=== PATIENT | male | born 1940 | race Caucasian/White ===

== ENCOUNTER → 2017-07-31 11:05 | Outpatient (CLI) | payer MEDICARE, SELFPAY ==
[2017-07-31 14:22] LABS: Hematocrit 43.7 % (40-54); Hemoglobin 14.5 g/dl (13.0-16.5); Mean Corp Hgb Conc 33.2 g/gl (32-36); Mean Corpuscular Hgb 31.4 pg (27.0-32.0); Mean Corpuscular Volume 94.6 fL (80-94); Mean Platelet Vol. 11.2 fl (6.2-12.0); Platelet Count 214 K/mm3 (150-450); RBC Distribution Width CV 12.5 % (11.6-14.6); RBC Distribution Width SD 42.7 fl (35.1-43.9); Red Blood Count 4.62 M/mm3 (4.6-6.2); White Blood Count 9.5 K/mm3 (4.4-11.0)
[2017-07-31 14:36] LABS: Scan Indicated on CBC? Y/N NO
[2017-07-31 14:49] LABS: ALB/GLOB Ratio 1.1 RATIO (0.9-2.4); AST(SGOT) 27 U/L (15-37); Alanine Aminotransfer ALT/SGPT 33 U/L (16-61); Albumin, Serum 3.9 g/dL (3.2-5.0); Alkaline Phosphatase 99 U/L (45-117); Anion Gap 5 (5-15); BUN 20 mg/dL (7-18); BUN/Creat Ratio 22.8 RATIO (10-20); Chloride 107 mmol/L (98-107); Creatinine, Serum 0.88 mg/dL (0.70-1.30); EST Glomerular Filtration Rate 90 mL/min (>60); Est Glom Filt Rate - Afr Amer 108 mL/min (>60); Globulin 3.4 g/dL (2.2-4.2); Glucose 110 mg/dL (74-106); Potassium 4.5 mmol/L (3.5-5.1); Protein, Total 7.3 g/dL (6.4-8.2); Sodium Level 141 mmol/L (136-145); Thyroid Stim Hormone (TSH) 2.58 uIU/mL (0.358-3.74)
== END ==
PROVIDERS: Family Provider Family Medicine; PCP Family Medicine; Visit Provider Family Medicine
DX: I25.10 Atherosclerotic heart disease of native coronary artery without angina pectoris (principal)
CPT/HCPCS: 36415; 80053; 84443; 85027

== ENCOUNTER → 2017-08-01 16:07 | Outpatient (CLI) | payer BC, SELFPAY ==
--- NOTE | 2017-08-01 | LES_PTH ---
PATIENT: BINH WRIGHT LOC: [facility] U#:[id number] AGE/SX: 85/M ROOM: RE08/01/[address]: Dr. Callum Hill MD : 1940 BED: DIS: SPEC #: [id number] RECD: 08/01/17 17:34 STATUS: PEG CARLYN #: [id number] JIM: 08/01/17 00:[address]: Callum Hill DEPT: SURGICAL PATHOLOGY RECD BY: Sánchez Meadows Tissues: Skin of back, NOS Procedures: Surgery Specimen Level IV HEADER OPERATION: Shave lesion PRE-OP DIAGNOSIS: Rule out melanoma TISSUE SUBMITTED: Left upper back MICROSCOPIC DIAGNOSIS Left upper back lesion, shave biopsy: Actinic keratosis with moderate atypia, hypertrophic type with verrucous features. Negative for malignancy or melanoma in the submitted specimen. SJ:magda 08/05/17 COMMENT Case has been reviewed in consultation with Dr. Thayer who concurs with the above diagnosis. IDC:AM MICROSCOPIC DESCRIPTION Slides are reviewed. GROSS DESCRIPTION Received in fixative is one container labeled with the patient's name and designated left back. The specimen consists of an irregular piece of marques-white skin, shave biopsy, measuring 1 x 0.6 x 0.2 cm. The specimen is inked and submitted entirely in one cassette. It will be serially sectioned at the time of embedding. / SJ:rg 08/04/17 TC:5 CPT: 87320
== END ==
PROVIDERS: Family Provider Family Medicine; PCP Family Medicine; Visit Provider Family Medicine
DX: L98.8 Other specified disorders of the skin and subcutaneous tissue (principal)
CPT/HCPCS: 88305

== ENCOUNTER → 2018-02-02 13:38 | Outpatient (CLI) | payer MEDICARE, SELFPAY ==
[2018-02-02 15:54] LABS: Anion Gap 7 (5-15); BUN 24 mg/dL (7-18); BUN/Creat Ratio 28.7 RATIO (10-20); Calcium,Total 8.9 mg/dL (8.5-10.1); Chloride 109 mmol/L (98-107); Cholesterol 131 mg/dL (200); Creatinine, Serum 0.84 mg/dL (0.70-1.30); EST Glomerular Filtration Rate 95 mL/min (>60); Est Glom Filt Rate - Afr Amer 114 mL/min (>60); Glucose 116 mg/dL (74-106); High Density Lipoprotein 42 mg/dL; Potassium 4.5 mmol/L (3.5-5.1); Sodium Level 142 mmol/L (136-145); Thyroid Stim Hormone (TSH) 2.96 uIU/mL (0.358-3.74); Triglycerides 149 mg/dL; Very Low Density Lipoprotein 30 mg/dL (5-40)
== END ==
PROVIDERS: Family Provider Family Medicine; PCP Family Medicine; Visit Provider Family Medicine
DX: E03.9 Hypothyroidism, unspecified (principal); I25.10 Atherosclerotic heart disease of native coronary artery without angina pectoris
CPT/HCPCS: 36415; 80048; 80061; 84443

== ENCOUNTER → 2018-03-24 08:16 | Outpatient (CLI) | payer MEDICARE, SELFPAY ==
[2018-03-24 10:42] LABS: AST(SGOT) 22 U/L (15-37); Alanine Aminotransfer ALT/SGPT 34 U/L (16-61); Albumin, Serum 3.5 g/dL (3.2-5.0); Alkaline Phosphatase 93 U/L (45-117); Bilirubin, Direct 0.16 mg/dL (0.00-0.30); Cholesterol 123 mg/dL (200); Globulin 3.3 g/dL (2.2-4.2); High Density Lipoprotein 46 mg/dL; Protein, Total 6.8 g/dL (6.4-8.2); Triglycerides 83 mg/dL; Very Low Density Lipoprotein 17 mg/dL (5-40)
== END ==
PROVIDERS: Family Provider Family Medicine; PCP Family Medicine; Referring Provider Physician Assistant Medical; Visit Provider Physician Assistant Medical
DX: E78.5 Hyperlipidemia, unspecified (principal); I25.10 Atherosclerotic heart disease of native coronary artery without angina pectoris
CPT/HCPCS: 36415; 80061; 80076

== ENCOUNTER → 2018-08-07 14:45 | Outpatient (CLI) | payer MEDICARE, SELFPAY ==
--- NOTE | 2018-08-07 14:49 | CT_ITS ---
STUDY: CT BRAIN WITHOUT CONTRAST REASON FOR EXAM: Male, 78 years old. Memory loss RADIATION DOSAGE (If Supplied By Facility): CTDIvol = ( 60.81 ) mGy, DLP = ( 1044.28 ) mGycm TECHNIQUE: Transaxial CT imaging of the brain was performed without administration of intravenous contrast material. Individualized dose optimization techniques were used for this CT. COMPARISON: Prior study CT head dated November 29, 2011, was not provided for comparison. FINDINGS: Normal soft tissue structures. Normal calvarium. There is mild cerebral atrophy with widening of the extra-axial spaces and ventricular dilatation. There are areas of decreased attenuation within the white matter tracts of the supratentorial brain, consistent with microvascular disease changes. Normal basal ganglia and thalami. Normal brainstem. Normal cerebellum. There is no intracranial hemorrhage. There are no findings of an acute ischemic infarction. Normal visualized paranasal sinuses. CT/Brain/Head without Contrast IMPRESSION: Mild atrophy no evidence of acute hemorrhage infarct or edema. At the time of this study is a comparison dated November 29, 2011 was not provided for comparison. Electronically Signed: Kacey Overton MD at 11:00 EDT Tel , Service support ,
== END ==
PROVIDERS: Family Provider Family Medicine; PCP Family Medicine; Referring Provider Family Medicine; Visit Provider Family Medicine
DX: R41.3 Other amnesia (principal)
CPT/HCPCS: 70450

== ENCOUNTER → 2018-09-16 15:06 | Outpatient (CLI) | payer MEDICARE, SELFPAY ==
[2018-09-16 17:35] LABS: Absolute Lymphocyte Count 1.72 X10^3/ul (0.83-4.51); Absolute Neutrophil Count 4.7 X10^3/uL (2.0-7.7); Basophil# 0.02 X10^3/uL; Basophil% 0.3 % (0-1); Eosinophil# 0.22 X10^3/uL; Eosinophils% 2.9 % (0-5); Hematocrit 41.1 % (40-54); Hemoglobin 13.5 g/dl (13.0-16.5); Lymphocyte # 1.72 X10^3/ul (4.0); Lymphocyte % 22.9 % (19-41); Mean Corp Hgb Conc 32.8 g/gl (32-36); Mean Corpuscular Hgb 30.8 pg (27.0-32.0); Mean Corpuscular Volume 93.6 fL (80-94); Mean Platelet Vol. 11.6 fl (6.2-12.0); Monocyte# 0.87 X10^3/uL; Monocyte% 11.6 % (0-10); Neutrophil # 4.67 X10^3/uL (2.7-7.7); Platelet Count 187 K/mm3 (150-450); RBC Distribution Width CV 12.8 % (11.6-14.6); RBC Distribution Width SD 42.7 fl (35.1-43.9); Red Blood Count 4.39 M/mm3 (4.6-6.2); White Blood Count 7.5 K/mm3 (4.4-11.0)
[2018-09-16 17:42] LABS: POSITIVE COUNT NO; POSITIVE DIFFERENTIAL NO; POSITIVE MORPHOLOGY NO
[2018-09-16 17:50] LABS: ALB/GLOB Ratio 1.2 RATIO (0.9-2.4); AST(SGOT) 24 U/L (15-37); Alanine Aminotransfer ALT/SGPT 28 U/L (16-61); Albumin, Serum 3.8 g/dL (3.2-5.0); Alkaline Phosphatase 90 U/L (45-117); Anion Gap 6 (5-15); BUN 16 mg/dL (7-18); BUN/Creat Ratio 17.1 RATIO (10-20); Calcium,Total 8.8 mg/dL (8.5-10.1); Chloride 106 mmol/L (98-107); Creatinine, Serum 0.94 mg/dL (0.70-1.30); EST Glomerular Filtration Rate 83 mL/min (>60); Est Glom Filt Rate - Afr Amer 100 mL/min (>60); Globulin 3.1 g/dL (2.2-4.2); Glucose 105 mg/dL (74-106); Protein, Total 6.9 g/dL (6.4-8.2); Sodium Level 141 mmol/L (136-145); Thyroid Stim Hormone (TSH) 1.83 uIU/mL (0.358-3.74)
[2018-09-16 17:51] LABS: Vitamin B12 1741 pg/mL (211-911)
[2018-09-16 17:54] LABS: Erythrocyte Sedimentation Rate 1 mm/hr (0-20)
== END ==
PROVIDERS: Family Provider Family Medicine; PCP Family Medicine; Referring Provider Family Medicine; Visit Provider Family Medicine
DX: R41.3 Other amnesia (principal)
CPT/HCPCS: 36415; 80053; 82306; 82607; 84443; 85025; 85652

== ENCOUNTER → 2018-10-08 07:50 | Outpatient (CLI) | payer MEDICARE, SELFPAY ==
[2018-03-26 11:02] VITALS: BMI 29.9
[2018-10-08 10:13] LABS: AST(SGOT) 21 U/L (15-37); Alanine Aminotransfer ALT/SGPT 28 U/L (16-61); Albumin, Serum 3.5 g/dL (3.2-5.0); Alkaline Phosphatase 82 U/L (45-117); Bilirubin, Direct 0.13 mg/dL (0.00-0.30); Cholesterol 117 mg/dL (200); Globulin 3.1 g/dL (2.2-4.2); High Density Lipoprotein 45 mg/dL; Protein, Total 6.6 g/dL (6.4-8.2); Triglycerides 63 mg/dL; Very Low Density Lipoprotein 13 mg/dL (5-40)
[2018-10-08 10:20] LABS: Vitamin D,25 Hydroxy 45.4 ng/mL (29.95-100.01)
== END ==
PROVIDERS: Family Provider Family Medicine; PCP Family Medicine; Referring Provider Physician Assistant Medical; Visit Provider Physician Assistant Medical
DX: E55.9 Vitamin D deficiency, unspecified (principal); E78.5 Hyperlipidemia, unspecified
CPT/HCPCS: 36415; 80061; 80076; 82306

== ENCOUNTER 2018-11-19 13:25 | Emergency (ER) | payer MEDICARE, SELFPAY ==
[2018-10-08 09:53] VITALS: BMI 29.1
[2018-11-19 13:26] VITALS: BP 98/50; PULSE 42; RESP 22; TEMP 36.3; O2SAT 95; BMI 27.3
--- NOTE | 2018-11-19 13:36 | EKG12_ITS ---
Test Reason : SOB Blood Pressure : / mmHG Vent. Rate : 074 BPM Atrial Rate : 063 BPM P-R Int : 000 ms QRS Dur : 172 ms QT Int : 476 ms P-R-T Axes : 000 106 267 degrees QTc Int : 528 ms Normal Sinus Rhythm with frequent AV dual-paced complexes and Fusion complexes Non-specific intra-ventricular conduction block Possible Right ventricular hypertrophy Marked T wave abnormality, consider inferior ischemia Marked T wave abnormality, consider anterolateral ischemia Abnormal ECG Confirmed by ANTONIO ROBERTS, JUDITH ([id number]), offline editor LEEANNE DOWNS ([id number]) on 11/24/2018 1:51:41 PM Referred By: RADHA Confirmed By:JUDITH ALVAREZ MD
--- NOTE | 2018-11-19 13:38 | ED.DCSUM_ITS ---
History of Present Illness Chief Complaint: Dizziness Detail of Chief Complaint: Dizziness is defined as lightheadedness Informant: Patient, Significant Other Limited by: Dementia Onset: Today Context: Sudden Onset Timing: Continuous Quality: Tunnel vision with lightheadedness Location: The fair Current Severity: Mild Maximum Severity: Moderate Worsened by: Standing Relieved by: Nothing Associated Symptoms: Dyspnea with exertion Narrative: Patient is an elderly male with history of dementia and biventricular dilated cardiomyopathy, atherosclerotic heart disease, hypertension who was brought to the emergency department because of tunnel vision when he becomes lightheaded. His lightheadedness is worse when he is sitting or standing. He reported improvement when he was supine on the examination cot. He presently denies headache. He presently denies chest pain. He presently denies shortness of breath. He does recall shortness of breath with walking. states that he had to walk a significant distance. He did not voice complaints of chest pain. He denies black or maroon stool. 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 Status: Chronic Comment: Dual chamber ICD placement 12/04/11 (3) Dilated cardiomyopathy Status: Chronic (4) GERD (gastroesophageal reflux disease) Status: Chronic (5) HLD (hyperlipidemia) Status: Chronic (6) Left bundle branch block Status: Chronic (7) Non-ST elevation (NSTEMI) myocardial infarction Status: Chronic (8) Ventricular tachycardia Status: Chronic Past Medical History - Allergies and Home Meds Allergies/Adverse Reactions: Allergies No Known Allergies Allergy (Verified 11/19/18 13:30) Primary Care Physician: Dilshad Hill MD [Primary Care Provider] - Prior records reviewed: Yes Surgical History: no surgical history, pacemaker implantation - 4 years previous. Lives: Spouse/ Significant Other Smoking Status: Former smoker Alcohol: None Review of Systems General: Denies: Chills, Fever, Malaise, Sweats Eyes: Reports: Visual changes - bilaterally. Denies: Blurred Vision - bilateral ly, Diplopia ENT: Denies: Bilateral ear pain, Rhinorrhea, Sore throat Cardiovascular: Denies: Chest pain, Palpitations, Heart racing Respiratory: Reports: Dyspnea on exertion. Denies: Dyspnea, Cough, Sputum, Orthopnea, Paroxysmal nocturnal dyspnea Gastrointestinal: Denies: Abdominal pain, Nausea, Vomiting, Diarrhea Genitourinary: Denies: Dysuria, Hematuria, Frequency Musculoskeletal: Denies: Myalgias, Arthralgias, Neck pain, Back pain Neurological: Reports: Weakness. Denies: Headache, Parasthesia, Numbness Hematologic: Reports: Easy bruising, Easy bleeding Allergy: Reports: Uticaria. Denies: Swelling of the mouth Physical Exam Vital Signs/Narrative: Vital Signs Temp Pulse Resp BP Pulse Ox 11/19/18 13:26 97.3 F L 42 L 22 H 98/50 L 95 Inital Vital Signs reviewed: Yes General: Well nourished, Well developed, No Acute Distress Head: Normocephalic, Atraumatic Eyes: Perrl, EOMI. Negative for: Pale conjunctiva, Scleral icterus, - ENT: No rhinorrhea, Dry mucous membranes Neck: Supple, Nontender, No lymphadenopathy, No JVD, - Cardiovascular: Regular rate, Normal S1, Normal S2, Irregular Respiratory: No distress, CTA bilaterally, Chest nontender Abdomen: Soft, Nontender, Nondistended, Normal bowel sounds Rectal: Deferred Back: Nontender, Normal Inspection Extremities: Nontender, No edema Skin: Normal color, No rash. Negative for: Cyanosis, Diaphoresis, Jaundice Neurological: Alert, Cranial nerves II-XII grossly intact, Normal Strength, Normal Sensation. Negative for: Oriented x3 Psychological: Normal affect, Normal Mood Diagnostic/Tx/Re-eval Laboratory Results 11/19/18 11/19/18 13:35 13:35 WBC 9.8 RBC 4.22 L Hgb 13.2 Hct 38.5 L MCV 91.2 MCH 31.3 MCHC 34.3 RDW 12.8 RDW Differential 42.4 Plt Count 194 MPV 10.2 Immature Gran % (Auto) 0.100 Neut % (Auto) 64.0 Lymph % (Auto) 22.7 [place] % (Auto) 9.8 Eos % (Auto) 3.1 Baso % (Auto) 0.3 Absolute Neuts (auto) 6.3 Absolute Lymphs (auto) 2.22 Total Counted Not Reportable Sodium 137 Potassium 4.1 Chloride 107 Carbon Dioxide 25.0 Anion Gap 5 BUN 31 H Creatinine 1.31 H Estim Creat Clear Calc 42.61 Est GFR (MDRD) Af Amer 68 Est GFR (MDRD) Non-Af 56 L BUN/Creatinine Ratio 23.7 H Glucose 109 H Calcium 10.1 2 months ago BUN and creatinine were 16 and 0.94. This would indicate acute renal insufficiency secondary to dehydration. - Medical Decision Making Patient's history is consistent with orthostatic hypotension. Clinically he is dehydrated. IV was established he received 250 cc of normal saline. Will obtain baseline blood work to assess for electrolyte normality, elevated BUN/creatinine ratio and anemia. Patient was reassessed at 1445. He states he feels much better. He was instructed to stay out of the hot sun and warm weather today and drink more fluids. He was instructed to follow-up with his doctor, Dr. Callum Hill for repeat blood work. ED Disposition - Plan for ED Patient: Disposition: Home or Assisted Living Diagnosis: Heat exhaustion due to water depletion, Acute renal insufficiency Instructions: Heat Exhaustion, Dehydration Referrals: Dilshad Hill MD [Primary Care Provider] - 5-7 Days Additional Instructions: Call Dr. Hendrickson's office tomorrow for blood work in the next 5 days to assess your kidney function.
[2018-11-19 13:39] VITALS: BP 138/80; PULSE 67; RESP 14; O2SAT 98
[2018-11-19 13:51] LABS: Absolute Lymphocyte Count 2.22 X10^3/ul (0.83-4.51); Absolute Neutrophil Count 6.3 X10^3/uL (2.0-7.7); Basophil# 0.03 X10^3/uL; Basophil% 0.3 % (0-1); Eosinophils% 3.1 % (0-5); Hematocrit 38.5 % (40-54); Hemoglobin 13.2 g/dl (13.0-16.5); Lymphocyte # 2.22 X10^3/ul (4.0); Lymphocyte % 22.7 % (19-41); Mean Corp Hgb Conc 34.3 g/gl (32-36); Mean Corpuscular Hgb 31.3 pg (27.0-32.0); Mean Corpuscular Volume 91.2 fL (80-94); Mean Platelet Vol. 10.2 fl (6.2-12.0); Monocyte# 0.96 X10^3/uL; Monocyte% 9.8 % (0-10); Neutrophil # 6.25 X10^3/uL (2.7-7.7); Platelet Count 194 K/mm3 (150-450); RBC Distribution Width CV 12.8 % (11.6-14.6); RBC Distribution Width SD 42.4 fl (35.1-43.9); Red Blood Count 4.22 M/mm3 (4.6-6.2); White Blood Count 9.8 K/mm3 (4.4-11.0)
[2018-11-19 13:53] LABS: POSITIVE COUNT NO; POSITIVE DIFFERENTIAL NO; POSITIVE MORPHOLOGY NO
[2018-11-19 14:04] LABS: Anion Gap 5 (5-15); BUN 31 mg/dL (7-18); BUN/Creat Ratio 23.7 RATIO (10-20); Calcium,Total 10.1 mg/dL (8.5-10.1); Chloride 107 mmol/L (98-107); Creatinine, Serum 1.31 mg/dL (0.70-1.30); EST Glomerular Filtration Rate 56 mL/min (>60); Est Glom Filt Rate - Afr Amer 68 mL/min (>60); Estimated Creatinine Clearance 42.61 ml/min; Glucose 109 mg/dL (74-106); Potassium 4.1 mmol/L (3.5-5.1); Sodium Level 137 mmol/L (136-145)
[2018-11-19 14:11] VITALS: BP 127/77; PULSE 60; RESP 17; O2SAT 97
[2018-11-19 15:03] VITALS: BP 125/76; PULSE 60; RESP 15; O2SAT 96
== END 2018-11-19 15:04 | disposition home or self-care (01) ==
PROVIDERS: Emergency Provider Emergency Medicine; Family Provider Family Medicine; PCP Family Medicine
DX: T67.3XXA Heat exhaustion, anhydrotic, initial encounter (principal); N28.9 Disorder of kidney and ureter, unspecified; F03.90 Unspecified dementia, unspecified severity, without behavioral disturbance, psychotic disturbance, mood disturbance, and anxiety; I10 Essential (primary) hypertension; E78.5 Hyperlipidemia, unspecified; I25.10 Atherosclerotic heart disease of native coronary artery without angina pectoris; I42.0 Dilated cardiomyopathy; K21.9 Gastro-esophageal reflux disease without esophagitis; I44.7 Left bundle-branch block, unspecified; I25.2 Old myocardial infarction; Z87.891 Personal history of nicotine dependence; Z95.810 Presence of automatic (implantable) cardiac defibrillator
CPT/HCPCS: 80048; 85025; 93005; 99284; J7030; A4216

== ENCOUNTER → 2018-11-20 13:04 | Outpatient (CLI) | payer MEDICARE, SELFPAY ==
[2018-11-19 13:26] VITALS: BMI 27.3
[2018-11-20 14:19] LABS: Anion Gap 8 (5-15); BUN 29 mg/dL (7-18); BUN/Creat Ratio 26.4 RATIO (10-20); Calcium,Total 9.1 mg/dL (8.5-10.1); Chloride 107 mmol/L (98-107); EST Glomerular Filtration Rate 69 mL/min (>60); Est Glom Filt Rate - Afr Amer 83 mL/min (>60); Glucose 140 mg/dL (74-106); Potassium 4.6 mmol/L (3.5-5.1); Sodium Level 139 mmol/L (136-145)
== END ==
PROVIDERS: Family Provider Family Medicine; PCP Family Medicine; Referring Provider Family Medicine; Visit Provider Family Medicine
DX: I25.10 Atherosclerotic heart disease of native coronary artery without angina pectoris (principal)
CPT/HCPCS: 36415; 80048

== ENCOUNTER → 2019-06-10 07:43 | Outpatient (CLI) | payer MEDICARE, SELFPAY ==
[2019-06-09 12:39] VITALS: BMI 28.8
[2019-06-10 08:27] LABS: Absolute Lymphocyte Count 1.87 X10^3/uL (0.83-4.51); Absolute Neutrophil Count 3.8 X10^3/uL (2.0-7.7); Basophil# 0.03 X10^3/uL; Basophil% 0.4 % (0-1); Eosinophil# 0.25 X10^3/uL; Eosinophils% 3.7 % (0-5); Hematocrit 40.3 % (40-54); Lymphocyte # 1.87 X10^3/ul (4.0); Lymphocyte % 27.5 % (19-41); Mean Corp Hgb Conc 32.3 g/dL (32-36); Mean Corpuscular Hgb 30.4 pg (27.0-32.0); Mean Corpuscular Volume 94.2 fL (80-94); Mean Platelet Vol. 10.3 fl (6.2-12.0); Monocyte% 11.8 % (0-10); NRBC Flagged by Analyzer 0 % (0-5); Neutrophil # 3.82 X10^3/uL (2.7-7.7); Neutrophil % 56.2 % (47-70); Platelet Count 215 K/mm3 (150-450); RBC Distribution Width CV 12.7 % (11.6-14.6); RBC Distribution Width SD 43.7 fl (35.1-43.9); Red Blood Count 4.28 M/mm3 (4.6-6.2); White Blood Count 6.8 K/mm3 (4.4-11.0)
[2019-06-10 09:08] LABS: AST(SGOT) 26 U/L (15-37); Alanine Aminotransfer ALT/SGPT 35 U/L (16-61); Albumin, Serum 3.5 g/dL (3.2-5.0); Alkaline Phosphatase 96 U/L (45-117); Anion Gap 3 (5-15); BUN 21 mg/dL (7-18); Bilirubin, Direct 0.21 mg/dL (0.00-0.30); Calcium,Total 8.8 mg/dL (8.5-10.1); Chloride 105 mmol/L (98-107); Cholesterol 143 mg/dL (200); Creatinine, Serum 0.91 mg/dL (0.70-1.30); EST Glomerular Filtration Rate 85 mL/min (>60); Est Glom Filt Rate - Afr Amer 103 mL/min (>60); Globulin 3.4 g/dL (2.2-4.2); Glucose 113 mg/dL (74-106); High Density Lipoprotein 53 mg/dL; Potassium 4.4 mmol/L (3.5-5.1); Protein, Total 6.9 g/dL (6.4-8.2); Sodium Level 139 mmol/L (136-145); Triglycerides 89 mg/dL; Very Low Density Lipoprotein 18 mg/dL (5-40)
== END ==
PROVIDERS: PCP Family Medicine; Referring Provider Internal Medicine Cardiovascular Disease; Visit Provider Internal Medicine Cardiovascular Disease
DX: E78.00 Pure hypercholesterolemia, unspecified (principal)
CPT/HCPCS: 36415; 80048; 80061; 80076; 85025

== ENCOUNTER → 2019-08-18 10:25 | Outpatient (CLI) | payer MEDICARE, SELFPAY ==
[2019-06-09 12:39] VITALS: BMI 28.8
--- NOTE | 2019-08-18 | LES_PTH ---
PATIENT: BINH WRIGHT LOC: [facility] U#:[id number] AGE/SX: 85/M ROOM: RE08/18/[address]: Dr. Callum Hill MD : 1940 BED: DIS: SPEC #: [id number] RECD: 08/18/19 12:11 STATUS: PEG CARLYN #: [id number] JIM: 08/18/19 00:[address]: Callum Hill DEPT: SURGICAL PATHOLOGY RECD BY: Ariel Carlisle ENTERED: 08/19/19 11:27 SP TYPE: Lesion OTHR DR: Callum Hill MD Tissues: Skin of face, NOS Procedures: Special Stain Group I Surgery Specimen Level IV GMS Stain (control) HEADER OPERATION: Excision face (cheek) PRE-OP DIAGNOSIS: Right cheek, ? BCC TISSUE SUBMITTED: Right cheek excision MICROSCOPIC DIAGNOSIS Right cheek lesion, biopsy: Ulceration with associated acute and chronic inflammation and fibrinopurulent material. Favor reactive epithelial atypia. Negative for fungal organisms. See comment. AM:magda 08/20/19 COMMENT GMS stain with matched control was used in the evaluation of this case. The biopsy is superficial with detached fragments of squamous epithelium. Complete excision is recommended for definitive classification Case has been reviewed in consultation with Dr. Pal who concurs with the above diagnosis. IDC:SJ MICROSCOPIC DESCRIPTION Slides are reviewed. GROSS DESCRIPTION Received in fixative is one container labeled with the patient's name and designated right cheek. The specimen consists of two irregular fragments of light marques shaved skin that in aggregate measure 0.6 x 0.5 x <0.1 cm. The specimen is totally submitted in one cassette. / AM:magda 08/19/19 TC:2 CPT: 77912, 77553
[2019-08-18 10:57] LABS: Absolute Neutrophil Count 4.8 X10^3/uL (2.0-7.7); Basophil# 0.05 X10^3/uL; Basophil% 0.6 % (0-1); Eosinophil# 0.48 X10^3/uL; Hematocrit 38.4 % (40-54); Hemoglobin 12.7 g/dL (13.0-16.5); Lymphocyte % 24.8 % (19-41); Mean Corp Hgb Conc 33.1 g/dL (32-36); Mean Corpuscular Hgb 30.7 pg (27.0-32.0); Mean Corpuscular Volume 92.8 fL (80-94); Monocyte# 0.73 X10^3/uL; Monocyte% 9.1 % (0-10); NRBC Flagged by Analyzer 0 % (0-5); Neutrophil # 4.76 X10^3/uL (2.7-7.7); Platelet Count 201 K/mm3 (150-450); RBC Distribution Width CV 12.6 % (11.6-14.6); RBC Distribution Width SD 42.9 fl (35.1-43.9); Red Blood Count 4.14 M/mm3 (4.6-6.2); White Blood Count 8.1 K/mm3 (4.4-11.0)
[2019-08-18 11:32] LABS: ALB/GLOB Ratio 1.1 RATIO (0.9-2.4); AST(SGOT) 30 U/L (15-37); Alanine Aminotransfer ALT/SGPT 25 U/L (16-61); Albumin, Serum 3.5 g/dL (3.2-5.0); Alkaline Phosphatase 87 U/L (45-117); Anion Gap 5 (5-15); BUN 25 mg/dL (7-18); BUN/Creat Ratio 27.2 RATIO (10-20); Chloride 105 mmol/L (98-107); Creatinine, Serum 0.92 mg/dL (0.70-1.30); EST Glomerular Filtration Rate 85 mL/min (>60); Est Glom Filt Rate - Afr Amer 102 mL/min (>60); Globulin 3.3 g/dL (2.2-4.2); Glucose 120 mg/dL (74-106); Potassium 4.5 mmol/L (3.5-5.1); Protein, Total 6.8 g/dL (6.4-8.2); Sodium Level 137 mmol/L (136-145); Thyroid Stim Hormone (TSH) 1.35 uIU/mL (0.358-3.74)
== END ==
PROVIDERS: PCP Family Medicine; Referring Provider Family Medicine; Visit Provider Family Medicine
DX: I25.10 Atherosclerotic heart disease of native coronary artery without angina pectoris (principal); E03.9 Hypothyroidism, unspecified
CPT/HCPCS: 36415; 80053; 84443; 85025; 88305; 88312

== ENCOUNTER 2019-09-20 08:20 | Day surgery (SDC) | payer MEDICARE, SELFPAY ==
[2019-09-13 10:12] VITALS: BMI 28.8
[2019-09-20] VITALS (7 sets, daily range): BP systolic 115–128; BP diastolic 67–77; PULSE 59–62; RESP 15–18; TEMP 36.3–36.6; O2SAT 93–98; BMI 29.5
--- NOTE | 2019-09-20 | LES_PTH ---
PATIENT: BINH WRIGHT LOC: [facility] U#:[id number] AGE/SX: 79/M ROOM: RE09/20/[address]: Dr. Livan Peters MD : 1940 BED: DIS: 09/20/2019 SPEC #: [id number] RECD: 09/20/19 10:16 STATUS: PEG CARLYN #: [id number] JIM: 09/20/19 00:[address]: Livan Peters DEPT: SURGICAL PATHOLOGY RECD BY: Roz Tipton ENTERED: 09/20/19 10:52 SP TYPE: Lesion OTHR DR: Dr. Callum Hill MD Tissues: A - Skin of eyelid, NOS B - Skin of eyelid, NOS Procedures: Frozen Section (charge) Surgery Specimen Level IV HEADER OPERATION: Excision squamous atypia lateral lower eyelid, frozen section PRE-OP DIAGNOSIS: 0.8 cm ulcerated squamous lesion with atypia right lateral lower eyelid; history of skin cancer TISSUE SUBMITTED: A - 0.8 cm ulcerated squamous lesion with atypia right lateral lower eyelid, frozen section, B - Carcinoma in situ, right lower lateral eyelid, permanent, suture at 12 o'clock FROZEN SECTION DIAGNOSIS A. 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 SJ:magda 09/20/19 Case has been reviewed in consultation with Dr. Thayer who concurs with the above diagnosis. IDC:AM MICROSCOPIC DIAGNOSIS A. Skin lesion right lateral lower eyelid, biopsy: Squamous cell carcinoma in situ, completely excised. Chronic inflammation and solar elastosis. B. Skin lesion right lateral lower eyelid, excision: Ulceration consistent with recent biopsy: Solar elastosis. No evidence of malignancy. AM:magda 09/22/19 COMMENT Case has been reviewed in consultation with Dr. Pal who concurs with the above diagnosis. IDC:SJ MICROSCOPIC DESCRIPTION Slides are reviewed. GROSS DESCRIPTION A - Received fresh for frozen section consultation/diagnosis labeled with the patient's name is a specimen designated right lateral lower eyelid. The specimen consists of a shave biopsy of marques-white skin measuring 1 x 1 x 0.1 cm. The specimen is oriented by a suture at 12 o'clock. The specimen is inked as follows: 12 to 3 o'clock - black, 3 to 6 o'clock - blue, 6 to 9 o'clock - green and 9 to 12 o'clock - yellow. A central area of ulceration is noted measuring 0.5 x 0.5 cm. The specimen is serially sectioned and submitted entirely for frozen section diagnosis in one cassette. / :magda 09/20/19 B - Received in fixative is one container labeled with the patient's name and designated carcinoma in situ, right lower lateral eyelid, suture at 12 o'clock. The specimen consists of a round piece of marques-white skin measuring 1.4 x 1.5 cm and 0.1 cm in thickness. The specimen shows a central area of ulceration measuring 1 x 1 cm. The specimen is oriented by a suture at 12 o'clock. The specimen is inked as follows: 12 to 3 o'clock - black, 3 to 6 o'clock - blue, 6 to 9 o'clock - green and 9 to 12 o'clock - yellow. The specimen is serially sectioned and submitted entirely in one cassette. / SJ:magda 09/21/19 TC:0 CPT: 58573 x2, 06913
--- NOTE | 2019-09-20 08:25 | PCM.HP.BLA ---
History and Physical Date of Admission: 09/20/19 HISTORY OF PRESENT ILLNESS 79 year old man presents for evaluation for TBSE. He has concerns about an ulcerated lesion on his right lateral lower eyelid near cheek crease that had increased in size over the last several months. He denies trauma. He denies fever. He denies drainage. He denies recent infection. He denies visual problems. The lesion was shave biopsied on 08/18/19 and it showed squamous atypia and could not rule out invasion because of the superficial nature of the shave. He presents at this time for further evaluation and treatment. Patient has had skin cancers removed in the past. 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 (Chronic 10/25/15) Non-ischemic cardiomyopathy (Chronic 07/22/15) Left bundle branch block (Chronic) Monomorphic ventricular tachycardia (Chronic) Atherosclerotic heart disease of [place] coronary artery without angina pectoris (Chronic) Non-ST elevation (NSTEMI) myocardial infarction (Resolved 07/22/15) Essential (primary) hypertension (Chronic) HLD (hyperlipidemia) (Chronic) Frequent headaches (Acute) Hearing problem (Acute) Skin cancer (Acute) GERD (gastroesophageal reflux disease) (Chronic) Obesity (Chronic) Breakdown (mechanical) of cardiac electrode, initial encounter (Inactive) PAST SURGICAL HISTORY coronary artery stent placement left heart catheterization ALLERGIES No Known Allergies MEDICATIONS Folic Acid 1 mg PO DAILY 07/21/15 [History Confirmed 09/13/19] Levothyroxine [Synthroid] 75 mcg PO DAILY 07/21/15 [History Confirmed 09/13/19] Aspirin [Adult Low Dose Aspirin EC] 81 mg PO DAILY 09/11/15 [History Confirmed 09/13/19] Nitroglycerin (INPATIENT USE) [Nitrostat] 0.4 mg SUBLINGUAL Q5M PRN 09/11/15 [History Confirmed 09/13/19] lisinopril 5 mg tablet 5 mg PO BID #180 tab 09/02/18 [Rx Confirmed 09/13/19] cholecalciferol (vitamin D3) 1,250 mcg (50,000 unit) capsule 50,000 unit PO FR 84 Days #12 cap 10/08/18 [History Confirmed 09/13/19] coenzyme Q10 100 mg capsule 100 mg PO DAILY 10/08/18 [History Confirmed 09/13/19] escitalopram oxalate 5 mg tablet 5 mg PO DAILY 30 Days #30 tab 10/08/18 [History Confirmed 09/13/19] carvedilol 25 mg tablet 25 mg PO BID #180 tab 04/03/19 [Rx Confirmed 09/13/19] donepezil 10 mg tablet 10 mg PO DAILY tab 06/09/19 [History Confirmed 09/13/19] memantine 5 mg tablet mg PO 06/09/19 [History Confirmed 09/13/19] FAMILY HISTORY Mother - Hypertension, Arthritis SOCIAL HISTORY Smoking Status: Never smoker how long ago did patient quit smokin alcohol intake: never substance use type: does not use REVIEW OF SYSTEMS General - Denies fever, fatigue, and weight loss. Eyes - Denies cataracts and glaucoma. ENT - Denies nasal congestion and sore throat. Has chronic sinus problems. Endocrine - Has excessive thirst and urination. Skin - Has suspicious ulcerated lesion right lateral lower eyelid that was shave biopsied on 08/18/19 which showed squamous atypia. He has a personal history of skin cancer. Musculoskeletal - Denies joint pain, joint stiffness, weakness of muscles and joints, back pain, and arthritis. Neuro - Denies headaches. Cardiovascular - Denies chest pain, fatigue, and shortness of breath with exertion. He has pacemaker defibrillator. Psych - Denies anxiety and depression. Respiratory - Denies chronic cough and shortness of breath. Gastrointestinal - Denies nausea, vomiting, diarrhea, and constipation. Hematologic - Denies abnormal bruising and bleeding. Genitourinary - Denies hematuria. Has urinary frequency. PHYSICAL EXAMINATION General - Alert and Oriented HEENT - PERRL. EOMI. Throat is clear. On the right lateral lower eyelid near the cheek crease is an ulcerated lesion that measures 0.8 cm. Has irregular borders. Lesion is nontender. Recent shave biopsy from 08/18/19 showed squamous atypia, can't rule out invasion. Neck - Supple and nontender. No cervical adenopathy. No suspicious lesions noted. Lungs - Clear to auscultation. Heart - Regular rate and rhythm. Abdomen - Soft and nondistended. Extremities - FROM. No axillary adenopathy. Radial pulses are palpable. No suspicious lesions noted. Neuro - CN II-XII grossly intact. Psych - Normal mood and affect. ASSESSMENT 1. 0.8 cm ulcerated squamous lesion with atypia right lateral lower eyelid, can't rule out invasion. 2. Personal history of skin cancer. PLAN Pathology report reviewed. The shave biopsy showed squamous lesion with atypia, can't rule out invasion. Recommend full thickness excision of this ulcerated squamous lesion with atypia with a 5-6 mm margin in all directions. Will send the lesion to Pathology for analysis to rule out carcinoma. I anticipate there will be invasion with the full thickness excision, so I want to proceed with the proper margin as though there is invasion. That way, I won't have to return the patient to the OR for additional margin excision. Reconstruction will be with skin grafting of the portion of the defect on the lower eyelid and for the portion of the defect on the upper cheek, I would proceed with a cheek advancement flap. The donor site for the skin graft may be the upper eyelid skin. Other areas include preauricular or postauricular areas. Patient was informed of the risks and complications of the procedure including alternatives to surgery. These were discussed with the patient personally. Patient voices understanding and wishes to proceed. Some of the risks and complications were included in a form from the [place] [employer]. Surgery will be done under general anesthesia on an outpatient basis.
[2019-09-20] MEDS: Lactated Ringers 1,000 ML 100 ML IV (08:55)
[2019-09-20] MEDS: Mupirocin Ointment 22gm Tube 1 APPLIC (11:33)
--- NOTE | 2019-09-20 11:45 | OP.PCM_ITS ---
Report of Operation Date of Procedure: 09/20/19 Pre-Operative Diagnosis: 1. 0.8 cm ulcerated squamous lesion with atypia right lateral lower eyelid, can't rule out invasion. 2. Personal history of skin cancer. Post-Operative Diagnosis: 1. 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 2. Personal history of skin cancer. 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 Description of Surgical Findings:: 79 year old man presents for evaluation for TBSE. He has concerns about an ulcerated lesion on his right lateral lower eyelid near cheek crease that had increased in size over the last several months. He denies trauma. He denies fever. He denies drainage. He denies recent infection. He denies visual problems. The lesion was shave biopsied on 08/18/19 and it showed squamous atypia and could not rule out invasion because of the superficial nature of the shave. He presents at this time for further evaluation and treatment. Patient has had skin cancers removed in the past. Patient was informed of the risks and complications of the procedure including alternatives to surgery. These were discussed with the patient personally. Patient voices understanding and wishes to proceed. Some of the risks and complications were included in a form from the [employer]. Due to the Coronavirus pandemic, other risks and complications include but are not inclusive of levy the Coronavirus despite taking all standard necessary precautions. He voices understanding and wishes to proceed. Frozen section right lateral lower eyelid near cheek crease - squamous cell carcinoma in situ. Size of skin graft right lateral lower eyelid near cheek crease - 1.8 x 1.8 cm. advertising account manager: Alexis Maddox. Type of Anesthesia:: Local MAC - xylocaine with epinephrine and IV sedation. Specimen's removed: 1. Ulcerated squamous lesion with atypia right lateral lower eyelid near cheek crease to Pathology as a frozen section. 2. Ulcerated squamous cell carcinoma in situ right lateral lower eyelid near cheek crease to Pathology. Drains: None. Estimated Blood Loss (mL): 10 ml. Description of Procedure: Patient was taken to OR in supine position and was given IV sedation. The face and neck areas were prepped and draped in the usual fashion. SCD's were placed for DVT prophylaxis. Perioperative antibiotics were given intravenously. The ulcerated lesion right lateral lower eyelid near cheek crease was infiltrated with xylocaine and epinephrine. After waiting 5 minutes for the anesthetic to take effect, a full thickness excision was done in a circular fashion with a couple of mm margin in all directions. A suture was marked at 12 oclock positio n for pathology orientation. The lesion was sent to Pathology as a frozen section. Frozen section showed a squamous cell carcinoma in situ. Therefore additional margin excision will be done, 5 mm in all directions. Additional margin was excised in a circular fashion into the subcutaneous tissue. A suture was marked at 12 oclock position for pathology orientation. The lesion was sent to Pathology for analysis to rule out carcinoma at the margins. Hemostasis was obtained with electrocautery. The size of the defect to be skin grafted was 1.8 x 1.8 cm or 3.24 cm2. Since the defect was on the lower eyelid without traversing the cheek eyelid crease onto the thicker cheek skin, we can proceed with skin grafting the defect using the upper eyelids as the donor area for the skin graft. I marked out blepharoplasty type markings on the lateral aspect of both upper eyelids. They were located 1 cm from the eyelid margin. I pinched the skin in between the markings and no tension was seen on the eyelid margin. The markings were infiltrated with xylocaine with epinephrine. Incisions were made down into the subcutaneous tissue down to the level of the muscle. The skin was from the subcutaneous tissue thus fashioning full thickness skin grafts. The skin grafts were placed on the defect right lateral lower eyelid and secured to the skin edges with 5-0 Chromic simple interrupted sutures. 5-0 Chromic sutures were also used for central quilting stabilization. I tried a compression dressing with antibiotic ointment and Xeroform gauze and cotton ball soaked in saline with a 4-0 Nylon tie over stent suture dressing. It put too much tension on the lower eyelid leading to some scleral show. I was concerned about the possibility of it worsening over the next few days leading to an ectropion. So I removed the skin graft dressing and just applied antibiotic ointment to it followed by a 2x2 gauze. The lower eyelid rested along the lower limbus with no more evidence of scleral show. For the donor areas on the upper eyelids, hemostasis was obtained with electrocautery. The donor wounds were closed in a layered fashion with 5-0 Monocryl interrupted sutures for the dermis. The skin was approximated with 5-0 fast absorbing simple running suture. Antibiotic ointment was applied to the suture lines. Patient tolerated the procedure well and was sent to PACU in satisfactory condition. Patient will be sent home on antibiotics and pain medication. He will keep his head elevated during the initial postoperative period. He will be on a lifting restriction as well. Patient will followup later this week on Friday for a wound check and for discussion of the pathology report. Grafts/Implants Used: None. - Complications None. - Admit VTE Documentation VTE Present on Admission: No VTE Mechan Device Prophylaxis: SCD's VTE Pharm Prophylaxis ordered?: No Surgery Charges CPT - 47256 ICD-10 - D04.112, D48.5, Z85.828 22426 D04.112, D48.5, Z85.828
--- NOTE | 2019-09-20 11:58 | DCINST_ITS ---
You will use the following diet at home:: No restrictions Discharge Activity: May not drive while taking narcotic pain medications., May Shower - in two days., - - keep head elevated. no heavy lifting. May shower in (days): 2 May resume sexual activity in: 10-14 days Ice area for (Minutes): 5 - as needed for facial swelling. Weight Bearing Status: Weight bearing as tolerated Lifting Restrictions: 10 lbs. Keep extremity elevated above heart level: - - elevate head. Call your doctor if your incision/area has: Continuous Slow Oozing, Sudden Increased Bleeding, Increased Pain/ Swelling, Increased Redness, Foul Smelling Discharge, Swelling at the incision site Call your doctor if you observe: Fever of 101 or Higher, Coldness, Increased Pain, Shortness of breath, Chest pain, Calf discomfort, Uncontrolled pain Suture Line Care: - - apply antibiotic ointment to suture lines and skin graft daily. Change Dressing in (Days):: 2 Cleanse incision/area with: - - may get incisions wet in the shower in two days. Additional Dressing/Incision Instructions:: patient may apply artificial tears as needed. Allergies/Adverse Reactions: Allergies No Known Allergies Allergy (Verified 09/20/19 08:29) Medications to take at Discharge Folic Acid 1 mg PO DAILY 07/21/15 Levothyroxine [Synthroid] 75 mcg PO DAILY 07/21/15 Nitroglycerin (INPATIENT USE) [Nitrostat] 0.4 mg SUBLINGUAL Q5M PRN 09/11/15 lisinopril 5 mg tablet 5 mg PO BID #180 tab 09/02/18 coenzyme Q10 100 mg capsule 100 mg PO DAILY 10/08/18 escitalopram oxalate 5 mg tablet 5 mg PO DAILY 30 Days #30 tab 10/08/18 carvedilol 25 mg tablet 25 mg PO BID #180 tab 04/03/19 donepezil 10 mg tablet 10 mg PO DAILY tab 06/09/19 memantine 5 mg tablet 5 mg PO QHS 06/09/19 Cognforce 1 cap PO DAILY 09/16/19 Clindamycin HCl [Cleocin] 300 mg PO TID #15 cap 09/20/19 Lactobacillus Acidophilus/Fos [Acidophilus Probiotic Tablet] 1 ea PO BID #10 tab 09/20/19 Oxycodone HCl/Acetaminophen [Percocet 5/325] 1 tablet PO Q6H PRN PRN 5 Days #20 tablet 09/20/19 The following prescriptions were given: Lactobacillus Acidophilus/Fos [Acidophilus Probiotic Tablet] 1 ea PO BID #10 tab Transmission Status: Pending to [id number] Clindamycin HCl [Cleocin] 300 mg PO TID #15 cap Transmission Status: Pending to [id number] Oxycodone HCl/Acetaminophen [Percocet 5/325] 1 tablet PO Q6H PRN PRN 5 Days #20 tablet PRN Reason: Pain Score 4-5/10 Transmission Status: Received by [id number] Primary Care Physician: Dilshad Hill MD [Primary Care Provider] - Test Results: Test results from this visit will be discussed in further detail at your follow- up appointment, if applicable. Please Follow Up With: Livan Peters MD When: friday09/24/19. call [phone] for appt. Proposed Discharge Date: 09/20/19
--- NOTE | 2019-09-20 12:34 | CHAPLAIN ---
Type of Pastoral Visit ___ Initial Visit ___ Follow-up Visit ___ On-call Visit ___ General Patient Visit ___ Spiritual Assessment ___ Family Conference ___ Bereavement ___ Rapid Response ___ Code Blue _x__ Other (describe below) Pastoral Care Referral From ___ Patient _x__ Family ___ Nurse ___ Physician ___ Dielectric Machine Operator ___ Teacher Of The Hearing Impaired ___ Other (describe below) Sacrament/Intervention _x__ Active listening ___ Anointing ___ Christian ___ Bereavement ___ Communion ___ Fara exploration ___ ___ Life review _x__ Prayer ___ Reconciliation ___ Sacrament of Sick _x_ Supportive presence ___ Wedding ___ Other (describe below) Pastoral Comments prayer for surgery; 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
== END 2019-09-20 12:52 | disposition home or self-care (01) ==
LOC: SDC 08:22 → AC 08:23
PROVIDERS: PCP Family Medicine; Referring Provider Surgery; Visit Provider Surgery
PROC: (CPT 11642; principal; 2019-09-20 09:30)
DX: D04.112 Carcinoma in situ of skin of right lower eyelid, including canthus (principal); L57.8 Other skin changes due to chronic exposure to nonionizing radiation; Z85.828 Personal history of other malignant neoplasm of skin; E78.5 Hyperlipidemia, unspecified; I10 Essential (primary) hypertension; I25.10 Atherosclerotic heart disease of native coronary artery without angina pectoris; I25.2 Old myocardial infarction; K21.9 Gastro-esophageal reflux disease without esophagitis; E66.9 Obesity, unspecified; Z79.82 Long term (current) use of aspirin; Z79.899 Other long term (current) drug therapy; Z82.49 Family history of ischemic heart disease and other diseases of the circulatory system; Z87.891 Personal history of nicotine dependence; Z95.810 Presence of automatic (implantable) cardiac defibrillator; Z95.5 Presence of coronary angioplasty implant and graft; Z68.29 Body mass index [BMI] 29.0-29.9, adult
CPT/HCPCS: 11642; 15260; 88305; 88331; J7120; J2405

== ENCOUNTER → 2019-12-15 08:59 | Outpatient (CLI) | payer MEDICARE, SELFPAY ==
[2019-12-15 08:32] VITALS: BMI 28.8
[2019-12-15 10:39] LABS: AST(SGOT) 21 U/L (15-37); Alanine Aminotransfer ALT/SGPT 21 U/L (16-61); Albumin, Serum 3.6 g/dL (3.2-5.0); Alkaline Phosphatase 81 U/L (45-117); Bilirubin, Direct 0.11 mg/dL (0.00-0.30); Cholesterol 240 mg/dL (200); Globulin 3.2 g/dL (2.2-4.2); High Density Lipoprotein 47 mg/dL; Protein, Total 6.8 g/dL (6.4-8.2); Triglycerides 128 mg/dL; Very Low Density Lipoprotein 26 mg/dL (5-40)
== END ==
PROVIDERS: Internal Medicine Cardiovascular Disease; PCP Family Medicine; Referring Provider Physician Assistant Medical; Visit Provider Physician Assistant Medical
DX: I25.10 Atherosclerotic heart disease of native coronary artery without angina pectoris (principal); I10 Essential (primary) hypertension; I42.8 Other cardiomyopathies; E78.00 Pure hypercholesterolemia, unspecified; Z95.810 Presence of automatic (implantable) cardiac defibrillator
CPT/HCPCS: 36415; 80061; 80076

== ENCOUNTER → 2020-02-22 10:18 | Outpatient (CLI) | payer MEDICARE, SELFPAY ==
[2020-01-19 09:06] VITALS: BMI 28.8
[2020-02-22 12:19] LABS: Hematocrit 43.4 % (40-54); Hemoglobin 13.9 g/dL (13.0-16.5); Mean Corpuscular Hgb 30.3 pg (27.0-32.0); Mean Corpuscular Volume 94.8 fL (80-94); Platelet Count 198 K/mm3 (150-450); RBC Distribution Width CV 12.2 % (11.6-14.6); RBC Distribution Width SD 43.4 fl (35.1-43.9); Red Blood Count 4.58 M/mm3 (4.6-6.2); White Blood Count 7.6 K/mm3 (4.4-11.0)
[2020-02-22 13:19] LABS: ALB/GLOB Ratio 1.1 RATIO (0.9-2.4); AST(SGOT) 27 U/L (15-37); Alanine Aminotransfer ALT/SGPT 30 U/L (16-61); Albumin, Serum 3.7 g/dL (3.2-5.0); Alkaline Phosphatase 87 U/L (45-117); Anion Gap 3 (5-15); BUN 20 mg/dL (7-18); BUN/Creat Ratio 20.7 RATIO (10-20); Calcium,Total 8.9 mg/dL (8.5-10.1); Chloride 106 mmol/L (98-107); Cholesterol 171 mg/dL (200); Creatinine, Serum 0.97 mg/dL (0.70-1.30); EST Glomerular Filtration Rate 80 mL/min (>60); Est Glom Filt Rate - Afr Amer 96 mL/min (>60); Globulin 3.4 g/dL (2.2-4.2); Glucose 120 mg/dL (74-106); High Density Lipoprotein 58 mg/dL; Potassium 4.4 mmol/L (3.5-5.1); Protein, Total 7.1 g/dL (6.4-8.2); Sodium Level 138 mmol/L (136-145); Thyroid Stim Hormone (TSH) 1.58 uIU/mL (0.358-3.74); Triglycerides 76 mg/dL; Very Low Density Lipoprotein 15 mg/dL (5-40)
== END ==
PROVIDERS: PCP Family Medicine; Referring Provider Family Medicine; Visit Provider Family Medicine
DX: E03.9 Hypothyroidism, unspecified (principal); I42.8 Other cardiomyopathies
CPT/HCPCS: 36415; 80053; 80061; 84443; 85027

== ENCOUNTER → 2020-08-31 09:45 | Outpatient (CLI) | payer MEDICARE, SELFPAY ==
[2020-08-31 08:59] VITALS: BMI 29.2
[2020-08-31 12:09] LABS: AST(SGOT) 23 U/L (15-37); Alanine Aminotransfer ALT/SGPT 29 U/L (16-61); Albumin, Serum 3.6 g/dL (3.2-5.0); Alkaline Phosphatase 104 U/L (45-117); Bilirubin, Direct 0.16 mg/dL (0.00-0.30); Cholesterol 152 mg/dL (200); Globulin 3.4 g/dL (2.2-4.2); High Density Lipoprotein 53 mg/dL; Triglycerides 80 mg/dL; Very Low Density Lipoprotein 16 mg/dL (5-40)
== END ==
PROVIDERS: PCP Family Medicine; Referring Provider Internal Medicine Cardiovascular Disease; Visit Provider Internal Medicine Cardiovascular Disease
DX: E78.00 Pure hypercholesterolemia, unspecified (principal); E78.5 Hyperlipidemia, unspecified
CPT/HCPCS: 36415; 80061; 80076

== ENCOUNTER → 2020-09-13 09:36 | Outpatient (CLI) | payer MEDICARE, SELFPAY ==
[2020-08-31 08:59] VITALS: BMI 29.2
[2020-09-13 12:24] LABS: Vitamin D,25 Hydroxy 63.9 ng/mL
[2020-09-13 12:34] LABS: AST(SGOT) 23 U/L (15-37); Alanine Aminotransfer ALT/SGPT 26 U/L (16-61); Albumin, Serum 3.3 g/dL (3.2-5.0); Alkaline Phosphatase 109 U/L (45-117); Anion Gap 4 (5-15); BUN 16 mg/dL (7-18); BUN/Creat Ratio 19.3 RATIO (10-20); Calcium,Total 8.8 mg/dL (8.5-10.1); Chloride 108 mmol/L (98-107); Cholesterol 148 mg/dL (200); Creatinine, Serum 0.83 mg/dL (0.70-1.30); EST Glomerular Filtration Rate 95 mL/min (>60); Est Glom Filt Rate - Afr Amer 115 mL/min (>60); Globulin 3.4 g/dL (2.2-4.2); Glucose 119 mg/dL (74-106); High Density Lipoprotein 52 mg/dL; Potassium 4.1 mmol/L (3.5-5.1); Protein, Total 6.7 g/dL (6.4-8.2); Sodium Level 140 mmol/L (136-145); Thyroid Stim Hormone (TSH) 1.63 uIU/mL (0.358-3.74); Triglycerides 61 mg/dL; Very Low Density Lipoprotein 12 mg/dL (5-40)
== END ==
PROVIDERS: PCP Family Medicine; Referring Provider Family Medicine; Visit Provider Family Medicine
DX: Z00.00 Encounter for general adult medical examination without abnormal findings (principal); E03.9 Hypothyroidism, unspecified; E55.9 Vitamin D deficiency, unspecified; I25.10 Atherosclerotic heart disease of native coronary artery without angina pectoris
CPT/HCPCS: 36415; 80053; 80061; 82306; 84443

== ENCOUNTER → 2020-09-18 13:58 | Outpatient (CLI) | payer MEDICARE, SELFPAY ==
[2020-08-31 08:59] VITALS: BMI 29.2
--- NOTE | 2020-09-18 14:02 | ECHOCS_ITS ---
Reason For Study: CAD/ASHD Procedure This was a 2D Doppler, Color Flow transthoracic echocardiogram. Contrast injection was performed. Exam performed in department. Left Ventricle Normal LV size. Moderate concentric left ventricular hypertrophy. Left ventricular systolic function is normal. The estimated ejection fraction is 55 %. Stage 1 diastolic dysfunction. No regional wall motion abnormalities noted. Right Ventricle Normal RV size. ICD or pacer leads identified within the right ventricle. Normal systolic function. Atria Normal left atrium. Normal right atrium. Mitral Valve Normal mitral valve. Tricuspid Valve Normal tricuspid valve. Mild tricuspid valve insufficiency. Pulmonary artery systolic pressure is 24 mmHg. Aortic Valve Trisinus/trileaflet aortic valve. Mild focal aortic valve calcification. Pulmonic Valve Normal pulmonic valve. Great Vessels Calcified aortic root. The pulmonary artery is normal size. Normal inferior vena cava. Pericardium/Pleural No pericardial effusion. Medication Diluted definity 2ml given slow IV push to enhance endocardial definition. MMode/2D Measurements & Calculations LVIDd: 4.9 cm IVSd: 1.5 cm Ao root diam: 3.4 cm LVIDs: 2.9 cm LVPWd: 1.6 cm RVDd: 3.1 cm FS: 40.9 % LAV(MOD-bp): 55.4 ml LVAd ap4: 31.6 cm2 SV(MOD-sp4): 50.7 ml LAV(MOD-bp) Indexed: 27.2 ml/m2 LVLd ap4: 7.6 cm LAV(MOD-sp2): 52.3 ml EDV(MOD-sp4): 108.2 ml LAV(MOD-sp4): 52.2 ml EDV(sp4-el): 112.4 ml LVAs ap4: 22.8 cm2 LVLs ap4: 7.5 cm ESV(MOD-sp4): 57.5 ml ESV(sp4-el): 58.3 ml EF(MOD-sp4): 46.8 % EF(sp4-el): 48.2 % SV(sp4-el): 54.2 ml LA A4 area: 20.1 cm2 LA dimension(2D): 3.6 cm RA A4 area: 15.2 cm2 Doppler Measurements & Calculations MV E max elmer: 59.1 cm/sec Lat Peak E' Elmer: 4.4 cm/sec Med Peak E' Elmer: 3.7 cm/sec MV A max elmer: 98.4 cm/sec E/E' lat: 13.5 E/E' med: 16.1 MV E/A: 0.60 Ao V2 max: 181.8 cm/sec LV V1 max: 98.4 cm/sec PA V2 max: 95.3 cm/sec Ao max P.2 mmHg LV V1 max P.9 mmHg Ao V2 mean: 113.5 cm/sec Ao mean P.0 mmHg Ao V2 VTI: 34.7 cm PI end-d elmer: 80.9 cm/sec TR max elmer: 224.7 cm/sec TR max P.2 mmHg ECHO/Echo Complete W/ Contrast Interpretation Summary Normal LV size. Moderate concentric left ventricular hypertrophy. Left ventricular systolic function is normal. The estimated ejection fraction is 55 %. Stage 1 diastolic dysfunction. Contrast injection was performed. Ordering Physician: Matt Loza Referring Physician: Callum Hill Performed By: Michelle Tracey, GAETANO, RVT
== END ==
PROVIDERS: PCP Family Medicine; Referring Provider Internal Medicine Cardiovascular Disease; Visit Provider Internal Medicine Cardiovascular Disease
DX: I42.8 Other cardiomyopathies (principal)
CPT/HCPCS: 93306; Q9957; A4216; C8929

== ENCOUNTER → 2021-02-09 07:42 | Outpatient (CLI) | payer MEDICARE, SELFPAY ==
[2021-02-09 08:45] LABS: AST(SGOT) 18 U/L (15-37); Alanine Aminotransfer ALT/SGPT 22 U/L (16-61); Albumin, Serum 3.4 g/dL (3.2-5.0); Alkaline Phosphatase 103 U/L (45-117); Bilirubin, Direct 0.18 mg/dL (0.00-0.30); Cholesterol 145 mg/dL (200); Globulin 3.5 g/dL (2.2-4.2); High Density Lipoprotein 47 mg/dL; Protein, Total 6.9 g/dL (6.4-8.2); Triglycerides 88 mg/dL; Very Low Density Lipoprotein 18 mg/dL (5-40)
== END ==
PROVIDERS: PCP Family Medicine; Referring Provider Internal Medicine Cardiovascular Disease; Visit Provider Internal Medicine Cardiovascular Disease
DX: E78.00 Pure hypercholesterolemia, unspecified (principal); E78.5 Hyperlipidemia, unspecified
CPT/HCPCS: 36415; 80061; 80076

== ENCOUNTER → 2021-04-23 16:56 | Outpatient (CLI) | payer MEDICARE, SELFPAY | PROVIDERS: PCP Family Medicine; Referring Provider Family Medicine; Visit Provider Family Medicine | DX: U07.1 COVID-19 (principal) | CPT/HCPCS: 87635; U0005; U0003 ==

== ENCOUNTER 2021-04-25 17:23 | Outpatient (CLI) | payer MEDICARE, SELFPAY ==
[2021-04-25 18:04] VITALS: BP 121/79; PULSE 67; RESP 16; TEMP 36.7; O2SAT 97; BMI 30.7
[2021-04-25] MEDS: 0.9% Saline Lock 10 ML Syringe IV (18:12)
[2021-04-25 19:03] VITALS: BP 123/72; PULSE 61; RESP 16; TEMP 36.8; O2SAT 95
[2021-04-25 19:53] VITALS: BP 137/97; PULSE 60; RESP 16; TEMP 37.1; O2SAT 96
== END 2021-04-25 20:05 | disposition home or self-care (01) ==
LOC: MS3OUT 17:23 → MS3 17:23
PROVIDERS: PCP Family Medicine; Referring Provider Nurse Practitioner Adult Health; Visit Provider Nurse Practitioner Adult Health
DX: Z23 Encounter for immunization (principal); U07.1 COVID-19
CPT/HCPCS: J7050; M0245; Q0245; A4216

== ENCOUNTER 2021-08-30 12:15 | Outpatient (CLI) | payer MEDICARE, SELFPAY ==
[2021-08-30 15:26] LABS: Anion Gap 3 (5-15); BUN 26 mg/dL (7-18); BUN/Creat Ratio 26.6 RATIO (10-20); Calcium,Total 9.3 mg/dL (8.5-10.1); Chloride 108 mmol/L (98-107); Creatinine, Serum 0.98 mg/dL (0.70-1.30); EST Glomerular Filtration Rate 78 mL/min (>60); Est Glom Filt Rate - Afr Amer 95 mL/min (>60); Glucose 107 mg/dL (74-106); Potassium 4.9 mmol/L (3.5-5.1); Sodium Level 139 mmol/L (136-145)
== END 2021-08-30 23:59 | disposition home or self-care (01) ==
LOC: MFPLAB 12:17
PROVIDERS: PCP Family Medicine; Referring Provider Family Medicine; Visit Provider Family Medicine
DX: I10 Essential (primary) hypertension (principal); E03.9 Hypothyroidism, unspecified
CPT/HCPCS: 36415; 80048; 84443

== ENCOUNTER → 2021-09-20 | Outpatient (CLI) | payer MEDICARE, SELFPAY ==
[2021-09-20 10:36] LABS: AST(SGOT) 24 U/L (15-37); Alanine Aminotransfer ALT/SGPT 31 U/L (16-61); Albumin, Serum 3.7 g/dL (3.2-5.0); Alkaline Phosphatase 107 U/L (45-117); Bilirubin, Direct 0.15 mg/dL (0.00-0.30); Cholesterol 149 mg/dL (200); Globulin 3.3 g/dL (2.2-4.2); High Density Lipoprotein 47 mg/dL; Triglycerides 87 mg/dL; Very Low Density Lipoprotein 17 mg/dL (5-40)
== END | disposition home or self-care (01) ==
LOC: LAB 09:03
PROVIDERS: PCP Family Medicine; Visit Provider Internal Medicine Cardiovascular Disease
DX: E78.00 Pure hypercholesterolemia, unspecified (principal); E78.5 Hyperlipidemia, unspecified
CPT/HCPCS: 36415; 80061; 80076

== ENCOUNTER → 2022-06-04 | Outpatient (CLI) | payer MEDICARE, SELFPAY ==
[2022-06-04 11:44] LABS: Hematocrit 41.5 % (40-54); Hemoglobin 13.6 g/dL (13.0-16.5); Mean Corp Hgb Conc 32.8 g/dL (32-36); Mean Corpuscular Hgb 31.6 pg (27.0-32.0); Mean Corpuscular Volume 96.3 fL (80-94); Mean Platelet Vol. 10.8 fl (6.2-12.0); Platelet Count 197 K/mm3 (150-450); RBC Distribution Width CV 12.1 % (11.6-14.6); RBC Distribution Width SD 43.3 fl (35.1-43.9); Red Blood Count 4.31 M/mm3 (4.6-6.2); White Blood Count 7.6 K/mm3 (4.4-11.0)
[2022-06-04 12:49] LABS: Anion Gap 7 (5-15); BUN 19 mg/dL (7-18); BUN/Creat Ratio 19.4 RATIO (10-20); Chloride 107 mmol/L (98-107); Creatinine, Serum 0.98 mg/dL (0.70-1.30); EST Glomerular Filtration Rate 78 mL/min (>60); Est Glom Filt Rate - Afr Amer 95 mL/min (>60); Glucose 121 mg/dL (74-106); Potassium 4.1 mmol/L (3.5-5.1); Sodium Level 143 mmol/L (136-145); Thyroid Stim Hormone (TSH) 1.07 uIU/mL (0.358-3.74)
== END | disposition home or self-care (01) ==
LOC: MFPLAB 11:00
PROVIDERS: PCP Family Medicine; Visit Provider Family Medicine
DX: R55 Syncope and collapse (principal)
CPT/HCPCS: 36415; 80048; 84443; 85027

== ENCOUNTER → 2022-09-25 | Outpatient (CLI) | payer MEDICARE, SELFPAY ==
[2022-09-25 10:48] LABS: Vitamin D,25 Hydroxy 77.7 ng/mL
[2022-09-25 10:54] LABS: AST(SGOT) 31 U/L (15-37); Alanine Aminotransfer ALT/SGPT 38 U/L (16-61); Albumin, Serum 3.7 g/dL (3.2-5.0); Alkaline Phosphatase 113 U/L (45-117); Bilirubin, Direct 0.17 mg/dL (0.00-0.30); Cholesterol 150 mg/dL (200); Globulin 3.3 g/dL (2.2-4.2); High Density Lipoprotein 49 mg/dL; Triglycerides 97 mg/dL; Very Low Density Lipoprotein 19 mg/dL (5-40)
[2022-09-25 11:03] LABS: ALB/GLOB Ratio 1.1 RATIO (0.9-2.4); AST(SGOT) 30 U/L (15-37); Alanine Aminotransfer ALT/SGPT 37 U/L (16-61); Albumin, Serum 3.6 g/dL (3.2-5.0); Alkaline Phosphatase 112 U/L (45-117); Anion Gap 7 (5-15); BUN 23 mg/dL (7-18); BUN/Creat Ratio 23.4 RATIO (10-20); Calcium,Total 9.2 mg/dL (8.5-10.1); Chloride 107 mmol/L (98-107); Creatinine, Serum 0.98 mg/dL (0.70-1.30); EST Glomerular Filtration Rate 78 mL/min (>60); Est Glom Filt Rate - Afr Amer 94 mL/min (>60); Globulin 3.4 g/dL (2.2-4.2); Glucose 128 mg/dL (74-106); Potassium 4.3 mmol/L (3.5-5.1); Sodium Level 140 mmol/L (136-145); Thyroid Stim Hormone (TSH) 2.74 uIU/mL (0.358-3.74)
== END | disposition home or self-care (01) ==
LOC: LAB 08:56
PROVIDERS: Internal Medicine Cardiovascular Disease; PCP Family Medicine; Referring Provider Family Medicine; Visit Provider Family Medicine
DX: E55.9 Vitamin D deficiency, unspecified (principal); E03.9 Hypothyroidism, unspecified; E78.00 Pure hypercholesterolemia, unspecified; R73.01 Impaired fasting glucose
CPT/HCPCS: 36415; 80053; 80061; 80076; 82306; 84443

== ENCOUNTER → 2022-10-07 | Outpatient (CLI) | payer MEDICARE, SELFPAY ==
--- NOTE | 2022-10-07 17:38 | STRESSREP ---
Stress Test Report Pharmacologic myocardial perfusion stress test. 82-year-old man with a history of chest pain Resting EKG demonstrates sinus rhythm with a rate of 63 bpm and ventricular pacing. Resting blood pressure is 164/90 mmHg. 0.4 mg of regadenoson was infused per usual protocol followed by rapid intravenous saline flush injection. Continuous EKG monitoring was performed. The maximum heart rate was 112 bpm which was 80% of max impacted heart rate the maximum workload was 1 metabolic equivalent. At rest there were no ST or T wave changes noted to suggest ischemia and at peak infusion nonspecific ST changes were noted which did not meet the criteria for ischemia. No clinical angina is noted. The final blood pressure was 150/82 mmHg. Myocardial perfusion protocol. 11.5 mCi of technetium 99m sestamibi was injected at rest. 0.4 mg of regadenoson was infused per usual protocol. At peak infusion 33.3 mCi of technetium 99m sestamibi was injected stress images were obtained stress and rest images were reconstructed and compared in the short axis vertical long and horizontal long axis. Perfusion SPECT analysis: Review of the stress images demonstrate normal uptake of tracer noted in all areas of the myocardium. The resting images similar demonstrated normal uptake of tracer noted in all areas of the myocardium. No areas of reversibility are noted to suggest ischemia and no previous infarct is noted. Conclusion: Normal pharmacologic myocardial perfusion stress test.
== END | disposition home or self-care (01) ==
LOC: CVS 06:50
PROVIDERS: PCP Family Medicine; Referring Provider Internal Medicine Cardiovascular Disease; Visit Provider Internal Medicine Cardiovascular Disease
DX: I25.10 Atherosclerotic heart disease of native coronary artery without angina pectoris (principal); Z95.5 Presence of coronary angioplasty implant and graft
CPT/HCPCS: 78452; 93017; A9500; A4216; J2785

== ENCOUNTER → 2023-02-11 | Outpatient (CLI) | payer MEDICARE, SELFPAY ==
--- NOTE | 2023-02-11 12:55 | ECHOD_ITS ---
Reason For Study: CARDIOMYOPATHY Procedure This was a 2D Doppler, Color Flow transthoracic echocardiogram. Exam performed in department. Left Ventricle Normal LV size. Mild concentric left ventricular hypertrophy. The left ventricular ejection fraction is 40 %. Stage 1 diastolic dysfunction. There is mild global hypokinesis of the left ventricle. Right Ventricle Normal RV size. ICD or pacer leads identified within the right ventricle. Normal systolic function. Atria Normal left atrium. Normal right atrium. Mitral Valve Normal mitral valve. Tricuspid Valve Normal tricuspid valve. Mild (1+) tricuspid valve insufficiency. Pulmonary artery systolic pressure is 26 mmHg. Aortic Valve Trisinus/trileaflet aortic valve. Mild focal aortic valve calcification. Pulmonic Valve Normal pulmonic valve. Mild (1+) pulmonic valve insufficiency. Great Vessels Normal aortic root. The pulmonary artery is normal size. Normal inferior vena cava. Pericardium/Pleural No pericardial effusion. MMode/2D Measurements & Calculations LVIDd: 4.7 cm IVSd: 1.3 cm Ao root diam: 3.3 cm LVIDs: 3.5 cm LVPWd: 1.2 cm RVDd: 3.4 cm FS: 26.8 % LAV(MOD-bp): 35.7 ml LVAd ap4: 37.4 cm2 SV(MOD-sp4): 56.0 ml LAV(MOD-bp) Indexed: 18.7 ml/m2 LVLd ap4: 8.0 cm LAV(MOD-sp2): 32.2 ml EDV(MOD-sp4): 143.1 ml LAV(MOD-sp4): 38.1 ml EDV(sp4-el): 147.7 ml LVAs ap4: 27.7 cm2 LVLs ap4: 7.5 cm ESV(MOD-sp4): 87.1 ml ESV(sp4-el): 86.7 ml EF(MOD-sp4): 39.1 % EF(sp4-el): 41.3 % SV(sp4-el): 61.0 ml LA A4 area: 15.8 cm2 LA dimension(2D): 3.6 cm RA A4 area: 15.3 cm2 Time Measurements MV dec time: 0.26 sec Doppler Measurements & Calculations MV E max elmer: 52.6 cm/sec Lat Peak E' Elmer: 4.0 cm/sec Med Peak E' Elmer: 3.9 cm/sec MV A max elmer: 98.2 cm/sec E/E' lat: 13.1 E/E' med: 13.7 MV E/A: 0.54 Ao V2 max: 151.8 cm/sec LV V1 max: 81.5 cm/sec PA V2 max: 93.1 cm/sec Ao max P.2 mmHg LV V1 max P.7 mmHg TR max elmer: 234.3 cm/sec TR max P.0 mmHg ECHO/Echo Complete Interpretation Summary Normal LV size. Mild concentric left ventricular hypertrophy. The left ventricular ejection fraction is 40 %. Stage 1 diastolic dysfunction. Pulmonary artery systolic pressure is 26 mmHg. Compared to previous study, the left ventricular systolic function has worsened .. Ordering Physician: Mercy Navarro/Matt Loza Referring Physician: ALEX REZA Performed By: Jud Stinson RDCS
[2023-02-11 13:52] LABS: Bacteria 0 SEEN /hpf (None Seen); Mucous, Urine 0 SEEN /hpf (<or=2+); Squamous Epithelial Cells - UA 0 SEEN /hpf (0-5)
[2023-02-11 14:09] LABS: Hematocrit 41.1 % (40-54); Hemoglobin 13.2 g/dL (13.0-16.5); Mean Corp Hgb Conc 32.1 g/dL (32-36); Mean Corpuscular Hgb 31.3 pg (27.0-32.0); Mean Corpuscular Volume 97.4 fL (80-94); Mean Platelet Vol. 10.3 fl (6.2-12.0); Platelet Count 184 K/mm3 (150-450); RBC Distribution Width CV 12.5 % (11.6-14.6); RBC Distribution Width SD 44.4 fl (35.1-43.9); Red Blood Count 4.22 M/mm3 (4.6-6.2); White Blood Count 8.1 K/mm3 (4.4-11.0)
[2023-02-11 14:37] LABS: Prothrombin Time (Protime)PT. 13.6 SECONDS (11.7-14.9)
[2023-02-11 14:55] LABS: Anion Gap 4 (5-15); BUN 20 mg/dL (7-18); BUN/Creat Ratio 21.2 RATIO (10-20); Chloride 111 mmol/L (98-107); Creatinine, Serum 0.94 mg/dL (0.70-1.30); EST Glomerular Filtration Rate 81 mL/min (>60); Est Glom Filt Rate - Afr Amer 98 mL/min (>60); Glucose 101 mg/dL (74-106); Potassium 4.5 mmol/L (3.5-5.1); Sodium Level 143 mmol/L (136-145)
[2023-02-11 16:48] LABS: Color, Urine Yellow (Yellow); Glucose, Dipstick Normal (Normal); Ketone-Dipstick Negative (Negative); Leukocyte Esterase-Dipstick Negative /ul (Negative); Nitrite-Dipstick Negative (Negative); Occult Blood-Urine 25 /ul (Negative); Protein-Dipstick Negative (Negative); Specific Gravity, Urine 1.025 (1.002-1.030); Urine Bilirubin Dipstick Negative (Negative); Urine Clarity Clear (Clear); Urine Urobilinogen 1 mg/dl (Normal)
[2023-02-11 17:39] LABS: White Blood Cells 0-5 SEEN /hpf (0-5)
[2023-02-11 17:40] LABS: Red Blood Cells-Urine 0-5 SEEN /hpf (0-5)
== END | disposition home or self-care (01) ==
LOC: CVS 12:47
PROVIDERS: Nurse Practitioner Family; PCP Family Medicine; Referring Provider Physician Assistant Medical; Visit Provider Physician Assistant Medical
DX: I42.8 Other cardiomyopathies (principal); I10 Essential (primary) hypertension
CPT/HCPCS: 36415; 80048; 81001; 85027; 85610; 93306

== ENCOUNTER → 2023-04-02 | Outpatient (CLI) | payer MEDICARE, SELFPAY ==
--- NOTE | 2023-04-02 11:45 | LES_PTH ---
PATIENT: BINH WRIGHT LOC: [facility] U#:[id number] AGE/SX: 83/M ROOM: RE04/02/[address]: Dr. Callum Hill MD : 1940 BED: DIS: 04/02/2023 SPEC #: [id number] RECD: 04/03/23 07:40 STATUS: PEG CARLYN #: [id number] JIM: 04/02/23 11:[address]: Callum Hill DEPT: SURGICAL PATHOLOGY RECD BY: Little Dominguez Tissues: Skin of back, NOS Procedures: Surgery Specimen Level IV HEADER OPERATION: Shave lesion upper back PRE-OP DIAGNOSIS: ? SCC TISSUE SUBMITTED: Upper back lesion MICROSCOPIC DIAGNOSIS Skin lesion of upper back, shave biopsy: Basal cell carcinoma with focal ulceration. Solar elastosis. Note: The lesion is incompletely excised. AM:magda 04/04/2023 MICROSCOPIC DESCRIPTION Slides are reviewed. GROSS DESCRIPTION Received in fixative is one container labeled with the patient's name and designated upper back. The specimen consists of a shave biopsy of light marques skin measuring 1.5 x 1.0 x <0.1 cm. The specimen is sectioned and totally submitted in one cassette. / AM:magda 04/03/2023 TC:0 [facility]: [id number]
== END | disposition home or self-care (01) ==
LOC: LABSPEC 15:32
PROVIDERS: PCP Family Medicine; Visit Provider Family Medicine
DX: L98.9 Disorder of the skin and subcutaneous tissue, unspecified (principal)
CPT/HCPCS: 88305

== ENCOUNTER 2023-04-07 10:06 | Day surgery (SDC) | payer MEDICARE, SELFPAY ==
[2023-03-19 15:21] LABS: Bacteria 0 SEEN /hpf (None Seen); Mucous, Urine 0 SEEN /hpf (<or=2+); Squamous Epithelial Cells - UA 0 SEEN /hpf (0-5); White Blood Cells 0 SEEN /hpf (0-5)
[2023-03-19 16:14] LABS: Hematocrit 40.6 % (40-54); Hemoglobin 13.3 g/dL (13.0-16.5); Mean Corp Hgb Conc 32.8 g/dL (32-36); Mean Corpuscular Hgb 31.2 pg (27.0-32.0); Mean Corpuscular Volume 95.3 fL (80-94); Mean Platelet Vol. 10.5 fl (6.2-12.0); Platelet Count 184 K/mm3 (150-450); RBC Distribution Width CV 12.3 % (11.6-14.6); RBC Distribution Width SD 43.4 fl (35.1-43.9); Red Blood Count 4.26 M/mm3 (4.6-6.2); White Blood Count 7.6 K/mm3 (4.4-11.0)
[2023-03-19 16:15] LABS: Color, Urine Yellow (Yellow); Glucose, Dipstick Normal (Normal); Ketone-Dipstick Negative (Negative); Leukocyte Esterase-Dipstick Negative /ul (Negative); Nitrite-Dipstick Negative (Negative); Occult Blood-Urine 50 /ul (Negative); Protein-Dipstick Negative (Negative); Urine Bilirubin Dipstick Negative (Negative); Urine Clarity Clear (Clear); Urine Urobilinogen Normal (Normal)
[2023-03-19 16:24] LABS: Prothrombin Time (Protime)PT. 13.4 SECONDS (11.7-14.9)
[2023-03-19 16:33] LABS: Red Blood Cells-Urine 0-5 SEEN /hpf (0-5)
[2023-03-19 17:16] LABS: Anion Gap 6 (5-15); BUN 19 mg/dL (7-18); BUN/Creat Ratio 21.6 RATIO (10-20); Calcium,Total 8.6 mg/dL (8.5-10.1); Chloride 107 mmol/L (98-107); Creatinine, Serum 0.88 mg/dL (0.70-1.30); EST Glomerular Filtration Rate 88 mL/min (>60); Est Glom Filt Rate - Afr Amer 107 mL/min (>60); Glucose 149 mg/dL (74-106); Sodium Level 139 mmol/L (136-145)
[2023-03-19 17:21] LABS: AST(SGOT) 24 U/L (15-37); Alanine Aminotransfer ALT/SGPT 36 U/L (16-61); Albumin, Serum 3.4 g/dL (3.2-5.0); Alkaline Phosphatase 100 U/L (45-117); Cholesterol 146 mg/dL (200); Globulin 3.3 g/dL (2.2-4.2); High Density Lipoprotein 47 mg/dL; Protein, Total 6.7 g/dL (6.4-8.2); Triglycerides 133 mg/dL; Very Low Density Lipoprotein 27 mg/dL (5-40)
[2023-04-04 08:59] VITALS: BMI 29.0
--- NOTE | 2023-04-09 14:55 | CL.IE_ITS ---
Patient: BINH WRIGHT Study Date: 04/07/2023 Performing: Matt Loza MD : 1940 Age: 83 Gender: male PROCEDURES PERFORMED [id number]-([id number])BATTERY REMOVAL+REPLACEMENT ICD-MULTI LEADS (BI-V) INDICATIONS End-of-life replacement indicator PROCEDURE DETAILS The patient was brought to the Catheterization Lab in the postabsorptive nonsedated state. Informed consent was obtained prior to the procedure. Local anesthetic was given subcutaneously to the left subclavian region with Lidocaine 2%. Incision was made to the left subclavicular area. ICD generator was removed. ICD generator was then interrogated by report programmer. ICD LT ventricular lead (existing) was checked and tested. ICD RT ventricular lead (existing) was checked and tested. ICD ATRIAL lead (existing) was checked and tested. Device pocket was irrigated with antibiotic. ICD generator was attached to the lead(s) and inserted into pocket. Subcutaneous closure was completed with 3-0 Vicryl. Skin closure was completed with 4-0 Vicryl. Steri-strips applied to left subclavicular incision. Pressure dressing applied to left chest. Local anesthetic was given subcutaneously to the left subclavian region with Lidocaine 2%. ICD generator was removed. ICD generator was attached to the lead(s) IN ORDER OF LA LEAD, LV LEAD, RV LEAD. Device pocket was irrigated with antibiotic. ICD generator was then interrogated by report programmer. Subcutaneous closure was completed with 3-0 Vicryl. Skin closure was completed with 4-0 Vicryl. Steri-strips applied to left subclavicular incision. Pressure dressing applied to left chest. The patient tolerated the procedure well. Estimated Blood Loss: 10 ml's IMPLANTED / EX-PLANTED DEVICES IMPLANTED DEVICE(S): ICD Generator - Emergency Response Coordinator: [employer], Model # [id number] , Serial # [id number] DEVICE PARAMETERS DEVICE PARAMETERS: VT detect rate- 320MS VF detect rate- 400MS tom rate- 32 CONCLUSIONS / RECOMMENDATIONS Device Conclusions: Successful implantation of a BI-V ICD battery change and replacement Device Recommendations: Follow up with Primary Care Physician PROCEDURE MEDICATIONS Fentanyl 50 mcg IV Versed 1 mg IV Versed 1 mg IV Versed 1 mg IV Versed 1 mg IV Oxygen: 2 L/min via nasal cannula Oxygen: 4 L/min via nasal cannula Ancef 2 Gm IV @ 04/07/2023 12:08:37 Signed By Matt Loza MD On 04/09/2023 14:54:48 Matt Loza MD
== END 2023-04-07 16:37 | disposition home or self-care (01) ==
LOC: CLSP 10:08
PROVIDERS: Nurse Practitioner Family; Nurse Practitioner Gerontology; PCP Family Medicine; Referring Provider Internal Medicine Cardiovascular Disease; Visit Provider Internal Medicine Cardiovascular Disease
DX: Z45.02 Encounter for adjustment and management of automatic implantable cardiac defibrillator (principal); I42.8 Other cardiomyopathies; Z95.810 Presence of automatic (implantable) cardiac defibrillator; Z95.5 Presence of coronary angioplasty implant and graft; I10 Essential (primary) hypertension; E78.00 Pure hypercholesterolemia, unspecified; I25.10 Atherosclerotic heart disease of native coronary artery without angina pectoris; Z79.899 Other long term (current) drug therapy
CPT/HCPCS: 33264; 36415; 80048; 80061; 80076; 81001; 85027; 85610; 93641; 99152; 99153; J7040; J7050

== ENCOUNTER → 2023-05-14 | Outpatient (CLI) | payer MEDICARE, SELFPAY ==
--- NOTE | 2023-05-14 13:01 | ECHOL_ITS ---
Reason For Study: CARDIOMYOPATHY Procedure This was a limited 2D transthoracic echocardiogram. Myocardial strain analysis was performed in this exam to aid in the assessment of cardiac function. Exam performed in department. Left Ventricle Normal LV size. Left ventricular systolic function is lower limits of normal. The estimated ejection fraction is 50 %. Stage 1 diastolic dysfunction. No regional wall motion abnormalities noted. Right Ventricle Normal RV size. ICD or pacer leads identified within the right ventricle. Normal systolic function. Atria Normal left atrium. Normal right atrium. Mitral Valve Normal mitral valve. Tricuspid Valve Normal tricuspid valve. Aortic Valve Trisinus/trileaflet aortic valve. Mild focal aortic valve calcification. Pulmonic Valve Normal pulmonic valve. Great Vessels Normal aortic root. The pulmonary artery is normal size. Normal inferior vena cava. Pericardium/Pleural No pericardial effusion. MMode/2D Measurements & Calculations LVIDd: 5.2 cm IVSd: 1.1 cm LVOT diam: 2.1 cm LVIDs: 3.1 cm LVPWd: 0.89 cm LVOT area: 3.6 cm2 RVDd: 3.0 cm FS: 41.8 % Ao root diam: 3.5 cm LAV(MOD-bp): 65.6 ml LVAd ap4: 28.9 cm2 LAV(MOD-bp) Indexed: 34.3 ml/m2 LVLd ap4: 7.6 cm LAV(MOD-sp2): 59.7 ml EDV(MOD-sp4): 91.0 ml LAV(MOD-sp4): 58.4 ml EDV(sp4-el): 93.8 ml LVAs ap4: 19.3 cm2 LVLs ap4: 6.9 cm ESV(MOD-sp4): 45.1 ml ESV(sp4-el): 45.8 ml EF(MOD-sp4): 50.5 % EF(sp4-el): 51.2 % LVAd ap2: 29.9 cm2 SV(MOD-sp4): 45.9 ml SV(MOD-sp2): 53.5 ml LVLd ap2: 7.6 cm EDV(MOD-sp2): 100.7 ml EDV(sp2-el): 99.3 ml LVAs ap2: 19.7 cm2 LVLs ap2: 7.1 cm ESV(MOD-sp2): 47.2 ml ESV(sp2-el): 46.4 ml EF(MOD-sp2): 53.1 % SV(sp4-el): 48.0 ml LA dimension(2D): 3.3 cm LA A4 area: 20.3 cm2 RA A4 area: 15.8 cm2 TAPSE: 2.1 cm Time Measurements MV dec time: 0.24 sec Doppler Measurements & Calculations MV E max elmer: 54.5 cm/sec Lat Peak E' Elmer: 7.1 cm/sec Med Peak E' Elmer: 4.7 cm/sec MV A max elmer: 85.5 cm/sec E/E' lat: 7.7 E/E' med: 11.6 MV E/A: 0.64 Ao V2 max: 212.3 cm/sec LV V1 max: 122.2 cm/sec MV dec slope: 231.0 cm/sec2 Ao max P.0 mmHg LV V1 max P.0 mmHg Ao V2 mean: 143.2 cm/sec LV V1 mean P.0 mmHg Ao mean P.5 mmHg LV V1 mean: 80.6 cm/sec Ao V2 VTI: 46.2 cm LV V1 VTI: 24.8 cm AV (velocity ratio): 0.54 HAN(I,D): 1.9 cm2 HAN(V,D): 2.1 cm2 SV(LVOT): 89.2 ml ECHO/Echo, Limited Study Interpretation Summary Normal LV size. Left ventricular systolic function is lower limits of normal. The estimated ejection fraction is 50 %. Stage 1 diastolic dysfunction. The global longitudinal strain is moderately abnormal. Compared to previous diego dy, the left ventricular systolic function has improved.. Ordering Physician: Roshni Vasques Referring Physician: Callum Hill MD Performed By: Fiona Salazar RDCS
== END | disposition home or self-care (01) ==
PROVIDERS: PCP Family Medicine; Referring Provider Nurse Practitioner Gerontology; Visit Provider Nurse Practitioner Gerontology
DX: I42.8 Other cardiomyopathies (principal)
CPT/HCPCS: 93308

== ENCOUNTER → 2023-07-30 | Outpatient (CLI) | payer MEDICARE, SELFPAY ==
--- NOTE | 2023-07-30 12:57 | RAD_ITS ---
STUDY: X-RAY - LUMBOSACRAL SPINE REASON FOR EXAM: Male, 83 years old. Pain. TECHNIQUE: 6 view(s) of the lumbosacral spine, including lateral flexion and extension views, were obtained on 7 images. COMPARISON: None FINDINGS: Osteopenia. Normal lumbar lordosis. Minimal dextroscoliosis. 4 mm of anterolisthesis of L3 on L4. 19 mm of anterolisthesis of L5 on S1. Probable bilateral spondylolysis at L5-S1. Diffuse lower thoracic and lumbosacral facet sclerosis. Intervertebral disc space narrowing with osteophytes most marked from L2-3 to L5-S1. Limited flexion and extension with no abnormal motion. Vascular calcification. 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 Electronically Signed: Roman Mcmahon MD at 15:44 EDT ,
== END | disposition home or self-care (01) ==
PROVIDERS: PCP Family Medicine; Referring Provider Family Medicine; Visit Provider Family Medicine
DX: M54.9 Dorsalgia, unspecified (principal)
CPT/HCPCS: 72114

== ENCOUNTER 2023-09-04 14:41 | Emergency (ER) | payer MEDICARE, SELFPAY ==
[2023-09-04 14:46] VITALS: BP 134/79; PULSE 61; RESP 14; TEMP 36.8; O2SAT 97; BMI 29.7
--- NOTE | 2023-09-04 15:10 | EX.ED.DYSGE1 ---
HPI History of Present Illness Chief Complaint: Dizziness Detail of Chief Complaint: Syncopal episode at the dentist office Informant: patient, spouse/S.O. and EMS Onset/Context/Timing Onset: Yesterday and Hours Context: Sudden Onset Timing: Intermittent Quality: Patient states he blacked out Location: Dentist office Current Severity: Gone Maximum Severity: Severe Worsened by: Dental injection with Artane Relieved by: Not applicable Associated Symptoms Associated Symptoms: Patient remembers feeling nauseous and vision went dark and he blacked out. Narrative Narrative: History is limited because his was not in the room. Patient has dementia. And paramedics were not available when I saw the patient. Reviewed notes that were available by paramedics. is uncertain whether he became pale. With that he was sweaty. There was no incontinence of urine or stool. There is no documentation of postictal state. states she did not have a seizure. 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 (10/25/15) Breakdown (mechanical) of cardiac electrode, initial encounter COVID-19 Essential (primary) hypertension Frequent headaches GERD (gastroesophageal reflux disease) HLD (hyperlipidemia) Left bundle branch block Monomorphic ventricular tachycardia Neoplasm of uncertain behavior of skin Non-ischemic cardiomyopathy Non-ST elevation (NSTEMI) myocardial infarction (07/22/15) Obesity Personal history of skin cancer 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 Home Medications folic acid 1 mg tablet 1 mg PO DAILY 07/21/15 [History Last Taken Unknown] levothyroxine 75 mcg tablet 75 mcg PO DAILY 07/21/15 [History Last Taken 04/07/23] donepezil 10 mg tablet 10 mg PO DAILY 06/09/19 [History Last Taken Unknown] aspirin 81 mg tablet,delayed release (Adult Low Dose Aspirin) 81 mg PO DAILY 12/15/19 [History Last Taken Unknown] atorvastatin 40 mg tablet 40 mg PO DAILY 08/31/20 [History Last Taken Unknown] cholecalciferol (vitamin D3) 125 mcg (5,000 unit) capsule 125 mcg PO DAILY 08/31/20 [History Last Taken Unknown] escitalopram oxalate 10 mg tablet 10 mg PO DAILY 08/31/20 [History Last Taken Unknown] zinc acetate 50 mg (zinc) capsule (Galzin) 50 mg PO DAILY 08/31/20 [History Last Taken Unknown] nitroglycerin 0.4 mg sublingual tablet 0.4 mg sublingual Q5M PRN Chest Pain #25 tabs 03/22/21 [Rx Last Taken Unknown] memantine 10 mg tablet 10 mg PO QAM 03/28/22 [History Last Taken Unknown] carvedilol 25 mg tablet 25 mg PO BID #180 tabs 09/06/22 [Rx Last Taken 04/07/23] lisinopril 5 mg tablet 5 mg PO BID #180 tabs 04/21/23 [Rx Last Taken Unknown] Allergy/AdvReac Type Severity Reaction Status Date / Time No Known Allergies Allergy Verified 09/04/23 14:46 Family History Mother Hypertension Arthritis Surgical History H/O squamous cell carcinoma excision History of coronary artery stent placement (07/22/15) History of left heart catheterization Social History Smoking Status: Never smoker how long ago did patient quit smokin alcohol intake: never substance use type: does not use caffeine: No what type of physical activity do you participate in: other details: tredmill, nustep frequency: 1-2 times per week duration: 45-60 minutes/day seatbelt use: always do you feel safe at home: Yes additional social history: DOES TAKE ASPIRIN ROS ROS ED Review of Systems ROS Unobtainable: due to mental status Constitutional Constitutional ED: Denies chills or fever(s) Eyes Eyes: Reports other Details: Vision went black ; Denies blurry vision or change in vision ENT ENT ED: Denies sore throat Cardiovascular Cardiovascular: Denies chest pain or palpitations Respiratory/Chest Respiratory/Chest: Denies dyspnea or dyspnea on exertion Gastrointestinal Gastrointestinal: Denies diarrhea or vomiting Musculoskeletal Musculoskeletal: Denies arthralgias, myalgias or neck pain Neurologic Neurologic: Denies headache(s) Psychiatric Psychiatric: Denies anxiety Hematologic/Lymphatic Hematologic/Lymphatic: Reports systems reviewed and no addt'l complaints, except as documented Allergic/Immunologic Allergic/Immunologic ED: Denies mouth swelling, tongue swelling or urticaria EXAM Physical Exam Const Vital Signs: 09/04/23 14:46 09/04/23 14:51 Temperature 98.2 F Temperature Source Oral Pulse Rate 61 Respiratory Rate 14 Respiratory Effort Normal Non-Labored Respiratory Pattern Normal Blood Pressure 134/79 H Blood Pressure Mean 97 Pulse Ox 97 Oxygen Delivery Method Room Air Positive well nourished and well developed General Appearance ED: well developed and NAD; Negative for pallor HEENT Reports moist mucous membranes HEENT Narrative: Head is atraumatic and normocephalic. Ears normal. Nares patent. Posterior pharynx is normal. Eyes PERRL and EOMs intact bilaterally General Eye ED: Negative for pale conjunctiva or scleral icterus Neck no lymphadenopathy, supple and no JVD Resp normal respiratory effort and clear to auscultation bilaterally Cardio regular rate, regular rhythm, S1 normal heart sound, S2 normal heart sound and no murmurs GI normal to inspection, nondistended, normoactive bowel sounds, non-tender and non-distended; Negative for hepatosplenomegaly or no masses GI Narrative: No palpable pulsatile mass. Extremity normal to inspection Neuro oriented x3 and CN's II-XII intact bilaterally Sensorium / Orientation: alert Motor Exam: strength 5/5 throughout Psych mental status grossly normal Skin no rashes or lesions noted, no wounds and skin turgor normal General Skin Exam: Negative for jaundice or pallor MDM MDM MDM Narrative Medical decision making narrative: History of physical is suggestive of vasovagal episode. Patient has a pacemaker/AICD manufactured by [employer] will have the pacemaker interrogated. Will determine if patient had dysrhythmia that caused this versus a vasovagal episode. Patient's monitor reveals a paced rhythm with a rate of 60. Twelve-lead EKG performed by EMS prior to arrival is a paced rhythm with a rate of approximately 60. This is a ventricular paced rhythm. No further interpretation or evaluation was undertaken. History & Record Review Additional record(s) reviewed:: Prior outpatient record, Prior ED visit and Prior labs Treatment and Re-Evaluation :: Received a call from the [employer] outside sales representative. I was informed that 99.6% of the beats were paced. There was no evidence of dysrhythmia. Therefore patient will be discharged to home. Based on the history and physical findings patient had a vasovagal episode. 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 Instructions: ED Fainting, Vagal Reaction Prescriptions: No Action donepezil 10 mg tablet 10 mg PO DAILY aspirin [Adult Low Dose Aspirin] 81 mg tablet,delayed release (DR/EC) 81 mg PO DAILY atorvastatin 40 mg tablet 40 mg PO DAILY escitalopram oxalate 10 mg tablet 10 mg PO DAILY Patient Comments: TAKE 1 TABLET BY MOUTH EVERY DAY cholecalciferol (vitamin D3) 125 mcg (5,000 unit) capsule 125 mcg PO DAILY zinc acetate 50 mg (zinc) capsule 50 mg (zinc) capsule 50 mg PO DAILY nitroglycerin 0.4 mg tablet, sublingual 0.4 mg SUBLINGUAL Q5M PRN (Reason: Chest Pain) Qty: 25 3RF memantine 10 mg tablet 10 mg PO QAM levothyroxine 75 MCG tablet 75 mcg PO DAILY folic acid 1 MG tablet 1 mg PO DAILY Patient Comments: carvedilol 25 mg tablet 25 mg PO BID Qty: 180 4RF Rx Instructions: give with food (meal/snack) lisinopril 5 mg tablet 5 mg PO BID Qty: 180 3RF Primary Care Provider: Callum Hill Referrals: Callum Hill MD [Primary Care Provider] - As Needed Disposition Disposition: Home, Self Care
--- NOTE | 2023-09-04 16:13 | CHAPLAIN ---
Type of Pastoral Visit _x__ Initial Visit ___ Follow-up Visit ___ On-call Visit ___ General Patient Visit ___ Spiritual Assessment ___ Family Conference ___ Bereavement ___ Rapid Response ___ Code Blue ___ Other (describe below) Pastoral Care Referral From _x__ Patient _x__ Family ___ Nurse ___ Physician ___ [employer] Lay Out Worker ___ Mail Order Clerk ___ Other (describe below) Sacrament/Intervention _x__ Active listening ___ Anointing ___ Mosque ___ Bereavement ___ Communion ___ Fara exploration ___ ___ Life review _x__ Prayer ___ Reconciliation ___ Sacrament of Sick _x__ Supportive presence ___ Wedding ___ Other (describe below) Pastoral Comments this border patrol agent was notified by family that this patient was in the ED and this check on him was made for that reason; pt is alert, is at bedside, possible reasons for his 'blackout' was given by family; offer of support and prayer given and received; assurance of care and support for the future as needed
[2023-09-04 16:28] VITALS: BP 130/78; PULSE 62; RESP 18; TEMP 36.4; O2SAT 96
== END 2023-09-04 16:28 | disposition home or self-care (01) ==
PROVIDERS: Emergency Provider Emergency Medicine; PCP Family Medicine; Visit Provider Emergency Medicine
DX: R55 Syncope and collapse (principal); F03.90 Unspecified dementia, unspecified severity, without behavioral disturbance, psychotic disturbance, mood disturbance, and anxiety; I42.8 Other cardiomyopathies; I25.10 Atherosclerotic heart disease of native coronary artery without angina pectoris; E78.5 Hyperlipidemia, unspecified; I10 Essential (primary) hypertension; Z95.810 Presence of automatic (implantable) cardiac defibrillator; I25.2 Old myocardial infarction; Z79.82 Long term (current) use of aspirin; Z79.899 Other long term (current) drug therapy; Z85.828 Personal history of other malignant neoplasm of skin; Z95.5 Presence of coronary angioplasty implant and graft; Z87.891 Personal history of nicotine dependence
CPT/HCPCS: 93288; 93289; 99284

== ENCOUNTER 2023-09-16 13:30 | Outpatient (RCR) | payer MEDICARE, SELFPAY ==
--- NOTE | 2023-08-20 13:28 | HP.PTEVAL ---
Patient's Visit Information Visit Information Visit Information: BINH WRIGHT is a 83 year old M referred to Physical Therapy by Dr. Dilshad Hill MD with a diagnosis of Low back pain and DDD. Date of Evaluation: 08/19/23 Physical Therapist: Oniel Sutton DPT Visit Plan Frequency: 1x/Week Duration: 6 Weeks Plan: -hip/LE strengthening -neutral core strengthening -static and dynamic balance -stretching to low back and LEs as needed (could add thoracic ext mobility) Pt not limited by pain, just work on stretching and strengthening functionally, pt has some hx of falls so can include balance (HEP: LTR, standing hip ABD, glute bridge, standing marching, PPT, STS) Subjective Subjective: Pt presents to PT with chronic low back pain. is present to help provide hx. Pt reports pain is worse with leaning over to make the bed, vacuuming, no issues with sleeping or sitting. Pt denies any N/T in his LEs. Pt is able to stand for about 30 minutes before needing to sit down. Pt had two falls in the past year, mostly d/t tripping, denies any dizziness. Doctor would like him to work on strengthening and improve his posture. GOALS: decrease pain, be able to move more Pain Back: Pain Intensity (Out of 10): 0 Pain Intensity Range: 0 and 7 Objective Objective: ROM: jan hip WNL, lumbar - flex 100% felt good, ext 75% felt good, R LSB 75%, L LSB 75%, R rotation 60%, L rotation 75% MMT: L - knee ext 4/5, knee flex 4-/5, hip flex 4-/5, hip ABD 3+/5, glute bridge 3/5 R - knee ext 4-/5, knee flex 3+/5, hip flex 3+/5, hip ABD 3/5 GAIT: slight L sided Trendelenburg, decreased R foot clearance OBSERVATION: SKTC felt good PALPATION: some tightness in R sided paraspinals, no central tenderness STS: slow and cautious when standing, no use of UE 5xSTS:23.14 Balance/Special Test Scores Oswestry Low Back Score: 13 Goals Goal 1:: Pt will demonstrate 4/5 hip strength jan Goal Time Frame: 4-6 Weeks Goal 2:: Pt will demonstrate normalized gait with improved R sided foot clearance Goal Time Frame: 4-6 Weeks Goal 3:: Pt will complete HEP and gym program at least 3 days per week with 0/10 pain Goal Time Frame: 4-6 Weeks Goal 4:: Pt will be able to stand for 1 hour with <2/10 pain Goal Time Frame: 4-6 Weeks Rehabilitation Potential Physical Therapy Diagnosis: Pt presents with low back pain, hypomobility, decreased tissue extensibility, and hip/core weakness. Pt would benefit from skilled PT services to address muscular endurance, pain, body mechanics, and promote more active lifestyle. Rehabilitation Potential: Good Anticipated Interventions Patient/Client Instruction: Educate patient on: Condition, Plan of Care and Benefits of Fitness Program For the Purpose of:: To decrease pain, To increase ROM, To improve muscle performance and motor function, To improve ability to perform ADL's, To increase tolerance to activity/condition/position, To improve performance and independence with ADL's, To improve ability of physical actions for home/community/work/leisure, To improve gait and locomotor functions, To increase flexibility/ROM, To improve balance, To improve safety with gait, To assume or resume ADL's, To reduce risk of recurrence, To improve safety, To improve self management, To improve ability to perform tasks related to life management and To improve tolerance to ADL's Therapeutic Exercise to Include: Strength training, Balance training, Body mechanics, Postural training, Flexibilty training, Gait and locomotor training, Passive ROM, Active ROM, Dynamic Lumbar Stabilization and [place] Exercises For the Purpose of:: To decrease pain, To decrease swelling/inflammation, To increase ROM, To improve muscle performance and motor function, To increase tolerance to activity/condition/position, To improve performance and independence with ADL's, To improve gait and locomotor functions, To improve health of tissue, To decrease soft tissue restriction, To assume or resume ADL's, To improve health and function, To improve self management, To improve ability to perform tasks related to life management and To improve tolerance to ADL's Manual Therapy Techniques to Include: Mobilization and Soft tissue mobilization For the Purpose of:: To decrease pain, To increase ROM, To improve health of tissue, To decrease soft tissue restriction and To increase flexibility/ROM TENS: Yes Cryotherapy (ice pack, ice massage): Yes Thermo therapy (hot pack): Yes For the Purpose of:: To decrease pain, To decrease swelling/inflammation, To increase ROM, To decrease soft tissue restriction and To increase flexibility/ROM Text: Thank you for the opportunity to evaluate your patient. For Medicare and Medicare HMO plans, please review the plan of care and approve it. It will need to be FAXED BACK to us at [phone] for Medicare purposes. For Medicare only, by signing this I certify the plan of care. Please let me know if there are questions or concerns regarding this plan of care. Physician Signature: Date:
== END 2023-09-16 19:00 | disposition home or self-care (01) ==
LOC: PT 13:30
PROVIDERS: PCP Family Medicine; Referring Provider Family Medicine; Visit Provider Family Medicine
DX: M51.36 Other intervertebral disc degeneration, lumbar region (principal)
CPT/HCPCS: 97110; 97161

== ENCOUNTER → 2023-09-16 | Outpatient (CLI) | payer MEDICARE, SELFPAY ==
[2023-09-16 18:34] LABS: AST(SGOT) 26 U/L (15-37); Alanine Aminotransfer ALT/SGPT 39 U/L (16-61); Albumin, Serum 3.5 g/dL (3.2-5.0); Alkaline Phosphatase 91 U/L (45-117); Bilirubin, Direct 0.18 mg/dL (0.00-0.30); Cholesterol 125 mg/dL (200); Globulin 3.3 g/dL (2.2-4.2); High Density Lipoprotein 43 mg/dL; Protein, Total 6.8 g/dL (6.4-8.2); Triglycerides 166 mg/dL; Very Low Density Lipoprotein 33 mg/dL (5-40)
== END | disposition home or self-care (01) ==
LOC: MTLAB 14:19
PROVIDERS: PCP Family Medicine; Referring Provider Nurse Practitioner Gerontology; Visit Provider Nurse Practitioner Gerontology
DX: E78.00 Pure hypercholesterolemia, unspecified (principal)
CPT/HCPCS: 36415; 80061; 80076

== ENCOUNTER → 2023-09-25 | Outpatient (CLI) | payer MEDICARE, SELFPAY ==
[2023-09-25 10:22] LABS: Absolute Neutrophil Count 4.9 X10^3/uL (2.0-7.7); Basophil# 0.06 X10^3/uL; Basophil% 0.8 % (0-1); Eosinophil# 0.18 X10^3/uL; Eosinophils% 2.3 % (0-5); Hematocrit 41.6 % (40-54); Hemoglobin 13.6 g/dL (13.0-16.5); Lymphocyte % 20.9 % (19-41); Mean Corp Hgb Conc 32.7 g/dL (32-36); Mean Corpuscular Hgb 31.3 pg (27.0-32.0); Mean Corpuscular Volume 95.6 fL (80-94); Monocyte# 0.81 X10^3/uL; Monocyte% 10.6 % (0-10); NRBC Flagged by Analyzer 0 % (0-5); Neutrophil # 4.88 X10^3/uL (2.7-7.7); Neutrophil % 63.7 % (47-70); Platelet Count 178 K/mm3 (150-450); RBC Distribution Width CV 12.2 % (11.6-14.6); RBC Distribution Width SD 43.2 fl (35.1-43.9); Red Blood Count 4.35 M/mm3 (4.6-6.2); White Blood Count 7.7 K/mm3 (4.4-11.0)
[2023-09-25 10:53] LABS: Anion Gap 2 (5-15); BUN 18 mg/dL (7-18); BUN/Creat Ratio 17.6 RATIO (10-20); Calcium,Total 9.6 mg/dL (8.5-10.1); Chloride 107 mmol/L (98-107); Creatinine, Serum 1.02 mg/dL (0.70-1.30); EST Glomerular Filtration Rate 74 mL/min (>60); Est Glom Filt Rate - Afr Amer 90 mL/min (>60); Glucose 140 mg/dL (74-106); Potassium 4.2 mmol/L (3.5-5.1); Sodium Level 138 mmol/L (136-145); Thyroid Stim Hormone (TSH) 3.32 uIU/mL (0.358-3.74)
== END | disposition home or self-care (01) ==
LOC: LAB 09:20
PROVIDERS: PCP Family Medicine; Referring Provider Nurse Practitioner Gerontology; Visit Provider Nurse Practitioner Gerontology
DX: R53.83 Other fatigue (principal)
CPT/HCPCS: 36415; 80048; 84443; 85025

== ENCOUNTER → 2024-04-05 | Outpatient (CLI) | payer MEDICARE, SELFPAY ==
[2024-04-05 12:55] LABS: Hematocrit 42.2 % (40-54); Hemoglobin 14.3 g/dL (13.0-16.5); Mean Corp Hgb Conc 33.9 g/dL (32-36); Mean Corpuscular Hgb 32.1 pg (27.0-32.0); Mean Corpuscular Volume 94.6 fL (80-94); Mean Platelet Vol. 10.9 fl (6.2-12.0); Platelet Count 186 K/mm3 (150-450); RBC Distribution Width CV 12.8 % (11.6-14.6); RBC Distribution Width SD 44.5 fl (35.1-43.9); Red Blood Count 4.46 M/mm3 (4.6-6.2); White Blood Count 8.3 K/mm3 (4.4-11.0)
[2024-04-05 13:14] LABS: AST(SGOT) 24 U/L (15-37); Alanine Aminotransfer ALT/SGPT 29 U/L (16-61); Albumin, Serum 3.7 g/dL (3.2-5.0); Alkaline Phosphatase 100 U/L (45-117); Bilirubin, Direct 0.27 mg/dL (0.00-0.30); Cholesterol 145 mg/dL (200); Globulin 3.2 g/dL (2.2-4.2); High Density Lipoprotein 51 mg/dL; Protein, Total 6.9 g/dL (6.4-8.2); Triglycerides 129 mg/dL; Very Low Density Lipoprotein 26 mg/dL (5-40)
[2024-04-05 13:19] LABS: ALB/GLOB Ratio 1.2 RATIO (0.9-2.4); AST(SGOT) 27 U/L (15-37); Alanine Aminotransfer ALT/SGPT 28 U/L (16-61); Albumin, Serum 3.7 g/dL (3.2-5.0); Alkaline Phosphatase 98 U/L (45-117); Anion Gap 6 (5-15); BUN 17 mg/dL (7-18); BUN/Creat Ratio 18.8 RATIO (10-20); Calcium,Total 9.2 mg/dL (8.5-10.1); Chloride 105 mmol/L (98-107); EST Glomerular Filtration Rate 85 mL/min (>60); Est Glom Filt Rate - Afr Amer 103 mL/min (>60); Globulin 3.1 g/dL (2.2-4.2); Glucose 134 mg/dL (74-106); Potassium 4.5 mmol/L (3.5-5.1); Protein, Total 6.8 g/dL (6.4-8.2); Sodium Level 139 mmol/L (136-145)
== END | disposition home or self-care (01) ==
LOC: LAB 12:21
PROVIDERS: PCP Family Medicine; Referring Provider Nurse Practitioner Gerontology; Visit Provider Nurse Practitioner Gerontology
DX: E03.9 Hypothyroidism, unspecified (principal); E78.00 Pure hypercholesterolemia, unspecified; I25.10 Atherosclerotic heart disease of native coronary artery without angina pectoris
CPT/HCPCS: 36415; 80053; 80061; 80076; 84443; 85027

== ENCOUNTER 2024-08-28 09:44 | Inpatient (IN) | payer MEDICARE, SELFPAY ==
[2024-08-28] VITALS (11 sets, daily range): BP systolic 110–160; BP diastolic 60–86; PULSE 60–79; RESP 15–23; TEMP 36.6–37.1; O2SAT 90–96; BMI 29.7; BMI 29.3
--- NOTE | 2024-08-28 10:03 | EKG12_ITS ---
Test Reason : NEURO S/SX Blood Pressure : */* mmHG Vent. Rate : 63 BPM Atrial Rate : 63 BPM P-R Int : 158 ms QRS Dur : 168 ms QT Int : 456 ms P-R-T Axes : -9 169 29 degrees QTcB Int : 466 ms A-V paced with PVC's Biventricular pacemaker detected Abnormal ECG Confirmed by Asher Inman ([id number]), assignment editor FAUSTINO CHRIS ([id number]) on 09/01/2024 10:09:17 AM Referred By: Confirmed By: sAher Inman
--- NOTE | 2024-08-28 10:11 | EX.ED.DYSGE1 ---
HPI History of Present Illness Chief Complaint: Neuro S/Sx Detail of Chief Complaint: Altered level of consciousness. Informant: spouse/S.O. Onset/Context/Timing Onset: Days Context: Gradual Onset Timing: Continuous Current Severity: Moderate Maximum Severity: Moderate Narrative Narrative: 84-year-old male history of dementia, prior ID, cardiac stent, defibrillator. On aspirin only no other blood thinners. states he had a drastic change of his mental status since evening. Now 2 days ago. He has had a new cough. No fever. No vomiting or diarrhea. No complaint of dysuria. He fell a month or 2 ago but not recently. She states normally evenings are tougher for him when he ' but she said this is different than his baseline. 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 (10/25/15) Atherosclerotic heart disease of [place] coronary artery without angina pectoris Non-ST elevation (NSTEMI) myocardial infarction (07/22/15) Obesity HLD (hyperlipidemia) GERD (gastroesophageal reflux disease) Home Medications ?Medication ?Instructions ?Recorded ?Last Taken ?Type folic acid 1 mg tablet 1 mg PO DAILY 07/21/15 08/27/24 History levothyroxine 75 mcg tablet 75 mcg PO DAILY 07/21/15 08/27/24 History donepezil 10 mg tablet 10 mg PO DAILY 06/09/19 08/27/24 History aspirin 81 mg tablet,delayed 81 mg PO QHS 12/15/19 Unknown History release (Adult Low Dose Aspirin) atorvastatin 40 mg tablet 40 mg PO QHS 08/31/20 Unknown History escitalopram oxalate 10 mg tablet 10 mg PO DAILY 08/31/20 Unknown History nitroglycerin 0.4 mg sublingual 0.4 mg sublingual Q5M PRN Chest 03/22/21 Unknown Rx tablet Pain #25 tabs memantine 10 mg tablet 10 mg PO BID 03/28/22 08/27/24 History carvedilol 25 mg tablet 25 mg PO BID #180 tabs 09/09/23 08/27/24 Rx lisinopril 5 mg tablet 5 mg PO BID #180 tabs 10/04/23 08/27/24 Rx cholecalciferol (vitamin D3) 50 50 mcg PO DAILY VITAMIN 08/28/24 08/27/24 History mcg (2,000 unit) tablet (D3 DOTS) vitamin E 268 mg (400 unit) capsule 268 mg PO DAILY 08/28/24 08/27/24 History Allergy/AdvReac Type Severity Reaction Status Date / Time No Known Allergies Allergy Verified 05/11/24 11:23 Family History Mother Hypertension Arthritis Surgical History H/O squamous cell carcinoma excision History of left heart catheterization History of coronary artery stent placement (07/22/15) Social History Smoking Status: Former smoker how long ago did patient quit smokin alcohol intake: never substance use type: does not use caffeine: No what type of physical activity do you participate in: other details: [place] frequency: 1-2 times per week duration: 45-60 minutes/day seatbelt use: always do you feel safe at home: Yes additional social history: DOES TAKE ASPIRIN ROS ROS ED Constitutional Constitutional ED: Denies chills or fever(s) Eyes Eyes: Denies blurry vision ENT ENT ED: Denies ear pain Cardiovascular Cardiovascular: Denies chest pain Respiratory/Chest Respiratory/Chest: Reports cough; Denies dyspnea Gastrointestinal Gastrointestinal: Denies abdominal pain Genitourinary Genitourinary ED: Denies dysuria or hematuria Musculoskeletal Musculoskeletal: Reports back pain; Denies arthralgias Integumentary Denies abscess Neurologic Neurologic: Denies headache(s) Psychiatric Psychiatric: Denies anxiety or depression Hematologic/Lymphatic Hematologic/Lymphatic: Reports none Allergic/Immunologic Allergic/Immunologic ED: Denies mouth swelling, tongue swelling or urticaria EXAM Physical Exam Narrative Exam Narrative: 84-year-old male sitting upright in bed. at bedside. Vital signs are stable and afebrile. Pulse ox 96% on room air no hypoxia. H EENT exam eyes are closed we will open. Pupils round reactive light. Extra motions are intact. Moist mucous membranes. There is no trauma to his face or head. Neck nontender no lymphadenopathy. Back nontender but he does have a lidocaine patch on his right lower back. Lungs clear to auscultation. Heart paced regular rhythm. Chest wall ribs nontender. Abdomen soft nontender. Moving all 4 extremities. 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 Dorsi plantarflexion intact. Neurologically he is awake his eyes are closed he will open them. He is really not speaking much. He follows limited commands like gripping your hand. He really is not answering any questions. Const Vital Signs: 08/28/24 09:46 08/28/24 10:03 08/28/24 10:46 Temperature 98.7 F Temperature Source Oral Pulse Rate 68 67 Respiratory Rate 18 18 Blood Pressure 138/66 H 148/80 H Blood Pressure Mean 90 102 Pulse Ox 96 90 92 Oxygen Delivery Method Room Air Nasal Cannula Nasal Cannula Oxygen Flow Rate (L/min) 2 2 08/28/24 11:28 08/28/24 12:02 Temperature Temperature Source Pulse Rate 60 60 Respiratory Rate 21 H 23 H Blood Pressure 160/71 H 146/86 H Blood Pressure Mean 100 106 Pulse Ox 95 92 Oxygen Delivery Method Room Air Nasal Cannula Oxygen Flow Rate (L/min) 2 Positive well nourished and well developed; Negative for cachectic, contractures or unkempt General Appearance ED: well developed, NAD and pallor; Negative for unkempt, cachectic, contractures, cyanotic or diaphoretic Nutritional Appearance: Negative for cachectic HEENT Reports moist mucous membranes Negative for trauma or tenderness Eyes PERRL and EOMs intact bilaterally General Eye ED: Negative for pale conjunctiva or scleral icterus Neck no lymphadenopathy, supple and no JVD General: Negative for tenderness Lymph Lymphatic: Negative for other Chest Wall inspection of chest normal and palpation of chest normal Resp normal respiratory effort and clear to auscultation bilaterally Effort and Inspection: Negative for retractions Auscultation: Negative for rales, rhonchi, wheezes or diminished lung sounds Cardio regular rate, regular rhythm, S1 normal heart sound, S2 normal heart sound and no murmurs GI normal to inspection, nondistended, normoactive bowel sounds, non-tender, non-distended and no masses Auscultation: normoactive bowel sounds Palpation: soft; Negative for tender, guarding or rebound tenderness present Back/Spine no CVA tenderness Extremity normal to inspection General Extremety ED: Negative for edema or tenderness General Extremity: Negative for edema Neuro No oriented x3 and CN's II-XII intact bilaterally Neuro Narrative: Lethargic but arousable. Will open eyes. Sensorium / Orientation: lethargic Motor Exam: general weakness Psych mental status grossly normal Appearance: Negative for unkempt Mood & Affect: Negative for depressed or anxious Skin no rashes or lesions noted, no wounds and skin turgor normal General Skin Exam: jaundice and pallor Lesions: No lesion noted Rashes: No rashes noted Trauma: Negative for abrasion Wounds: Negative for wounds noted MDM MDM MDM Narrative Medical decision making narrative: Elderly male mental status change since . Could be a stroke or intracranial bleed more likely may have underlying infection such as URI or UTI. Stroke workup will be done with CTA head and neck. Also UA and labs COVID and flu. Chest x-ray to rule out pneumonia. Repeat exam patient is doing better at 12:50 PM. A long discussion with his and son. She is more comfortable To take him home. She is not pushing for admission. I did offer admission. She said she is comfortable taking care of him. We went over all of his test result results including a CT, x-ray and labs. Patient is awake and alert. He is answering questions now. He is also comfortable being discharged home. understands that if she gets him home and he is doing worse or she is unable to care for him she is welcome to come back to get him admitted. When the patient was going to be discharged he stood up out of bed without significant difficulty ambulating. He will be admitted. History & Record Review Discussion w/independent historian: Patient Additional record(s) reviewed:: Prior inpatient record, Prior outpatient record, Prior ED visit and Prior labs Lab Data Attestation: I reviewed the patient's lab results. Lab results narrative: CBC shows white count 12.3. H&H 13.9 and 41. Platelets 157. PT/INR 13 and 1. PTT 27. Chemistries show a gap of 12. BUN of 19 creatinine of 1. Glucose 166. Initial troponin 23. Second troponin 21. COVID and flu negative. UA normal. No infection. Chest x-ray chronic changes. Labs: Laboratory Results - last 24 hr 08/28/24 08/28/24 08/28/24 10:02 10:50 11:55 WBC 12.3 H RBC 4.44 L Hgb 13.9 Hct 41.2 MCV 92.8 MCH 31.3 MCHC 33.7 RDW Std Deviation 43.5 RDW Coeff of Maryana 12.7 Plt Count 157 MPV 10.8 Immature Gran % (Auto) 0.400 Neut % (Auto) 73.7 H Lymph % (Auto) 11.0 L Cole % (Auto) 13.5 H Eos % (Auto) 1.1 Baso % (Auto) 0.3 Absolute Neuts (auto) 9.1 H Absolute Lymphs (auto) 1.36 Nucleated RBC % 0 Differential Comment SCANNED PT 13.5 INR 1.0 APTT 27.5 Sodium 136 Potassium 4.4 Chloride 99 Carbon Dioxide 24.9 Anion Gap 12 BUN 19 Creatinine 1.02 Estim Creat Clear Calc 55.63 Est GFR (MDRD) Non-Af 73 BUN/Creatinine Ratio 18.1 Glucose 166 H Calcium 9.4 Troponin T High Sens 23 H Troponin T Hi Sens 2 Hr 21 Urine Color Yellow Urine Clarity Clear Urine pH 6.5 Ur Specific Makinen 1.015 Urine Protein 15 H Urine Glucose (UA) Normal Urine Ketones Negative Urine Occult Blood 25 H Urine Nitrite Negative Urine Bilirubin Negative Urine Urobilinogen Normal Ur Leukocyte Esterase Negative Urine RBC 0-5 SEEN Urine WBC 0 SEEN Ur Squamous Epith Cells 0-5 SEEN Urine Bacteria 0 SEEN Urine Mucus 0 SEEN Radiography Chest X-Ray - ED: 1 View, Read by ED Physician, Normal, Heart, Lungs, Mediastinum, Bony Structures, No Acute Disease and Chronic Changes Diagnostic Testing: Clinical Impression(s) from Imaging Studies Chest X-Ray 08/28/24 11:05 IMPRESSION: Mild cardiomegaly with pulmonary vascular congestion. Reading Location: [facility] Brain CT 08/28/24 11:10 IMPRESSION: 1. No acute intracranial finding. 2. Findings of chronic microvascular ischemic changes and age-related changes. Reading Location: [facility] Head/Neck CTA 08/28/24 11:10 IMPRESSION: 1. No large vessel occlusion, AVM or aneurysm. 2. Mild narrowing of the bilateral vertebral arteries and carotid siphons. 3. No significant stenosis of the cervical carotid arteries by NASCET criteria. Reading Location: [facility] Chest x-ray, portable, single view interpreted by myself shows normal cardiac silhouette. Left-sided pacemaker defibrillator. Normal lung celeste. Chronic changes. No acute process. No pneumonia. No significant effusions. Rhythm Strip Rhythm Strip: Paced Rate: 63 Ectopy: PVC(s) EKG Initial EKG: Attestation: I personally reviewed and interpreted this EKG as follows: Interpretation: Paced Discharge Plan Triage Chief Complaint: Neuro S/Sx ED Provider: Brendan Hernandez Dx/Rx/DC Orders Clinical Impression: Viral URI, Altered level of consciousness, History of dementia, Difficulty in walking Instructions: ED URI, Viral, No Abx (Adult) Prescriptions: No Action donepezil 10 mg tablet 10 mg PO DAILY aspirin [Adult Low Dose Aspirin] 81 mg tablet,delayed release (DR/EC) 81 mg PO QHS atorvastatin 40 mg tablet 40 mg PO QHS escitalopram oxalate 10 mg tablet 10 mg PO DAILY nitroglycerin 0.4 mg tablet, sublingual 0.4 mg SUBLINGUAL Q5M PRN (Reason: Chest Pain) Qty: 25 3RF memantine 10 mg tablet 10 mg PO BID lisinopril 5 mg tablet 5 mg PO BID Qty: 180 3RF levothyroxine 75 MCG tablet 75 mcg PO DAILY folic acid 1 MG tablet 1 mg PO DAILY Patient Comments: cholecalciferol (vitamin D3) [D3 DOTS] 50 mcg (2,000 unit) tablet 50 mcg PO DAILY vitamin E 268 mg (400 unit) capsule 268 mg PO DAILY carvedilol 25 mg tablet 25 mg PO BID Qty: 180 4RF Rx Instructions: give with food (meal/snack) Primary Care Provider: Callum Hill Referrals: Callum Hill MD [Primary Care Provider] - 3-5 Days Activity Restrictions/Additional Instructions: Call and follow-up with your primary care physician. Plenty of fluids and rest. Return if you are unable to care for him or is doing worse. His labs, x-ray and CAT scans today look good. Print Language: Cameroonian Disposition Disposition: Acute Care Hospital [facility]
[2024-08-28 10:15] LABS: Absolute Lymphocyte Count 1.36 X10^3/uL (0.83-4.51); Absolute Neutrophil Count 9.1 X10^3/uL (2.0-7.7); Basophil# 0.04 X10^3/uL; Basophil% 0.3 % (0-1); Eosinophil# 0.14 X10^3/uL; Eosinophils% 1.1 % (0-5); Hematocrit 41.2 % (40-54); Hemoglobin 13.9 g/dL (13.0-16.5); Lymphocyte # 1.36 X10^3/ul (0.83-4.51); Mean Corp Hgb Conc 33.7 g/dL (32-36); Mean Corpuscular Hgb 31.3 pg (27.0-32.0); Mean Corpuscular Volume 92.8 fL (80-94); Mean Platelet Vol. 10.8 fl (6.2-12.0); Monocyte# 1.66 X10^3/uL; Monocyte% 13.5 % (0-10); NRBC Flagged by Analyzer 0 % (0-5); Neutrophil # 9.09 X10^3/uL (2.7-7.7); Neutrophil % 73.7 % (47-70); POSITIVE DIFFERENTIAL YES; Platelet Count 157 K/mm3 (150-450); RBC Distribution Width CV 12.7 % (11.6-14.6); RBC Distribution Width SD 43.5 fl (35.1-43.9); Red Blood Count 4.44 M/mm3 (4.6-6.2); White Blood Count 12.3 K/mm3 (4.4-11.0)
[2024-08-28 10:17] LABS: Differential Indicated SCAN CRITERIA MET
[2024-08-28 10:23] LABS: Partial Thromboplast Time 27.5 Seconds (24.1-36.2); Prothrombin Time (Protime)PT. 13.5 SECONDS (11.7-14.9)
[2024-08-28 10:32] LABS: Anion Gap 12 (5-15); BUN 19 mg/dL (4-19); BUN/Creat Ratio 18.1 RATIO (10-20); Calcium,Total 9.4 mg/dL (7.6-11.0); Carbon Dioxide 24.9 mmol/L (21.0-32.0); Chloride 99 mmol/L (98-108); Creatinine, Serum 1.02 mg/dL (0.70-1.20); EST Glomerular Filtration Rate 73 (>60); Estimated Creatinine Clearance 55.63 ml/min (50-250); Glucose 166 mg/dL (70-99); Potassium 4.4 mmol/L (3.3-5.1); Sodium Level 136 mmol/L (133-145); Troponin T High Sensitivity 23 ng/L (<=22)
[2024-08-28 10:34] LABS: Differential Comment SCANNED
[2024-08-28 10:54] LABS: Bacteria 0 SEEN /hpf (None Seen); Mucous, Urine 0 SEEN /hpf (<or=2+); White Blood Cells 0 SEEN /hpf (0-5)
[2024-08-28 10:55] LABS: Color, Urine Yellow (Yellow); Glucose, Dipstick Normal (Normal); Ketone-Dipstick Negative (Negative); Leukocyte Esterase-Dipstick Negative /ul (Negative); Nitrite-Dipstick Negative (Negative); Occult Blood-Urine 25 /ul (Negative); Protein-Dipstick 15 mg/dl (Negative); Specific Gravity, Urine 1.015 (1.002-1.030); Urine Bilirubin Dipstick Negative (Negative); Urine Clarity Clear (Clear); Urine Urobilinogen Normal (Normal); Urine pH 6.5 (5.0 - 8.0)
[2024-08-28 11:01] LABS: Red Blood Cells-Urine 0-5 SEEN /hpf (0-5); Squamous Epithelial Cells - UA 0-5 SEEN /hpf (0-5)
--- NOTE | 2024-08-28 11:05 | RAD_ITS ---
PROCEDURE: CHEST 1 VIEW (PORTABLE) 08/28/2024 REASON FOR EXAM: COUGH TECHNIQUE: Frontal view of the chest. COMPARISON: None. FINDINGS: Hardware: Left chest wall ICD pacemaker. Heart: Heart size is mildly enlarged with mild pulmonary vascular congestion. Calcification of the thoracic aorta. Lungs: No focal consolidation, pleural effusion or pneumothorax. Bones: Degenerative changes are identified within the thoracic spine. RAD/Chest 1 View (Portable) IMPRESSION: Mild cardiomegaly with pulmonary vascular congestion. Reading Location: [id number]
--- NOTE | 2024-08-28 11:10 | CT_ITS ---
EXAM: STROKE BRAIN/HEAD WITHOUT CONT CLINICAL HISTORY: 84 y/o M with NEURO DEFICIT, ACUTE, STROKE SUSPECTED. COMPARISON: None. TECHNIQUE: Routine CT imaging of the head without IV contrast. Additional multiplanar reformats were obtained. Dose reduction techniques were used including intermediate exposure control (AEC),iterative reconstruction technique, and/or mA and/or KV dose adjustments based on patient's size. FINDINGS: Mild generalized cerebral volume loss with concordant prominence of the ventricles and subarachnoid spaces. Moderate patchy supratentorial white matter hypodensities. The javier-white matter interfaces are otherwise maintained. No acute intracranial hemorrhage or herniation. Prior ocular lens replacements. Mild mucosal thickening of the left maxillary and sphenoid sinuses. Scattered opacified bilateral ethmoid air cells. No acute calvarial fracture or scalp hematoma. CT/STROKE Brain/Head without Cont IMPRESSION: 1. No acute intracranial finding. 2. Findings of chronic microvascular ischemic changes and age-related changes. Reading Location: [id number]
--- NOTE | 2024-08-28 11:10 | CT_ITS ---
PROCEDURE: STROKE CTA HEAD AND NECK W/CON 08/28/2024 REASON FOR EXAM: NEURO DEFICIT, ACUTE, STROKE SUSPECTED. Right-sided weakness and difficulty talking, starting . History of Alzheimer's. TECHNIQUE: CTA imaging of the head and neck from the aortic arch to the skull vertex with out constrast and with intravenous contrast. Coronal and Sagittal reconstruction series were provided. 3D post processing with reformations, Maximum intensity projection (MIPs) Volume rendering and Shaded surface rendering was provided. CONTRAST: Isovue 370 VOLUME: 100 mL One or more dose reduction techniques were used (e.g., Automated exposure control, adjustment of the mA and/or kV according to patient size, use of iterative reconstruction technique). RADIATION DOSE SUMMARY: CTDlvol: 20 mGy DLP: 800 mGycm COMPARISON: Same-day CT head FINDINGS: See same day noncontrast CT head for discussion of nonvascular findings. Three-vessel aortic arch with mild scattered calcifications. No focal stenosis. Calcific plaque of the bilateral vertebral artery origins resulting in mild narrowing. Mild calcific plaque of the right V1 segment of the vertebral artery without narrowing. Calcific plaque of the bilateral cervical carotid arteries without stenosis by NASCET criteria. Calcific plaque of the bilateral carotid siphons resulting in mild multifocal narrowing. The bilateral anterior, middle and posterior cerebral arteries are widely patent. No aneurysm or arteriovenous malformation. Major venous structures: Unremarkable. Other findings: Left chest wall pacemaker. Cervical and thoracic spondylosis. CT/STROKE CTA Head AND Neck W/Con IMPRESSION: 1. No large vessel occlusion, AVM or aneurysm. 2. Mild narrowing of the bilateral vertebral arteries and carotid siphons. 3. No significant stenosis of the cervical carotid arteries by NASCET criteria. Reading Location: [facility]
[2024-08-28 12:18] LABS: Troponin T High Sens 2 HR 21 ng/L (<=22)
--- NOTE | 2024-08-28 14:08 | PCM.HP.STD ---
HPI - General General Date of Admission: 08/28/24 Date of Service: 08/28/24 Chief Complaint: Altered LOC HPI Narrative BINH WRIGHT, is a 84 M with a history of pacemaker/defibrillator, dementia, hypertension, hypothyroidism, coronary artery disease who presented [facility] ED 08/28/2024 with altered level of consciousness. Family reports since he started not acting quite right and his just progressively worsened, the only additional change during that time is patient has been having some cough. Given the mental status change he had CTA of the head and neck and CT which were negative the patient with no focal complaints and nonfocal exam to suggest CVA as a primary culprit. Given patient's failure to thrive and mental status changes with inability for family to take care of patient at home hospitalist contacted for admission. Patient evaluated with family at bedside, reports that he was not acting like himself and is progressively worsened and is now not close to baseline though does note he has chronic dementia. Reports he has a cough and that for a while he has had some shortness of breath on exertion, only other thing she notes is that he has some right leg pain which is not new, denies that he has had any changes in bowel or bladder. Denies any new medication changes. 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 Personal history of skin cancer Neoplasm of uncertain behavior of skin Frequent headaches Essential (primary) hypertension Monomorphic ventricular tachycardia Non-ischemic cardiomyopathy Left bundle branch block 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 (10/25/15) Atherosclerotic heart disease of [place] coronary artery without angina pectoris Non-ST elevation (NSTEMI) myocardial infarction (07/22/15) Obesity HLD (hyperlipidemia) GERD (gastroesophageal reflux disease) Home Medications ?Medication ?Instructions ?Recorded ?Last Taken ?Type folic acid 1 mg tablet 1 mg PO DAILY 07/21/15 08/27/24 History levothyroxine 75 mcg tablet 75 mcg PO DAILY 07/21/15 08/27/24 History donepezil 10 mg tablet 10 mg PO DAILY 06/09/19 08/27/24 History aspirin 81 mg tablet,delayed 81 mg PO QHS 12/15/19 Unknown History release (Adult Low Dose Aspirin) atorvastatin 40 mg tablet 40 mg PO QHS 08/31/20 Unknown History escitalopram oxalate 10 mg tablet 10 mg PO DAILY 08/31/20 Unknown History nitroglycerin 0.4 mg sublingual 0.4 mg sublingual Q5M PRN Chest 03/22/21 Unknown Rx tablet Pain #25 tabs memantine 10 mg tablet 10 mg PO BID 03/28/22 08/27/24 History carvedilol 25 mg tablet 25 mg PO BID #180 tabs 09/09/23 08/27/24 Rx lisinopril 5 mg tablet 5 mg PO BID #180 tabs 10/04/23 08/27/24 Rx cholecalciferol (vitamin D3) 50 50 mcg PO DAILY VITAMIN 08/28/24 08/27/24 History mcg (2,000 unit) tablet (D3 DOTS) vitamin E 268 mg (400 unit) capsule 268 mg PO DAILY 08/28/24 08/27/24 History Allergy/AdvReac Type Severity Reaction Status Date / Time No Known Allergies Allergy Verified 05/11/24 11:23 Family History Mother Hypertension Arthritis Surgical History H/O squamous cell carcinoma excision History of left heart catheterization History of coronary artery stent placement (07/22/15) Social History Smoking Status: Former smoker how long ago did patient quit smokin alcohol intake: never substance use type: does not use caffeine: No what type of physical activity do you participate in: other details: tredmill nustep frequency: 1-2 times per week duration: 45-60 minutes/day seatbelt use: always do you feel safe at home: Yes additional social history: DOES TAKE ASPIRIN ROS ROS Narrative Patient unable to answer ROS secondary to mental status, will sometimes attempt answer questions but mostly smiles and is pleasantly confused Vital Signs Vital Signs Vital Signs: 08/28/24 09:46 08/28/24 10:03 08/28/24 10:46 Temperature 98.7 F Temperature Source Oral Pulse Rate 68 67 Respiratory Rate 18 18 Blood Pressure 138/66 H 148/80 H Blood Pressure Mean 90 102 Pulse Ox 96 90 92 Oxygen Delivery Method Room Air Nasal Cannula Nasal Cannula Oxygen Flow Rate (L/min) 2 2 08/28/24 11:28 08/28/24 12:02 08/28/24 13:00 Temperature Temperature Source Pulse Rate 60 60 61 Respiratory Rate 21 H 23 H 23 H Blood Pressure 160/71 H 146/86 H 124/75 H Blood Pressure Mean 100 106 91 Pulse Ox 95 92 92 Oxygen Delivery Method Room Air Nasal Cannula Nasal Cannula Oxygen Flow Rate (L/min) 2 2 08/28/24 13:16 08/28/24 14:00 Temperature 98.7 F Temperature Source Pulse Rate 60 69 Respiratory Rate 23 H 15 Blood Pressure 124/75 H 147/79 H Blood Pressure Mean 91 101 Pulse Ox 92 92 Oxygen Delivery Method Room Air Oxygen Flow Rate (L/min) Weight Weight: 83.5 kg Body Mass Index (BMI) 29.7 Physical Exam Narrative General: Patient appears little bit tired but is awake, at times will try to answer questions but is mostly just pleasantly confused HEENT: Atraumatic Eyes: Extraocular movements grossly intact Neck: Supple Respiratory: Normal respiratory effort, patient would not take deep breaths on command for better assessment at bases Cardiovascular: Regular rate and rhythm GI: Soft, nontender, nondistended Extremities: No edema Musculoskeletal: Moving all extremities in bed Neuro: No overt focal neurological deficits but patient unable to cooperate with neuroexam given his general decreased level of consciousness difficulty following commands, does seem to have some jerking movements Skin: No rashes appreciated Psych: Attempts to be cooperative, pleasantly confused Results Lab / Micro Data 08/28/24 10:02 08/28/24 10:02 Labs: Laboratory Results - last 24 hr 08/28/24 10:02: WBC 12.3 H, RBC 4.44 L, Hgb 13.9, Hct 41.2, MCV 92.8, MCH 31.3, MCHC 33.7, RDW Std Deviation 43.5, RDW Coeff of [place] 12.7, Plt Count 157, MPV 10.8, Immature Gran % (Auto) 0.400, Neut % (Auto) 73.7 H, Lymph % (Auto) 11.0 L, [place] % (Auto) 13.5 H, Eos % (Auto) 1.1, Baso % (Auto) 0.3, Absolute Neuts (auto) 9.1 H, Absolute Lymphs (auto) 1.36, Nucleated RBC % 0, Differential Comment SCANNED, PT 13.5, INR 1.0, APTT 27.5, Sodium 136, Potassium 4.4, Chloride 99, Carbon Dioxide 24.9, Anion Gap 12, BUN 19, Creatinine 1.02, Estim Creat Clear Calc 55.63, Est GFR (MDRD) Non-Af 73, BUN/Creatinine Ratio 18.1, Glucose 166 H, Calcium 9.4, Troponin T High Sens 23 H 08/28/24 10:50: Urine Color Yellow, Urine Clarity Clear, Urine pH 6.5, Ur Specific [place] 1.015, Urine Protein 15 H, Urine Glucose (UA) Normal, Urine Ketones Negative, Urine Occult Blood 25 H, Urine Nitrite Negative, Urine Bilirubin Negative, Urine Urobilinogen Normal, Ur Leukocyte Esterase Negative, Urine RBC 0-5 SEEN, Urine WBC 0 SEEN, Ur Squamous Epith Cells 0-5 SEEN, Urine Bacteria 0 SEEN, Urine Mucus 0 SEEN 08/28/24 11:55: Troponin T Hi Sens 2 Hr 21 Micro: Microbiology 08/28/24 10:50 Mucosa - Nose SARS-CoV-2, Influenza & RSV (PCR) - Final Rhythm Strip Rhythm Strip: Paced Rate: 63 Ectopy: PVC(s) Imaging Radiology Impression Chest X-Ray 08/28/24 11:05 IMPRESSION: Mild cardiomegaly with pulmonary vascular congestion. Reading Location: [facility] Brain CT 08/28/24 11:10 IMPRESSION: 1. No acute intracranial finding. 2. Findings of chronic microvascular ischemic changes and age-related changes. Reading Location: [facility] Head/Neck CTA 08/28/24 11:10 IMPRESSION: 1. No large vessel occlusion, AVM or aneurysm. 2. Mild narrowing of the bilateral vertebral arteries and carotid siphons. 3. No significant stenosis of the cervical carotid arteries by NASCET criteria. Reading Location: [facility] Assessment & Plan Assessment/Plan (1) Altered level of consciousness: PLAN: Plan #Altered LOC/concern for acute metabolic encephalopathy - Patient had symptoms that have progressively worsened since with no focal deficits, CTA head and neck with no acute process, given nonfocal exam with generalized complaints this seems almost more consistent with a toxic and metabolic encephalopathy on top of his chronic dementia - Will check ammonia, liver panel - Check TSH - Will check B12 - Will check pro BNP given chest x-ray queried some pulmonary congestion - Will check respiratory panel given the only specific new complaint since is a cough - Will check blood gas some of the jerking movements and decreased level of consciousness - If workup continues to be unrevealing can consider MRI, strongly do not think that history and exam are consistent with acute CVA so do not think patient needs stroke admit/protocol at this time # Dementia - Patient on memantine as an episode at home - Feel it is reasonable to continue these at this time #Hx CAD w/ stenting/history of pacemaker/AICD -Continue asa, statin, BB -Heart healthy diet #Hypothyroidism -Continue Synthroid #Hypertension - Continue current medications #DVT ppx: Lovenox subcu Kenya Otoole MD Time spent in the patient's overall evaluation, decision-making process, review of diagnostic data, adjustment of management, discussion with other providers, nursing and ancillary staff involved in patient's care documentation, 58 Minutes Charges/Coding Visit Charges Inpatient E&M: 36968 Init Hosp L2
[2024-08-28 15:09] LABS: Base Excess 4 mmol/L (-2 to +2); Bicarbonate 27.9 mmol/L (22-26); Blood Gas Specimen Type ART; Mode Not entered; O2 Delivery Device Room Air; PO2 65 mmHG (75-100); SITE R Brach; SO2 94 % (95-99); Total Carbon Dioxide 29 mmol/L; pH 7.46 (7.35-7.45)
[2024-08-28 16:55] LABS: AST(SGOT) 25 U/L (<=37); Alanine Aminotransfer ALT/SGPT 20 U/L (<=46); Albumin, Serum 3.8 g/dL (3.4-4.8); Alkaline Phosphatase 102 U/L (40-129); Bilirubin, Direct 0.43 mg/dL (0.00-0.30); Free T3 2.4 pg/mL (2.18-3.98); Globulin 2.6 g/dL (2.2-4.2); Pro- Brain NATRIURETIC PEPTIDE 128 pg/mL (<=1800); Protein, Total 6.4 g/dL (5.9-8.4); Vitamin B12 357 pg/mL (180-914)
[2024-08-28 21:32] LABS: Amphetamine Urine NEGATIVE (<1000 ng/mL); Barbiturate Urine NEGATIVE (< 200 ng/mL); Benzodiazepine Urine NEGATIVE (< 200 ng/mL); Buprenorphine Urine NEGATIVE (< 200 ng/mL); Cocaine Urine NEGATIVE (< 300 ng/mL); Fentanyl, Urine NEGATIVE; Methadone Urine NEGATIVE (< 300 ng/mL); Opiates Urine NEGATIVE (< 300 ng/mL); Oxycodone, Urine NEGATIVE (< 100 ng/mL); PCP Urine NEGATIVE (< 25 ng/mL); THC Urine NEGATIVE (< 50 ng/mL)
[2024-08-28] MEDS: Carvedilol 25 MG Tablet PO (21:41)
[2024-08-28] MEDS: MELATONIN 10 MG TABLET PO (21:41)
[2024-08-28] MEDS: Atorvastatin Calcium 40 MG Tablet PO (21:41)
[2024-08-28] MEDS: Aspirin 81 MG TAB.CHEW PO (21:42)
[2024-08-28] MEDS: Memantine Hydrochloride 10 MG Tablet PO (21:42)
[2024-08-28] MEDS: Lisinopril 5 MG Tablet PO (21:42)
[2024-08-29] VITALS (10 sets, daily range): BP systolic 85–123; BP diastolic 53–64; PULSE 60–68; RESP 16–20; TEMP 36.2–37.2; O2SAT 90–98; BMI 29.3
[2024-08-29] MEDS: Levothyroxine 75 MCG Tablet PO (03:44)
[2024-08-29] MEDS: Albuterol 2.5 MG/3 ML VIAL.NEB. INHALATION ×3 (04:15→21:02)
[2024-08-29 06:09] LABS: Absolute Lymphocyte Count 1.57 X10^3/uL (0.83-4.51); Absolute Neutrophil Count 8.5 X10^3/uL (2.0-7.7); Basophil# 0.05 X10^3/uL; Basophil% 0.4 % (0-1); Eosinophil# 0.06 X10^3/uL; Eosinophils% 0.5 % (0-5); Hematocrit 37.7 % (40-54); Hemoglobin 12.5 g/dL (13.0-16.5); Lymphocyte # 1.57 X10^3/ul (0.83-4.51); Lymphocyte % 13.3 % (19-41); Mean Corp Hgb Conc 33.2 g/dL (32-36); Mean Corpuscular Hgb 31.3 pg (27.0-32.0); Mean Corpuscular Volume 94.5 fL (80-94); Mean Platelet Vol. 11.4 fl (6.2-12.0); Monocyte# 1.52 X10^3/uL; Monocyte% 12.9 % (0-10); NRBC Flagged by Analyzer 0 % (0-5); Neutrophil # 8.52 X10^3/uL (2.7-7.7); Neutrophil % 72.3 % (47-70); POSITIVE DIFFERENTIAL YES; Platelet Count 155 K/mm3 (150-450); RBC Distribution Width SD 45.6 fl (35.1-43.9); Red Blood Count 3.99 M/mm3 (4.6-6.2); White Blood Count 11.8 K/mm3 (4.4-11.0)
[2024-08-29 06:14] LABS: Differential Indicated SCAN CRITERIA MET
[2024-08-29 06:58] LABS: Differential Comment SCANNED; Pathologist Review May foll
[2024-08-29 07:16] LABS: Anion Gap 12 (5-15); BUN 27 mg/dL (4-19); Chloride 99 mmol/L (98-108); Creatinine, Serum 1.56 mg/dL (0.70-1.20); EST Glomerular Filtration Rate 44 (>60); Estimated Creatinine Clearance 36.15 ml/min (50-250); Glucose 146 mg/dL (70-99); Potassium 4.4 mmol/L (3.3-5.1); Sodium Level 135 mmol/L (133-145)
[2024-08-29] MEDS: Carvedilol 25 MG Tablet PO (08:16)
[2024-08-29] MEDS: Folic Acid 1 MG Tablet PO (08:16)
--- NOTE | 2024-08-29 08:34 | PN.HOSP_ITS ---
Reason for Visit Reason for Visit: Diagnoses Transient alteration of awareness (08/28/24) Subjective Subjective Patient sitting up in chair, does not know any specific complaints, family feels he is similar to yesterday with no overt specific changes Objective Data Objective Data Vital Signs: Vital Signs Temp Pulse Resp BP Pulse Ox O2 Del Method O2 Flow Rate 97.8 F 60 16 100/57 L 94 Nasal Cannula 2 08/29/24 08:06 08/29/24 08:06 08/29/24 08:06 08/29/24 08:06 08/29/24 08:06 08/29/24 08:06 08/29/24 08:06 Oxygen Flow Rate (L/min) 2 Oxygen Delivery Method Nasal Cannula Weight: 82.4 kg Body Mass Index (BMI) 29.3 Intake & Output: Intake and Output for Last 24 Hours 08/27/24 08/28/24 08/29/24 23:59 23:59 23:59 Intake Total 150 / 150 Output Total 400 / 400 Balance -250 / -250 Lab / Micro Data 08/29/24 12:34 08/29/24 12:34 Labs: Laboratory Results - last 24 hr 08/28/24 10:02: WBC 12.3 H, RBC 4.44 L, Hgb 13.9, Hct 41.2, MCV 92.8, MCH 31.3, MCHC 33.7, RDW Std Deviation 43.5, RDW Coeff of Maryana 12.7, Plt Count 157, MPV 10.8, Immature Gran % (Auto) 0.400, Neut % (Auto) 73.7 H, Lymph % (Auto) 11.0 L, [place] % (Auto) 13.5 H, Eos % (Auto) 1.1, Baso % (Auto) 0.3, Absolute Neuts (auto) 9.1 H, Absolute Lymphs (auto) 1.36, Nucleated RBC % 0, Differential Comment SCANNED, PT 13.5, INR 1.0, APTT 27.5, Sodium 136, Potassium 4.4, Chloride 99, Carbon Dioxide 24.9, Anion Gap 12, BUN 19, Creatinine 1.02, Estim Creat Clear Calc 55.63, Est GFR (MDRD) Non-Af 73, BUN/Creatinine Ratio 18.1, Glucose 166 H, Calcium 9.4, Troponin T High Sens 23 H 08/28/24 10:50: Urine Color Yellow, Urine Clarity Clear, Urine pH 6.5, Ur Specific [place] 1.015, Urine Protein 15 H, Urine Glucose (UA) Normal, Urine Ketones Negative, Urine Occult Blood 25 H, Urine Nitrite Negative, Urine Bilirubin Negative, Urine Urobilinogen Normal, Ur Leukocyte Esterase Negative, Urine RBC 0-5 SEEN, Urine WBC 0 SEEN, Ur Squamous Epith Cells 0-5 SEEN, Urine Bacteria 0 SEEN, Urine Mucus 0 SEEN, Urine Opiates Screen NEGATIVE, U Buprenorphine Qual NEGATIVE, Ur Oxycodone Screen NEGATIVE, Urine Methadone Screen NEGATIVE, Urine Fentanyl Screen NEGATIVE, Ur Barbiturates Screen NEGATIVE, Ur Phencyclidine Scrn NEGATIVE, Ur Amphetamines Screen NEGATIVE, U Benzodiazepines Scrn NEGATIVE, Urine Cocaine Screen NEGATIVE, U Cannabinoids Screen NEGATIVE 08/28/24 11:55: Total Bilirubin 0.90, Direct Bilirubin 0.43 H, AST 25, ALT 20, Alkaline Phosphatase 102, Troponin T Hi Sens 2 Hr 21, NT pro BNP II 128, Total Protein 6.4, Albumin 3.8, Globulin 2.6, Vitamin B12 357, TSH 3.310, Free T4 1.10, Free T3 pg/dL 2.4 08/28/24 16:42: Ammonia 27.0 08/29/24 05:04: WBC 11.8 H, RBC 3.99 L, Hgb 12.5 L, Hct 37.7 L, MCV 94.5 H, MCH 31.3, MCHC 33.2, RDW Std Deviation 45.6 H, RDW Coeff of Maryana 13.0, Plt Count 155, MPV 11.4, Immature Gran % (Auto) 0.600, Neut % (Auto) 72.3 H, Lymph % (Auto) 13.3 L, [place] % (Auto) 12.9 H, Eos % (Auto) 0.5, Baso % (Auto) 0.4, Absolute Neuts (auto) 8.5 H, Absolute Lymphs (auto) 1.57, Nucleated RBC % 0, Differential Comment SCANNED, Diff Path Review September, Sodium 135, Potassium 4.4, Chloride 99, Carbon Dioxide 23.0, Anion Gap 12, BUN 27 H, Creatinine 1.56 H, Estim Creat Clear Calc 36.15 L, Est GFR (MDRD) Non-Af 44 L, BUN/Creatinine Ratio 17.0, G lucose 146 H, Calcium 9.0 Micro: Microbiology 08/28/24 16:55 Mucosa - Nasopharyngeal Respiratory Panel (PCR) - Final 08/28/24 10:50 Mucosa - Nose SARS-CoV-2, Influenza & RSV (PCR) - Final ABG Data ABG results: ABG 08/28/24 15:04 Specimen Type ART Sample Site R Brach pH 7.46 H Bicarbonate Actual 27.9 H Total CO2 29 Base Excess 4 H O2 Saturation 94 L ABG pCO2 39.0 ABG pO2 65 L O2 Delivery Device Room Air Vent Mode Not entered Radiography Diagnostic Testing: Radiology Impression Chest X-Ray 08/28/24 11:05 IMPRESSION: Mild cardiomegaly with pulmonary vascular congestion. Reading Location: [facility] Brain CT 08/28/24 11:10 IMPRESSION: 1. No acute intracranial finding. 2. Findings of chronic microvascular ischemic changes and age-related changes. Reading Location: [facility] Head/Neck CTA 08/28/24 11:10 IMPRESSION: 1. No large vessel occlusion, AVM or aneurysm. 2. Mild narrowing of the bilateral vertebral arteries and carotid siphons. 3. No significant stenosis of the cervical carotid arteries by NASCET criteria. Reading Location: [facility] Rhythm Strip Rhythm Strip: Paced Rate: 63 Ectopy: PVC(s) Physical Exam Narrative General: Awake and pleasantly confused HEENT: Atraumatic Eyes: Extraocular movements grossly intact Neck: Supple Respiratory: Normal respiratory effort, did sound to have some crackles at the left posterior base Cardiovascular: Regular rate and rhythm GI: Soft, nontender, nondistended Extremities: No edema Musculoskeletal: Moving all extremities in bed Neuro: No overt focal neurological deficits Skin: No rashes appreciated Psych: Attempts to be cooperative, pleasantly confused Assessment & Plan Assessment/Plan (1) Altered level of consciousness: PLAN: Plan #Altered LOC/concern for acute metabolic encephalopathy - Patient had symptoms that have progressively worsened since with no focal deficits, CTA head and neck with no acute process, given nonfocal exam with generalized complaints this seems almost more consistent with a toxic and metabolic encephalopathy on top of his chronic dementia - Will check ammonia, liver panel - Check TSH - Will check B12 - Will check pro BNP given chest x-ray queried some pulmonary congestion - Will check respiratory panel given the only specific new complaint since is a cough - Will check blood gas some of the jerking movements and decreased level of consciousness - If workup continues to be unrevealing can consider MRI, strongly do not think that history and exam are consistent with acute CVA so do not think patient needs stroke admit/protocol at this time -08/29: Workup has been unrevealing thus far, PT/OT, case management and social work # ALEJANDRA -08/29: Creatinine 1.56 this a.m. with a BUN of 27, up from 1.02 yesterday, stop patient's lisinopril, will give gentle IV fluids, unclear reason for this jump, will check bladder and kidney ultrasound, will repeat labs this afternoon to verify stability Chronic medical problems and/or problems not being actively addressed during today's encounter: # Dementia - Patient on memantine as an episode at home - Feel it is reasonable to continue these at this time #Hx CAD w/ stenting/history of pacemaker/AICD -Continue asa, statin, BB -Heart healthy diet #Hypothyroidism -Continue Synthroid #Hypertension - Continue current medications #DVT ppx: Lovenox subcu Kenya Otoole MD Time spent in the patient's overall evaluation, decision-making process, review of diagnostic data, adjustment of management, discussion with other providers, nursing and ancillary staff involved in patient's care documentation, 38 Minutes Charges/Coding Visit Charges Inpatient E&M: 87264 Subs Hosp L2
[2024-08-29] MEDS: Enoxaparin 40 MG/0.4 ML Syringe SC (10:36)
[2024-08-29] MEDS: Escitalopram Oxalate 10 MG Tablet PO (10:37)
[2024-08-29] MEDS: Donepezil HCl 10 MG Tablet PO (10:37)
[2024-08-29] MEDS: Cholecalciferol (VIT D3) 25 MCG TABLET (1,000 UNITS) 50 MCG PO (10:37)
[2024-08-29] MEDS: Memantine Hydrochloride 10 MG Tablet PO ×2 (10:37→20:39)
[2024-08-29] MEDS: Vitamin E 400 UNITS Capsule PO (10:37)
[2024-08-29] MEDS: 0.9% Normal Saline (1000mL) 1,000 ML 75 ML IV (10:51)
[2024-08-29 12:53] LABS: Mean Corp Hgb Conc 33.3 g/dL (32-36); Mean Corpuscular Hgb 31.4 pg (27.0-32.0); Mean Corpuscular Volume 94.2 fL (80-94); Mean Platelet Vol. 11.2 fl (6.2-12.0); Platelet Count 165 K/mm3 (150-450); RBC Distribution Width CV 13.2 % (11.6-14.6); RBC Distribution Width SD 46.1 fl (35.1-43.9); Red Blood Count 4.14 M/mm3 (4.6-6.2); White Blood Count 11.8 K/mm3 (4.4-11.0)
[2024-08-29 13:15] LABS: Anion Gap 13 (5-15); BUN 34 mg/dL (4-19); BUN/Creat Ratio 15.2 RATIO (10-20); Calcium,Total 9.2 mg/dL (7.6-11.0); Carbon Dioxide 22.3 mmol/L (21.0-32.0); Chloride 99 mmol/L (98-108); Creatinine, Serum 2.25 mg/dL (0.70-1.20); EST Glomerular Filtration Rate 28 (>60); Estimated Creatinine Clearance 25.07 ml/min (50-250); Glucose 135 mg/dL (70-99); Potassium 4.5 mmol/L (3.3-5.1); Sodium Level 134 mmol/L (133-145)
--- NOTE | 2024-08-29 14:51 | PN.HOSP_ITS ---
Hospitalist Note Patient did have further increase in his creatinine of unclear etiology, will check CT of the abdomen pelvis, given worsening creatinine we will avoid IV contrast at this time, given some of the possible crackles at left lower lung base we will also scan chest, looking at x-ray again it was read as no acute process but does appear to have heart border somewhat obscured at left lower base and on exam was coarse in left lower side and did seem to have some cough, will cover empirically for CAP at this time pending further imaging, given worse rahel kidney function we will also recheck UA and urine culture. Further management pending results. Monitor intake and output
--- NOTE | 2024-08-29 16:10 | CT_ITS ---
PROCEDURE: CT CHEST, ABD, PELVIS WO CONT 08/29/2024 REASON FOR EXAM: SUDDEN RENAL FAILURE, ALSO PRODUCTIVE COUGH TECHNIQUE: Chest, abdomen and pelvis CT without intravenous contrast. Coronal and Sagittal reconstruction series were provided. One or more dose reduction techniques were used (e.g., Automated exposure control, adjustment of the mA and/or kV according to patient size, use of iterative reconstruction technique. COMPARISON: None FINDINGS: CT CHEST: Hardware: Left chest wall ICD. Lymph nodes: No lymphadenopathy. Heart and Vasculature: Mild cardiomegaly. Severe coronary artery calcifications. Trace pericardial effusion. Atherosclerotic calcifications of the thoracic aorta. Thoracic aorta and pulmonary arteries have normal contours; noncontrast technique limits evaluation. Coronary Artery Calcifications: Present Lungs and Airways: Central airways are patent without endobronchial lesions. Mild bibasilar atelectasis. No focal consolidation. No pneumothorax. No pleural effusion. Bones: Degenerative changes of the thoracic spine. Sclerotic lesion T6 vertebral body, likely bone island. CT ABDOMEN / PELVIS: Noncontrast technique limits evaluation of the abdominal and pelvic viscera. Liver: Homogeneous attenuation. Left hepatic lobe subcentimeter low-attenuation lesion, too small to characterize, but likely benign. Gallbladder: No ductal dilation. Gallbladder is unremarkable. Spleen: No splenomegaly. Pancreas: Normal size without evidence of mass surrounding inflammation or ductal dilation. Adrenals: Unremarkable Kidneys: Left renal cysts. No calculi or hydronephrosis. Contrast within the collecting system. Bladder: Contrast filled urinary bladder with with multiple small diverticula and wall trabeculations. Reproductive Organs: Moderate prostatomegaly. Bowel: Small hiatal hernia. Fluid-filled stomach. No bowel dilation or wall thickening. Colonic diverticulosis without diverticulitis. Appendix: The appendix is not identified. There is no inflammatory process identified in the right lower quadrant to suggest appendicitis. Lymph nodes: Unremarkable. Vasculature: Severe diffuse atherosclerotic calcifications are noted. Peritoneum / Retroperitoneum: No ascites. No pneumoperitoneum. Bones: Mild levoscoliosis. Moderate multilevel degenerative changes of the lumbar spine. No acute findings. Grade 1 anterolisthesis of L5 on S1 with bilateral pars defects. Soft tissue: No focal soft tissue abnormality. CT/CT Chest, Abd, Pelvis WO Cont IMPRESSION: No acute findings in the chest, abdomen and pelvis. Other chronic findings as detailed above. Reading Location: [id number]
[2024-08-29] MEDS: Ampicillin/Sulbactam 3 GM in 0.9% Normal Saline (100mL MB+) 100 ML IV ×2 (16:48→22:13)
[2024-08-29] MEDS: Ondansetron 4 MG/2 ML Vial IV (17:55)
[2024-08-29 18:04] LABS: Color, Urine Yellow (Yellow); Glucose, Dipstick Normal (Normal); Ketone-Dipstick Negative (Negative); Leukocyte Esterase-Dipstick Negative /ul (Negative); Nitrite-Dipstick Negative (Negative); Occult Blood-Urine 150 /ul (Negative); Protein-Dipstick 30 mg/dl (Negative); Urine Clarity Sl. Cloudy (Clear); Urine Urobilinogen Normal (Normal)
[2024-08-29] MEDS: 0.9% Saline Lock 10 ML Syringe IV ×2 (18:06→20:39)
[2024-08-29 18:07] LABS: Urine Bilirubin Dipstick 1 mg/dL (Negative)
[2024-08-29] MEDS: Doxycycline 100 MG in 0.9% Normal Saline (250mL Bag) 250 ML 250 MG IV (18:07)
[2024-08-29 18:30] LABS: Red Blood Cells-Urine 10-25 SEEN /hpf (0-5); White Blood Cells 0-5 SEEN /hpf (0-5)
[2024-08-29 18:31] LABS: Bacteria 1+ /hpf (None Seen); Fine Granular Cast- Urine 0-5 SEEN /lpf (0-5); Hyaline Cast 0-5 SEEN /lpf (0-5); Mucous, Urine 1+ /hpf (<or=2+); Squamous Epithelial Cells - UA 0-5 SEEN /hpf (0-5)
[2024-08-29 19:10] LABS: Urea Nitrogen, Urine 595 mg/dL (NO RANGE EST.); Urine Chloride 28 mmol/L (Not Establ.); Urine Potassium 49.8 mmol/L (Not Establ.); Urine Sodium 51 mmol/L (Not Establ.)
[2024-08-29 20:39] LABS: Osmolality, Urine 545 mOsm/KG
[2024-08-29] MEDS: Aspirin 81 MG TAB.CHEW PO (20:39)
[2024-08-29] MEDS: Tamsulosin HCl 0.4 MG Capsule PO (20:39)
[2024-08-29] MEDS: MELATONIN 10 MG TABLET PO (20:39)
[2024-08-29] MEDS: Atorvastatin Calcium 40 MG Tablet PO (20:39)
[2024-08-30] VITALS (8 sets, daily range): BP systolic 102–150; BP diastolic 47–98; PULSE 59–65; RESP 16–20; TEMP 36.3–36.9; O2SAT 93–97; BMI 29.1
[2024-08-30] MEDS: Acetaminophen 325 MG Tablet 650 MG PO ×2 (00:42→10:51)
[2024-08-30] MEDS: Albuterol 2.5 MG/3 ML VIAL.NEB. INHALATION ×3 (00:53→11:53)
[2024-08-30] MEDS: hydrOXYzine 50 MG/ML Vial 100 MG IM (01:44)
[2024-08-30 04:38] LABS: Absolute Lymphocyte Count 1.64 X10^3/uL (0.83-4.51); Absolute Neutrophil Count 8.1 X10^3/uL (2.0-7.7); Basophil# 0.05 X10^3/uL; Basophil% 0.4 % (0-1); Eosinophil# 0.12 X10^3/uL; Hemoglobin 12.1 g/dL (13.0-16.5); Lymphocyte # 1.64 X10^3/ul (0.83-4.51); Lymphocyte % 14.1 % (19-41); Mean Corp Hgb Conc 33.6 g/dL (32-36); Mean Corpuscular Hgb 31.4 pg (27.0-32.0); Mean Corpuscular Volume 93.5 fL (80-94); Mean Platelet Vol. 11.2 fl (6.2-12.0); Monocyte# 1.63 X10^3/uL; NRBC Flagged by Analyzer 0 % (0-5); Neutrophil # 8.12 X10^3/uL (2.7-7.7); Neutrophil % 69.9 % (47-70); POSITIVE DIFFERENTIAL YES; Platelet Count 153 K/mm3 (150-450); RBC Distribution Width CV 12.7 % (11.6-14.6); RBC Distribution Width SD 43.8 fl (35.1-43.9); Red Blood Count 3.85 M/mm3 (4.6-6.2); White Blood Count 11.6 K/mm3 (4.4-11.0)
[2024-08-30 04:42] LABS: Differential Indicated SCAN CRITERIA MET
[2024-08-30 05:00] LABS: Anion Gap 9 (5-15); BUN 29 mg/dL (4-19); BUN/Creat Ratio 23.8 RATIO (10-20); Calcium,Total 8.8 mg/dL (7.6-11.0); Carbon Dioxide 23.7 mmol/L (21.0-32.0); Chloride 103 mmol/L (98-108); EST Glomerular Filtration Rate 60 (>60); Glucose 150 mg/dL (70-99); Potassium 3.9 mmol/L (3.3-5.1); Sodium Level 136 mmol/L (133-145)
[2024-08-30 06:06] LABS: Platelet Estimate ADEQUATE (ADEQ); Reactive Lymphocyte 1+; Red Cell Morphology NORM C+C NORMAL (NORM C&C)
--- NOTE | 2024-08-30 08:36 | US_ITS ---
PROCEDURE: KIDNEY AND BLADDER 08/30/2024 REASON FOR EXAM: ALEJANDRA, AMS TECHNIQUE: Bilateral renal and bladder ultrasound. COMPARISON: CT abdomen and pelvis 08/29/2024 FINDINGS: The right kidney measures 10.1 x 4.7 x 5.2 cm with a cortical thickness of 1.1 cm. The right kidney appears within limits for echogenicity without hydronephrosis, renal stone or perinephric edema identified. The left kidney measures 11.3 x 5.8 x 6.7 cm with a cortical thickness of 1.3 cm. Left upper pole 2.9 x 3.2 x 2.9 cm and lower pole 2.5 x 2.1 x 2.2 cm simple appearing renal cysts. It is noted on the preceding CT abdomen and pelvis at there are small parapelvic left renal cysts which is likely accounting for the current appearance of possible mild left hydronephrosis by ultrasound. Left kidney appears within limits for echogenicity without renal stone or perinephric edema seen. Young catheter is present within a collapsed bladder. No free fluid seen. US/Kidney and Bladder IMPRESSION: Study appears within limits as above. Reading Location: [id number]
--- NOTE | 2024-08-30 09:39 | PN.HOSP_ITS ---
Subjective Subjective Renal function resolved with placement of Young, it seems it was all due to retention continue with Flomax. No issues overnight Objective Data Objective Data Vital Signs: Vital Signs Temp Pulse Resp BP Pulse Ox O2 Del Method O2 Flow Rate 98.4 F 59 L 16 102/47 L 94 Nasal Cannula 2 08/30/24 08:52 08/30/24 08:52 08/30/24 08:52 08/30/24 08:52 08/30/24 08:52 08/30/24 08:52 08/30/24 08:52 Oxygen Flow Rate (L/min) 2 Oxygen Delivery Method Nasal Cannula Weight: 180 lb 6.4 oz Body Mass Index (BMI) 29.1 Intake & Output: Intake and Output for Last 24 Hours 08/29/24 08/30/24 08/31/24 03:59 03:59 03:59 Intake Total 2209.5 / 2209.5 Output Total 1600 / 1600 Balance 609.5 / 609.5 Lab / Micro Data 08/30/24 03:51 08/30/24 03:51 Labs: Laboratory Results - last 24 hr 08/29/24 12:34: WBC 11.8 H, RBC 4.14 L, Hgb 13.0, Hct 39.0 L, MCV 94.2 H, MCH 31.4, MCHC 33.3, RDW Std Deviation 46.1 H, RDW Coeff of Maryana 13.2, Plt Count 165, MPV 11.2, Sodium 134, Potassium 4.5, Chloride 99, Carbon Dioxide 22.3, Anion Gap 13, BUN 34 H, Creatinine 2.25 H, Estim Creat Clear Calc 25.07 L, Est GFR (MDRD) Non-Af 28 L, BUN/Creatinine Ratio 15.2, Glucose 135 H, Calcium 9.2 08/29/24 15:17: Procalcitonin 0.20 H 08/29/24 17:30: Urine Osmolality 545, Ur Random Sodium 51, Urine Creatinine 228.00, Urine Potassium 49.8, Urine Chloride 28, Urine Urea Nitrogen 595 08/29/24 17:40: Urine Color Yellow, Urine Clarity Sl. Cloudy, Urine pH 5.0, Ur Specific Elon 1.020, Urine Protein 30 H, Urine Glucose (UA) Normal, Urine Ketones Negative, Urine Occult Blood 150 H, Urine Nitrite Negative, Urine Bilirubin 1 H, Urine Urobilinogen Normal, Ur Leukocyte Esterase Negative, Urine RBC 10-25 SEEN, Urine WBC 0-5 SEEN, Ur Squamous Epith Cells 0-5 SEEN, Urine Bacteria 1+, Hyaline Casts 0-5 SEEN, Fine Granular Casts 0-5 SEEN, Urine Mucus 1+ 08/30/24 03:51: WBC 11.6 H, RBC 3.85 L, Hgb 12.1 L, Hct 36.0 L, MCV 93.5, MCH 31.4, MCHC 33.6, RDW Std Deviation 43.8, RDW Coeff of Maryana 12.7, Plt Count 153, MPV 11.2, Immature Gran % (Auto) 0.600, Neut % (Auto) 69.9, Lymph % (Auto) 14.1 L, [place] % (Auto) 14.0 H, Eos % (Auto) 1.0, Baso % (Auto) 0.4, Absolute Neuts (auto) 8.1 H, Absolute Lymphs (auto) 1.64, Nucleated RBC % 0, Diff Path Review May foll, Reactive Lymphocytes 1+, Platelet Estimate ADEQUATE, RBC Morphology NORM C+C, Sodium 136, Potassium 3.9, Chloride 103, Carbon Dioxide 23.7, Anion Gap 9, BUN 29 H, Creatinine 1.20, Estim Creat Clear Calc 47.00 L, Est GFR (MDRD) Non-Af 60, BUN/Creatinine Ratio 23.8 H, Glucose 150 H, Calcium 8.8 Micro: Microbiology 08/29/24 17:40 Urine Catheter - Young Legionella Antigen - Final 08/29/24 17:40 Urine Catheter - Young Streptococcus pneumoniae Antigen (M - Final 08/28/24 16:55 Mucosa - Nasopharyngeal Respiratory Panel (PCR) - Final 08/28/24 10:50 Mucosa - Nose SARS-CoV-2, Influenza & RSV (PCR) - Final Radiography Diagnostic Testing: Radiology Impression Chest/Abdomen/Pelvis CT 08/29/24 16:10 IMPRESSION: No acute findings in the chest, abdomen and pelvis. Other chronic findings as detailed above. Reading Location: [facility] Rhythm Strip Rhythm Strip: Paced Rate: 63 Ectopy: PVC(s) Physical Exam Narrative General: Alert, Oriented x1, Cooperative, No apparent distress HEENT: Atraumatic, PERRLA, EOMI, Normocephalic Oral: Moist Mucosa Neck: Supple, No JVD Lungs: Diminished, Normal air movement, No rhonchi, No wheeze, No rales Cardiovascular: Regular rate, Regular Rhythm, Normal S1, Normal S2, No murmurs Abdomen: Soft, Non Tender, Non-Distended, No Hepato-splenomegaly Extremities: No edema, Capillary Refill Less than 3 Seconds Skin: No rashes, No breakdown Musculoskeletal: No Tenderness to Palpation of Joints or Extremities Neurological: No focal neurological deficits, Motor Exam 5/5 strength throughout, Sensory exam intact to light touch and pain Psych/Mental Status: Normal Affect, Appropriate Assessment & Plan Assessment/Plan (1) Altered level of consciousness: PLAN: Plan 1. Acute metabolic encephalopathy secondary to urinary retention leading to ALEJANDRA in the setting of dementia ? Vitamin B12 level is normal as his TSH ? proBNP was also normal ? Ammonia level was normal ? Renal function resolved with the placement of a Young yesterday evening ? ABG had demonstrated a slight alkalosis, appears to have been metabolic ? Continue with Unasyn pending cultures 2. CAD status post stent/pacemaker placement/essential HTN/HLD ? Blood pressures are stable ? Can continue with his home blood pressure medications 3. Hypothyroidism ? Stable ? Continue with Synthroid DVT: Lovenox Charges/Coding Visit Charges Inpatient E&M: 38788 Subs Hosp L2
--- NOTE | 2024-08-30 10:20 | CASEMGMT ---
"MELVIN ARGUELLES Face to Face with patient for initial transition planning/care coordination assessment. MELVIN ARGUELLES introduced self and role at [facility]. Patient lying in bed, confused, and son at bedside. willing to participate in assessment and is able to answer all questions appropriately. Care providers, pharmacy, and demographics verified. Strata: 2 PCP: Liz Specialists: Denia, extruder operator multiple Preferred Pharmacy: [facility] Insurance: [id number] | [employer] Prescription Benefit: yes Living Will/HPOA: yes, Meggan Parks LNOK: , son Living Arrangements: Patient lives with in a single story home with 2 steps to enter the home. Patient was independent at home. Transportation: DME/HHC: Patient has shower chair, BSC, cane, and grab bars at home. No previous HHC or SNF. and son voiced interest in TCU or SNF at discharge. MELVIN ARGUELLES explained SNF discharge process and not sure if TCU is in-network [facility] patient's insurance, SNF list to be provided. voices understanding and states she has no further needs or concerns at this time. MELVIN ARGUELLES updated DC furniture removalist's assistant to provide SNF list to family. RN CM updated regaring request for TCU. CM to follow for discharge planning needs that may arise. Disposition Plan: SNF pending acceptance and precert. Hillary ELLISON, RN, CM"
[2024-08-30] MEDS: Ampicillin/Sulbactam 3 GM in 0.9% Normal Saline (100mL MB+) 100 ML IV ×2 (10:37→18:27)
[2024-08-30] MEDS: Tamsulosin HCl 0.4 MG Capsule PO (10:41)
[2024-08-30] MEDS: Doxycycline 100 MG in 0.9% Normal Saline (250mL Bag) 250 ML 250 MG IV ×2 (10:41→21:36)
[2024-08-30] MEDS: Memantine Hydrochloride 10 MG Tablet PO ×2 (10:41→21:35)
[2024-08-30] MEDS: Heparin Injection (Vial) 5,000 UNIT/ML VIAL 5000 UNIT SC ×2 (10:41→21:35)
--- NOTE | 2024-08-30 10:41 | CASEMGMT ---
Discharge Planning A list of?SNF providers including quality and resource use data and consistent with the patient's preferred geographic region, medical needs, and insurance network was created in [employer] Guide.? This list was provided to the pt. Mai Werner, Discharge Planning Asst.
--- NOTE | 2024-08-30 10:51 | CASEMGMT ---
RN CM notified SW that patient and family would like [facility]. SW made a referral to TCU and they are unable to take patient. Michelle PETTY
[2024-08-30] MEDS: 0.9% Normal Saline (100mL Bag) 100 ML 15 ML IV (10:52)
--- NOTE | 2024-08-30 13:53 | CASEMGMT ---
SW spoke with patient's son Tu in patient's room. SW let Tu know that [facility] TCU cannot take patient. Tu said patient's did pick her preferences. The list was on the window ledge so SW wrote down their choices. [place], [facility], [facility], and [facility]. CODY asked Mai to send a referral to [place]. Michelle Nunn PHOTOGRAPHY COLORISTEllen PETTY
--- NOTE | 2024-08-30 14:03 | CASEMGMT ---
Discharge Planning Referral sent to [facility]. Mai Werner DC Planning Asst.
--- NOTE | 2024-08-30 15:00 | CHAPLAIN ---
Type of Pastoral Visit _x__ Initial Visit ___ Follow-up Visit ___ On-call Visit ___ General Patient Visit ___ Spiritual Assessment ___ Family Conference ___ Bereavement ___ Rapid Response ___ Code Blue ___ Other (describe below) Pastoral Care Referral From ___ Patient _x__ Family ___ Nurse ___ Physician ___ Insurance Policy Clerk ___ Hand Scraper ___ Other (describe below) Sacrament/Intervention _x__ Active listening ___ Anointing ___ Druze ___ Bereavement ___ Communion ___ Fara exploration ___ ___ Life review _x__ Prayer ___ Reconciliation ___ Sacrament of Sick _x__ Supportive presence ___ Wedding ___ Other (describe below) Pastoral Comments patient is known to this area intelligence technician; and son are in the room; pt is awake and able to answer questions with some clarity but also in respect to his dementia and now altered mental status; gives information on care and plan of action; concern is for the patient after discharge as to what he needs and where he goes for rehab and follow up; pt and family are strong in the fara of the Lord and welcome spiritual care and prayer support
--- NOTE | 2024-08-30 15:38 | CASEMGMT ---
[facility] has accepted. Precert not started. Mai Werner DC Planning Asst.
[2024-08-30] MEDS: Aspirin 81 MG TAB.CHEW PO (21:35)
[2024-08-30] MEDS: MELATONIN 10 MG TABLET PO (21:35)
[2024-08-30] MEDS: Atorvastatin Calcium 40 MG Tablet PO (21:35)
[2024-08-31] VITALS (10 sets, daily range): BP systolic 121–160; BP diastolic 58–99; PULSE 22–74; RESP 18–60; TEMP 35.8–37.1; O2SAT 90–98; BMI 29.3
[2024-08-31] MEDS: Ampicillin/Sulbactam 3 GM in 0.9% Normal Saline (100mL MB+) 100 ML IV ×5 (00:31→23:58)
[2024-08-31] MEDS: Albuterol 2.5 MG/3 ML VIAL.NEB. INHALATION ×2 (00:48→23:52)
[2024-08-31] MEDS: Levothyroxine 75 MCG Tablet PO (05:41)
[2024-08-31 07:39] LABS: Absolute Lymphocyte Count 1.57 X10^3/uL (0.83-4.51); Absolute Neutrophil Count 4.9 X10^3/uL (2.0-7.7); Basophil# 0.07 X10^3/uL; Basophil% 0.9 % (0-1); Eosinophil# 0.15 X10^3/uL; Eosinophils% 1.9 % (0-5); Hematocrit 36.1 % (40-54); Hemoglobin 11.7 g/dL (13.0-16.5); Lymphocyte # 1.57 X10^3/ul (0.83-4.51); Lymphocyte % 20.3 % (19-41); Mean Corp Hgb Conc 32.4 g/dL (32-36); Mean Corpuscular Hgb 31.8 pg (27.0-32.0); Mean Corpuscular Volume 98.1 fL (80-94); Mean Platelet Vol. 11.1 fl (6.2-12.0); Monocyte# 1.04 X10^3/uL; Monocyte% 13.4 % (0-10); NRBC Flagged by Analyzer 0 % (0-5); Neutrophil # 4.86 X10^3/uL (2.7-7.7); Neutrophil % 62.7 % (47-70); Platelet Count 136 K/mm3 (150-450); RBC Distribution Width CV 12.6 % (11.6-14.6); RBC Distribution Width SD 45.3 fl (35.1-43.9); Red Blood Count 3.68 M/mm3 (4.6-6.2); White Blood Count 7.8 K/mm3 (4.4-11.0)
[2024-08-31 08:41] LABS: Anion Gap 10 (5-15); BUN 14 mg/dL (4-19); BUN/Creat Ratio 18.5 RATIO (10-20); Calcium,Total 8.5 mg/dL (7.6-11.0); Carbon Dioxide 21.5 mmol/L (21.0-32.0); Chloride 105 mmol/L (98-108); Creatinine, Serum 0.78 mg/dL (0.70-1.20); EST Glomerular Filtration Rate 89 (>60); Estimated Creatinine Clearance 70.54 ml/min (50-250); Glucose 117 mg/dL (70-99); Potassium 4.1 mmol/L (3.3-5.1); Sodium Level 137 mmol/L (133-145)
--- NOTE | 2024-08-31 09:17 | SP.MBSS_ITS ---
Modified Barium Swallow Patient Information Study Date: 08/31/24 Study Time: 09:00 Direct Billable Minutes: 60 Total Minutes procedure & reportin Diagnosis: G30.9 - Alzheimer's disease Referring Physician: Antoine Finch Medical History: An 84-year-old male presented to [facility] Emergency Department on 08/28/2024 with decreased consciousness. Per family, the patient had been exhibiting behavioral changes since the prior , with progressive worsening that prompted ED evaluation. CTA of the head and neck showed no acute findings. Given the non-focal neurological exam and generalized symptoms, the clinical picture is more consistent with a toxic or metabolic encephalopathy, superimposed on his baseline chronic dementia. The patient was referred to speech therapy to evaluate swallowing function due to occasional coughing noted with medication intake. He participated in a clinical bedside swallow evaluation (CBSE), which revealed signs and symptoms of aspiration with PO intake, prompting a recommendation for MBSS. 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 Current Diet Ordered: Regular Textures / Thin Liquids Mental Status: Impaired (Alzheimer's disease) Respiratory Status: Oxygenating on 2L/M nasal cannula Penetration-Aspiration Scale Penetration-Aspiration Scale: OBJECTIVE ASSESSMENT OF SWALLOW FUNCTION (QUANTITATIVE ? PER TRIAL): PENETRATION / ASPIRATION SCALE (MARTINEZ): 1 = does not enter airway 2 = enters airway/above vocal folds/ejected 3 = enters airway/above vocal folds/not ejected 4 = enters airway/contacts vocal folds/ejected 5 = enters airway/contacts vocal folds/not ejected 6 = enters airway/below vocal folds/ejected 7 = enters airway/below vocal folds/not ejected despite effort 8 = enters airway/below vocal folds/no effort VIDEOFLOROSCOPIC SCALE SCORE (MARTINEZ): Grade I = aspiration of material that has penetrated into the laryngeal vestibule, intact cough reflex Grade II = aspiration < 10 % of the bolus, intact cough reflex Grade III = aspiration of < 10 % of the bolus, reduced cough reflex or aspiration of > 10 % of the bolus, intact cough reflex Grade IV = aspiration of > 10 % of the bolus, reduced cough reflex Penetration-Aspiration Scale Score Thin Liquid via teaspoon: Result: 1= does not enter airway Thin Liquid via teaspoon Trial 2: Result: 1= does not enter airway Thin Liquid via small single sip: cup: Result: 1= does not enter airway Thin Liquid via small single sip: cup Trial 2: Result: 1= does not enter airway Thin Liquid via small single sip: cup Trial 3: Result: 1= does not enter airway Cookie: Result: 1= does not enter airway Pudding: Result: 1= does not enter airway Thin Liquid via sequential sips:straw: Result: 1= does not enter airway Thin Liquid via single sip: straw: Result: 1= does not enter airway Barium Tablet: Result: 1= does not enter airway Oral Phase Labial Seal: No Labial Escape Tongue Control During Bolus Hold: Escape to lateral buccal cavity/floor of mouth Bolus Preparation/Mastication: Disorganized chewing/mashing with solid pieces of bolus unchewed Bolus Transport/Lingual Motion: Brisk tongue motion Oral Residue: Trace residue lining oral structures Pharyngeal Phase Initiation of Pharyngeal Swallow: Bolus head at posterior angle of ramus at first hyoid excursion Soft Palate Elevation: No bolus between soft palate and pharyngeal wall Laryngeal Elevation: Comp. Superior move thyroid cart w/comp. apprx arytenoid cart-epig pet Anterior Hyoid Excursion: Complete anterior movement Epiglottic Movement: Complete inversion Laryngeal Vestibule Closure at Height of Swallow: Incomplete; narrow column of air/contrast in laryngeal vestibule Pharyngeal Stripping Wave: Present - diminished Pharyngoesophageal Segment Opening: Complete distension and complete duration; no obstruction of flow Tongue Base Retraction: No contrast between tongue base and posterior pharyngeal wall Pharyngeal Residue: Complete pharyngeal clearance Esophageal Phase Esophageal Clearance: Complete clearance Diagnosis/Impression Diagnosis: Swallow function WNL Impression: The patient demonstrated adequate swallow function during the MBSS. He was alert and cooperative with the STRETCHER LEVELER OPERATOR HELPER, though notable confusion was observed, consistent with his Alzheimer's disease. The patient required total assistance from the STRETCHER LEVELER OPERATOR HELPER coal wheeler and was fully assisted with PO trials. No signs of aspiration or penetration were observed with thin liquids administered via teaspoon, cup, or straw. The airway remained clear throughout the study. It is important to note that the patient exhibited a cough both prior to oral intake and during the study, though it was not related to aspiration. The oral phase was adequate, with good bolus control and timely anterior- posterior transit. One small un-chewed piece of cookie was noted in the vallecula during mastication but was cleared independently with a subsequent swallow. No pharyngeal residue was observed. Given the patient?s cognitive impairments, he was noted to chew a whole barium tablet; he was able to tolerate it with a liquid chaser and verbal prompting. As a result, it is recommended that medications be administered whole or crushed in a puree consistency to ensure safe intake. Overall, swallow safety and aspiration risk appear closely tied to the patient's level of alertness and cognitive status. Recommendations Diet: Regular Textures and Thin Liquids Compensatory Strategies: Feed only when alert, Sitting upright and Remain sitting upright for 30 minutes after PO intake Supervision: Total Feed Recommend Repeat Modified Barium Swallow: No Need for Skilled Speech Therapy Services: No Education Completed: 1. Described result of evaluation., 2. Pt understands evaluation & agrees with goals and treatment plan. and 4. Family/caregivers understand evaluation & agree w/ goals & tx plan. Status Active ST Patient: Active Contact Information [facility] Speech Therapy:: Barbara Nick M.A. CCC-STRETCHER LEVELER OPERATOR HELPER Speech-Language Pathologist [facility] [address] [place] [address] [phone]
[2024-08-31] MEDS: Doxycycline 100 MG in 0.9% Normal Saline (250mL Bag) 250 ML 250 MG IV (10:00)
[2024-08-31] MEDS: 0.9% Saline Lock 10 ML Syringe IV ×3 (10:01→23:58)
[2024-08-31] MEDS: Vitamin E 400 UNITS Capsule PO (10:02)
[2024-08-31] MEDS: Cholecalciferol (VIT D3) 25 MCG TABLET (1,000 UNITS) 50 MCG PO (10:02)
[2024-08-31] MEDS: Folic Acid 1 MG Tablet PO (10:02)
[2024-08-31] MEDS: Tamsulosin HCl 0.4 MG Capsule PO (10:02)
[2024-08-31] MEDS: Heparin Injection (Vial) 5,000 UNIT/ML VIAL 5000 UNIT SC ×2 (10:02→21:43)
[2024-08-31] MEDS: Memantine Hydrochloride 10 MG Tablet PO ×2 (10:02→21:43)
--- NOTE | 2024-08-31 10:48 | CASEMGMT ---
Updates sent to [facility] with request to submit for precert. Mai Werner DC Planning Asst.
--- NOTE | 2024-08-31 11:17 | CASEMGMT ---
SW spoke with patient's per her request. SW answered her questions. Michelle PETTY
--- NOTE | 2024-08-31 12:10 | CHAPLAIN ---
Type of Pastoral Visit ___ Initial Visit _x__ Follow-up Visit ___ On-call Visit ___ General Patient Visit ___ Spiritual Assessment ___ Family Conference ___ Bereavement ___ Rapid Response ___ Code Blue ___ Other (describe below) Pastoral Care Referral From ___ Patient _x__ Family ___ Nurse ___ Physician ___ Kaiako Kura [place] ___ Public Health Dietitian ___ Other (describe below) Sacrament/Intervention _x__ Active listening ___ Anointing ___ Jain ___ Bereavement ___ Communion ___ Fara exploration ___ ___ Life review _x__ Prayer ___ Reconciliation ___ Sacrament of Sick _x__ Supportive presence ___ Wedding ___ Other (describe below) Pastoral Comments some family members are in the room; follow up to show support and ongoing concern; pt is hopefully to be moved to SNF tomorrow; family goal is for that decision to be a positive experience and for some improved health; presence and prayer welcomed
--- NOTE | 2024-08-31 13:30 | PN.HOSP_ITS ---
Subjective Subjective No changes, no issues overnight. Renal function continues to improve. Objective Data Objective Data Vital Signs: Vital Signs Temp Pulse Resp BP Pulse Ox O2 Del Method O2 Flow Rate 98.7 F 22 L 22 H 160/70 H 98 Nasal Cannula 2 08/31/24 08:30 08/31/24 08:30 08/31/24 08:40 08/31/24 08:30 08/31/24 08:40 08/31/24 08:40 08/31/24 12:15 Oxygen Flow Rate (L/min) 2 Oxygen Delivery Method Nasal Cannula Weight: 181 lb 14.102 oz Body Mass Index (BMI) 29.3 Intake & Output: Intake and Output for Last 24 Hours 08/30/24 08/31/24 09/01/24 03:59 03:59 03:59 Intake Total 2209.5 / 2209.5 1496 / 1496 572 / 572 Output Total 1600 / 1600 1600 / 1600 1000 / 1000 Balance 609.5 / 609.5 -104 / -104 -428 / -428 Lab / Micro Data 08/31/24 06:37 08/31/24 06:37 Labs: Laboratory Results - last 24 hr 08/30/24 03:51: Diff Path Review N/A 08/31/24 06:37: WBC 7.8, RBC 3.68 L, Hgb 11.7 L, Hct 36.1 L, MCV 98.1 H, MCH 31.8, MCHC 32.4, RDW Std Deviation 45.3 H, RDW Coeff of Maryana 12.6, Plt Count 136 L, MPV 11.1, Immature Gran % (Auto) 0.800, Neut % (Auto) 62.7, Lymph % (Auto) 20.3, [place] % (Auto) 13.4 H, Eos % (Auto) 1.9, Baso % (Auto) 0.9, Absolute Neuts (auto) 4.9, Absolute Lymphs (auto) 1.57, Nucleated RBC % 0, Sodium 137, Potassium 4.1, Chloride 105, Carbon Dioxide 21.5, Anion Gap 10, BUN 14, Creatinine 0.78, Estim Creat Clear Calc 70.54, Est GFR (MDRD) Non-Af 89, BUN/Creatinine Ratio 18.5, Glucose 117 H, Calcium 8.5 Micro: Microbiology 08/29/24 17:40 Urine Catheter - Young Urine Culture - Preliminary Culture exhibits no growth. 08/29/24 17:40 Urine Catheter - Young Legionella Antigen - Final 08/29/24 17:40 Urine Catheter - Young Streptococcus pneumoniae Antigen (M - Final 08/28/24 16:55 Mucosa - Nasopharyngeal Respiratory Panel (PCR) - Final 08/28/24 10:50 Mucosa - Nose SARS-CoV-2, Influenza & RSV (PCR) - Final Radiography Diagnostic Testing: Radiology Impression Renal Ultrasound 08/30/24 08:36 IMPRESSION: Study appears within limits as above. Reading Location: [facility] Rhythm Strip Rhythm Strip: Paced Rate: 63 Ectopy: PVC(s) Physical Exam Narrative General: Alert but drowsy, Oriented x1, Cooperative, No apparent distress HEENT: Atraumatic, PERRLA, EOMI, Normocephalic Oral: Moist Mucosa Neck: Supple, No JVD Lungs: Diminished, Normal air movement, No rhonchi, No wheeze, No rales Cardiovascular: Regular rate, Regular Rhythm, Normal S1, Normal S2, No murmurs Abdomen: Soft, Non Tender, Non-Distended, No Hepato-splenomegaly Extremities: No edema, Capillary Refill Less than 3 Seconds Skin: No rashes, No breakdown Musculoskeletal: No Tenderness to Palpation of Joints or Extremities Neurological: No focal neurological deficits, Motor Exam 5/5 strength throughout, Sensory exam intact to light touch and pain Psych/Mental Status: Normal Affect, Appropriate Assessment & Plan Assessment/Plan (1) Altered level of consciousness: PLAN: Plan 1. Acute metabolic encephalopathy secondary to urinary retention leading to ALEJANDRA in the setting of dementia ? Vitamin B12 level is normal as his TSH ? proBNP was also normal ? Ammonia level was normal ? Renal function resolved with the placement of a Young yesterday evening ? ABG had demonstrated a slight alkalosis, appears to have been metabolic ? Continue with Unasyn pending cultures ? PT/OT, speech therapy is planning for a modified barium swallow today ? Case management working on possible placement options for dispo 2. CAD status post stent/pacemaker placement/essential HTN/HLD ? Blood pressures are stable ? Can continue with his home blood pressure medications 3. Hypothyroidism ? Stable ? Continue with Synthroid DVT: Lovenox Charges/Coding Visit Charges Inpatient E&M: 32003 Subs Hosp L2
[2024-08-31] MEDS: Aspirin 81 MG TAB.CHEW PO (21:43)
[2024-08-31] MEDS: MELATONIN 10 MG TABLET PO (21:44)
[2024-08-31] MEDS: Atorvastatin Calcium 40 MG Tablet PO (21:44)
--- NOTE | 2024-08-31 23:53 | CPS ---
patient wheezy, RN requested Breathing TX
[2024-09-01 03:17] VITALS: BP 159/84; PULSE 64; RESP 18; TEMP 36.2; O2SAT 91
[2024-09-01 04:36] VITALS: BMI 29.3
[2024-09-01] MEDS: Ampicillin/Sulbactam 3 GM in 0.9% Normal Saline (100mL MB+) 100 ML IV ×2 (05:09→12:48)
[2024-09-01] MEDS: Levothyroxine 75 MCG Tablet PO (05:48)
[2024-09-01 07:29] VITALS: O2SAT 92
--- NOTE | 2024-09-01 10:03 | CASEMGMT ---
Patient was approved for [facility]. CODY notified physician and he will send patient today. CODY met with patient's Meggan and let her know this information as well. CODY told Meggan that once we have d/c instructions and a time we will update her. CODY completed a 7000 in [place] system. Plan: d/c to [facility] under skilled level of care on a convalescent stay. Physicians will transport patient via wheelchair. Michelle PETTY
[2024-09-01 10:10] VITALS: BP 126/71; PULSE 73; RESP 18; TEMP 36.5; O2SAT 93
[2024-09-01] MEDS: Tamsulosin HCl 0.4 MG Capsule PO (10:13)
[2024-09-01] MEDS: Cholecalciferol (VIT D3) 25 MCG TABLET (1,000 UNITS) 50 MCG PO (10:13)
[2024-09-01] MEDS: Vitamin E 400 UNITS Capsule PO (10:13)
[2024-09-01] MEDS: Heparin Injection (Vial) 5,000 UNIT/ML VIAL 5000 UNIT SC (10:13)
[2024-09-01] MEDS: Memantine Hydrochloride 10 MG Tablet PO (10:13)
[2024-09-01] MEDS: Folic Acid 1 MG Tablet PO (10:13)
--- NOTE | 2024-09-01 12:21 | CHAPLAIN ---
Type of Pastoral Visit ___ Initial Visit ___ Follow-up Visit ___ On-call Visit ___ General Patient Visit ___ Spiritual Assessment ___ Family Conference ___ Bereavement ___ Rapid Response ___ Code Blue ___ Other (describe below) Pastoral Care Referral From ___ Patient ___ Family ___ Nurse ___ Physician ___ Miller Head Assistant Wet Process ___ Elementary School Art Teacher ___ Other (describe below) Sacrament/Intervention ___ Active listening ___ Anointing ___ Uatsdin ___ Bereavement ___ Communion ___ Fara exploration ___ ___ Life review ___ Prayer ___ Reconciliation ___ Sacrament of Sick ___ Supportive presence ___ Wedding ___ Other (describe below) Pastoral Comments patient is to be transferred to [facility] today; spouse is emotional about this event due to 'wondering if this is temporary or permanent' and 'this change came so suddenly it seems'; pt and spouse are strong in fara and welcome compassion and prayers; pt has difficulty answering questions and finds it hard to focus during the visit; pt is known to this dry house operator and his behavior is different than normal
--- NOTE | 2024-09-01 12:41 | PCM.TXEXTCAR ---
Diet Diet Order/Speech Therapy: 08/28/24 15:34 Diet: Cardiac - Heart Healthy Food consistency:: Regular Liquid Consistency:: Regular/Thin Routine Orders/Code Status Routine Lab Work: CBC and BMP Code Status: DNRCC-A DC O2, CPAP, BIPAP needs Home O2 Discharge instructions: No Therapies Physical Therapy: Eval and Treat Occupational Therapy: Eval and Treat Problem/Diagnosis (1) Altered level of consciousness: Status: Acute Code(s): R40.4 - Transient alteration of awareness Plan 1. Acute metabolic encephalopathy secondary to urinary retention leading to ALEJANDRA in the setting of dementia ? Vitamin B12 level is normal as his TSH ? proBNP was also normal ? Ammonia level was normal ? Renal function resolved with the placement of a Young yesterday evening ? ABG had demonstrated a slight alkalosis, appears to have been metabolic ? Continue with Unasyn pending cultures ? PT/OT, speech therapy is planning for a modified barium swallow today ? Case management working on possible placement options for dispo 2. CAD status post stent/pacemaker placement/essential HTN/HLD ? Blood pressures are stable ? Can continue with his home blood pressure medications 3. Hypothyroidism ? Stable ? Continue with Synthroid DVT: Lovenox Allergies/Procedures Done in Hospital Allergies No Known Allergies Allergy (Verified 05/11/24 11:23) Procedures: None Type of Care/Length of Stay Estimated LOS: Convalescent Care Less Than 30 days Type of Care Needed: Skilled Rehab Potential: Good Prognosis: Good Additional Orders/Day of Discharge Day of Discharge: 09/01/24 Discharge Plan Admission Admit Date/Time: 08/29/24 13:32 Attending Provider: Antoine Finch Primary Care Provider: Callum Hill Consulting Providers: Kenya Otoole Instructions Patient Instructions: ED URI, Viral, No Abx (Adult) Additional Instructions / Restrictions: Continues to have urinary retention, will leave Young in place recommend outpatient urology evaluation and bladder training at the shelter. This is likely the cause of his significant encephalopathy given the rapid improvement in his renal function once the Young was placed Discharge Orders/Prescriptions Prescriptions: New tamsulosin 0.4 mg Capsule 0.4 mg PO DAILY Qty: 0 0RF Continued donepezil 10 mg tablet 10 mg PO DAILY aspirin [Adult Low Dose Aspirin] 81 mg tablet,delayed release (DR/EC) 81 mg PO QHS atorvastatin 40 mg tablet 40 mg PO QHS escitalopram oxalate 10 mg tablet 10 mg PO DAILY nitroglycerin 0.4 mg tablet, sublingual 0.4 mg SUBLINGUAL Q5M PRN (Reason: Chest Pain) Qty: 25 3RF memantine 10 mg tablet 10 mg PO BID lisinopril 5 mg tablet 5 mg PO BID Qty: 180 3RF levothyroxine 75 MCG tablet 75 mcg PO DAILY folic acid 1 MG tablet 1 mg PO DAILY Patient Comments: cholecalciferol (vitamin D3) [D3 DOTS] 50 mcg (2,000 unit) tablet 50 mcg PO DAILY vitamin E 268 mg (400 unit) capsule 268 mg PO DAILY carvedilol 25 mg tablet 25 mg PO BID Qty: 180 4RF Rx Instructions: give with food (meal/snack) Referrals / Follow Up: Callum Hill MD [Primary Care Provider] - 3-5 Days Disposition Disposition (needs filled in before D/C Order can be placed): Assisted Facility
[2024-09-01] MEDS: 0.9% Saline Lock 10 ML Syringe IV (12:49)
--- NOTE | 2024-09-01 13:20 | PHA.DC.MR.R ---
Pharmacy [place] Med Reconciliation Pharmacy Service has performed discharge medication reconciliation for this patient. The patient's discharge medication list was reviewed for discrepancies and discrepancies were resolved. Medications at Discharge Home Medications folic acid 1 mg tablet 1 mg PO DAILY 07/21/15 levothyroxine 75 mcg tablet 75 mcg PO DAILY 07/21/15 donepezil 10 mg tablet 10 mg PO DAILY 06/09/19 aspirin 81 mg tablet,delayed release (Adult Low Dose Aspirin) 81 mg PO QHS 12/15/19 atorvastatin 40 mg tablet 40 mg PO QHS 08/31/20 escitalopram oxalate 10 mg tablet 10 mg PO DAILY 08/31/20 nitroglycerin 0.4 mg sublingual tablet 0.4 mg sublingual Q5M PRN Chest Pain #25 tabs 03/22/21 memantine 10 mg tablet 10 mg PO BID 03/28/22 carvedilol 25 mg tablet 25 mg PO BID #180 tabs 09/09/23 lisinopril 5 mg tablet 5 mg PO BID #180 tabs 10/04/23 cholecalciferol (vitamin D3) 50 mcg (2,000 unit) tablet (D3 DOTS) 50 mcg PO DAILY VITAMIN 08/28/24 vitamin E 268 mg (400 unit) capsule 268 mg PO DAILY 08/28/24 tamsulosin 0.4 mg capsule 0.4 mg PO DAILY #0 caps 09/01/24
--- NOTE | 2024-09-01 14:27 | CASEMGMT ---
Discharge Planning Discharge orders, signed med list, and transport time sent to [facility]. Physicians will transport pt by wheelchair at 4:30p. Nursing, SW, pt, and his updated. Mai Werner DC Planning Asst.
--- NOTE | 2024-09-01 15:38 | NURSING ---
Report called to AURORA Sung at [facility]. Physicians to case picker and transport at 1630.
[2024-09-01 15:50] VITALS: BP 111/71; PULSE 69; RESP 18; TEMP 37.4; O2SAT 95
--- NOTE | 2024-09-01 16:28 | PCM.DC.SUM ---
Providers Date of Admission: 08/29/24 Primary Care Physician: Dr. Callum Hill MD Reason For Visit: ALTERED LOC Diagnosis Discharge Diagnosis (1) Altered level of consciousness: Status: Acute Code(s): R40.4 - Transient alteration of awareness Medications at Discharge Home Medications folic acid 1 mg tablet 1 mg PO DAILY 07/21/15 levothyroxine 75 mcg tablet 75 mcg PO DAILY 07/21/15 donepezil 10 mg tablet 10 mg PO DAILY 06/09/19 aspirin 81 mg tablet,delayed release (Adult Low Dose Aspirin) 81 mg PO QHS 12/15/19 atorvastatin 40 mg tablet 40 mg PO QHS 08/31/20 escitalopram oxalate 10 mg tablet 10 mg PO DAILY 08/31/20 nitroglycerin 0.4 mg sublingual tablet 0.4 mg sublingual Q5M PRN Chest Pain #25 tabs 03/22/21 memantine 10 mg tablet 10 mg PO BID 03/28/22 carvedilol 25 mg tablet 25 mg PO BID #180 tabs 09/09/23 lisinopril 5 mg tablet 5 mg PO BID #180 tabs 10/04/23 cholecalciferol (vitamin D3) 50 mcg (2,000 unit) tablet (D3 DOTS) 50 mcg PO DAILY VITAMIN 08/28/24 vitamin E 268 mg (400 unit) capsule 268 mg PO DAILY 08/28/24 tamsulosin 0.4 mg capsule 0.4 mg PO DAILY #0 caps 09/01/24 Hospital Course Operations None Procedures None Summary of Care Provided Minutes Spent on Discharge: 33 Hospital Course: Per HPI: BINH WRIGHT, is a 84 M with a history of pacemaker/defibrillator, dementia, hypertension, hypothyroidism, coronary artery disease who presented [facility] ED 08/28/2024 with altered level of consciousness. Family reports since he started not acting quite right and his just progressively worsened, the only additional change during that time is patient has been having some cough. Given the mental status change he had CTA of the head and neck and CT which were negative the patient with no focal complaints and nonfocal exam to suggest CVA as a primary culprit. Given patient's failure to thrive and mental status changes with inability for family to take care of patient at home hospitalist contacted for admission. Patient evaluated with family at bedside, reports that he was not acting like himself and is progressively worsened and is now not close to baseline though does note he has chronic dementia. Reports he has a cough and that for a while he has had some shortness of breath on exertion, only other thing she notes is that he has some right leg pain which is not new, denies that he has had any changes in bowel or bladder. Denies any new medication changes. Hospital Course: 1. Acute metabolic encephalopathy secondary to urinary retention leading to ALEJANDRA in the setting of dementia?84-year-old male presented to the hospital with confusion. Initially workup was unremarkable and was not leading to many answers. He did have a slight white count so was started on antibiotics. Cultures were ultimately negative and procalcitonin was only 0.2. Ammonia level was normal as well as vitamin B12 and his TSH. ABG was also unremarkable with maybe a slight alkalosis. He was found to have urinary retention and his renal function resolved overnight after the placement of a Young. Will continue with Flomax and Young on discharge. Based on PT and OT evaluations he does need SNF placement for rehab. He also had modified barium swallow yesterday which demonstrated the need for regular textures and thin liquids recommending small bites and small sips and for him to remain upright for 30 minutes after p.o. intake. Will plan to discharge to SNF today with Young in place and to continue Flomax. They can attempt to remove the Young in a few days at the longterm and do voiding trials, if he does need to have placement of a Young at that time then would recommend outpatient follow-up with urology as well. 2. Coronary artery disease status post stent, pacemaker placement, essential hypertension, hyperlipidemia, hypothyroidism are all chronic medical conditions which complicate his care. His home medications were continued for appropriate Physical Exam Narrative General: Alert, Oriented x1, Cooperative, No apparent distress HEENT: Atraumatic, PERRLA, EOMI, Normocephalic Oral: Moist Mucosa Neck: Supple, No JVD Lungs: Diminished, Normal air movement, No rhonchi, No wheeze, No rales Cardiovascular: Regular rate, Regular Rhythm, Normal S1, Normal S2, No murmurs Abdomen: Soft, Non Tender, Non-Distended, No Hepato-splenomegaly Extremities: No edema, Capillary Refill Less than 3 Seconds Skin: No rashes, No breakdown Musculoskeletal: No Tenderness to Palpation of Joints or Extremities Neurological: No focal neurological deficits, moves all extremities Psych/Mental Status: Normal Affect, Appropriate Weight / BMI Weight Weight: 181 lb 10.574 oz Body Mass Index (BMI) 29.3 ABG / Lab / Microbiology Data 08/31/24 06:37 08/31/24 06:37 Microbiology: Microbiology 08/29/24 17:40 Urine Catheter - Young Urine Culture - Final Culture exhibits no growth. 08/29/24 15:25 Blood Culture (Wb) - Right Hand Blood Culture - Preliminary No growth in 48 hours. 08/29/24 15:17 Blood Culture (Wb) - Left Hand Blood Culture - Preliminary No growth in 48 hours. 08/29/24 17:40 Urine Catheter - Young Legionella Antigen - Final 08/29/24 17:40 Urine Catheter - Young Streptococcus pneumoniae Antigen (M - Final 08/28/24 16:55 Mucosa - Nasopharyngeal Respiratory Panel (PCR) - Final 08/28/24 10:50 Mucosa - Nose SARS-CoV-2, Influenza & RSV (PCR) - Final D/C Instructions DC O2, CPAP, BIPAP Needs Home O2 Discharge instructions: No Meaningful Use Info Meaningful Use Meaningful Use Diagnoses (Choose all that apply): None applicable Ischemic Stroke Statin Dosing Therapy Reference: STATIN DOSE THERAPY REFERENCE: * Patients > 75 years receive moderate or high dose statin therapy. * Patients 75 years or YOUNGER should receive HIGH intensity statin dose unless contraindicated. You will be required to document reason for non-treatment if statin daily dose does not meet guidelines. HIGH DOSE STATIN THERAPY DAILY Atorvastatin > than or = to 40 mg Rosuvastatin > than or = to 20 mg Amlodipine + Atorvastatin > than or = to 2.5/40 mg Ezetimibe + Simvastatin 10/80 mg Simvastatin 80mg Discharge Plan Admission Admit Date/Time: 08/29/24 13:32 Attending Provider: Antoine Finch Primary Care Provider: Callum Hill Consulting Providers: Kenya Otoole Instructions Patient Instructions: ED URI, Viral, No Abx (Adult) Additional Instructions / Restrictions: Continues to have urinary retention, will leave Young in place recommend outpatient urology evaluation and bladder training at the longterm. This is likely the cause of his significant encephalopathy given the rapid improvement in his renal function once the Young was placed Discharge Orders/Prescriptions Prescriptions: New tamsulosin 0.4 mg Capsule 0.4 mg PO DAILY Qty: 0 0RF Continued donepezil 10 mg tablet 10 mg PO DAILY aspirin [Adult Low Dose Aspirin] 81 mg tablet,delayed release (DR/EC) 81 mg PO QHS atorvastatin 40 mg tablet 40 mg PO QHS escitalopram oxalate 10 mg tablet 10 mg PO DAILY nitroglycerin 0.4 mg tablet, sublingual 0.4 mg SUBLINGUAL Q5M PRN (Reason: Chest Pain) Qty: 25 3RF memantine 10 mg tablet 10 mg PO BID lisinopril 5 mg tablet 5 mg PO BID Qty: 180 3RF levothyroxine 75 MCG tablet 75 mcg PO DAILY folic acid 1 MG tablet 1 mg PO DAILY Patient Comments: cholecalciferol (vitamin D3) [D3 DOTS] 50 mcg (2,000 unit) tablet 50 mcg PO DAILY vitamin E 268 mg (400 unit) capsule 268 mg PO DAILY carvedilol 25 mg tablet 25 mg PO BID Qty: 180 4RF Rx Instructions: give with food (meal/snack) Referrals / Follow Up: Callum Hill MD [Primary Care Provider] - 3-5 Days Disposition Disposition (needs filled in before D/C Order can be placed): Long-Term Facility Charges/Coding Visit Charges Inpatient E&M: 18593 Disch Hosp >30min
== END 2024-09-01 16:35 | disposition skilled nursing facility (03) | DRG 682 ==
LOC: ED 13:51 → PCU 14:11
PROVIDERS: Admitting Provider Internal Medicine; Emergency Provider Emergency Medicine; PCP Family Medicine; Visit Provider Family Medicine
DX: N17.9 Acute kidney failure, unspecified (principal); G93.41 Metabolic encephalopathy; I42.8 Other cardiomyopathies; E87.3 Alkalosis; F03.90 Unspecified dementia, unspecified severity, without behavioral disturbance, psychotic disturbance, mood disturbance, and anxiety; E03.9 Hypothyroidism, unspecified; I10 Essential (primary) hypertension; E78.5 Hyperlipidemia, unspecified; I25.10 Atherosclerotic heart disease of native coronary artery without angina pectoris; I44.7 Left bundle-branch block, unspecified; I25.2 Old myocardial infarction; Z86.16 Personal history of COVID-19; Z79.890 Hormone replacement therapy; Z95.5 Presence of coronary angioplasty implant and graft; Z79.82 Long term (current) use of aspirin; Z87.891 Personal history of nicotine dependence; Z95.810 Presence of automatic (implantable) cardiac defibrillator; Z79.899 Other long term (current) drug therapy; Z79.02 Long term (current) use of antithrombotics/antiplatelets
CPT/HCPCS: 36415; 36600; 70450; 70496; 70498; 71045; 71250; 74176; 74230; 76770; 80048; 81001; 82436; 82570; 83935; 84133; 84145; 84300; 84540; 85025; 85027; 87040; 87086; 87449; 92526; 92610; 92611; 93005; 94640; 97162; 97165; 97530; 97535; 99285; P9612; Q9967; A4216; J0295; J2405

== ENCOUNTER 2024-10-24 15:57 | Emergency (ER) | payer OTHER, SELFPAY ==
[2024-10-24 15:57] VITALS: BP 139/72; PULSE 70; RESP 17; TEMP 36.7; O2SAT 97; BMI 28.7
--- OUTSIDE RECORDS SUMMARY | 2024-10-24 16:37 | XMS RPT_ITS | CCD ---
Author Organization [facility] Care Team Providers Care School Janitor Name Role Phone DeFinis, Harumi Y Unavailable Unavailable MD Denia, Matt Harry Unavailable MELVIN Sandoval, Triny Segura Unavailable Unavailable MELVIN Sandoval, Triny Segura Unavailable Unavailable Gudelia CHARLES, Mercy Lomeli Unavailable [phone] DeFinis, Harumi Y Unavailable Unavailable DeFinis, Harumi Y Unavailable Unavailable DeFinis, Harumi Y Unavailable Unavailable MELVIN Sandoval, Triny M Unavailable Unavailable MELVIN Sandoval, Triny M Unavailable Unavailable MELVIN Sandoval, Triny M Unavailable Unavailable MELVIN Sandoval, Triny M Unavailable Unavailable MELVIN Sandoval, Triny M Unavailable Unavailable Dr. Dilshad Hill Primary Care Provider Dr. Dilshad Hill Referring Provider Nancy Sandoval Attending Provider Unavailable Layo DISTRICT MANAGER MAJOR [employer]OUNT[employer] SALES, ZAIN-Tess Barakat Attending Provider Dr. Dilshad Hill Primary Care Provider [phone] Dr. Dilshad Hill Referring Provider Dr. Matt Loza Attending Provider [phone] Matt Loza Referring Provider [phone] Dilshad Hill Primary Care Provider Dr. Matt Loza Attending Provider [phone] Matt Loza Referring Provider [phone] Dilshad Hill Referring Provider Layo PITTMAN, MOEC Roshni Attending Provider Dr. Matt Loza Other Provider Nancy Sandoval Attending Provider Unavailable Dr. Dilshad Hill Primary Care Provider Denia, Dr. Gutierrez Attending Provider Dr. Dilshad Hill Primary Care Provider Denia, Dr. Gutierrez Attending Provider Denia, Dr. Gutierrez Referring Provider Nancy Sandoval Attending Provider Unavailable Liz, Dr. Yung Referring Provider Layo DISTRICT MANAGER MAJOR [employer]OUNT[employer] SALES, DISTRICT MANAGER MAJOR ACCOUNTS SALES-C Roshni Attending Provider Dr. Dilshad Hill Primary Care Provider Denia, Dr. Gutierrez Attending Provider Denia, Dr. Gutierrez Referring Provider Layo DISTRICT MANAGER MAJ[employer] SALES, DISTRICT MANAGER MAJOR ACCOUNTS SALES-C Roshni Attending Provider Dr. Callum Hill Primary Care Provider [phone] Ednia, Dr. Gutierrez Attending Provider Denia, Dr. Gutierrez Referring Provider Dr. Callum Hill Primary Care Provider [phone] Denia, Dr. Gutierrez Attending Provider Denia, Dr. Gutierrez Referring Provider Liz ROBERTS, Dr. Nolen Primary Care Provider Dr. Callum Hill MD Referring Provider Mercy Mead Attending Provider [phone] Denia ROBERTS, Dr. Gutierrez Attending Provider [phone] Denia ROBERTS, Dr. Gutierrez Referring Provider [phone] David ROBERTS, Dr. Cardona Emergency Provider Xiang ROBERTS, Dr. Zambrano Admit Provider Xiang ROBERTS, Dr. Zambrano Attending Provider Xiang ROBERTS, Dr. Zambrano Other Provider Josette ROBERTS, Dr. Antoine Gavin Attending Provider Josette ROBERTS, Dr. Antoine Gavin Other Provider [facility] Unavailable Oleghe OLS, Efewongbe Referring Unavailabl e Oleghe OLS Efewongbe Attending UnavailAntoine Baltazar Attending Unavailable Otoole, Kenya Consulting Unavailable Otoole, Kenya Admitting Unavailable [facility] Primary Care Unavailable [facility] Care Unavailable Osito DISTRICT MANAGER MAJOR [employer] SALES, Lu Attending Unavailable [facility] Care Unavailable Denia, Matt Attending Unavailable Denia, [place] Referring Unavailable [facility] Care Unavailable Fina Andrewsewongbe Attending Unavailable [facility] Care Unavailable Osito DISTRICT MANAGER MAJOR ACCOUNTS SALESLu Attending Unavailable [facility] Care Unavailable Ramon SPEARS, Mercy Segura Attending Unavail able [facility] Referring Unavailable [facility] Care Unavailable Denia, Matt Attending Unavailable Denia, [place] Referring Unavailable Otoole, Kenya Consulting Unavailable Antoine Finch Attending Unavailable [facility] Primary Care Unavailable Otoole, Kenya Admitting Unavailable Antoine Finch Consulting Unavailable Otoole, Kenya Attending Unavailable Otoole, Kenya Consulting Unavailable [facility] Primary Care Unavailable Otoole, Kenya Admitting Unavailable Otoole Kenya Attending Unavailable Denia, [place] Referring Unavailable Denia, Matt Attending Unavailable [facility] Care Unavailable [facility] Primary Care Unavailable Oleghe ERROL Efewongbe Attending Unavailabl mariella [facility] Primary Care Unavailable Layo DISTRICT MANAGER MAJ[employer], Roshni Referring Unavailable Layo DISTRICT MANAGER MAJOR [employer] SAL[employer], Roshni Attending Unavailable [facility] Unavailable Oleghe OLS, Efewongbe Referring Unavailabl e Oleghe OLS, Efewongbe Attending Unavailabl [facility] Care Unavailable Medications Current Medications Medication Drug Class(es) Dates Sig (Normalized) Sig (Original) aspirin 81 mg delayed release oral tablet (20 sources) Nonsteroidal Anti-inflammatory Drug Start: 12-15-2019 Aspirin (Adult Low Dose Aspirin) 81 mg tablet,delayed release (DR/EC) Active 81 mg PO AT BEDTIME December 15, 2019 12:00am Start: 12-10-2011 End: 09-20-2019 take 1 tablet by mouth once daily Aspirin 81 MG tablet,delayed release (DR/EC) Discontinued 81 mg PO DAILY September 11, 2015 12:00am September 20, 2019 11:55am Start: 12-10-2011 take 1 tablet by geovany th once daily ASPIRIN 81 MG TABS One tablet by mouth daily ASPIRIN [id number] Triny Sandoval RN Start: 12-10-2011 take 1 tablet by geovany th once daily ASPIRIN 81 MG TABS One tablet by mouth daily ASPIRIN [id number] Triny Sandoval RN atorvastatin 40 mg oral tablet (20 sources) HMG-CoA Reductase Inhibitor Start: 08-31-2020 take 1 tablet by mouth at bedtime Atorvastatin 40 mg tablet Active 40 mg PO AT BEDTIME August 31, 2020 12:00am Start: 12-16-2019 End: 08-31-2020 take 1 tablet by mouth once daily Atorvastatin 10 mg tablet Discontinued 10 mg PO DAILY December 16, 2019 12:00am August 31, 2020 9:16am Start: 12-15-2019 End: 12-15-2019 take 1 tablet by mouth once daily Atorvastatin 80 mg tablet Discontinued 80 mg PO DAILY December 15, 2019 12:00am December 15, 2019 8:48am Start: 10-08-2018 End: 08-12-2019 take 1 tablet by mouth at bedtime Atorvastatin 40 mg tablet Discontinued 40 mg PO AT BEDTIME October 08, 2018 10:10am August 12, 2019 11:50am Start: 05-22-2012 End: 10-08-2018 take 1 tablet by mouth at bedtime Atorvastatin 80 MG tablet Discontinued 80 mg PO AT BEDTIME September 11, 2015 12:00am October 08, 2018 10:12am Start: 05-22-2012 End: 08-12-2017 take 1 tablet by mouth at bedtime Atorvastatin 40 MG tablet Discontinued 40 mg PO AT BEDTIME July 21, 2015 1:00am August 12, 2017 10:41am cholecalciferol 0.05 mg oral tablet (15 sources) Vitamin D Start: 08-28-2024 Cholecalcifero l (Vitamin D3) (D3 Dots) 50 mcg (2,000 unit) tablet Active 50 ug PO DAILY August 28, 2024 12:00am Start: 08-31-2020 End: 08-28-2024 take 1 capsule by mouth once daily Cholecalciferol (Vitamin D3) 125 mcg (5,000 unit) capsule Discontinued 125 ug PO DAILY August 31, 2020 12:00am August 28, 2024 11:20am donepezil hydrochloride 10 mg oral tablet (20 sources) Start: 06-09-2019 take 1 tablet by mouth once daily Donepezil 10 mg tablet Active 10 mg PO DAILY June 09, 2019 1:00am Start: 11-19-2018 End: 06-09-2019 take 1 tablet by mouth once daily Donepezil 5 MG tablet Discontinued 5 mg PO DAILY November 19, 2018 12:00am June 09, 2019 4:28pm escitalopram 10 mg oral tablet (20 sources) Serotonin Reuptake Inhibitor Start: 08-31-2020 take 1 tablet by mouth once daily Escitalopram Oxalate 10 mg tablet Active 10 mg PO DAILY August 31, 2020 12:00am Start: 10-08-2018 End: 08-31-2020 take 1 tablet by mouth once daily Escitalopram Oxalate 5 mg tablet Discontinued 5 mg PO DAILY October 08, 2018 12:00am August 31, 2020 9:16am folic acid 1 mg oral tablet (20 sources) Start: 02-24-2012 take 1 tablet by mouth once daily Folic Acid 1 MG tablet Active 1 mg PO DAILY July 21, 2015 1:00am lisinopril 5 mg oral tablet (20 sources) Angiotensin Converting Enzyme Inhibitor Start: 04-21-2023 End: 10-04-2023 take 1 tablet by mouth twice daily Lisinopril 5 mg tablet Active 5 mg PO TWICE A DAY 180 October 04, 2023 10:31am Start: 03-29-2022 End: 02-12-2023 take 1 tablet by mouth once daily Lisinopril 5 mg tablet Discontinued 5 mg PO DAILY 180 March 29, 2022 10:47am February 12, 2023 5:14pm Start: 01-14-2012 End: 03-29-2022 take 1 tablet by mouth twice daily Lisinopril 5 mg tablet Discontinued 5 mg PO TWICE A DAY 180 February 22, 2022 8:24am March 29, 2022 10:48am Start: 12-10-2011 End: 02-24-2012 take 1 tablet by mouth once daily LISINOPRIL 5 MG TABS One tablet by mouth daily LISINOPRIL [id number] Triny Sandoval, RN memantine hydrochloride 10 mg oral tablet (20 sources) Q-tbswdz-E-aspartate Receptor Antagonist Start: 03-28-2022 take 1 tablet by mouth twice daily Memantine 10 mg tablet Active 10 mg PO TWICE A DAY March 28, 2022 1:00am Start: 03-28-2022 take 10 mg by mouth once daily in the morning Memantine Active 10 MG PO EVERY MORNING March 28, 2022 1:00am Start: 09-24-2021 End: 03-28-2022 take 2 tablets by mouth twice daily Memantine 5 mg tablet Discontinued 10 mg PO TWICE A DAY September 24, 2021 9:11am March 28, 2022 11:39am Start: 09-24-2021 End: 03-28-2022 take 10 mg by mouth twice daily Memantine Discontinued 10 MG PO TWICE A DAY September 24, 2021 9:11am March 28, 2022 11:39am Start: 08-31-2020 End: 09-24-2021 Memantine 5 mg tablet Discon tinued 5 mg PO .COMPLEX March 22, 2021 8:42am September 24, 2021 9:12am 5 mg PO 5 mg in am and 10 mg in pm per Dr. Hill; Start: 06-09-2019 End: 12-15-2019 take 1 tablet by mouth at bedtime Memantine 5 mg tablet Discontinued 5 mg PO AT BEDTIME June 09, 2019 1:00am December 15, 2019 8:36am nitroglycerin 0.4 mg sublingual tablet (20 sources) Nitrate Vasodilator Start: 09-11-2015 End: 03-22-2021 Nitroglycerin 0.4 mg tablet, sublingual Active 0.4 mg SL Q5M as needed for Chest Pain March 22, 2021 8:43am Start: 09-11-2015 End: 03-22-2021 Nitroglycerin Active 0.4 MG SL Q5M March 22, 2021 8:43am Start: 12-10-2011 NITROSTAT 0.4 MG SUBL 1 tablet under tongue every 5 min up to 3 X NITROGLYCERIN [id number] Mai Cardenas RN Start: 12-10-2011 NITROGLYCERIN 0.4 MG/HR PT24 1 tablet under tongue every 5 min up to 3 X NITROGLYCERIN [id number] Triny Sandoval, MELVIN tamsulosin hydrochloride 0.4 mg oral capsule (1 source) alpha-Adrenergic Greta Start: 09-01-2024 take 1 capsule by mouth once daily Tamsulosin 0.4 mg Capsule Active 0.4 mg PO DAILY 0 September 01, 2024 12:00am levothyroxine sodium 0.075 mg oral tablet (20 sources) l-Thyroxine Start: 02-24-2012 take 1 tablet by mouth once daily LEVOTHROID 50 MCG TABS One tablet by mouth daily LEVOTHYROXINE SODIUM [id number] Bubba Contreras MD Start: 02-24-2012 take 1 tablet by geovany th once daily Levothyroxine 75 MCG tablet Active 75 ug PO DAILY July 21, 2015 1:00am Start: 02-24-2012 take 1 tablet by geovany th once daily LEVOTHROID 50 MCG TABS One tablet by mouth daily LEVOTHYROXINE SODIUM [id number] Bubba Contreras MD vitamin e 180 mg oral capsule (2 sources) Start: 08-28-2024 take 1 capsule by mouth once daily Vitamin E 268 mg (400 unit) capsule Active 268 mg PO DAILY August 28, 2024 12:00am Completed/Discontinued Medications Medication Drug Class(es) Dates Sig (Normalized) Sig (Original) acetaminophen 325 mg / oxyCODONE hydrochloride 5 mg oral tablet (13 sources) Opioid Agonist Start: 09-20-2019 End: 09-25-2019 Oxycodone-Acetamino phen 1 TABLET tablet Discontinued 1 {tbl} PO EVERY 6 HOURS NEEDED as needed for Pain Score 4-5/10 05 10September 20, 2019 September 24, 2019 12:00am September 25, 2019 12:02am 20 tabs (twenty) Start: 09-20-2019 End: 09-25-2019 take 1 tablet by mouth every six hours as needed Oxycodone-Acetaminophen Discontinued 1 TABLET PO EVERY 6 HOURS NEEDED 05 10September 20, 2019 September 25, 2019 12:02am 20 tabs (twenty) carvedilol 25 mg oral tablet (20 sources) alpha-Adrenergic Greta, beta-Adrenergic Greta Start: 03-26-2018 End: 09-09-2023 take 1 tablet by mouth twice daily at mealtime Carvedilol 25 mg tablet Discontinued 25 mg PO TWICE A DAY 180 September 06, 2022 4:05pm September 09, 2023 7:59am give with food (meal/snack) Start: 02-24-2012 End: 03-26-2018 take 1 tablet by mouth twice daily Carvedilol 12.5 MG tablet Discontinued 12.5 mg PO TWICE A DAY 180 July 16, 2017 12:05pm March 26, 2018 12:20pm Start: 01-14-2012 take 1 tablet by geovany th twice daily COREG 6.25 MG TABS one tablet by mouth twice a day CARVEDILOL [id number] Bubba Contreras MD Start: 12-10-2011 take 1 tablet by geovany th twice daily CARVEDILOL 3.125 MG TABS One tablet by mouth twice daily CARVEDILOL [id number] Triny Sandoval RN clindamycin 300 mg oral capsule (13 sources) Lincosamide Antibacterial Start: 09-20-2019 End: 09-30-2019 take 1 capsule by mouth three times daily Clindamycin Hcl 300 MG capsule Discontinued 300 mg PO THREE TIMES A DAY September 20, 2019 12:00am September 30, 2019 8:28am ubidecarenone 100 mg oral capsule (20 sources) Start: 10-08-2018 End: 03-22-2021 Coenzyme Q10 (Co Q-10) 100 mg capsule Discontinued 100 mg PO DAILY October 08, 2018 12:00am March 22, 2021 8:41am Start: 10-04-2014 End: 08-11-2015 take 1 tablet by mouth once daily CO Q-10 200 MG CAPS One tablet by mouth daily COENZYME Q10 [id number] Luanne Duncan RN Cognforce (13 sources) Start: 09-16-2019 End: 03-22-2021 take 1 capsule by mouth once daily Cognforce Discontinued 1 CAP PO DAILY September 16, 2019 11:18am March 22, 2021 8:42am Start: 09-16-2019 End: 03-22-2021 Cognforce Discontinued 1 NMA PO DAILY September 16, 2019 12:00am March 22, 2021 8:42am Start: 09-16-2019 End: 03-22-2021 take 1 capsule by mouth once daily Cognforce Discontinued 1 CAP PO DAILY September 16, 2019 12:00am March 22, 2021 8:42am Start: 09-16-2019 End: 03-22-2021 take 1 capsule by mouth once daily Cognforce Discontinued 1 CAP PO DAILY September 15, 2019 11:00pm March 22, 2021 7:42am digoxin 0.125 mg oral tablet (20 sources) Cardiac Glycoside Start: 01-14-2012 End: 03-02-2013 take 1 tablet by mouth once daily DIGOXIN 125 MCG TABS One tablet by mouth daily DIGOXIN [id number] Matt Loza MD furosemide 40 mg oral tablet (20 sources) Loop Diuretic Start: 10-04-2014 End: 08-11-2015 LASIX 40 MG TABS One tablet by mouth as needed FUROSEMIDE [id number] Luanne Duncan RN Lactobac Acidoph-Fructoolig os (11 sources) Start: 09-20-2019 End: 12-15-2019 Lactobac Acidoph-Fructooligo s Discontinued 1 EACH PO TWICE A DAY September 20, 2019 11:55am December 15, 2019 8:36am Start: 09-20-2019 End: 12-15-2019 Lactobac Acidoph-Fructooligo s Discontinued 1 EACH PO TWICE A DAY September 20, 2019 12:00am December 15, 2019 8:36am Start: 09-20-2019 End: 12-15-2019 Lactobac Acidoph-Fructooligo s Discontinued 1 EACH PO TWICE A DAY September 19, 2019 11:00pm December 15, 2019 7:36am Lactobac Acidoph-Fructooligos 1 EACH tablet (2 sources) Start: 09-20-2019 End: 12-15-2019 Lactobac Acidoph-Fructooligos 1 EACH tablet Discontinued 1 NMA PO TWICE A DAY September 20, 2019 12:00am December 15, 2019 8:36am MULTIPLE VITAMIN (13 sources) Start: 03-02-2013 take 1 tablet by mouth once daily MULTIVITAMINS TABS One tablet by mouth daily MULTIPLE VITAMIN [place] Kamryn Loza MD Start: 03-02-2013 take 1 tablet by geovany th once daily MULTIVITAMINS TABS One tablet by mouth daily MULTIPLE VITAMIN Mattjaswant Loza MD omeprazole 20 mg delayed release oral capsule (20 sources) Proton Pump Inhibitor Start: 01-09-2012 End: 03-02-2013 take 1 tablet by mouth once daily OMEPRAZOLE 20 MG CPDR One tablet by mouth daily OMEPRAZOLE [id number] Triny Sandoval RN Start: 12-10-2011 take 1 tablet by geovany th once daily OMEPRAZOLE 40 MG CPDR One tablet by mouth daily OMEPRAZOLE [id number] Triny Sandoval RN predniSONE 10 mg oral tablet (2 sources) Start: 10-04-2023 End: 05-11-2024 Prednisone 10 mg tablet Discontinued 10 mg PO .COMPLEX October 04, 2023 12:00am May 11, 2024 12:25pm Take 4 pills for 3 days, 3 pills for 3 days, 2 pills for 3 days, take 1 pill for 3 days sacubitril 24 mg / valsartan 26 mg oral tablet (9 sources) Angiotensin 2 Receptor Greta Start: 02-12-2023 End: 04-21-2023 Sacubitril-Valsart an (Entresto) 24-26 mg tablet Discontinued 1 {tbl} PO TWICE A DAY 60 February 12, 2023 12:00am April 21, 2023 2:59pm simvastatin 40 mg oral tablet (20 sources) HMG-CoA Reductase Inhibitor Start: 02-03-2012 End: 05-22-2012 take 1 tablet by mouth at bedtime SIMVASTATIN 40 MG TABS One tablet by mouth at bedtime. SIMVASTATIN [id number] Bubba Contreras MD Start: 12-10-2011 take 1 tablet by geovany th once daily SIMVASTATIN 20 MG TABS One tablet by mouth daily SIMVASTATIN [id number] Triny Sandoval RN tadalafil 5 mg oral tablet (20 sources) Phosphodiesterase 5 Inhibitor Start: 07-21-2015 End: 06-09-2019 Tadalafil 5 MG tablet Discontinued 5 mg PO NEEDED as needed for ED July 21, 2015 1:00am June 09, 2019 4:27pm Start: 01-09-2012 End: 01-14-2012 take 1 tablet by mouth once daily as needed CIALIS 5 MG TABS One tablet by mouth daily as needed do not take within 6 hours of nitroglycerin TADALAFIL [id number] Mai Cardenas RN ticagrelor 90 mg oral tablet (20 sources) Start: 08-09-2015 End: 08-12-2017 take 1 tablet by mouth twice daily Ticagrelor 90 MG tablet Discontinued 90 mg PO TWICE A DAY September 11, 2015 12:00am August 12, 2017 10:43am zinc acetate 50 mg oral capsule (13 sources) Start: 08-31-2020 End: 08-28-2024 take 1 capsule by mouth once daily Zinc Acetate (Galzin) 50 mg (zinc) capsule Discontinued 50 mg PO DAILY August 31, 2020 12:00am August 28, 2024 11:19am Problems Active Problems Problem Classification Problem Date Documented Date Episodic/Chronic Acute and unspecified renal failure (1 source) Acute kidney failure, unspecified; Translations: [Acute kidney failure, unspecified] Onset: 09-07-2024 Episodic Acute myocardial infarction (20 sources) Myocardial infarction; Translations: [Non-ST elevation (NSTEMI) myocardial infarction] Onset: 07-22-2015 08-09-2015 Chronic Allergic reactions (2 sources) Contact dermatitis due to poison gurmeet; Translations: [Allergic contact dermatitis due to plants, except food] 10-04-2023 Episodic Cardiac dysrhythmias (20 sources) Ventricular tachycardia; Translations: [Ventricular tachycardia, monomorphic] Onset: 01-09-2012 Resolved: 01-09-2012 01-09-2012 Chronic Comment on above: EPS w/ inducible MVT 11/2011 Complication of device; implant or graft (20 sources) Breakdown (mechanical) of cardiac electrode, initial encounter; Translations: [Skin graft failure] Onset: 09-26-2015 09-26-2015 Episodic Conduction disorders (20 sources) Left bundle branch block; Translations: [Presence of automatic (implantable) cardiac defibrillator] Onset: 01-09-2012 01-09-2012 Chronic Comment on above: Dual Chamber ICD 11/16 06/30 Upgrade to BI-V ICD 10/25/2015 Coronary atherosclerosis and other heart disease (20 sources) Coronary atherosclerosis; Translations: [Atherosclerotic heart disease of [place] coronary artery without angina pectoris] Onset: 08-09-2015 08-09-2015 Chronic Delirium, dementia, and amnestic and other cognitive disorders (2 sources) Alzheimer's disease; Translations: [Alzheimer's disease, unspecified] 08-24-2024 Chronic Disorders of lipid metabolism (20 sources) Hyperlipidemia; Translations: [Hyperlipidemia, unspecified] Onset: 01-09-2012 01-09-2012 Chronic Esophageal disorders (13 sources) Gastroesophageal reflux disease; Translations: [Gastro-esophageal reflux disease without esophagitis] Onset: 01-09-2012 01-09-2012 Chronic Essential hypertension (20 sources) Essential hypertension; Translations: [Essential (primary) hypertension] Chronic Malaise and fatigue (2 sources) Fatigue; Translations: [Other fatigue] 09-25-2023 Episodic Other circulatory disease (5 sources) Presence of other vascular implants and grafts; Translations: [Presence of other vascular implants and grafts] Onset: 08-09-2015 08-09-2015 Chronic Other diseases of kidney and ureters (13 sources) Acute renal insufficiency; Translations: [Disorder of kidney and ureter, unspecified] 11-20-2018 Episodic Other hereditary and degenerative nervous system conditions (20 sources) Other idiopathic peripheral autonomic neuropathy; Translations: [Other idiopathic peripheral autonomic neuropathy] Onset: 01-09-2012 Resolved: 01-09-2012 01-09-2012 Chronic Other injuries and conditions due to external causes (13 sources) Heat exhaustion co-occurrent and due to anhidrosis; Translations: [Heat exhaustion, anhydrotic, initial encounter] 11-20-2018 Episodic Other nervous system disorders (4 sources) Difficulty walking; Translations: [Difficulty in walking, not elsewhere classified] 08-28-2024 Chronic Other nutritional; endocrine; and metabolic disorders (20 sources) Body mass index (BMI) 30.0-30.9, adult; Translations: [Obesity] Onset: 01-09-2012 09-07-2013 Chronic Other nutritional; endocrine; and metabolic disorders (6 sources) Obesity; Translations: [Obesity, unspecified] Onset: 01-09-2012 01-09-2012 Chronic Other upper respiratory infections (2 sources) Viral upper respiratory tract infection; Translations: [Acute upper respiratory infection, unspecified] 08-28-2024 Episodic [place]-; endo-; and myocarditis; cardiomyopathy (20 sources) Dilated cardiomyopathy; Translations: [Cardiomyopathy] Onset: 02-24-2012 02-24-2012 Chronic Residual codes; unclassified (4 sources) Disturbance of consciousness; Translations: [Transient alteration of awareness] 08-28-2024 Episodic Residual codes; unclassified (1 source) Transient alteration of awareness; Translations: [Transient alteration of awareness] Onset: 09-01-2024 Episodic Screening and history of mental health and substance abuse codes (2 sources) H/O: dementia; Translations: [Personal history of other mental and behavioral disorders] 08-28-2024 Episodic Syncope (20 sources) Syncope and collapse; Translations: [Near syncope] Onset: 01-09-2012 Resolved: 08-09-2015 01-09-2012 Episodic Thyroid disorders (1 source) Hypothyroidism, unspecified; Translations: [Hypothyroidism, unspecified] Onset: 05-03-2024 Chronic Unclassified (20 sources) Long-term drug therapy; Translations: [Other intermission coordinator (current) drug therapy] Onset: 01-31-2012 Resolved: 04-10-2015 04-10-2015 Unclassified (8 sources) Placement of stent in circumflex branch of left coronary artery; Translations: [Presence of other vascular implants and grafts] Onset: 08-09-2015 08-09-2015 Unclassified (2 sources) Age more than 65 years; Translations: [Over 65 years old] Viral infection (13 sources) Disease caused by 2019-nCoV; Translations: [COVID-19] 03-28-2022 Episodic Past or Other Problems Problem Classification Problem Date Documented Da te Episodic/Chronic Coronary atherosclerosis and other heart disease (6 sources) Presence of coronary angioplasty implant and graft; Translations: [Percutaneous transluminal coronary angioplasty status] Onset: 07-22-2015 Episodic Other aftercare (15 sources) Long-term (current) use of other medications; Translations: [Other intermission coordinator (current) drug therapy] Onset: 01-31-2012 Resolved: 04-10-2015 01-31-2012 Episodic Other lower respiratory disease (20 sources) Dyspnea on exertion; Translations: [Dyspnea] Onset: 10-04-2014 Resolved: 08-09-2015 11-03-2015 Episodic Other lower respiratory disease (12 sources) Dyspnea; Translations: [Shortness of breath] Onset: 10-04-2014 Resolved: 08-09-2015 10-04-2014 Episodic Other nutritional; endocrine; and metabolic disorders (20 sources) Body mass index (BMI) 29.0-29.9, adult; Translations: [Body mass index (BMI) 29.0-29.9, adult] Onset: 03-02-2013 03-02-2013 Episodic Unclassified (13 sources) FH: Hypertension; Translations: [Family history of ischemic heart disease and other diseases of the circulatory system] 03-22-2014 Episodic Results Test Name Value Interpretation Reference Range Facility CBC W/Diff, Automatedon 05-0 PATH REV Reviewed Normal [facility] Comment on above: Result Comment: SEE REPORT IN PATIENT'S EMR AMENDED REPORT 09/16/24 1120 PATH REV previously reported as: September Performed By: #### L 100.0100, L500.2500 #### [facility] Laboratory [address] [place], [address] Culture, Blood (WB)on 2024 CUB blood cultures x2, from 2 different sites No growth in 5 days. Normal [facility] Comment on above: Performed By: #### L 100.0100, L500.2500 #### [facility] [address] [facility] [place], [address] Electrocardiogram reportOrde red By: Asher Inman on 09-01-2024 EKG study [facility] Cardiovascular Services [address] [place] [id number] 12 Lead EKG 08/28/24 1017 MR#: [id number] Acct: [id number] Name: BINH PARKS Rep #:[id number] : 1940 84 From: Asher mcdonald MD Attending Dr: Dr. Antoine Finch MD Status: ADM IN Ordering Dr: Brendan Hernandez MD Date: 05/12 Location: [facility] Sex: M C Admitted: 08/29/24 Test Reason : NEURO S/SX Blood Pressure : */* mmHG Vent. Rate : 63 BPM Atrial Rate : 63 BPM P-R Int : 158 ms QRS Dur : 168 ms QT Int : 456 ms P-R-T Axes : -9 169 29 degrees QTcB Int : 466 ms A-V paced with PVC's Biventricular pacemaker detected Abnormal ECG Confirmed by Asher Inman ([id number]), development editor FAUSTINO CHRIS ([id number]) on 0:09:17 AM Referred By: Confirmed By: Asher Inman 09/01/24 1009 Date _ Asher Inman MD CC: Dr. Callum Hill MD; Dr. Brendan Hernandez MD; Dr. Antoine Finch MD ~ Signed [facility] Other Phone: Absolute neutrophil countOrd ered By: Antoine Finch on 08-31-2024 Neutrophils (Bld) [#/Vol] 4.9 10*3/uL 2.0-7.7 [facility] Anion gap in Serum or Plasma Ordered By: Antoine Finch on 08-31-2024 Anion gap [Moles/Vol] 10 mmol/L 09-30 [facility] BUN/creatinine ratioOrdered By: Antoine Finch on 08-31-2024 Urea nitrogen/Creatinine [Mass ratio] 18.5 mg/mg 03-07 [facility] Basic Metabolic Profile (BMP )on 08-31-2024 BUN/CRE 18.5 RATIO Normal 03-07 [facility] Comment on above: Performed By: #### L 100.0100, L500.2500 #### [facility] Laboratory [address] [place], [address] Calcium [Mass/Vol] 8.5 mg/dL Normal 7.6-11.0 [facility] Comment on above: Performed By: #### L 100.0100, L500.2500 #### [facility] [address] [place], [address] Chloride [Moles/Vol] 105 mmol/L Normal 98-108 [facility] Comment on above: Performed By: #### L 100.0100, L500.2500 #### [facility] Laboratory [address] [place], [address] CO2 [Moles/Vol] 21.5 mmol/L Normal 21.0-32.0 [facility] Comment on above: Performed By: #### L 100.0100, L500.2500 #### [facility] Laboratory [address] [place], [address] Creatinine [Mass/Vol] 0.78 mg/dL Normal 0.70-1.20 [facility] Comment on above: Performed By: #### L 100.0100, L500.2500 #### [facility] [address] [place], [address] ECRCL 70.54 ml/min Normal 50-250 [facility] Comment on above: Performed By: #### L 100.0100, L500.2500 #### [facility] [address] [place], [address] GAP 10 Normal 5-15 [facility] Comment on above: Performed By: #### L 100.0100, L500.2500 #### [facility] Laboratory [address] [place], [address] GFR/1.73 sq M.predicted among non-blacks MDRD (S/P/Bld) [Vol rate/Area] 89 mL/min/{1.73_m2} Normal >60 [facility] Comment on above: Result Comment: mL/m in/1.73m2 CKD-EPI Creatinine Equation (2020) Performed By: #### L 100.0100, L500.2500 #### [facility] [address] [place], [address] Glucose [Mass/Vol] 117 mg/dL High 70-99 [facility] Comment on above: Performed By: #### L 100.0100, L500.2500 #### [facility] [address] [place], [address] Potassium [Moles/Vol] 4.1 mmol/L Normal 3.3-5.1 [facility] Comment on above: Performed By: #### L 100.0100, L500.2500 #### [facility] [address] [place], [address] Sodium [Moles/Vol] 137 mmol/L Normal 133-145 [facility] Comment on above: Performed By: #### L 100.0100, L500.2500 #### [facility] [address] [place], [address] Urea nitrogen [Mass/Vol] 14 mg/dL Normal 4-19 [facility] Comment on above: Performed By: #### L 100.0100, L500.2500 #### [facility] [address] [place], [address] Basophil percentageOrdered B y: Antoine Finch on 08-31-2024 Basophils/100 WBC (Bld) 0.9 % 0-1 [facility] CBC W/Diff, Automatedon 08-17 Absolute Lymph 1.57 X10 3/uL Normal 0.83-4.51 [facility] Comment on above: Performed By: #### L 100.0100, L500.2500 #### [facility] Laboratory [address] [place], [address] Absolute Neut 4.9 X10 3/uL Normal 2.0-7.7 [facility] Comment on above: Performed By: #### L 100.0100, L500.2500 #### [facility] [address] [place], [address] Basophils/100 WBC (Bld) 0.9 % Normal 0-1 [facility] Comment on above: Performed By: #### L 100.0100, L500.2500 #### [facility] [address] [place], [address] Eosinophils/100 WBC (Bld) 1.9 % Normal 0-5 [facility] Comment on above: Performed By: #### L 100.0100, L500.2500 #### [facility] [address] [place], [address] Erythrocyte distribution width (RBC) [Ratio] 12.6 % Normal 11.6-14.6 [facility] Comment on above: Performed By: #### L 100.0100, L500.2500 #### [facility] [address] [place], [address] Hematocrit (Bld) [Volume fraction] 36.1 % Low 40-54 [facility] Comment on above: Performed By: #### L 100.0100, L500.2500 #### [facility] [address] [place], [address] Hemoglobin (Bld) [Mass/Vol] 11.7 g/dL Low 13.0-16.5 [facility] Comment on above: Performed By: #### L 100.0100, L500.2500 #### [facility] [address] [place], [address] IG% 0.800 Normal 0.0-0.9 [facility] Comment on above: Result Comment: IG% - Immature Granulocytes (promyelocytes, myelocytes and metamyelocytes) > 1% indicates that a LEFT SHIFT is Present. Performed By: #### L 100.0100, L500.2500 #### [facility] [address] [place], [address] Lymphocytes/100 WBC (Bld) 20.3 % Normal 19-41 [facility] Comment on above: Performed By: #### L 100.0100, L500.2500 #### [facility] [address] [place], [address] MCH (RBC) [Entitic mass] 31.8 pg Normal 27.0-32.0 [facility] Comment on above: Performed By: #### L 100.0100, L500.2500 #### [facility] [address] [place], [address] MCHC (RBC) [Mass/Vol] 32.4 g/dL Normal 32-36 [facility] Comment on above: Performed By: #### L 100.0100, L500.2500 #### [facility] [address] [place], [address] MCV (RBC) [Entitic vol] 98.1 fL High 80-94 [facility] Comment on above: Performed By: #### L 100.0100, L500.2500 #### [facility] [address] [place], [address] Monocytes/100 WBC (Bld) 13.4 % High 0-10 [facility] Comment on above: Performed By: #### L 100.0100, L500.2500 #### [facility] [address] [place], [address] Neutrophils/100 WBC (Bld) 62.7 % Normal 47-70 [facility] Comment on above: Performed By: #### L 100.0100, L500.2500 #### [facility] [address] [place], [address] Nucleated RBC (Bld) [#/Vol] 0 10*3/uL Normal 0-5 [facility] Comment on above: Performed By: #### L 100.0100, L500.2500 #### [facility] [address] [place], [address] Platelet mean volume (Bld) [Entitic vol] 11.1 fL Normal 6.2-12.0 [facility] Comment on above: Performed By: #### L 100.0100, L500.2500 #### [facility] [address] [place], [address] Platelets (Bld) [#/Vol] 136 10*3/uL Low 150-450 [facility] Comment on above: Performed By: #### L 100.0100, L500.2500 #### [facility] [address] [place], [address] RBC (Bld) [#/Vol] 3.68 10*6/uL Low 4.6-6.2 [facility] Comment on above: Performed By: #### L 100.0100, L500.2500 #### [facility] [address] [place], [address] RDW SD 45.3 fl High 35.1-43.9 [facility] Comment on above: Performed By: #### L 100.0100, L500.2500 #### [facility] [address] [place], [address] WBC (Bld) [#/Vol] 7.8 10*3/uL Normal 4.4-11.0 [facility] Comment on above: Performed By: #### L 100.0100, L500.2500 #### [facility] [address] [place], [address] Carbon dioxide, total [Moles /volume] in Central venous bloodOrdered By: Antoine Finch on 08-31-2024 CO2 [Moles/Vol] 21.5 mmol/L 21.0-32.0 [facility] Chloride assayOrdered By: Manasa Finch on 08-31-2024 Chloride [Moles/Vol] 105 mmol/L 98-108 [facility] Eosinophil percentageOrdered By: Antoine Finch on 08-31-2024 Eosinophils/100 WBC (Bld) 1.9 % 0-5 [facility] Erythrocyte distribution wid th (RBC) [Ratio]Ordered By: Antoine Finch on 08-31-2024 Erythrocyte distribution width (RBC) [Entitic vol] 45.3 fL High 35.1-43.9 [facility] Erythrocyte distribution wid th ratioOrdered By: Antoine Finch on 08-31-2024 Erythrocyte distribution width (RBC) [Ratio] 12.6 % 11.6-14.6 [facility] Estimation of creatinine amara aranceOrdered By: Antoine Finch on 08-31-2024 Estimated Creatinine Clearance Calc 70.54 ml/min 50-250 [facility] GFR/1.73 sq M.predicted samir g non-blacks MDRD (S/P/Bld) [Vol rate/Area]Ordered By: Antoine Finch on 08-31-2024 Estimated GFR (MDRD) Non-Af Amer 89 >60 [facility] Comment on above: mL/min/1.73m2 CKD-EP I Creatinine Equation (2020) Hematocrit Auto (Bld) [Volum e fraction]Ordered By: Antoine Finch on 08-31-2024 Hematocrit (Bld) [Volume fraction] 36.1 % Low 40-54 [facility] Hemoglobin measurementOrdere d By: Antoine Finch on 08-31-2024 Hemoglobin (Bld) [Mass/Vol] 11.7 g/dL Low 13.0-16.5 [facility] Immature granulocytes/100 WB C Auto (Bld)Ordered By: Antoine Finch on 08-31-2024 Immature granulocytes/100 WBC (Bld) 0.800 % 0.0-0.9 [facility] Comment on above: IG% - Immature Granu locytes (promyelocytes, myelocytes and metamyelocytes) > 1% indicates that a LEFT SHIFT is Present. Lymphocytes Auto (Unsp spec) [#/Vol]Ordered By: Antoine Finch on 08-31-2024 Lymphocytes (Bld) [#/Vol] 1.57 10*3/uL 0.83-4.51 [facility] Lymphocytes/100 WBC Auto (Un sp spec)Ordered By: Antoine Finch on 08-31-2024 Lymphocytes/100 WBC (Bld) 20.3 % 19-41 [facility] MCV (mean corpuscular volume ) determinationOrdered By: Antoine Finch on 08-31-2024 MCV (RBC) [Entitic vol] 98.1 fL High 80-94 [facility] Mean corpuscular hemoglobin (MCH) determinationOrdered By: Antoine Finch on 08-31-2024 MCH (RBC) [Entitic mass] 31.8 pg 27.0-32.0 [facility] Mean corpuscular hemoglobin concentration (MCHC) determinationOrdered By: Antoine Finch on 08-31-2024 MCHC (RBC) [Mass/Vol] 32.4 g/dL 32-36 [facility] Mean platelet volume determi nationOrdered By: Antoine Finch on 08-31-2024 Platelet mean volume (Bld) [Entitic vol] 11.1 fL 6.2-12.0 [facility] Modified Barium Swallow Stud yon 08-31-2024 Modified Barium Swallow Study [facility] Speech Pathology [address] [place] [address] Modified Barium Swallow Study MR#: [id number] Acct: [id number] Name: BINH PARKS Rep #: [id number] : 1940 84 From: Barbara Nick Modified Barium Swallow Patient Information Study Date: 08/31/24 Study Time: 09:00 Direct Billable Minutes: 60 Total Minutes procedure reportin Diagnosis: G30.9 - Alzheimer's disease Referring Physician: Antoine Finch Medical History: An 84-year-old male presented to [facility] Emergency Department on 08/28/2024 with decreased consciousness. Per family, the patient had been exhibiting behavioral changes since the prior , with progressive worsening that prompted ED evaluation. CTA of the head and neck showed no acute findings. Given the non-focal neurological exam and generalized symptoms, the clinical picture is more consistent with a toxic or metabolic encephalopathy, superimposed on his baseline chronic dementia. The patient was referred to speech therapy to evaluate swallowing function due to occasional coughing noted with medication intake. He participated in a clinical bedside swallow evaluation (CBSE), which revealed signs and symptoms of aspiration with PO intake, prompting a recommendation for MBSS. 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 Current Diet Ordered: Regular Textures / Thin Liquids Mental Status: Impaired (Alzheimer's disease) Respiratory Status: Oxygenating on 2L/M nasal cannula Penetration-Aspirat ion Scale Penetration-Aspirat ion Scale: OBJECTIVE ASSESSMENT OF SWALLOW FUNCTION (QUANTITATIVE ??? PER TRIAL): PENETRATION / ASPIRATION SCALE (MARTINEZ): 1 = does not enter airway 2 = enters airway/above vocal folds/ejected 3 = enters airway/above vocal folds/not ejected 4 = enters airway/contacts vocal folds/ejected 5 = enters airway/contacts vocal folds/not ejected 6 = enters airway/below vocal folds/ejected 7 = enters airway/below vocal folds/not ejected despite effort 8 = enters airway/below vocal folds/no effort VIDEOFLOROSCOPIC SCALE SCORE (MARTINEZ): Grade I = aspiration of material that has penetrated into the laryngeal vestibule, intact cough reflex Grade II = aspiration < 10 % of the bolus, intact cough reflex Grade III = aspiration of < 10 % of the bolus, reduced cough reflex or aspiration of > 10 % of the bolus, intact cough reflex Grade IV = aspiration of > 10 % of the bolus, reduced cough reflex Penetration-Aspirat ion Scale Score Thin Liquid via teaspoon: Result: 1= does not enter airway Thin Liquid via teaspoon Trial 2: Result: 1= does not enter airway Thin Liquid via small single sip: cup: Result: 1= does not enter airway Thin Liquid via small single sip: cup Trial 2: Result: 1= does not enter airway Thin Liquid via small single sip: cup Trial 3: Result: 1= does not enter airway Cookie: Result: 1= does not enter airway Pudding: Result: 1= does not enter airway Thin Liquid via sequential sips:straw: Result: 1= does not enter airway Thin Liquid via single sip: straw: Result: 1= does not enter airway Barium Tablet: Result: 1= does not enter airway Oral Phase Labial Seal: No Labial Escape Tongue Control During Bolus Hold: Escape to lateral buccal cavity/floor of mouth Bolus Preparation/Mastica tion: Disorganized chewing/mashing with solid pieces of bolus unchewed Bolus Transport/Lingual Motion: Brisk tongue motion Oral Residue: Trace residue lining oral structures Pharyngeal Phase Initiation of Pharyngeal Swallow: Bolus head at posterior angle of ramus at first hyoid excursion Soft Palate Elevation: No bolus between soft palate and pharyngeal wall Laryngeal Elevation: Comp. Superior move thyroid cart w/comp. apprx arytenoid cart-epig pet Anterior Hyoid Excursion: Complete anterior movement Epiglottic Movement: Complete inversion Laryngeal Vestibule Closure at Height of Swallow: Incomplete; narrow column of air/contrast in laryngeal vestibule Pharyngeal Stripping Wave: Present - diminished Pharyngoesophageal Segment Opening: Complete distension and complete duration; no obstruction of flow Tongue Base Retraction: No contrast between tongue base and posterior pharyngeal wall Pharyngeal Residue: Complete pharyngeal clearance Esophageal Phase Esophageal Clearance: Complete clearance Diagnosis/Impressio n Diagnosis: Swallow function WNL Impression: The patient demonstrated adequate swallow function during the MBSS. He was alert and cooperative with the TIME STUDY OBSERVER, though notable confusion was observed, c (more content not included)... Normal [facility] Monocyte percentageOrdered B y: Antoine Finch on 08-31-2024 Monocytes/100 WBC (Bld) 13.4 % High 0-10 [facility] Neutrophil percentageOrdered By: Antoine Finch on 08-31-2024 Neutrophils/100 WBC (Bld) 62.7 % 47-70 [facility] Nucleated red blood cell per centageOrdered By: Antoine Finch on 08-31-2024 Nucleated RBC/100 WBC (Bld) [Ratio] 0 % 0-5 [facility] Platelet countOrdered By: Mansaa Finch on 08-31-2024 Platelets (Bld) [#/Vol] 136 10*3/uL Low 150-450 [facility] Potassium (Unsp spec) [Mass/ Vol]Ordered By: Antoine Finch on 08-31-2024 Potassium [Moles/Vol] 4.1 mmol/L 3.3-5.1 [facility] RBC Auto (Bld) [#/Vol]Ordere d By: Antoine Finch on 04-15-2025 RBC (Bld) [#/Vol] 3.68 10*6/uL Low 4.6-6.2 [facility] Serum creatinine measurement (mass/volume)Ordered By: Antoine Finch on 08-31-2024 Creatinine [Mass/Vol] 0.78 mg/dL 0.70-1.20 [facility] Serum glucose measurement (m ass/volume)Ordered By: Antoine Finch on 08-31-2024 Glucose [Mass/Vol] 117 mg/dL High 70-99 [facility] Serum or plasma calcium ray urement (mass/volume)Ordered By: Antoine Finch on 08-31-2024 Calcium [Mass/Vol] 8.5 mg/dL 7.6-11.0 [facility] Serum or plasma urea nitroge n measurement (mass/volume)Ordered By: Antoine Finch on 08-31-2024 Urea nitrogen [Mass/Vol] 14 mg/dL 4-19 [facility] Sodium levelOrdered By: Mason Finch on 08-31-2024 Sodium [Moles/Vol] 137 mmol/L 133-145 [facility] White blood cell (WBC) count Ordered By: Antoine Finch on 08-31-2024 WBC (Bld) [#/Vol] 7.8 10*3/uL 4.4-11.0 [facility] Basic Metabolic Profile (BMP )on 08-30-2024 BUN/CRE 23.8 RATIO High 10-20 [facility] Comment on above: Performed By: #### L 100.0100, L500.2500 #### [facility] Laboratory [address] [place], [address] Calcium [Mass/Vol] 8.8 mg/dL Normal 7.6-11.0 [facility] Comment on above: Performed By: #### L 100.0100, L500.2500 #### [facility] Laboratory [address] [place], [address] Chloride [Moles/Vol] 103 mmol/L Normal 98-108 [facility] Comment on above: Performed By: #### L 100.0100, L500.2500 #### [facility] Laboratory [address] [place], [address] CO2 [Moles/Vol] 23.7 mmol/L Normal 21.0-32.0 [facility] Comment on above: Performed By: #### L 100.0100, L500.2500 #### [facility] Laboratory [address] [place], [address] Creatinine [Mass/Vol] 1.20 mg/dL Normal 0.70-1.20 [facility] Comment on above: Performed By: #### L 100.0100, L500.2500 #### [facility] [address] [place], [address] ECRCL 47.00 ml/min Low 50-250 [facility] Comment on above: Performed By: #### L 100.0100, L500.2500 #### [facility] Laboratory [address] [place], [address] GAP 9 Normal 5-15 [facility] Comment on above: Performed By: #### L 100.0100, L500.2500 #### [facility] Laboratory [address] [place], [address] GFR/1.73 sq M.predicted among non-blacks MDRD (S/P/Bld) [Vol rate/Area] 60 mL/min/{1.73_m2} Normal >60 [facility] Comment on above: Result Comment: mL/m in/1.73m2 CKD-EPI Creatinine Equation (2020) Performed By: #### L 100.0100, L500.2500 #### [facility] Laboratory [address] [place], [address] Glucose [Mass/Vol] 150 mg/dL High 70-99 [facility] Comment on above: Performed By: #### L 100.0100, L500.2500 #### [facility] Laboratory [address] [place], [address] Potassium [Moles/Vol] 3.9 mmol/L Normal 3.3-5.1 [facility] Comment on above: Performed By: #### L 100.0100, L500.2500 #### [facility] Laboratory [address] [place], [address] Sodium [Moles/Vol] 136 mmol/L Normal 133-145 [facility] Comment on above: Performed By: #### L 100.0100, L500.2500 #### [facility] [address] [place], [address] Urea nitrogen [Mass/Vol] 29 mg/dL High - [facility] Comment on above: Performed By: #### L 100.0100, L500.2500 #### [facility] Laboratory [address] [place], [address] CBC W/Diff, Automatedon 08-17 PATH REV N/A Normal [facility] Comment on above: Result Comment: AMENDED REPORT 08/30/241932 PATH REV previously reported as: September Performed By: #### L 100.0100, L500.2500 #### [facility] Laboratory [address] [place], [address] Kidney and Bladderon 025 Kidney and Bladder [facility] Imaging Services [address] [place] [address] Kidney and Bladder MR#: [id number] Acct: [id number] Name: BINH PARKS Rep #: [id number] : 1940 M 84 From: Binh Raymond MD PCP: Dr. Callum Hill MD Status: ADM IN Study: Kidney and Bladder Date of Exam: 08/30/24 Exam# [id number] Ordering Dr: Kenya Otoole MD PROCEDURE: KIDNEY AND BLADDER 08/30/2024 REASON FOR EXAM: ALEJANDRA, AMS TECHNIQUE: Bilateral renal and bladder ultrasound. COMPARISON: CT abdomen and pelvis 08/29/2024 FINDINGS: The right kidney measures 10.1 x 4.7 x 5.2 cm with a cortical thickness of 1.1 cm. The right kidney appears within limits for echogenicity without hydronephrosis, renal stone or perinephric edema identified. The left kidney measures 11.3 x 5.8 x 6.7 cm with a cortical thickness of 1.3 cm. Left upper pole 2.9 x 3.2 x 2.9 cm and lower pole 2.5 x 2.1 x 2.2 cm simple appearing renal cysts. It is noted on the preceding CT abdomen and pelvis at there are small parapelvic left renal cysts which is likely accounting for the current appearance of possible mild left hydronephrosis by ultrasound. Left kidney appears within limits for echogenicity without renal stone or perinephric edema seen. Young catheter is present within a collapsed bladder. No free fluid seen. US/Kidney and Bladder IMPRESSION: Study appears within limits as above. Reading Location: [id number] CC: Dr. Callum Hill MD; Dr. Kenya Otoole MD [employer] Presser: Signed Normal [facility] Pathologist review Scooby (Unsp spec) [Interp]Ordered By: Kenya Otoole on 08-30-2024 Differential Pathologist's Review N/A [facility] Comment on above: Previous reported re sult: Tennille giraldo Edited by: JESSICA on 08/30/24:1932 AMENDED REPORT 08/30/241932 PATH REV previously reported as: Tennille giraldo Platelets LM Ql (Bld)Ordered By: Kenya Otoole on 08-30-2024 Platelet Estimate ADEQUATE ADEQ [facility] RBC morphology finding Nom ( Bld)Ordered By: Kenya Otoole on 08-30-2024 Red Blood Cell Morphology NORM C+C NORMAL NORM C&C [facility] Reactive lymphocyte countOrd ered By: Kenya Otoole on 08-30-2024 Reactive Lymphocytes 1+ [facility] Urine Cultureon 08-30-2024 URC Culture exhibits no growth. Normal [facility] Comment on above: Performed By: #### L 100.0100, L500.2500 #### [facility] [address] [place], [address] Basic Metabolic Profile (BMP )on 08-29-2024 BUN/CRE 15.2 RATIO Normal 10-20 [facility] Comment on above: Performed By: #### L 500.3400, L500.4100 #### [facility] [address] [place], [address] Calcium [Mass/Vol] 9.2 mg/dL Normal 7.6-11.0 [facility] Comment on above: Performed By: #### L 500.3400, L500.4100 #### [facility] [address] [place], [address] Chloride [Moles/Vol] 99 mmol/L Normal 98-108 [facility] Comment on above: Performed By: #### L 500.3400, L500.4100 #### [facility] [address] [place], [address] CO2 [Moles/Vol] 22.3 mmol/L Normal 21.0-32.0 [facility] Comment on above: Performed By: #### L 500.3400, L500.4100 #### [facility] [address] [place], [address] Creatinine [Mass/Vol] 2.25 mg/dL High 0.70-1.20 [facility] Comment on above: Performed By: #### L 500.3400, L500.4100 #### [facility] [address] [place], [address] ECRCL 25.07 ml/min Low 50-250 [facility] Comment on above: Performed By: #### L 500.3400, L500.4100 #### [facility] [address] [place], [address] GAP 13 Normal 5-15 [facility] Comment on above: Performed By: #### L 500.3400, L500.4100 #### [facility] [address] [place], [address] GFR/1.73 sq M.predicted among non-blacks MDRD (S/P/Bld) [Vol rate/Area] 28 mL/min/{1.73_m2} Low >60 [facility] Comment on above: Result Comment: mL/m in/1.73m2 CKD-EPI Creatinine Equation (2020) Performed By: #### L 500.3400, L500.4100 #### [facility] [address] [place], [address] Glucose [Mass/Vol] 135 mg/dL High 70-99 [facility] Comment on above: Performed By: #### L 500.3400, L500.4100 #### [facility] [address] [place], [address] Potassium [Moles/Vol] 4.5 mmol/L Normal 3.3-5.1 [facility] Comment on above: Performed By: #### L 500.3400, L500.4100 #### [facility] [address] [place], [address] Sodium [Moles/Vol] 134 mmol/L Normal 133-145 [facility] Comment on above: Performed By: #### L 500.3400, L500.4100 #### [facility] [address] [place], [address] Urea nitrogen [Mass/Vol] 34 mg/dL High 4-19 [facility] Comment on above: Performed By: #### L 500.3400, L500.4100 #### [facility] [address] [place], [address] BUN/CRE 17.0 RATIO Normal 10-20 [facility] Comment on above: Performed By: #### L 100.0100, L500.2500 #### [facility] [address] [place], [address] Calcium [Mass/Vol] 9.0 mg/dL Normal 7.6-11.0 [facility] Comment on above: Performed By: #### L 100.0100, L500.2500 #### [facility] [address] [place], [address] Chloride [Moles/Vol] 99 mmol/L Normal 98-108 [facility] Comment on above: Performed By: #### L 100.0100, L500.2500 #### [facility] [address] [place], [address] CO2 [Moles/Vol] 23.0 mmol/L Normal 21.0-32.0 [facility] Comment on above: Performed By: #### L 100.0100, L500.2500 #### [facility] [address] [place], [address] Creatinine [Mass/Vol] 1.56 mg/dL High 0.70-1.20 [facility] Comment on above: Performed By: #### L 100.0100, L500.2500 #### [facility] [address] [place], [address] ECRCL 36.15 ml/min Low 50-250 [facility] Comment on above: Performed By: #### L 100.0100, L500.2500 #### [facility] [address] [place], [address] GAP 12 Normal 5-15 [facility] Comment on above: Performed By: #### L 100.0100, L500.2500 #### [facility] [address] [place], [address] GFR/1.73 sq M.predicted among non-blacks MDRD (S/P/Bld) [Vol rate/Area] 44 mL/min/{1.73_m2} Low >60 [facility] Comment on above: Result Comment: mL/m in/1.73m2 CKD-EPI Creatinine Equation (2020) Performed By: #### L 100.0100, L500.2500 #### [facility] [address] [place] [place], [address] Glucose [Mass/Vol] 146 mg/dL High 70-99 [facility] Comment on above: Performed By: #### L 100.0100, L500.2500 #### [facility] [address] [place], [address] Potassium [Moles/Vol] 4.4 mmol/L Normal 3.3-5.1 [facility] Comment on above: Performed By: #### L 100.0100, L500.2500 #### [facility] [address] [place] [place], [address] Sodium [Moles/Vol] 135 mmol/L Normal 133-145 [facility] Comment on above: Performed By: #### L 100.0100, L500.2500 #### [facility] [address] [place], [address] Urea nitrogen [Mass/Vol] 27 mg/dL High 4-19 [facility] Comment on above: Performed By: #### L 100.0100, L500.2500 #### [facility] [address] [place], [address] Bilirubin Test strip Ql (U)O rdered By: Kenya Otoole on 08-29-2024 Bilirubin Ql (U) 1 mg/dL High Negative [facility] Comment on above: COLOR OF URINE MAY A FFECT DIPSTICK RESULTS. CBC-Complete Blood Cnt No Di ffon 08-29-2024 Erythrocyte distribution width (RBC) [Ratio] 13.2 % Normal 11.6-14.6 [facility] Comment on above: Performed By: #### L 100.0500, L500.2500 #### [facility] [address] [place], [address] Hematocrit (Bld) [Volume fraction] 39.0 % Low 40-54 [facility] Comment on above: Performed By: #### L 100.0500, L500.2500 #### [facility] [address] [place], [address] Hemoglobin (Bld) [Mass/Vol] 13.0 g/dL Normal 13.0-16.5 [facility] Comment on above: Performed By: #### L 100.0500, L500.2500 #### [facility] [address] [place], [address] MCH (RBC) [Entitic mass] 31.4 pg Normal 27.0-32.0 [facility] Comment on above: Performed By: #### L 100.0500, L500.2500 #### [facility] [address] [place], [address] MCHC (RBC) [Mass/Vol] 33.3 g/dL Normal 32-36 [facility] Comment on above: Performed By: #### L 100.0500, L500.2500 #### [facility] [address] [place], [address] MCV (RBC) [Entitic vol] 94.2 fL High 80-94 [facility] Comment on above: Performed By: #### L 100.0500, L500.2500 #### [facility] [address] [place], [address] Platelet mean volume (Bld) [Entitic vol] 11.2 fL Normal 6.2-12.0 [facility] Comment on above: Performed By: #### L 100.0500, L500.2500 #### [facility] [address] [place], [address] Platelets (Bld) [#/Vol] 165 10*3/uL Normal 150-450 [facility] Comment on above: Performed By: #### L 100.0500, L500.2500 #### [facility] [address] [place], [address] RBC (Bld) [#/Vol] 4.14 10*6/uL Low 4.6-6.2 [facility] Comment on above: Performed By: #### L 100.0500, L500.2500 #### [facility] [address] [place], [address] RDW SD 46.1 fl High 35.1-43.9 [facility] Comment on above: Performed By: #### L 100.0500, L500.2500 #### [facility] [address] [place], [address] WBC (Bld) [#/Vol] 11.8 10*3/uL High 4.4-11.0 [facility] Comment on above: Performed By: #### L 100.0500, L500.2500 #### [facility] [address] [place], [address] CT Chest, Abd, Pelvis WO Con ton 08-29-2024 CT Chest, Abd, Pelvis WO Cont [facility] Imaging Services [address] [place] [address] CT Chest, Abd, Pelvis WO Cont MR#: [id number] Acct: [id number] Name: BINH PARKS Rep #: [id number] : 1940 M 84 From: Alberto parsons MD PCP: Dr. Callum Hill MD Status: ADM IN Study: CT Chest, Abd, Pelvis WO Cont Date of Exam: Exam# [id number] Ordering Dr: Kenya Otoole MD PROCEDURE: CT CHEST, ABD, PELVIS WO CONT 08/29/2024 REASON FOR EXAM: SUDDEN RENAL FAILURE, ALSO PRODUCTIVE COUGH TECHNIQUE: Chest, abdomen and pelvis CT without intravenous contrast. Coronal and Sagittal reconstruction series were provided. One or more dose reduction techniques were used (e.g., Automated exposure control, adjustment of the mA and/or kV according to patient size, use of iterative reconstruction technique. COMPARISON: None FINDINGS: CT CHEST: Hardware: Left chest wall ICD. Lymph nodes: No lymphadenopathy. Heart and Vasculature: Mild cardiomegaly. Severe coronary artery calcifications. Trace pericardial effusion. Atherosclerotic calcifications of the thoracic aorta. Thoracic aorta and pulmonary arteries have normal contours; noncontrast technique limits evaluation. Coronary Artery Calcifications: Present Lungs and Airways: Central airways are patent without endobronchial lesions. Mild bibasilar atelectasis. No focal consolidation. No pneumothorax. No pleural effusion. Bones: Degenerative changes of the thoracic spine. Sclerotic lesion T6 vertebral body, likely bone island. CT ABDOMEN / PELVIS: Noncontrast technique limits evaluation of the abdominal and pelvic viscera. Liver: Homogeneous attenuation. Left hepatic lobe subcentimeter low-attenuation lesion, too small to characterize, but likely benign. Gallbladder: No ductal dilation. Gallbladder is unremarkable. Spleen: No splenomegaly. Pancreas: Normal size without evidence of mass surrounding inflammation or ductal dilation. Adrenals: Unremarkable Kidneys: Left renal cysts. No calculi or hydronephrosis. Contrast within the collecting system. Bladder: Contrast filled urinary bladder with with multiple small diverticula and wall trabeculations. Reproductive Organs: Moderate prostatomegaly. Bowel: Small hiatal hernia. Fluid-filled stomach. No bowel dilation or wall thickening. Colonic diverticulosis without diverticulitis. Appendix: The appendix is not identified. There is no inflammatory process identified in the right lower quadrant to suggest appendicitis. Lymph nodes: Unremarkable. Vasculature: Severe diffuse atherosclerotic calcifications are noted. Peritoneum / Retroperitoneum: No ascites. No pneumoperitoneum. Bones: Mild levoscoliosis. Moderate multilevel degenerative changes of the lumbar spine. No acute findings. Grade 1 anterolisthesis of L5 on S1 with bilateral pars defects. Soft tissue: No focal soft tissue abnormality. CT/CT Chest, Abd, Pelvis WO Cont IMPRESSION: No acute findings in the chest, abdomen and pelvis. Other chronic findings as detailed above. [facility] CC: Dr. Callum Hill MD; Dr. Kenya Otoole MD [employer] Press[employer]: Signed Normal [facility] Creatinine Unsp time (U) [Ma ss/Vol]Ordered By: Kenya Otoole on 08-29-2024 Creatinine (U) [Mass/Vol] 228.00 mg/dL 39.00-259.00 [facility] Creatinine, Urine (random)on 08-29-2024 UR CREAT 228.00 mg/dL Normal 39.00-259.00 [facility] Comment on above: Performed By: #### L 100.0100, L500.2500 #### [facility] [address] [place], [address] Epithelial cells.squamous LM Ql (Urine sed)Ordered By: Kenya Otoole on 08-29-2024 Epithelial cells.squamous LM.HPF (Urine sed) [#/Area] 0 /[HPF] 0-5 [facility] Fine Granular Casts LM.LPF ( Urine sed) [#/Area]Ordered By: Kenya Otoole on 08-29-2024 Urine Fine Granular Casts 0-5 SEEN /lpf 0-5 [facility] Glucose Ql (U)Ordered By: Tory Otoole on 08-29-2024 Urine Glucose (UA) Normal mg/dl Normal [facility] Hyaline casts LM.LPF (Urine sed) [#/Area]Ordered By: Kenya Otoole on 08-29-2024 Hyaline casts LM Ql (Urine sed) 0-5 SEEN /lpf 0-5 [facility] Ketones Test strip Ql (U)Ord ered By: Kenya Otoole on 08-29-2024 Ketones Ql (U) Negative Negative [facility] L. pneumophila Ag Ql (U)Orde red By: Kenya Otoole on 08-29-2024 Legionella Antigen [facility] L509.7001on 08-29-2024 Procalcitonin 0.20 ng/mL High <=0.10 [facility] Comment on above: Result Comment: Inte rpretation: <0.10-0.25 ng/mL: Antibiotic therapy discouraged. Bacterial infection unlikely. 0.25-0.50 ng/mL: Antibiotic therapy encouraged. Bacterial infection possible. >0.50 ng/mL: Antibiotic therapy strongly encouraged. Suggestive of presence of bacterial infection. PCT should always be interpreted in the clinical context of the patient. Therefore, clinicians should use the PCT results in conjunction with other laboratory findings and clinical signs of the patient. Performed By: #### L 100.0100, L500.2500 #### [facility] [address] [facility] [place], [place], [address] Legionella Antigen Urineon 0 08-29-2024 LEGU Comments: Only Recommended for severe cases of pneumonia Only Recommended for severe cases of pneumonia URINE, YOUNG Legionella Antigen result interpretation: L pneumo Ag Ur Ql Negative Presumptive negative for Legionella pneumophila serogroup 1 antigen in urine, suggesting no recent or current infection. Legionella Ag, Urine Negative (See interpretation below) Normal [facility] Comment on above: Performed By: #### L 499.0042 #### [facility] [address] [facility] [place], [place], [id number] Manual differential comment Scooby (Bld) [Interp]Ordered By: Kenya Otoole on 08-29-2024 Differential Comment SCANNED [facility] Comment on above: MONOCYTOSIS PRESENT Microscopic analysis of urin e for red blood cells (RBC)Ordered By: Kenya Otoole on 08-29-2024 Urine RBC 10-25 SEEN /hpf 0-5 [facility] Mucus LM Ql (Urine sed)Order ed By: Kenya Otoole on 08-29-2024 Mucus Ql (Urine sed) 1+ /hpf [facility] Nitrite Test strip Ql (U)Ord ered By: Kenya Otoole on 08-29-2024 Nitrite Ql (U) Negative Negative [facility] Osmolality (U) [Osmolality]O rdered By: Kenya Otoole on 08-29-2024 Urine Osmolality 545 mOsm/KG >50 [facility] Comment on above: Normal Urine Referen ce Ranges Random: 50 - 1200 mOsm/kg H20 depending on fluid intake Random: >850 mOsm/kg after 12 hour fluid restriction 24 hour: ~300 - 900 mOsm/kg H2O Osmolality, Urineon 08-30-19 25 OSMOLALITY,UR 545 mOsm/KG Normal [facility] Comment on above: Result Comment: Normal Urine Reference Ranges Random: 50 - 1200 mOsm/kg H20 depending on fluid intake Random: >850 mOsm/kg after 12 hour fluid restriction 24 hour: 300 - 900 mOsm/kg H2O Performed By: #### L 100.0100, L500.2500 #### [facility] [address] [place], [address] Potassium (U) [Moles/Vol]Ord ered By: Kenya Otoole on 08-29-2024 Urine Potassium 49.8 mmol/L Not Establ. [facility] Procalcitonin IA [Mass/Vol]O rdered By: Kenya Otoole on 08-29-2024 Procalcitonin 0.20 ng/mL High <0.11 [facility] Comment on above: Interpretation:<0.10 -0.25 ng/mL: Antibiotic therapy discouraged. Bacterial infection unlikely.0.25-0.50 ng/mL: Antibiotic therapy encouraged. Bacterial infection possible.>0.50 ng/mL: Antibiotic therapy strongly encouraged. Suggestive of presence of bacterial infection.PCT should always be interpreted in the clinical context of the patient. Therefore, clinicians should use the PCT results in conjunction with other laboratory findings and clinical signs of the patient. Protein Test strip Ql (U)Ord ered By: Kenya Otoole on 08-29-2024 Protein Ql (U) 30 mg/dl High Negative [facility] Quantitative urine urea nitr ogen measurementOrdered By: Kenya Otoole on 08-29-2024 Urine Urea Nitrogen 595 mg/dL NO RANGE EST. [facility] Strep pneumoniae Antig(UR,CS F)on 08-29-2024 STPAG Comments: Only Recommended for severe cases of pneumonia URINE INTERPRETATION Strep pneumoniae Antig(UR,CSF) Negative Urine Presumptive negative for pneumococcal pneumonia, suggesting no current or recent pneumococcal infection. Infection due to S pneumoniae cannot be ruled out since the antigen present in the sample may be below the detection limit of the test. Strep pneumo Test Negative URINE (See interpretation below) Normal [facility] Comment on above: Performed By: #### L 499.0042 #### [facility] [address] [place], [address] Streptococcus pneumoniae ant igen assayOrdered By: Kenya Otoole on 08-29-2024 Streptococcus pneumoniae Antigen (M [facility] Urea Nitrogen, Urineon 08-29 URINE UREA 595 mg/dL Normal NO RANGE EST. [facility] Comment on above: Performed By: #### L 100.0100, L500.2500 #### [facility] [address] [place], [address] Urinalysis, Completeon 08-29 BACTERIA 1+ /hpf Normal None Seen [facility] Comment on above: Order Comment: COLLE CTOR TO SPECIFY Performed By: #### L 100.0100, L500.2500 #### [facility] [address] [place], [address] CAST,FINE GRAN 0-5 SEEN Normal 0-5 [facility] Comment on above: Order Comment: COLLE CTOR TO SPECIFY Performed By: #### L 100.0100, L500.2500 #### [facility] [address] [place], [address] CAST,HYALINE 0-5 SEEN Normal 0-5 [facility] Comment on above: Order Comment: COLLE CTOR TO SPECIFY Performed By: #### L 100.0100, L500.2500 #### [facility] [address] [place], [address] EPI,SQUAMOUS 0-5 SEEN Normal 0-5 [facility] Comment on above: Order Comment: COLLE CTOR TO SPECIFY Performed By: #### L 100.0100, L500.2500 #### [facility] [address] [place], [address] Mucus Ql (Urine sed) 1+ /hpf Normal [facility] Comment on above: Order Comment: COLLE CTOR TO SPECIFY Performed By: #### L 100.0100, L500.2500 #### [facility] [address] [place], [address] RBC 10-25 SEEN Normal 0-5 [facility] Comment on above: Order Comment: COLLE CTOR TO SPECIFY Performed By: #### L 100.0100, L500.2500 #### [facility] [address] [place], [address] WBC 0-5 SEEN Normal 0-5 [facility] Comment on above: Order Comment: COLLE CTOR TO SPECIFY Performed By: #### L 100.0100, L500.2500 #### [facility] [address] [place], [address] Urine Electrolytes- Randomon 08-29-2024 Chloride,URINE 28 mmol/L Normal Not Establ. [facility] Comment on above: Performed By: #### L 100.0100, L500.2500 #### [facility] [address] [place], [address] Sodium (U) [Moles/Vol] 51 mmol/L Normal Not Establ. [facility] Comment on above: Performed By: #### L 100.0100, L500.2500 #### [facility] [address] [place], [address] UR K 49.8 mmol/L Normal Not Establ. [facility] Comment on above: Performed By: #### L 100.0100, L500.2500 #### [facility] [address] [place], [address] Urine blood detectionOrdered By: Kenya Otoole on 08-29-2024 Urine Occult Blood 150 /ul High Negative [facility] Urine chloride measurement ( units/volume)Ordered By: Kenya Otoole on 08-29-2024 Urine Chloride 28 mmol/L Not Establ. [facility] Urine clarityOrdered By: Gerard Otoole on 08-29-2024 Clarity (U) Sl. Cloudy Clear [facility] Urine color determinationOrd ered By: Kenya Otoole on 08-29-2024 Color (U) Yellow Yellow [facility] Urine cultureOrdered By: Gerard Otoole on 08-29-2024 Bacteria identified Cx Nom (U) Culture exhibits no growth. [facility] Urine leukocyte esterase det ection by dipstickOrdered By: Kenya Otoole on 08-29-2024 Leukocyte esterase Test strip Ql (U) Negative Negative [facility] Urine pHOrdered By: Kenya crooks on 08-29-2024 pH (U) 5.0 [pH] 5.0 - 8.0 [facility] Urine sediment bacteria coun t by microscopy (number/high power field)Ordered By: Kenya Otoole on 08-29-2024 Bacteria LM.HPF (Urine sed) [#/Area] 1 /[HPF] None Seen [facility] Urine sodium measurement (mo les/volume)Ordered By: Kenya Otoole on 08-29-2024 Sodium (U) [Moles/Vol] 51 mmol/L Not Establ. [facility] Urine specific gravity measu rementOrdered By: Kenya Otoole on 08-29-2024 Specific gravity (U) [Rel density] 1.020 1.002-1.030 [facility] Urobilinogen Ql (U)Ordered B y: Kenya Otoole on 08-29-2024 Urine Urobilinogen Normal mg/dl Normal [facility] White blood cell countOrdere d By: Kenya Otoole on 08-29-2024 Urine WBC 0-5 SEEN /hpf 0-5 [facility] 12 Lead EKGon 08-28-2024 12 Lead EKG [facility] Cardiovascular Services [address] [place] [address] 12 Lead EKG 08/28/24 1017 MR#: [id number] Acct: [id number] Name: BINH PARKS Rep #: [id number] : 1940 84 From: Asher Inman MD Attending Dr: Dr. Antoine Finch MD Status : ADM IN Ordering Dr: Brendan Hernandez MD Date: 08/28/24 Location: U Sex: M C Admitted: 08/29/24 Test Reason : NEURO S/SX Blood Pressure : */* mmHG Vent. Rate : 63 BPM Atrial Rate : 63 BPM P-R Int : 158 ms QRS Dur : 168 ms QT Int : 456 ms P-R-T Axes : -9 169 29 degrees QTcB Int : 466 ms A-V paced with PVC's Biventricular pacemaker detected Abnormal ECG Confirmed by Asher Inman ([id number]), development editor FAUSTINO CHRIS ([id number]) on 09/01/2024 10:09:17 AM Referred By: Confirmed By: Asher Inman 09/01/24 1009 Date Asher Inman MD CC: Dr. Callum Hill MD; Dr. Brendan Hernandez MD; Dr. Antoine Finch MD Signed Normal [facility] Absolute neutrophil countOrd ered By: Brendan Hernandez on 08-28-2024 Neutrophils (Bld) [#/Vol] 9.1 10*3/uL High 2.0-7.7 [facility] Ammoniaon 08-28-2024 Ammonia (P) [Moles/Vol] 27.0 umol/L Normal 16-60 [facility] Comment on above: Performed By: #### L 499.0042 #### [facility] Laboratory [address] [facility]. [place], [place], [address] Amphetamines Screen method > 1000 ng/mL Ql (U)Ordered By: Kenya Otoole on 08-28-2024 Amphetamines Ql (U) Negative <1000 ng/mL [facility] Urine Barbiturates Screen Negative < 200 ng/mL [facility] Anion gap in Serum or Plasma Ordered By: Brendan Hernandez on 08-28-2024 Anion gap [Moles/Vol] 12 mmol/L 5-15 [facility] BUN/creatinine ratioOrdered By: Brendan Hernandez on 08-28-2024 Urea nitrogen/Creatinine [Mass ratio] 18.1 mg/mg 10- [facility] Base excess Calc (BldV) [Mol es/Vol]Ordered By: Kenya Otoole on 08-28-2024 Blood Gas Base Excess 4 mmol/L High -2-2 [facility] Basic Metabolic Profile (BMP )on 08-28-2024 BUN/CRE 18.1 RATIO Normal - [facility] Comment on above: Performed By: #### L 500.3400, L500.4100 #### [facility] [address] [facility] [place], [address] Calcium [Mass/Vol] 9.4 mg/dL Normal 7.6-11.0 [facility] Comment on above: Performed By: #### L 500.3400, L500.4100 #### [facility] Laboratory [address] [place], [address] Chloride [Moles/Vol] 99 mmol/L Normal 98-108 [facility] Comment on above: Performed By: #### L 500.3400, L500.4100 #### [facility] [address] [place], [address] CO2 [Moles/Vol] 24.9 mmol/L Normal 21.0-32.0 [facility] Comment on above: Performed By: #### L 500.3400, L500.4100 #### [facility] Laboratory [address] [place], [address] Creatinine [Mass/Vol] 1.02 mg/dL Normal 0.70-1.20 [facility] Comment on above: Performed By: #### L 500.3400, L500.4100 #### [facility] [address] [place], [address] ECRCL 55.63 ml/min Normal 50-250 [facility] Comment on above: Performed By: #### L 500.3400, L500.4100 #### [facility] [address] [place], [address] GAP 12 Normal 5-15 [facility] Comment on above: Performed By: #### L 500.3400, L500.4100 #### [facility] [address] [place], [address] GFR/1.73 sq M.predicted among non-blacks MDRD (S/P/Bld) [Vol rate/Area] 73 mL/min/{1.73_m2} Normal >60 [facility] Comment on above: Result Comment: mL/m in/1.73m2 CKD-EPI Creatinine Equation (2020) Performed By: #### L 500.3400, L500.4100 #### [facility] [address] [place], [address] Glucose [Mass/Vol] 166 mg/dL High 70-99 [facility] Comment on above: Performed By: #### L 500.3400, L500.4100 #### [facility] [address] [place], [address] Potassium [Moles/Vol] 4.4 mmol/L Normal 3.3-5.1 [facility] Comment on above: Performed By: #### L 500.3400, L500.4100 #### [facility] [address] [place], [address] Sodium [Moles/Vol] 136 mmol/L Normal 133-145 [facility] Comment on above: Performed By: #### L 500.3400, L500.4100 #### [facility] [address] [place], [address] Urea nitrogen [Mass/Vol] 19 mg/dL Normal 4-19 [facility] Comment on above: Performed By: #### L 500.3400, L500.4100 #### [facility] [address] [place], [address] Basophil percentageOrdered B y: Brendan Hernandez on 08-28-2024 Basophils/100 WBC (Bld) 0.3 % 0-1 [facility] Bilirubin Test strip Ql (U)O rdered By: Brendan Hernandez on 08-28-2024 Bilirubin Ql (U) Negative Negative [facility] Bilirubin directOrdered By: Kenya Otoole on 08-28-2024 Bilirubin.direct [Mass/Vol] 0.43 mg/dL High 0.00-0.30 [facility] Bilirubin, totalOrdered By: Kenya Otoole on 08-28-2024 Bilirubin [Mass/Vol] 0.90 mg/dL 0.00-1.30 [facility] Blood Gases by CPSon 025 Base excess Calc (Bld) [Moles/Vol] 4 mmol/L High -2 to +2 [facility] Comment on above: Performed By: #### L 100.0100, L500.2500 #### [facility] Laboratory [address] [place], [address] Blood Gas Type ART Normal [facility] Comment on above: Performed By: #### L 100.0100, L500.2500 #### [facility] Laboratory [address] [place], [address] CO2 [Moles/Vol] 29 mmol/L Normal [facility] Comment on above: Performed By: #### L 100.0100, L500.2500 #### [facility] [address] [place], [address] HCO3 (Bld) [Moles/Vol] 27.9 mmol/L High 22-26 [facility] Comment on above: Performed By: #### L 100.0100, L500.2500 #### [facility] [address] [place], [address] Mode Not entered Normal [facility] Comment on above: Performed By: #### L 100.0100, L500.2500 #### [facility] Laboratory [address] [place], [address] O2 Delivery Dev Room Air Normal [facility] Comment on above: Performed By: #### L 100.0100, L500.2500 #### [facility] Laboratory [address] [place], [address] pCO2 39.0 mmHg Normal 35-45 [facility] Comment on above: Performed By: #### L 100.0100, L500.2500 #### [facility] Laboratory [address] [place], [address] pH (Bld) 7.46 [pH] High 7.35-7.45 [facility] Comment on above: Performed By: #### L 100.0100, L500.2500 #### [facility] Laboratory [address] [place], [address] PO2 65 mmHG Low 75-100 [facility] Comment on above: Performed By: #### L 100.0100, L500.2500 #### [facility] Laboratory [address] [place], [address] SITE R Brach Normal [facility] Comment on above: Performed By: #### L 100.0100, L500.2500 #### [facility] Laboratory [address] [place], [address] SO2 94 Low 95-99 [facility] Comment on above: Performed By: #### L 100.0100, L500.2500 #### [facility] Laboratory [address] [place], [address] Blood bicarbonate measuremen tOrdered By: Kenya Otoole on 08-28-2024 Blood Gas Bicarbonate Actual 27.9 mmol/L High 22-26 [facility] CBC W/Diff, Automatedon 08-17 SMEAR COMMENT SCANNED Normal [facility] Comment on above: Result Comment: SLIG HT MONOCYTOSIS NOTED Performed By: #### L 500.3400, L500.4100 #### [facility] Laboratory [address] [place], [address] Carbon dioxide, total [Moles /volume] in Central venous bloodOrdered By: Brendan Hernandez on 08-28-2024 CO2 [Moles/Vol] 24.9 mmol/L 21.0-32.0 [facility] Chest 1 View (Portable)on Chest 1 View (Portable) [facility] Imaging Services [address] [place] [address] Chest 1 View (Portable) MR#: [id number] Acct: [id number] Name: BINH PARKS Rep #: [id number] : 1940 M 84 From: Kimberly Quarles nd, MD PCP: Dr. Callum Hill MD Status: REG ER Study: Chest 1 View (Portable) Date of Exam: 08/28/24 Exam# [id number] Ordering Dr: Brendan Hernandez MD PROCEDURE: CHEST 1 VIEW (PORTABLE) 08/28/2024 REASON FOR EXAM: COUGH TECHNIQUE: Frontal view of the chest. COMPARISON: None. FINDINGS: Hardware: Left chest wall ICD pacemaker. Heart: Heart size is mildly enlarged with mild pulmonary vascular congestion. Calcification of the thoracic aorta. Lungs: No focal consolidation, pleural effusion or pneumothorax. Bones: Degenerative changes are identified within the thoracic spine. RAD/Chest 1 View (Portable) IMPRESSION: Mild cardiomegaly with pulmonary vascular congestion. Reading Location: [facility] CC: Dr. Callum Hill MD; Dr. Brendan Hernandez MD [employer] Presser: Signed Normal [facility] Chloride assayOrdered By: Dany Hernandez on 08-28-2024 Chloride [Moles/Vol] 99 mmol/L 98-108 [facility] Emergency Department Summary on 08-28-2024 Emergency Department Summary [facility] Medical Records Department [address] [place] [address] Emergency Department Summary 08/28/24 MR#: [id number] Acct: [id number] Name: BINH PARKS Rep #: [id number] : 1940 84 From: Brendan Hernandez MD PCP: Dr. Callum Hill MD Status:ADM RALF Location: [address] History of Present Illness Chief Complaint: Neuro S/Sx Detail of Chief Complaint: Altered level of consciousness. Informant: spouse/S.O. Onset/Context/Timin g Onset: Days Context: Gradual Onset Timing: Continuous Current Severity: Moderate Maximum Severity: Moderate Narrative Narrative: 84-year-old male history of dementia, prior WI, cardiac stent, defibrillator. On aspirin only no other blood thinners. states he had a drastic change of his mental status since evening. Now 2 days ago. He has had a new cough. No fever. No vomiting or diarrhea. No complaint of dysuria. He fell a month or 2 ago but not recently. She states normally evenings are tougher for him when he ' but she said this is different than his baseline. 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 Non-ST elevation (NSTEMI) myocardial infarction (07/22/15) Obesity HLD (hyperlipidemia) GERD (gastroesophageal reflux disease) Home Medications ???Medication ???Instructions ???Recorded ???Last Taken ???Type folic acid 1 mg tablet 1 mg PO DAILY 07/21/15 08/27/24 Hi story levothyroxine 75 mcg tablet 75 mcg PO DAILY 07/21/15 08/27/24 History donepezil 10 mg tablet 10 mg PO DAILY 06/09/19 08/27/24 H istory aspirin 81 mg tablet,delayed 81 mg PO QHS 12/15/19 Unknown Hist ory release (Adult Low Dose Aspirin) atorvastatin 40 mg tablet 40 mg PO QHS 08/31/20 Unknown Hist ory escitalopram oxalate 10 mg tablet 10 mg PO DAILY 08/31/20 Unknown H istory nitroglycerin 0.4 mg sublingual 0.4 mg sublingual Q5M PRN Chest Unknown Rx tablet Pain #25 tabs memantine 10 mg tablet 10 mg PO BID 03/28/22 08/27/24 His tory carvedilol 25 mg tablet 25 mg PO BID #180 tabs 09/09/23 Rx lisinopril 5 mg tablet 5 mg PO BID #180 tabs 10/04/2304/12 Rx cholecalciferol (vitamin D3) 50 50 mcg PO DAILY VITAMIN 08/28/24 0 08/27/24 History mcg (2,000 unit) tablet (D3 DOTS) vitamin E 268 mg (400 unit) capsule 268 mg PO DAILY 08/28/24 History Allergy/AdvReac Type Severity Reaction Status Date / Time No Known Allergies Allergy Verified 05/11/24 11:23 Family History Mother Hypertension Arthritis Surgical History H/O squamous cell carcinoma excision History of left heart catheterization History of coronary artery stent placement (07/22/15) Social History Smoking Status: Former smoker how long ago did patient quit smokin alcohol intake: never substance use type: does not use caffeine: No what type of physical activity do you participate in: other details: tredmill, nustep frequency: 1-2 times per week duration: 45-60 minutes/day seatbelt use: always do you feel safe at home: Yes additional social history: DOES TAKE ASPIRIN ROS ROS ED Constitutional Constitutional ED: Denies chills or fever(s) Eyes Eyes: Denies blurry vision ENT ENT ED: Denies ear pain Cardiovascular Cardiovascular: Denies chest pain Respiratory/Chest Respiratory/Chest: Reports cough; Denies dyspnea Gastrointestinal Gastrointestinal: Denies abdominal pain Genitourinary Genitourinary ED: Denies dysuria or hematuria Musculoskeletal Musculoskeletal: Reports back pain; Denies arthralgias Integumentary Denies abscess Neurologic Neurologic: Denies headache(s) Psychiatric Psychiatric: Denies anxiety or depression Hematologic/Lymphat ic Hematologic/Lymphat ic: Reports none Allergic/Immunologi c Allergic/Immunologi c ED: Denies mouth swelling, tongue swelling or urticaria EXAM Physical Exam Narrative Exam Narrative: 84-year-old male sitting upright in bed. at bedside. Vital signs are stable and afebrile. Pulse ox 96% on room air no hypoxia. H EENT exam eyes are closed we will open (more content not included)... Normal [facility] Eosinophil percentageOrdered By: Brendan Hernandez on 08-28-2024 Eosinophils/100 WBC (Bld) 1.1 % 0-5 [facility] Epithelial cells.squamous LM Ql (Urine sed)Ordered By: Brendan Hernandez on 08-28-2024 Epithelial cells.squamous LM.HPF (Urine sed) [#/Area] 0 /[HPF] 0-5 [facility] Erythrocyte distribution wid th (RBC) [Ratio]Ordered By: Brendan Hernandez on 08-28-2024 Erythrocyte distribution width (RBC) [Entitic vol] 43.5 fL 35.1-43.9 [facility] Erythrocyte distribution wid th ratioOrdered By: Brendan Hernandez on 08-28-2024 Erythrocyte distribution width (RBC) [Ratio] 12.7 % 11.6-14.6 [facility] Estimation of creatinine amara aranceOrdered By: Brendan Hernandez on 08-28-2024 Estimated Creatinine Clearance Calc 55.63 ml/min 50-250 [facility] Free T3on 08-28-2024 Free T3 [Mass/Vol] 2.4 pg/mL Normal 2.18-3.98 [facility] Comment on above: Performed By: #### L 499.0042 #### [facility] Laboratory [address] [facility]. [place], [place], [address] Free [id number] By: Kenya chávez on 08-28-2024 Free Triiodothyronine (T3) pg/dL 2.4 pg/mL 2.18-3.98 [facility] GFR/1.73 sq M.predicted samir g non-blacks MDRD (S/P/Bld) [Vol rate/Area]Ordered By: Brendan Hernandez on 08-28-2024 Estimated GFR (MDRD) Non-Af Amer 73 >60 [facility] Comment on above: mL/min/1.73m2 CKD-EP I Creatinine Equation (2020) Glucose Ql (U)Ordered By: Dany Hernandez on 08-28-2024 Urine Glucose (UA) Normal mg/dl Normal [facility] H AND P Exam - Hospitaliston 08-28-2024 H&P Exam - Hospitalist [facility] Medical Records Department [address] [facility] [place] [address] H P Exam - Hospitalist 08/28/24 1408 MR#: [id number] Acct: [id number] Name: BINH PARKS Rep #: [id number] : 1940 84 From: Kenya Otoole MD PCP: Dr. Callum Hill MD Status:ADM RALF Location: [place] [id number] HPI - General General Date of Admission: 08/28/24 Date of Service: 08/28/24 Chief Complaint: Altered LOC HPI Narrative BINH PARKS, is a 84 M with a history of pacemaker/defibrill ator, dementia, hypertension, hypothyroidism, coronary artery disease who presented [facility] ED 08/28/2024 with altered level of consciousness. Family reports since he started not acting quite right and his just progressively worsened, the only additional change during that time is patient has been having some cough. Given the mental status change he had CTA of the head and neck and CT which were negative the patient with no focal complaints and nonfocal exam to suggest CVA as a primary culprit. Given patient's failure to thrive and mental status changes with inability for family to take care of patient at home hospitalist contacted for admission. Patient evaluated with family at bedside, reports that he was not acting like himself and is progressively worsened and is now not close to baseline though does note he has chronic dementia. Reports he has a cough and that for a while he has had some shortness of breath on exertion, only other thing she notes is that he has some right leg pain which is not new, denies that he has had any changes in bowel or bladder. Denies any new medication changes. 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 (10/25/15) Atherosclerotic heart disease of [place] coronary artery without angina pectoris Non-ST elevation (NSTEMI) myocardial infarction (07/22/15) Obesity HLD (hyperlipidemia) GERD (gastroesophageal reflux disease) Home Medications ???Medication ???Instructions ???Recorded ???Last Taken ???Type folic acid 1 mg tablet 1 mg PO DAILY 07/21/15 08/27/24 Hi story levothyroxine 75 mcg tablet 75 mcg PO DAILY 07/21/15 08/27/24 History donepezil 10 mg tablet 10 mg PO DAILY 06/09/19 08/27/24 H istory aspirin 81 mg tablet,delayed 81 mg PO QHS 12/15/19 Unknown Hist ory release (Adult Low Dose Aspirin) atorvastatin 40 mg tablet 40 mg PO QHS 08/31/20 Unknown Hist ory escitalopram oxalate 10 mg tablet 10 mg PO DAILY 08/31/20 Unknown H istory nitroglycerin 0.4 mg sublingual 0.4 mg sublingual Q5M PRN Chest Unknown Rx tablet Pain #25 tabs memantine 10 mg tablet 10 mg PO BID 03/28/22 08/27/24 His tory carvedilol 25 mg tablet 25 mg PO BID #180 tabs 09/09/23 Rx lisinopril 5 mg tablet 5 mg PO BID #180 tabs 10/04/2304/12 Rx cholecalciferol (vitamin D3) 50 50 mcg PO DAILY VITAMIN 08/28/24 0 08/27/24 History mcg (2,000 unit) tablet (D3 DOTS) vitamin E 268 mg (400 unit) capsule 268 mg PO DAILY 08/28/24 History Allergy/AdvReac Type Severity Reaction Status Date / Time No Known Allergies Allergy Verified 05/11/24 11:23 Family History Mother Hypertension Arthritis Surgical History H/O squamous cell carcinoma excision History of left heart catheterization History of coronary artery stent placement (07/22/15) Social History Smoking Status: Former smoker how long ago did patient quit smokin alcohol intake: never substance use type: does not use caffeine: No what type of physical activity do you participate in: other details: tredmill, nustep frequency: 1-2 times per week duration: 45-60 minutes/day seatbelt use: always do you feel safe at home: Yes additional social history: DOES TAKE ASPIRIN ROS ROS Narrative Patient unable to answer ROS secondary to mental status, will sometimes attempt answer questions but mostly smiles and is pleasantly confused Vital Signs Vital Signs Vital Signs: 08/28/24 09:46 08/28/24 10:03 08/28/24 10:46 Temperature 98.7 F Temperature Source Oral Pulse Rate 68 67 Respiratory Rate 18 18 Blood Pressure 138/66 H 148/80 H Blood Pressure Mean 90 102 Pulse Ox 96 90 92 Oxygen Delivery Method Ro (more content not included)... Normal [facility] Hematocrit Auto (Bld) [Volum e fraction]Ordered By: Brendan Hernandez on 08-28-2024 Hematocrit (Bld) [Volume fraction] 41.2 % 40-54 [facility] Hemoglobin measurementOrdere d By: Brendan Hernandez on 08-28-2024 Hemoglobin (Bld) [Mass/Vol] 13.9 g/dL 13.0-16.5 [facility] Immature granulocytes/100 WB C Auto (Bld)Ordered By: Brendan Hernandez on 08-28-2024 Immature granulocytes/100 WBC (Bld) 0.400 % 0.0-0.9 [facility] Comment on above: IG% - Immature Granu locytes (promyelocytes, myelocytes and metamyelocytes) > 1% indicates that a LEFT SHIFT is Present. Influenza virus A and B and SARS-CoV-2 (COVID-19) and Respiratory syncytial virus RNAOrdered By: Brendan Hernandez on 08-28-2024 SARS-CoV-2 (COVID-19) RNA TIMO+probe Ql (Unsp spec) [facility] International normalized rat io (INR) calculationOrdered By: Brendan Hernandez on 08-28-2024 INR Coag (Bld) [Relative time] 1.0 {INR} [facility] Ketones Test strip Ql (U)Ord ered By: Brendan Hernandez on 08-28-2024 Ketones Ql (U) Negative Negative [facility] L499.0042on 08-28-2024 Trop T High Sen 21 ng/L Normal <=22 [facility] Comment on above: Performed By: #### L 499.0042 #### [facility] [place], [address] L501.4021on 08-28-2024 Trop T High Sen 23 ng/L High <=22 [facility] Comment on above: Performed By: #### L 500.3400, L500.4100 #### [facility] Laboratory [address] [place], [address] L503.7505on 08-28-2024 Natriuretic peptide B (Bld) [Mass/Vol] 128 pg/mL Normal <=1800 [facility] Comment on above: Result Comment: Hear t Failure Unlikely: < 300 pg/mL Heart Failure Likely < 50 Years: > 450 pg/mL 50-75 Years: > 900 pg/mL >75 Years: > 1800 pg/mL Performed By: #### L 499.0042 #### [facility] Laboratory [address] [place], [place], [id number] Laboratory - Chemistry and C hemistry - challengeOrdered By: Kenya Otoole on 08-28-2024 AST [Catalytic activity/Vol] 25 U/L <38 [facility] Liver Profileon 08-28-2024 Albumin [Mass/Vol] 3.8 g/dL Normal 3.4-4.8 [facility] Comment on above: Performed By: #### L 499.0042 #### [facility] Laboratory [address] [place], [place], [id number] ALK PHOS 102 U/L Normal 40-129 [facility] Comment on above: Performed By: #### L 499.0042 #### [facility] Laboratory [address] [place], [address] ALT [Catalytic activity/Vol] 20 U/L Normal <=46 [facility] Comment on above: Performed By: #### L 499.0042 #### [facility] Laboratory [address] [place], [address] AST [Catalytic activity/Vol] 25 U/L Normal <=37 [facility] Comment on above: Performed By: #### L 499.0042 #### [facility] Laboratory [address] [place], [address] Bilirubin [Mass/Vol] 0.90 mg/dL Normal 0.00-1.30 [facility] Comment on above: Performed By: #### L 499.0042 #### [facility] Laboratory [address] [place], [address] Bilirubin.direct [Mass/Vol] 0.43 mg/dL High 0.00-0.30 [facility] Comment on above: Performed By: #### L 499.0042 #### [facility] [address] [place], [address] Globulin (S) [Mass/Vol] 2.6 g/dL Normal 2.2-4.2 [facility] Comment on above: Performed By: #### L 499.0042 #### [facility] [address] [place], [address] T PROT 6.4 g/dL Normal 5.9-8.4 [facility] Comment on above: Performed By: #### L 499.0042 #### [facility] [address] [place], [address] Lymphocytes Auto (Unsp spec) [#/Vol]Ordered By: Brendan Hernandez on 08-28-2024 Lymphocytes (Bld) [#/Vol] 1.36 10*3/uL 0.83-4.51 [facility] Lymphocytes/100 WBC Auto (Un sp spec)Ordered By: Brendan Hernandez on 08-28-2024 Lymphocytes/100 WBC (Bld) 11.0 % Low 19-41 [facility] M100.678on 08-28-2024 M100.678 Pending SARS-CoV-2 (COVID 19) Negative INFLUENZA A Negative INFLUENZA B Negative RSV PCR Negative Normal [facility] Comment on above: Performed By: #### L 100.0100, L500.2500 #### [facility] [address] [place], [address] MCV (mean corpuscular volume ) determinationOrdered By: Brendan Hernandez on 08-28-2024 MCV (RBC) [Entitic vol] 92.8 fL 80-94 [facility] Manual differential comment Scooby (Bld) [Interp]Ordered By: Brendan Hernandez on 08-28-2024 Differential Comment SCANNED [facility] Comment on above: SLIGHT MONOCYTOSIS N OTED Mean corpuscular hemoglobin (MCH) determinationOrdered By: Brendan Hernandez on 08-28-2024 MCH (RBC) [Entitic mass] 31.3 pg 27.0-32.0 [facility] Mean corpuscular hemoglobin concentration (MCHC) determinationOrdered By: Brendan Hernandez on 08-28-2024 MCHC (RBC) [Mass/Vol] 33.7 g/dL 32-36 [facility] Mean platelet volume determi nationOrdered By: Brendan Hernandez on 08-28-2024 Platelet mean volume (Bld) [Entitic vol] 10.8 fL 6.2-12.0 [facility] Methadone, urineOrdered By: Kenya Otoole on 08-28-2024 Urine Methadone Screen Negative < 300 ng/mL [facility] Microscopic analysis of urin e for red blood cells (RBC)Ordered By: Brendan Hernandez on 08-28-2024 Urine RBC 0-5 SEEN /hpf 0-5 [facility] Monocyte percentageOrdered B y: Brendan Hernandez on 08-28-2024 Monocytes/100 WBC (Bld) 13.5 % High 0-10 [facility] Mucus LM Ql (Urine sed)Order ed By: Brendan Hernandez on 08-28-2024 Mucus Ql (Urine sed) 0 SEEN /hpf [facility] Natriuretic peptide.B prohor douglas N-Terminal [Mass/Vol]Ordered By: Kenya Otoole on 08-28-2024 Natriuretic peptide B (Bld) [Mass/Vol] 128 pg/mL <1800 [facility] Comment on above: Heart Failure Unlike ly: < 300 pg/mLHeart Failure Likely< 50 Years: > 450 pg/mL50-75 Years: > 900 pg/mL>75 Years: > 1800 pg/mL Neutrophil percentageOrdered By: Brendan Hernandez on 08-28-2024 Neutrophils/100 WBC (Bld) 73.7 % High 47-70 [facility] Nitrite Test strip Ql (U)Ord ered By: Brendan Hernandez on 08-28-2024 Nitrite Ql (U) Negative Negative [facility] No Panel InformationOrdered By: Kenya Otoole on 08-28-2024 Blood Gas Sample Site R Brach [facility] Blood Gas Specimen Type ART [facility] Blood Gas Vent Mode Not entered [facility] Oxygen Delivery Device Room Air [facility] Urine Buprenorphine Qualitative Negative < 200 ng/mL [facility] Urine Oxycodone Screen Negative < 100 ng/mL [facility] Nucleated red blood cell per centageOrdered By: Brendan Hernandez on 08-28-2024 Nucleated RBC/100 WBC (Bld) [Ratio] 0 % 0-5 [facility] Oxygen saturation measuremen tOrdered By: Kenya Otoole on 08-28-2024 Blood Gas Oxygen Saturation 94 % Low 95-99 [facility] Partial Thromboplast Timeon 08-28-2024 aPTT Coag (Bld) [Time] 27.5 s Normal 24.1-36.2 [facility] Comment on above: Performed By: #### L 500.3400, L500.4100 #### [facility] [address] [facility] [place], [place], [id number] Partial pressure of carbon d ioxide measurementOrdered By: Kenya Otoole on 08-28-2024 Arterial Blood Partial Pressure CO2 39.0 mmHg 35-45 [facility] Partial pressure of oxygen m easurementOrdered By: Kenya Otoole on 08-28-2024 Arterial Blood Partial Pressure O2 65 mmHG Low 75-100 [facility] Platelet countOrdered By: Dany Hernandez on 08-28-2024 Platelets (Bld) [#/Vol] 157 10*3/uL 150-450 [facility] Potassium (Unsp spec) [Mass/ Vol]Ordered By: Brendan Hernandez on 08-28-2024 Potassium [Moles/Vol] 4.4 mmol/L 3.3-5.1 [facility] Protein Test strip Ql (U)Ord ered By: Brendan Hernandez on 08-28-2024 Protein Ql (U) 15 mg/dl High Negative [facility] Prothrombin Time w/INRon INR Coag (PPP) [Relative time] 1.0 {INR} Normal [facility] Comment on above: Performed By: #### L 500.3400, L500.4100 #### [facility] [address] [place], [address] ( PT Coag (PPP) [Time] 13.5 s Normal 11.7-14.9 [facility] Comment on above: Performed By: #### L 500.3400, L500.4100 #### [facility] [address] [place], [address] Prothrombin timeOrdered By: Brendan Hernandez on 08-28-2024 PT Coag (PPP) [Time] 13.5 s 11.7-14.9 [facility] Quantitative urine opiates m easurementOrdered By: Kenya Otoole on 08-28-2024 Opiates Ql (U) Negative < 300 ng/mL [facility] RBC Auto (Bld) [#/Vol]Ordere d By: Brendan Hernandez on 08-28-2024 RBC (Bld) [#/Vol] 4.44 10*6/uL Low 4.6-6.2 [facility] RESPIRATORY PANEL MOLECULARo n 08-28-2024 RP PANEL ADENOVIRUS Not Detected INFLUENZA A Not Detected INFLUENZA A (SUBTYPE H1) Not Detected INFLUENZA A (SUBTYPE H3) Not Detected INFLUENZA B Not Detected HUMAN METAPHNEUMO Not Detected PARAINFLUENZA 1 Not Detected PARAINFLUENZA 2 Not Detected PARAINFLUENZA 3 Not Detected PARAINFLUENZA 4 Not Detected RHINOVIRUS Not Detected RSV A Not Detected RSV B Not Detected Normal [facility] Comment on above: Performed By: #### L 499.0042 #### [facility] [address] [place], [place], [id number] Respiratory pathogens DNA an d RNA panel TIMO+probe (Resp)Ordered By: Kenya Otoole on 08-28-2024 Respiratory Panel (PCR) [facility] STROKE Brain/Head without Co nton 08-28-2024 STROKE Brain/Head without Cont [facility] Imaging Services [address] [place], [place] [id number] [phone] STROKE Brain/Head without Cont MR#: [id number] Acct: [id number] Name: BINH PARKS Rep #: [id number] : 1940 M 84 From: Kimberly Quarles [place], MD PCP: Dr. Callum Hill MD Status: REG ER Study: STROKE Brain/Head without Cont Date of Exam: 0 08/28/24 Exam# [id number] Ordering Dr: Brendan Hernandez MD EXAM: STROKE BRAIN/HEAD WITHOUT CONT CLINICAL HISTORY: 84 y/o M with NEURO DEFICIT, ACUTE, STROKE SUSPECTED. COMPARISON: None. TECHNIQUE: Routine CT imaging of the head without IV contrast. Additional multiplanar reformats were obtained. Dose reduction techniques were used including intermediate exposure control (AEC),iterative reconstruction technique, and/or mA and/or KV dose adjustments based on patient's size. FINDINGS: Mild generalized cerebral volume loss with concordant prominence of the ventricles and subarachnoid spaces. Moderate patchy supratentorial white matter hypodensities. The javier-white matter interfaces are otherwise maintained. No acute intracranial hemorrhage or herniation. Prior ocular lens replacements. Mild mucosal thickening of the left maxillary and sphenoid sinuses. Scattered opacified bilateral ethmoid air cells. No acute calvarial fracture or scalp hematoma. CT/STROKE Brain/Head without Cont IMPRESSION: 1. No acute intracranial finding. 2. Findings of chronic microvascular ischemic changes and age-related changes. Reading Location: [facility] CC: Dr. Callum Hill MD; Dr. Brendan Hernandez MD [employer] Presser: Signed Normal [facility] STROKE CTA Head AND Neck W/C onon 08-28-2024 STROKE CTA Head AND Neck W/Con [facility] Imaging Services [address] [place] [id number] STROKE CTA Head AND Neck W/Con MR#: [id number] Acct: [id number] Name: BINH PARKS Rep #: [id number] : 1940 M 84 From: Kimberly Quarles nd, MD PCP: Dr. Callum Hill MD Status: REG ER Study: STROKE CTA Head AND Neck W/Con Date of Exam: 0 08/28/24 Exam# [id number] Ordering Dr: Brendan Hernandez MD PROCEDURE: STROKE CTA HEAD AND NECK W/CON 08/28/2024 REASON FOR EXAM: NEURO DEFICIT, ACUTE, STROKE SUSPECTED. Right-sided weakness and difficulty talking, starting . History of Alzheimer's. TECHNIQUE: CTA imaging of the head and neck from the aortic arch to the skull vertex with out constrast and with intravenous contrast. Coronal and Sagittal reconstruction series were provided. 3D post processing with reformations, Maximum intensity projection (MIPs) Volume rendering and Shaded surface rendering was provided. CONTRAST: Isovue 370 VOLUME: 100 mL One or more dose reduction techniques were used (e.g., Automated exposure control, adjustment of the mA and/or kV according to patient size, use of iterative reconstruction technique). RADIATION DOSE SUMMARY: CTDlvol: 20 mGy DLP: 800 mGycm COMPARISON: Same-day CT head FINDINGS: See same day noncontrast CT head for discussion of nonvascular findings. Three-vessel aortic arch with mild scattered calcifications. No focal stenosis. Calcific plaque of the bilateral vertebral artery origins resulting in mild narrowing. Mild calcific plaque of the right V1 segment of the vertebral artery without narrowing. Calcific plaque of the bilateral cervical carotid arteries without stenosis by NASCET criteria. Calcific plaque of the bilateral carotid siphons resulting in mild multifocal narrowing. The bilateral anterior, middle and posterior cerebral arteries are widely patent. No aneurysm or arteriovenous malformation. Major venous structures: Unremarkable. Other findings: Left chest wall pacemaker. Cervical and thoracic spondylosis. CT/STROKE CTA Head AND Neck W/Con IMPRESSION: 1. No large vessel occlusion, AVM or aneurysm. 2. Mild narrowing of the bilateral vertebral arteries and carotid siphons. 3. No significant stenosis of the cervical carotid arteries by NASCET criteria. Reading Location: [facility] CC: Dr. Callum Hill MD; Dr. Brendan Hernandez MD [employer] Press[employer]: Signed Normal [facility] Serum creatinine measurement (mass/volume)Ordered By: Brendan Hernandez on 08-28-2024 Creatinine [Mass/Vol] 1.02 mg/dL 0.70-1.20 [facility] Serum globulin measurementOr dered By: Kenya Otoole on 08-28-2024 Globulin (S) [Mass/Vol] 2.6 g/dL 2.2-4.2 [facility] Serum glucose measurement (m ass/volume)Ordered By: Brendan Hernandez on 08-28-2024 Glucose [Mass/Vol] 166 mg/dL High 70-99 [facility] Serum or plasma alanine talbot otransferase (ALT) measurementOrdered By: Kenya Otoole on 08-28-2024 ALT [Catalytic activity/Vol] 20 U/L <47 [facility] Serum or plasma albumin ray urement (mass/volume)Ordered By: Kenya Otoole on 08-28-2024 Albumin [Mass/Vol] 3.8 g/dL 3.4-4.8 [facility] Serum or plasma alkaline karla sphatase measurementOrdered By: Kenya Otoole on 08-28-2024 ALP [Catalytic activity/Vol] 102 U/L 40-129 [facility] Serum or plasma calcium ray urement (mass/volume)Ordered By: Brendan Hernandez on 08-28-2024 Calcium [Mass/Vol] 9.4 mg/dL 7.6-11.0 [facility] Serum or plasma urea nitroge n measurement (mass/volume)Ordered By: Brendan Hernandez on 08-28-2024 Urea nitrogen [Mass/Vol] 19 mg/dL 4-19 [facility] Sodium levelOrdered By: Brendan Hernandez on 08-28-2024 Sodium [Moles/Vol] 136 mmol/L 133-145 [facility] T4 Free Directon 08-28-2024 T4 FREE DIRECT 1.10 ng/dL Normal 0.76-1.46 [facility] Comment on above: Performed By: #### L 499.0042 #### [facility] [address] [place] [address]. [place], [address] T4 freeOrdered By: Kenya chávez on 08-28-2024 Free T4 [Mass/Vol] 1.10 ng/dL 0.76-1.46 [facility] TSH DL <= 0.005 mIU/L QnOrde red By: Kenya Otoole on 08-28-2024 Thyroid Stimulating Hormone (TSH) 3.310 uIU/mL 0.300-4.200 [facility] Thyroid Stim Hormone (TSH)on 08-28-2024 TSH 3.310 uIU/mL Normal 0.300-4.200 [facility] Comment on above: Performed By: #### L 499.0042 #### [facility] [address] [place], [address] Total carbon dioxide measure mentOrdered By: Kenya Otoole on 08-28-2024 Blood Gas Total CO2 29 mmol/L [facility] Total proteinOrdered By: Gerard Otoole on 08-28-2024 Protein [Mass/Vol] 6.4 g/dL 5.9-8.4 [facility] Troponin T.cardiac High sens itivity method [Mass/Vol]Ordered By: Brendan Hernandez on 08-28-2024 Troponin T High Sensitivity 2 Hour 21 ng/L <22 [facility] Troponin T High Sensitivity 23 ng/L High <22 [facility] Urinalysis, Completeon 08-28 EPI,SQUAMOUS 0-5 SEEN Normal 0-5 [facility] Comment on above: Order Comment: COLLE CTOR TO SPECIFY Performed By: #### L 500.3400, L500.4100 #### [facility] [address] [place], [address] RBC 0-5 SEEN Normal 0-5 [facility] Comment on above: Order Comment: COLLE CTOR TO SPECIFY Performed By: #### L 500.3400, L500.4100 #### [facility] [address] [place], [address] BACTERIA 0 SEEN Normal None Seen [facility] Comment on above: Order Comment: COLLE CTOR TO SPECIFY Performed By: #### L 500.3400, L500.4100 #### [facility] [address] [place], [address] Mucus Ql (Urine sed) 0 SEEN Normal [facility] Comment on above: Order Comment: COLLE CTOR TO SPECIFY Performed By: #### L 500.3400, L500.4100 #### [facility] [address] [place], [address] WBC 0 SEEN Normal 0-5 [facility] Comment on above: Order Comment: COLLE CTOR TO SPECIFY Performed By: #### L 500.3400, L500.4100 #### [facility] [address] [place], [address] Urine Drug Screen (VISTA)on 08-28-2024 AMPHETAMINES Negative Normal <1000 ng/mL [facility] Comment on above: Performed By: #### L 100.0100, L500.2500 #### [facility] [address] [place], [address] BARBITIURATES Negative Normal < 200 ng/mL [facility] Comment on above: Performed By: #### L 100.0100, L500.2500 #### [facility] [address] [place], [address] BENZODIAZIPINE Negative Normal < 200 ng/mL [facility] Comment on above: Performed By: #### L 100.0100, L500.2500 #### [facility] [address] [place], [address] BUP Ur Drug Scr Negative Normal < 200 ng/mL [facility] Comment on above: Performed By: #### L 100.0100, L500.2500 #### [facility] [address] [place], [address] COCAINE Negative Normal < 300 ng/mL [facility] Comment on above: Performed By: #### L 100.0100, L500.2500 #### [facility] [address] [place], [address] Fentanyl Negative Normal [facility] Comment on above: Performed By: #### L 100.0100, L500.2500 #### [facility] [address] [place], [address] METHADONE Negative Normal < 300 ng/mL [facility] Comment on above: Performed By: #### L 100.0100, L500.2500 #### [facility] [address] [place] [address] OPIATES Negative Normal < 300 ng/mL [facility] Comment on above: Performed By: #### L 100.0100, L500.2500 #### [facility] [address] [place] [address] OXYCODONE Negative Normal < 100 ng/mL [facility] Comment on above: Performed By: #### L 100.0100, L500.2500 #### [facility] [address] [place] [address] PCP Negative Normal < 25 ng/mL [facility] Comment on above: Performed By: #### L 100.0100, L500.2500 #### [facility] [address] [place] [address] THC Negative Normal < 50 ng/mL [facility] Comment on above: Performed By: #### L 100.0100, L500.2500 #### [facility] [address] [place] [address] Urine benzodiazepine levelOr dered By: Kenya Otoole on 08-28-2024 Benzodiazepines Ql (U) Negative < 200 ng/mL [facility] Urine blood detectionOrdered By: Brendan Hernandez on 08-28-2024 Urine Occult Blood 25 /ul High Negative [facility] Urine clarityOrdered By: Jan Hernandez on 08-28-2024 Clarity (U) Clear Clear [facility] Urine cocaine levelOrdered B y: Kenya Otoole on 08-28-2024 Cocaine Ql (U) Negative < 300 ng/mL [facility] Urine color determinationOrd ered By: Brendan Hernandez on 08-28-2024 Color (U) Yellow Yellow [facility] Urine ibguq-[id number]-jotvbkstdgmenj abinol (THC) measurementOrdered By: Kenya Otoole on 08-28-2024 Cannabinoids Screen Ql (U) Negative < 50 ng/mL [facility] Urine leukocyte esterase det ection by dipstickOrdered By: Brendan Hernandez on 08-28-2024 Leukocyte esterase Test strip Ql (U) Negative Negative [facility] Urine pHOrdered By: Brendan cevallos on 08-28-2024 pH (U) 6.5 [pH] 5.0 - 8.0 [facility] Urine phencyclidine (PCP) de tectionOrdered By: Kenya Otoole on 08-28-2024 Phencyclidine Ql (U) Negative < 25 ng/mL [facility] Urine sediment bacteria coun t by microscopy (number/high power field)Ordered By: Brendan Hernandez on 08-28-2024 Bacteria LM.HPF (Urine sed) [#/Area] 0 /[HPF] None Seen [facility] Urine specific gravity measu rementOrdered By: Brendan Hernandez on 08-28-2024 Specific gravity (U) [Rel density] 1.015 1.002-1.030 [facility] Urobilinogen Ql (U)Ordered B y: Brendan Hernandez on 08-28-2024 Urine Urobilinogen Normal mg/dl Normal [facility] Venous blood ammonia measure mentOrdered By: Kenya Otoole on 08-28-2024 Ammonia (P) [Moles/Vol] 27.0 umol/L 16-60 [facility] Vitamin B12on 08-28-2024 Cobalamin (Vitamin B12) [Mass/Vol] 357 pg/mL Normal 180-914 [facility] Comment on above: Performed By: #### L 499.0042 #### [facility] [address] [place] [address], [address] Vitamin B12 ser/plasOrdered By: Kenya Otoole on 08-28-2024 Cobalamin (Vitamin B12) [Mass/Vol] 357 pg/mL 180-914 [facility] White blood cell (WBC) count Ordered By: Brendan Hernandez on 08-28-2024 WBC (Bld) [#/Vol] 12.3 10*3/uL High 4.4-11.0 [facility] White blood cell countOrdere d By: Brendan Hernandez on 08-28-2024 Urine WBC 0 SEEN /hpf 0-5 [facility] aPTT Coag (PPP) [Time]Ordere d By: Brendan Hernandez on 08-28-2024 aPTT Coag (Bld) [Time] 27.5 s 24.1-36.2 [facility] fentaNYL Screen Ql (U)Ordere d By: Kenya Otoole on 08-28-2024 Urine Fentanyl Screen Negative [facility] pH (Unsp spec)Ordered By: Tory Otoole on 08-28-2024 Blood Gas pH 7.46 High 7.35-7.45 [facility] Cardiology Visit Reporton Cardiology Visit Report [facility] [address] [place] [address] OFFICE VISIT Date of Service: 05/11/24 MR#: [id number] Acct: [id number] Name: BINH PARKS Rep #: [id number] : 1940 Provider: TORY Babin Age/Sex: 84/M Location: [facility] Status: Signed HPI HPI History of Present Illness Details: BINH PARKS, is a 84 M who presents to the office today for a cardiovascular follow-up. He has a history of coronary disease with stenting to his circumflex in 2016, ischemic cardiomyopathy with ventricular tachycardia and ICD placement. He underwent a lead revision and upgraded to a Bi-V ICD. His cardiomyopathy has actually resolved with his last ejection fraction estimated at 55% with moderate concentric left ventricle hypertrophy, no wall motion abnormalities noted. Patient states he was at his dentist in August undergoing some dental work, when he had a syncopal episode. The squad was called, and he was taken to the emergency room for further evaluation. His ICD was interrogated at that time, there were no VT/VF episodes detected. His syncopal episode was thought to be vasovagal. From a cardiac standpoint, the patient is doing well. He denies any palpitations, chest pain, pressure or heaviness. He denies SOB, Orthopnea, and PND. He does not have bleeding issues; no blood in urine, stool or nosebleeds. He does acknowledge a decrease in energy level. He denies myalgias, or claudication. He does not have edema, or sudden weight gain. He denies dizziness, lightheadedness, syncopal or near syncopal episodes, and headaches. 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 Business Process Required: No Is patient in pain?: No Allergies No Known Allergies Allergy (Verified 05/11/24 11:23) Medications ???Medication ???Instructions ???Recorded ???Confirmed ???Type folic acid 1 mg tablet 1 mg PO DAILY 07/21/15 05/11/24 History levothyroxine 75 mcg tablet 75 mcg PO DAILY 07/21/15 05/11/24 History donepezil 10 mg tablet 10 mg PO DAILY 06/09/19 05/11/24 History aspirin 81 mg tablet,delayed 81 mg PO DAILY 12/15/19 05/11/24 History release (Adult Low Dose Aspirin) atorvastatin 40 mg tablet 40 mg PO DAILY 08/31/20 05/11/24 History cholecalciferol (vitamin D3) 125 125 mcg PO DAILY 08/31/20 05/11/24 History mcg (5,000 unit) capsule escitalopram oxalate 10 mg tablet 10 mg PO DAILY 08/31/20 05/11/24 History zinc acetate 50 mg (zinc) capsule 50 mg PO DAILY 08/31/20 05/11/24 History (Galzin) nitroglycerin 0.4 mg sublingual 0.4 mg sublingual Q5M PRN Chest 03/22/21 05/11/24 Rx tablet Pain #25 tabs memantine 10 mg tablet 10 mg PO QAM 03/28/22 05/11/24 History carvedilol 25 mg tablet 25 mg PO BID #180 tabs 09/09/23 05/11/24 Rx lisinopril 5 mg tablet 5 mg PO BID #180 tabs 10/04/23 05/11/24 Rx Have you fallen in the past year?: No PFSH Medical History Pacemaker COVID-19 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 Personal history of skin cancer Neoplasm of uncertain behavior of skin Frequent headaches Essential (primary) hypertension Monomorphic ventricular tachycardia Non-ischemic cardiomyopathy Left bundle branch block 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 (10/25/15) Atherosclerotic heart disease of [place] coronary artery without angina pectoris Non-ST elevation (NSTEMI) myocardial infarction (07/22/15) Breakdown (mechanical) of cardiac electrode, initial encounter Obesity HLD (hyperlipidemia) GERD (gastroesophageal reflux disease) Surgical History H/O squamous cell carcinoma excision History of left heart catheterization History of coronary artery stent placement (07/22/15) Family History Mother Hypertension Arthritis Social History Smoking Status: Never smoker how long ago did patient quit smokin alcohol intake: never substance use type: does not use caffeine: No what type of physical activity do you participate in: other details: [place] frequency: 1-2 times per week duration: 45-60 minutes/day seatbelt use: always do you feel safe at home: Yes additional social history: DOES TAKE ASPIRIN ROS Const Const: Negative for fatigue, weakness, fever(s), headache(s), chills, frequent falls, (more content not included)... Normal [facility] CBC-Complete Blood Cnt No Di ffon 04-05-2024 Erythrocyte distribution width (RBC) [Ratio] 12.8 % Normal 11.6-14.6 [facility] Comment on above: Order Comment: Order Date: 04/05/24Order Info: [id number] - CBC Performed By: #### L 500.3400, L500.4100 #### [facility] [address] [place], [address] Hematocrit (Bld) [Volume fraction] 42.2 % Normal 40-54 [facility] Comment on above: Order Comment: Order Date: 04/05/24Order Info: [id number] - CBC Performed By: #### L 500.3400, L500.4100 #### [facility] [address] [place], [address] Hemoglobin (Bld) [Mass/Vol] 14.3 g/dL Normal 13.0-16.5 [facility] Comment on above: Order Comment: Order Date: 04/05/24Order Info: [id number] - CBC Performed By: #### L 500.3400, L500.4100 #### [facility] [address] [place], [address] MCH (RBC) [Entitic mass] 32.1 pg High 27.0-32.0 [facility] Comment on above: Order Comment: Order Date: 04/05/24Order Info: [id number] - CBC Performed By: #### L 500.3400, L500.4100 #### [facility] [address] [place], [address] MCHC (RBC) [Mass/Vol] 33.9 g/dL Normal 32-36 [facility] Comment on above: Order Comment: Order Date: 04/05/24Order Info: [id number] - CBC Performed By: #### L 500.3400, L500.4100 #### [facility] [address] [place], [address] MCV (RBC) [Entitic vol] 94.6 fL High 80-94 [facility] Comment on above: Order Comment: Order Date: 04/05/24Order Info: [id number] - CBC Performed By: #### L 500.3400, L500.4100 #### [facility] [address] [place], [address] Platelet mean volume (Bld) [Entitic vol] 10.9 fL Normal 6.2-12.0 [facility] Comment on above: Order Comment: Order Date: 04/05/24Order Info: [id number] - CBC Performed By: #### L 500.3400, L500.4100 #### [facility] [address] [place], [address] Platelets (Bld) [#/Vol] 186 10*3/uL Normal 150-450 [facility] Comment on above: Order Comment: Order Date: 04/05/24Order Info: [id number] - CBC Performed By: #### L 500.3400, L500.4100 #### [facility] [address] [place], [address] RBC (Bld) [#/Vol] 4.46 10*6/uL Low 4.6-6.2 [facility] Comment on above: Order Comment: Order Date: 04/05/24Order Info: [id number] - CBC Performed By: #### L 500.3400, L500.4100 #### [facility] [address] [place], [address] RDW SD 44.5 fl High 35.1-43.9 [facility] Comment on above: Order Comment: Order Date: 04/05/24Order Info: [id number] - CBC Performed By: #### L 500.3400, L500.4100 #### [facility] [address] [place], [address] WBC (Bld) [#/Vol] 8.3 10*3/uL Normal 4.4-11.0 [facility] Comment on above: Order Comment: Order Date: 04/05/24Order Info: [id number] - CBC Performed By: #### L 500.3400, L500.4100 #### [facility] [address] [place], [address] Comprehensive Metabolic Prof ilon 04-05-2024 Albumin [Mass/Vol] 3.7 g/dL Normal 3.2-5.0 [facility] Comment on above: Order Comment: Order Date: 04/05/24Order Info: [id number] - CMPOrder Info: [id number] - TSH Performed By: #### L 500.3400, L500.4100 #### [facility] [address] [place], [address] Albumin/Globulin [Mass ratio] 1.2 {ratio} Normal 0.9-2.4 [facility] Comment on above: Order Comment: Order Date: 04/05/24Order Info: [id number] - CMPOrder Info: [id number] - TSH Performed By: #### L 500.3400, L500.4100 #### [facility] [address] [place], [address] ALK P 98 U/L Normal 45-117 [facility] Comment on above: Order Comment: Order Date: 04/05/24Order Info: [id number]- - CMPOrder Info: [id number] - TSH Performed By: #### L 500.3400, L500.4100 #### [facility] [address] [place], [address] ALT [Catalytic activity/Vol] 28 U/L Normal 16-61 [facility] Comment on above: Order Comment: Order Date: 04/05/24Order Info: [id number]- - CMPOrder Info: [id number] - TSH Performed By: #### L 500.3400, L500.4100 #### [facility] [address] [place], [address] AST [Catalytic activity/Vol] 27 U/L Normal 15-37 [facility] Comment on above: Order Comment: Order Date: 04/05/24Order Info: 07- - CMPOrder Info: [id number] - TSH Performed By: #### L 500.3400, L500.4100 #### [facility] [address] [place], [address] Bilirubin [Mass/Vol] 1.00 mg/dL Normal 0.20-1.00 [facility] Comment on above: Order Comment: Order Date: 04/05/24Order Info: [id number]- - CMPOrder Info: [id number] - TSH Result Comment: For patients on eltrombopag therapy, use of Dimension [place] TBIL is not recommended. Performed By: #### L 500.3400, L500.4100 #### [facility] [address] [place], [address] BUN/CRE 18.8 RATIO Normal 10-20 [facility] Comment on above: Order Comment: Order Date: 04/05/24Order Info: [id number]- - CMPOrder Info: [id number] - TSH Performed By: #### L 500.3400, L500.4100 #### [facility] [address] [place], [address] CA,Total 9.2 mg/dL Normal 8.5-10.1 [facility] Comment on above: Order Comment: Order Date: 04/05/24Order Info: [id number] - CMPOrder Info: [id number] - TSH Performed By: #### L 500.3400, L500.4100 #### [facility] [address] [place], [address] Chloride [Moles/Vol] 105 mmol/L Normal 98-107 [facility] Comment on above: Order Comment: Order Date: 04/05/24Order Info: [id number] - CMPOrder Info: [id number] - TSH Performed By: #### L 500.3400, L500.4100 #### [facility] [address] [place], [address] CO2 [Moles/Vol] 28.0 mmol/L Normal 21.0-32.0 [facility] Comment on above: Order Comment: Order Date: 04/05/24Order Info: 07 - CMPOrder Info: 6-3 - TSH Performed By: #### L 500.3400, L500.4100 #### [facility] [address] [place], [address] Creatinine [Mass/Vol] 0.90 mg/dL Normal 0.70-1.30 [facility] Comment on above: Order Comment: Order Date: 04/05/24Order Info: [id number] - CMPOrder Info: [id number] - TSH Result Comment: The validity of the calculated GFR GFRAA in patients over 70 years has not been determined. Clinical correlation is essential. Performed By: #### L 500.3400, L500.4100 #### [facility] [address] [place], [address] EST GFR - AA 103 mL/min Normal >60 [facility] Comment on above: Order Comment: Order Date: 04/05/24Order Info: [id number] - CMPOrder Info: [id number] - TSH Result Comment: Afri can [place] GFR Calc Performed By: #### L 500.3400, L500.4100 #### [facility] [address] [place], [address] GAP 6 Normal 5-15 [facility] Comment on above: Order Comment: Order Date: 04/05/24Order Info: [id number] - CMPOrder Info: [id number] - TSH Performed By: #### L 500.3400, L500.4100 #### [facility] [address] [place], [address] GFR/1.73 sq M.predicted among non-blacks MDRD (S/P/Bld) [Vol rate/Area] 85 mL/min/{1.73_m2} Normal >60 [facility] Comment on above: Order Comment: Order Date: 04/05/24Order Info: [id number] - CMPOrder Info: [id number] - TSH Result Comment: Non- GFR Calc Performed By: #### L 500.3400, L500.4100 #### [facility] [address] [place], [address] Globulin (S) [Mass/Vol] 3.1 g/dL Normal 2.2-4.2 [facility] Comment on above: Order Comment: Order Date: 04/05/24Order Info: [id number]- - CMPOrder Info: 3 - TSH Performed By: #### L 500.3400, L500.4100 #### [facility] [address] [place], [address] Glucose [Mass/Vol] 134 mg/dL High 74-106 [facility] Comment on above: Order Comment: Order Date: 04/05/24Order Info: [id number]- - CMPOrder Info: 3 - TSH Result Comment: Fast ing Glucose result greater than or equal to 126 mg/dL suggests DIABETES MELLITUS per A.D.A. criteria. Performed By: #### L 500.3400, L500.4100 #### [facility] [address] [place], [address] Potassium [Moles/Vol] 4.5 mmol/L Normal 3.5-5.1 [facility] Comment on above: Order Comment: Order Date: 04/05/24Order Info: [id number] - CMPOrder Info: [id number] - TSH Performed By: #### L 500.3400, L500.4100 #### [facility] [address] [place], [address] Sodium [Moles/Vol] 139 mmol/L Normal 136-145 [facility] Comment on above: Order Comment: Order Date: 04/05/24Order Info: [id number] - CMPOrder Info: [id number] - TSH Performed By: #### L 500.3400, L500.4100 #### [facility] [address] [place], [address] T PROT 6.8 g/dL Normal 6.4-8.2 [facility] Comment on above: Order Comment: Order Date: 04/05/24Order Info: [id number] - CMPOrder Info: 3 - TSH Performed By: #### L 500.3400, L500.4100 #### [facility] [address] [place], [address] Urea nitrogen [Mass/Vol] 17 mg/dL Normal 7-18 [facility] Comment on above: Order Comment: Order Date: 04/05/24Order Info: [id number] - CMPOrder Info: [id number] - TSH Performed By: #### L 500.3400, L500.4100 #### [facility] [address] [place], [address] Lipid Profileon 04-05-2024 Cholesterol [Mass/Vol] 145 mg/dL Normal 200 [facility] Comment on above: Result Comment: <200 mg/dL Desirable 200-240 mg/dL Borderline >240 mg/dL High Risk Performed By: #### L 500.3400, L500.4100 #### [facility] [address] [place], [address] Cholesterol in HDL [Mass/Vol] 51 mg/dL Normal [facility] Comment on above: Result Comment: The drugs N-Acetylcysteine and Metamizole may falsely depress this assay. Reference Range HDL <40 mg/dL Low HDL Cholesterol HDL >or= 60 mg/dL High HDL Cholesterol Performed By: #### L 500.3400, L500.4100 #### [facility] [address] [place], [address] Cholesterol in LDL [Mass/Vol] 68 mg/dL Normal 0-130 [facility] Comment on above: Performed By: #### L 500.3400, L500.4100 #### [facility] [address] [place], [address] Cholesterol in VLDL [Mass/Vol] 26 mg/dL Normal 5-40 [facility] Comment on above: Performed By: #### L 500.3400, L500.4100 #### [facility] [address] [place], [address] Triglyceride [Mass/Vol] 129 mg/dL Normal [facility] Comment on above: Result Comment: The drugs N-Acetylcysteine and Metamizole may falsely depress this assay. Serum Triglycerides Reference Interval Normal <150 mg/dL Borderline high 150 - 199 mg/dL High 200 - 499 mg/dL Very High > or = 500 mg/dL Performed By: #### L 500.3400, L500.4100 #### [facility] [address] [place], [address] Liver Profileon 04-05-2024 Albumin [Mass/Vol] 3.7 g/dL Normal 3.2-5.0 [facility] Comment on above: Performed By: #### L 500.3400, L500.4100 #### [facility] [address] [place], [address] ALK P 100 U/L Normal 45-117 [facility] Comment on above: Performed By: #### L 500.3400, L500.4100 #### [facility] [address] [place], [address] ALT [Catalytic activity/Vol] 29 U/L Normal 16-61 [facility] Comment on above: Performed By: #### L 500.3400, L500.4100 #### [facility] [address] [place], [address] AST [Catalytic activity/Vol] 24 U/L Normal 15-37 [facility] Comment on above: Performed By: #### L 500.3400, L500.4100 #### [facility] [address] [place], [address] Bilirubin [Mass/Vol] 1.00 mg/dL Normal 0.20-1.00 [facility] Comment on above: Result Comment: For patients on eltrombopag therapy, use of Dimension [place] TBIL is not recommended. Performed By: #### L 500.3400, L500.4100 #### [facility] [address] [place], [address] Bilirubin.direct [Mass/Vol] 0.27 mg/dL Normal 0.00-0.30 [facility] Comment on above: Performed By: #### L 500.3400, L500.4100 #### [facility] [address] [place], [address] Globulin (S) [Mass/Vol] 3.2 g/dL Normal 2.2-4.2 [facility] Comment on above: Performed By: #### L 500.3400, L500.4100 #### [facility] [address] [place], [address] T PROT 6.9 g/dL Normal 6.4-8.2 [facility] Comment on above: Performed By: #### L 500.3400, L500.4100 #### [facility] [address] [place], [address] Thyroid Stim Hormone (TSH)on 04-05-2024 TSH 1.570 uIU/mL Normal 0.358-3.740 [facility] Comment on above: Order Comment: Order Date: 04/05/24Order Info: [id number] - CMPOrder Info: [id number] - TSH Performed By: #### L 500.3400, L500.4100 #### [facility] [address] [place], [address] Basophil percentageOrdered B y: Roshni Vasques on 09-16-2023 Bilirubin [Mass/Vol] 0.60 mg/dL 0.20-1.00 [facility] Comment on above: For patients on eltr ombopag therapy, use of Dimension [place] TBIL is not recommended. Cholesterol [Mass/Vol] 125 mg/dL <200 [facility] Comment on above: <200 mg/dL Desirable 200-240 mg/dL Borderline >240 mg/dL High Risk Protein [Mass/Vol] 6.8 g/dL 6.4-8.2 [facility] Triglyceride [Mass/Vol] 166 mg/dL <199 [facility] Comment on above: The drugs N-Acetylcy steine and Metamizole may falsely depress this assay.Serum Triglycerides Reference Interval Normal <150 mg/dL Borderline high 150 - 199 mg/dL High 200 - 499 mg/dL Very High > or = 500 mg/dL Direct bilirubinOrdered By: Roshni Vasques on 09-16-2023 Bilirubin.direct [Mass/Vol] 0.18 mg/dL 0.00-0.30 [facility] - Chemistry and C hemistry - challengeOrdered By: Roshni Vasques on 09-16-2023 ALP [Catalytic activity/Vol] 91 U/L 45-117 [facility] ALT [Catalytic activity/Vol] 39 U/L 16-61 [facility] Cholesterol in HDL [Mass/Vol] 43 mg/dL >40 [facility] Comment on above: The drugs N-Acetylcy steine and Metamizole may falsely depress this assay. Reference Range HDL <40 mg/dL Low HDL Cholesterol HDL >or= 60 mg/dL High HDL Cholesterol Cholesterol in LDL [Mass/Vol] 49 mg/dL 0-130 [facility] Globulin (S) [Mass/Vol] 3.3 g/dL 2.2-4.2 [facility] No Panel InformationOrdered By: Roshni Vasques on 09-16-2023 VLDL Cholesterol 33 mg/dL 5-40 [facility] Thin prep Papanicolaou smear with manual screeningOrdered By: Roshni Vasques on 09-16-2023 Thin prep Papanicolaou smear with manual screening 3.5 g/dL 3.2-5.0 [facility] Thin prep Papanicolaou smear with manual screening 26 U/L 15-37 [facility] Basophil percentageOrdered B y: Ramon Alexy on 03-19-2023 Basophil percentage 0 SEEN /hpf 0-5 [facility] Chloride [Moles/Vol] 107 mmol/L 98-107 [facility] Glucose [Mass/Vol] 149 mg/dL 74-106 [facility] Comment on above: Fasting Glucose resu lt greater than or equal to 126 mg/dL suggests DIABETES MELLITUS per A.D.A. criteria. Potassium [Moles/Vol] 4.0 mmol/L 3.5-5.1 [facility] Sodium [Moles/Vol] 139 mmol/L 136-145 [facility] WBC (Bld) [#/Vol] 7.6 10*3/uL 4.4-11.0 [facility] Basophil percentageOrdered B y: Roshni Vasques on 03-19-2023 Bilirubin [Mass/Vol] 0.30 mg/dL 0.20-1.00 [facility] Comment on above: For patients on eltr ombopag therapy, use of Dimension [place] TBIL is not recommended. Cholesterol [Mass/Vol] 146 mg/dL <200 [facility] Comment on above: <200 mg/dL Desirable 200-240 mg/dL Borderline >240 mg/dL High Risk Protein [Mass/Vol] 6.7 g/dL 6.4-8.2 [facility] Triglyceride [Mass/Vol] 133 mg/dL <199 [facility] Comment on above: The drugs N-Acetylcy steine and Metamizole may falsely depress this assay.Serum Triglycerides Reference Interval Normal <150 mg/dL Borderline high 150 - 199 mg/dL High 200 - 499 mg/dL Very High > or = 500 mg/dL Bilirubin Test strip Ql (U)O rdered By: Ramon Tracey on 03-19-2023 Bilirubin Ql (U) Negative Negative [facility] Blood erythrocytes count (nu mber/volume)Ordered By: Ramon Tracey on 03-19-2023 RBC (Bld) [#/Vol] 4.26 10*6/uL 4.6-6.2 [facility] Blood hemoglobin measurement (mass/volume)Ordered By: Ramon Tracey on 03-19-2023 Hemoglobin (Bld) [Mass/Vol] 13.3 g/dL 13.0-16.5 [facility] Blood platelet mean volumeOr dered By: Ramon Tracey on 03-19-2023 Platelet mean volume (Bld) [Entitic vol] 10.5 fL 6.2-12.0 [facility] Determination of erythrocyte mean corpuscular volume (MCV)Ordered By: Ramon Tracey on 03-19-2023 MCV (RBC) [Entitic vol] 95.3 fL 80-94 [facility] Direct bilirubinOrdered By: Roshni Vasques on 03-19-2023 Bilirubin.direct [Mass/Vol] 0.10 mg/dL 0.00-0.30 [facility] Hematocrit Auto (Bld) [Volum e fraction]Ordered By: Ramon Tracey on 03-19-2023 Hematocrit (Bld) [Volume fraction] 40.6 % 40-54 [facility] INR in Blood by Coagulation assayOrdered By: Ramon Tracey on 03-19-2023 INR Coag (Bld) [Relative time] 1.0 {INR} [facility] Ketones Test strip Ql (U)Ord ered By: Ramon Tracey on 03-19-2023 Ketones Ql (U) Negative Negative [facility] Laboratory - Chemistry and C hemistry - challengeOrdered By: Roshni Vasques on 03-19-2023 ALP [Catalytic activity/Vol] 100 U/L 45-117 [facility] ALT [Catalytic activity/Vol] 36 U/L 16-61 [facility] Globulin (S) [Mass/Vol] 3.3 g/dL 2.2-4.2 [facility] Laboratory - Chemistry and C hemistry - challengeOrdered By: Ramon Tracey on 03-19-2023 CO2 [Moles/Vol] 26.0 mmol/L 21.0-32.0 [facility] Urea nitrogen/Creatinine [Mass ratio] 21.6 mg/mg 10-20 [facility] Laboratory - CoagulationOrde red By: Ramon Tracey on 03-19-2023 PT Coag (PPP) [Time] 13.4 s 11.7-14.9 [facility] Laboratory - Hematology and Cell countsOrdered By: Ramon Tracey on 03-19-2023 Erythrocyte distribution width (RBC) [Entitic vol] 43.4 fL 35.1-43.9 [facility] Erythrocyte distribution width (RBC) [Ratio] 12.3 % 11.6-14.6 [facility] MCH (RBC) [Entitic mass] 31.2 pg 27.0-32.0 [facility] MCHC Auto (RBC) [Mass/Vol]Or dered By: Ramon Tracey on 03-19-2023 MCHC (RBC) [Mass/Vol] 32.8 g/dL 32-36 [facility] Mucus LM Ql (Urine sed)Order ed By: Ramon Tracey on 03-19-2023 Mucus Ql (Urine sed) 0 SEEN /hpf [facility] Nitrite Test strip Ql (U)Ord ered By: Ramon Tracey on 03-19-2023 Nitrite Ql (U) Negative Negative [facility] No Panel InformationOrdered By: Ramon Tracey on 03-19-2023 Estimated GFR (MDRD) Amer 107 mL/min >60 [facility] Comment on above: GFR Calc Estimated GFR (MDRD) Non-Af Amer 88 mL/min >60 [facility] Comment on above: Non- GFR Calc Platelets bldOrdered By: Ramez Tracey on 03-19-2023 Platelets (Bld) [#/Vol] 184 10*3/uL 150-450 [facility] Protein Test strip Ql (U)Ord ered By: Ramon Tracey on 03-19-2023 Protein Ql (U) Negative Negative [facility] Serum or plasma albumin ray urement (mass/volume)Ordered By: Roshni Vasques on 03-19-2023 Albumin [Mass/Vol] 3.4 g/dL 3.2-5.0 [facility] Serum or plasma calcium ray urement (mass/volume)Ordered By: Ramon Tracey on 03-19-2023 Calcium [Mass/Vol] 8.6 mg/dL 8.5-10.1 [facility] Serum or plasma cholesterol in HDL measurement (mass/volume)Ordered By: Roshni Vasques on 03-19-2023 Cholesterol in HDL [Mass/Vol] 47 mg/dL >40 [facility] Comment on above: The drugs N-Acetylcy steine and Metamizole may falsely depress this assay. Reference Range HDL <40 mg/dL Low HDL Cholesterol HDL >or= 60 mg/dL High HDL Cholesterol Serum or plasma cholesterol in VLDL measurement (mass/volume)Ordered By: Roshni Vasques on 03-19-2023 Cholesterol in VLDL [Mass/Vol] 27 mg/dL 5-40 [facility] Serum or plasma creatinine m easurement (mass/volume)Ordered By: Ramon Tracey on 03-19-2023 Creatinine [Mass/Vol] 0.88 mg/dL 0.70-1.30 [facility] Comment on above: The validity of the calculated GFR & GFRAA in patients over 70 years has not been determined. Clinical correlation is essential. Serum or plasma low density lipoprotein (LDL) cholesterol measurement (mass/volume)Ordered By: Roshni Vasques on 03-19-2023 Cholesterol in LDL [Mass/Vol] 72 mg/dL 0-130 [facility] Serum or plasma urea nitroge n measurement (mass/volume)Ordered By: Ramon Tracey on 03-19-2023 Urea nitrogen [Mass/Vol] 19 mg/dL 7-18 [facility] Squamous epithelial cells de tection in urine sediment by light microscopyOrdered By: Ramon Tracey on 03-19-2023 Epithelial cells.squamous LM Ql (Urine sed) 0 SEEN /hpf 0-5 [facility] Thin prep Papanicolaou smear with manual screeningOrdered By: Roshni Vasques on 03-19-2023 Thin prep Papanicolaou smear with manual screening 24 U/L 15-37 [facility] Thin prep Papanicolaou smear with manual screeningOrdered By: Ramon Tracey on 03-19-2023 Thin prep Papanicolaou smear with manual screening 6 5-15 [facility] Urine blood detectionOrdered By: Ramon Tracey on 03-19-2023 RBC Ql (U) 50 /ul Negative [facility] RBC Ql (U) 0-5 SEEN /hpf 0-5 [facility] Urine clarityOrdered By: Ramez Tracey on 03-19-2023 Clarity (U) Clear Clear [facility] Urine color determinationOrd ered By: Ramon Tracey on 03-19-2023 Color (U) Yellow Yellow [facility] Urine glucose detectionOrder ed By: Ramon Tracey on 03-19-2023 Glucose Ql (U) Normal mg/dl Normal [facility] Urine leukocyte esterase det ection by dipstickOrdered By: Ramon Tracey on 03-19-2023 Leukocyte esterase Test strip Ql (U) Negative Negative [facility] Urine pHOrdered By: Ramon gavin on 03-19-2023 pH (U) 6.0 [pH] 5.0 - 8.0 [facility] Urine sediment bacteria coun t by microscopy (number/high power field)Ordered By: Ramon Tracey on 03-19-2023 Bacteria LM.HPF (Urine sed) [#/Area] 0 /[HPF] None Seen [facility] Urine specific gravity measu rementOrdered By: Ramon Tracey on 03-19-2023 Specific gravity (U) [Rel density] 1.020 1.002-1.030 [facility] Urobilinogen Auto test strip Ql (U)Ordered By: Ramon Tracey on 03-19-2023 Urobilinogen Ql (U) Normal mg/dl Normal [facility] Basophil percentageOrdered B y: Ramon Tracey on 02-11-2023 Basophil percentage 0-5 SEEN /hpf 0-5 [facility] Chloride [Moles/Vol] 111 mmol/L 98-107 [facility] Glucose [Mass/Vol] 101 mg/dL 74-106 [facility] Comment on above: Fasting Glucose resu lt from 100 to 125 mg/dL suggests IMPAIRED HOMEOSTASIS per A.D.A. criteria. Potassium [Moles/Vol] 4.5 mmol/L 3.5-5.1 [facility] Sodium [Moles/Vol] 143 mmol/L 136-145 [facility] WBC (Bld) [#/Vol] 8.1 10*3/uL 4.4-11.0 [facility] Bilirubin Test strip Ql (U)O rdered By: Ramon Tracey on 02-11-2023 Bilirubin Ql (U) Negative Negative [facility] Blood erythrocytes count (nu mber/volume)Ordered By: Ramon Tracey on 02-11-2023 RBC (Bld) [#/Vol] 4.22 10*6/uL 4.6-6.2 [facility] Blood hemoglobin measurement (mass/volume)Ordered By: Ramon Tracey on 02-11-2023 Hemoglobin (Bld) [Mass/Vol] 13.2 g/dL 13.0-16.5 [facility] Blood platelet mean volumeOr dered By: Ramon Tracey on 02-11-2023 Platelet mean volume (Bld) [Entitic vol] 10.3 fL 6.2-12.0 [facility] Determination of erythrocyte mean corpuscular volume (MCV)Ordered By: Ramon Tracey on 02-11-2023 MCV (RBC) [Entitic vol] 97.4 fL 80-94 [facility] Hematocrit Auto (Bld) [Volum e fraction]Ordered By: Ramon Tracey on 02-11-2023 Hematocrit (Bld) [Volume fraction] 41.1 % 40-54 [facility] INR in Blood by Coagulation assayOrdered By: Ramon Tracey on 02-11-2023 INR Coag (Bld) [Relative time] 1.0 {INR} [facility] Ketones Test strip Ql (U)Ord ered By: Ramon Tracey on 02-11-2023 Ketones Ql (U) Negative Negative [facility] Laboratory - Chemistry and C hemistry - challengeOrdered By: Ramon Tracey on 02-11-2023 CO2 [Moles/Vol] 28.0 mmol/L 21.0-32.0 [facility] Urea nitrogen/Creatinine [Mass ratio] 21.2 mg/mg 10-20 [facility] Laboratory - CoagulationOrde red By: Ramon Tracey on 02-11-2023 PT Coag (PPP) [Time] 13.6 s 11.7-14.9 [facility] Laboratory - Hematology and Cell countsOrdered By: Ramon Tracey on 02-11-2023 Erythrocyte distribution width (RBC) [Entitic vol] 44.4 fL 35.1-43.9 [facility] Erythrocyte distribution width (RBC) [Ratio] 12.5 % 11.6-14.6 [facility] MCH (RBC) [Entitic mass] 31.3 pg 27.0-32.0 [facility] MCHC Auto (RBC) [Mass/Vol]Or dered By: Ramon Tracey on 02-11-2023 MCHC (RBC) [Mass/Vol] 32.1 g/dL 32-36 [facility] Mucus LM Ql (Urine sed)Order ed By: Ramon Tracey on 02-11-2023 Mucus Ql (Urine sed) 0 SEEN /hpf [facility] Nitrite Test strip Ql (U)Ord ered By: Ramon Tracey on 02-11-2023 Nitrite Ql (U) Negative Negative [facility] No Panel InformationOrdered By: Ramon Tracey on 02-11-2023 Estimated GFR (MDRD) Amer 98 mL/min >60 [facility] Comment on above: GFR Calc Estimated GFR (MDRD) Non-Af Amer 81 mL/min >60 [facility] Comment on above: Non- GFR Calc Platelets bldOrdered By: Ramez Tracey on 02-11-2023 Platelets (Bld) [#/Vol] 184 10*3/uL 150-450 [facility] Protein Test strip Ql (U)Ord ered By: Ramon Tracey on 02-11-2023 Protein Ql (U) Negative Negative [facility] Serum or plasma calcium ray urement (mass/volume)Ordered By: Ramon Tracey on 02-11-2023 Calcium [Mass/Vol] 9.0 mg/dL 8.5-10.1 [facility] Serum or plasma creatinine m easurement (mass/volume)Ordered By: Ramon Tracey on 02-11-2023 Creatinine [Mass/Vol] 0.94 mg/dL 0.70-1.30 [facility] Comment on above: The validity of the calculated GFR & GFRAA in patients over 70 years has not been determined. Clinical correlation is essential. Serum or plasma urea nitroge n measurement (mass/volume)Ordered By: Ramon Tracey on 02-11-2023 Urea nitrogen [Mass/Vol] 20 mg/dL 7-18 [facility] Squamous epithelial cells de tection in urine sediment by light microscopyOrdered By: Ramon Tracey on 02-11-2023 Epithelial cells.squamous LM Ql (Urine sed) 0 SEEN /hpf 0-5 [facility] Thin prep Papanicolaou smear with manual screeningOrdered By: Ramon Tracey on 02-11-2023 Thin prep Papanicolaou smear with manual screening 4 5-15 [facility] Urine blood detectionOrdered By: Ramon Tracey on 02-11-2023 RBC Ql (U) 25 /ul Negative [facility] RBC Ql (U) 0-5 SEEN /hpf 0-5 [facility] Urine clarityOrdered By: Ramez Tracey on 02-11-2023 Clarity (U) Clear Clear [facility] Urine color determinationOrd ered By: Ramon Tracey on 02-11-2023 Color (U) Yellow Yellow [facility] Urine glucose detectionOrder ed By: Ramon Tracey on 02-11-2023 Glucose Ql (U) Normal mg/dl Normal [facility] Urine leukocyte esterase det ection by dipstickOrdered By: Ramon Tracey on 02-11-2023 Leukocyte esterase Test strip Ql (U) Negative Negative [facility] Urine pHOrdered By: Ramon gavin on 02-11-2023 pH (U) 5.0 [pH] 5.0 - 8.0 [facility] Urine sediment bacteria coun t by microscopy (number/high power field)Ordered By: Ramon Tracey on 02-11-2023 Bacteria LM.HPF (Urine sed) [#/Area] 0 /[HPF] None Seen [facility] Urine specific gravity measu rementOrdered By: Ramon Alexy on 02-11-2023 Specific gravity (U) [Rel density] 1.025 1.002-1.030 [facility] Urobilinogen Auto test strip Ql (U)Ordered By: Ramon Tracey on 02-11-2023 Urobilinogen Ql (U) 1 mg/dl Normal [facility] Basophil percentageOrdered B y: Dr. Loza on 09-25-2022 Bilirubin [Mass/Vol] 0.80 mg/dL 0.20-1.00 [facility] Comment on above: For patients on eltr ombopag therapy, use of Dimension [place] TBIL is not recommended. Cholesterol [Mass/Vol] 150 mg/dL <200 [facility] Comment on above: <200 mg/dL Desirable 200-240 mg/dL Borderline >240 mg/dL High Risk Protein [Mass/Vol] 7.0 g/dL 6.4-8.2 [facility] Triglyceride [Mass/Vol] 97 mg/dL <199 [facility] Comment on above: The drugs N-Acetylcy steine and Metamizole may falsely depress this assay.Serum Triglycerides Reference Interval Normal <150 mg/dL Borderline high 150 - 199 mg/dL High 200 - 499 mg/dL Very High > or = 500 mg/dL Basophil percentageOrdered B y: Dr. Hill on 09-25-2022 Chloride [Moles/Vol] 107 mmol/L 98-107 [facility] Glucose [Mass/Vol] 128 mg/dL 74-106 [facility] Comment on above: Fasting Glucose resu lt greater than or equal to 126 mg/dL suggests DIABETES MELLITUS per A.D.A. criteria. Potassium [Moles/Vol] 4.3 mmol/L 3.5-5.1 [facility] Sodium [Moles/Vol] 140 mmol/L 136-145 [facility] Direct bilirubinOrdered By: Dr. Loza on 09-25-2022 Bilirubin.direct [Mass/Vol] 0.17 mg/dL 0.00-0.30 [facility] Laboratory - Chemistry and C hemistry - challengeOrdered By: Dr. Loza on 09-25-2022 ALP [Catalytic activity/Vol] 113 U/L 45-117 [facility] ALT [Catalytic activity/Vol] 38 U/L 16-61 [facility] Globulin (S) [Mass/Vol] 3.3 g/dL 2.2-4.2 [facility] Laboratory - Chemistry and C hemistry - challengeOrdered By: Dr. Hill on 09-25-2022 CO2 [Moles/Vol] 26.0 mmol/L 21.0-32.0 [facility] Urea nitrogen/Creatinine [Mass ratio] 23.4 mg/mg 10-20 [facility] No Panel InformationOrdered By: Dr. Hill on 09-25-2022 Estimated GFR (MDRD) Amer 94 mL/min >60 [facility] Comment on above: GFR Calc Estimated GFR (MDRD) Non-Af Amer 78 mL/min >60 [facility] Comment on above: Non- GFR Calc Thyroid Stimulating Hormone (TSH) 2.74 uIU/mL 0.358-3.74 [facility] Vitamin D 25-Hydroxy 77.7 ng/mL [facility] Comment on above: Vitamin D 25(OH) Sta tus Range Deficiency <20 ng/mL (50nmol/L) Insufficiency 20 - 30 ng/mL (50 - 75 nmol/L) Sufficiency 30 - 100 ng/mL (75 - 250 nmol/L) Toxicity >100 ng/mL (>250 nmol/L) Serum or plasma albumin ray urement (mass/volume)Ordered By: Dr. Loza on 09-25-2022 Albumin [Mass/Vol] 3.7 g/dL 3.2-5.0 [facility] Serum or plasma albumin/glob ulin mass ratioOrdered By: Dr. Hill on 09-25-2022 Albumin/Globulin [Mass ratio] 1.1 {ratio} 0.9-2.4 [facility] Serum or plasma calcium ray urement (mass/volume)Ordered By: Dr. Hill on 09-25-2022 Calcium [Mass/Vol] 9.2 mg/dL 8.5-10.1 [facility] Serum or plasma cholesterol in HDL measurement (mass/volume)Ordered By: Dr. Loza on 09-25-2022 Cholesterol in HDL [Mass/Vol] 49 mg/dL >40 [facility] Comment on above: The drugs N-Acetylcy steine and Metamizole may falsely depress this assay. Reference Range HDL <40 mg/dL Low HDL Cholesterol HDL >or= 60 mg/dL High HDL Cholesterol Serum or plasma cholesterol in VLDL measurement (mass/volume)Ordered By: Dr. Loza on 09-25-2022 Cholesterol in VLDL [Mass/Vol] 19 mg/dL 5-40 [facility] Serum or plasma creatinine m easurement (mass/volume)Ordered By: Dr. Hill on 09-25-2022 Creatinine [Mass/Vol] 0.98 mg/dL 0.70-1.30 [facility] Comment on above: The validity of the calculated GFR & GFRAA in patients over 70 years has not been determined. Clinical correlation is essential. Serum or plasma low density lipoprotein (LDL) cholesterol measurement (mass/volume)Ordered By: Dr. Loza on 09-25-2022 Cholesterol in LDL [Mass/Vol] 82 mg/dL 0-130 [facility] Serum or plasma urea nitroge n measurement (mass/volume)Ordered By: Dr. Hill on 09-25-2022 Urea nitrogen [Mass/Vol] 23 mg/dL 7-18 [facility] Thin prep Papanicolaou smear with manual screeningOrdered By: Dr. Loza on 09-25-2022 Thin prep Papanicolaou smear with manual screening 31 U/L 15-37 [facility] Thin prep Papanicolaou smear with manual screeningOrdered By: Dr. Hill on 09-25-2022 Thin prep Papanicolaou smear with manual screening 7 5-15 [facility] Basophil percentageOrdered B y: Dr. Hill on 06-04-2022 Chloride [Moles/Vol] 107 mmol/L 98-107 [facility] Glucose [Mass/Vol] 121 mg/dL 74-106 [facility] Comment on above: Fasting Glucose resu lt from 100 to 125 mg/dL suggests IMPAIRED HOMEOSTASIS per A.D.A. criteria. Potassium [Moles/Vol] 4.1 mmol/L 3.5-5.1 [facility] Sodium [Moles/Vol] 143 mmol/L 136-145 [facility] WBC (Bld) [#/Vol] 7.6 10*3/uL 4.4-11.0 [facility] Blood erythrocytes count (nu mber/volume)Ordered By: Dr. Hill on 06-04-2022 RBC (Bld) [#/Vol] 4.31 10*6/uL 4.6-6.2 [facility] Blood hemoglobin measurement (mass/volume)Ordered By: Dr. Hill on 06-04-2022 Hemoglobin (Bld) [Mass/Vol] 13.6 g/dL 13.0-16.5 [facility] Blood platelet mean volumeOr dered By: Dr. Hill on 06-04-2022 Platelet mean volume (Bld) [Entitic vol] 10.8 fL 6.2-12.0 [facility] Determination of erythrocyte mean corpuscular volume (MCV)Ordered By: Dr. Hill on 06-04-2022 MCV (RBC) [Entitic vol] 96.3 fL 80-94 [facility] Hematocrit Auto (Bld) [Volum e fraction]Ordered By: Dr. Hill on 06-04-2022 Hematocrit (Bld) [Volume fraction] 41.5 % 40-54 [facility] Laboratory - Chemistry and C hemistry - challengeOrdered By: Dr. Hill on 06-04-2022 CO2 [Moles/Vol] 29.0 mmol/L 21.0-32.0 [facility] Urea nitrogen/Creatinine [Mass ratio] 19.4 mg/mg 10-20 [facility] Laboratory - Hematology and Cell countsOrdered By: Dr. Hill on 06-04-2022 Erythrocyte distribution width (RBC) [Entitic vol] 43.3 fL 35.1-43.9 [facility] Erythrocyte distribution width (RBC) [Ratio] 12.1 % 11.6-14.6 [facility] MCH (RBC) [Entitic mass] 31.6 pg 27.0-32.0 [facility] MCHC Auto (RBC) [Mass/Vol]Or dered By: Dr. Hill on 06-04-2022 MCHC (RBC) [Mass/Vol] 32.8 g/dL 32-36 [facility] No Panel InformationOrdered By: Dr. Hill on 06-04-2022 Estimated GFR (MDRD) Amer 95 mL/min >60 [facility] Comment on above: GFR Calc Estimated GFR (MDRD) Non-Af Amer 78 mL/min >60 [facility] Comment on above: Non- GFR Calc Thyroid Stimulating Hormone (TSH) 1.07 uIU/mL 0.358-3.74 [facility] Platelets bldOrdered By: Dr. Hill on 06-04-2022 Platelets (Bld) [#/Vol] 197 10*3/uL 150-450 [facility] Serum or plasma calcium ray urement (mass/volume)Ordered By: Dr. Hill on 06-04-2022 Calcium [Mass/Vol] 9.0 mg/dL 8.5-10.1 [facility] Serum or plasma creatinine m easurement (mass/volume)Ordered By: Dr. Hill on 06-04-2022 Creatinine [Mass/Vol] 0.98 mg/dL 0.70-1.30 [facility] Comment on above: The validity of the calculated GFR & GFRAA in patients over 70 years has not been determined. Clinical correlation is essential. Serum or plasma urea nitroge n measurement (mass/volume)Ordered By: Dr. Hill on 06-04-2022 Urea nitrogen [Mass/Vol] 19 mg/dL 7-18 [facility] Thin prep Papanicolaou smear with manual screeningOrdered By: Dr. Hill on 06-04-2022 Thin prep Papanicolaou smear with manual screening 7 5-15 [facility] Basophil percentageon 2021 Bilirubin [Mass/Vol] 0.50 mg/dL 0.20-1.00 [facility] Work Phone: Comment on above: For patients on eltr ombopag therapy, use of Dimension [place] TBIL is not recommended. Cholesterol [Mass/Vol] 149 mg/dL <200 [facility] Work Phone: Comment on above: <200 mg/dL Desirable 200-240 mg/dL Borderline >240 mg/dL High Risk Protein [Mass/Vol] 7.0 g/dL 6.4-8.2 [facility] Work Phone: [phone] Triglyceride [Mass/Vol] 87 mg/dL [facility] Work Phone: [phone] Comment on above: The drugs N-Acetylcy steine and Metamizole may falsely depress this assay.Serum Triglycerides Reference Interval Normal <150 mg/dL Borderline high 150 - 199 mg/dL High 200 - 499 mg/dL Very High > or = 500 mg/dL Direct bilirubinon Bilirubin.direct [Mass/Vol] 0.15 mg/dL 0.00-0.30 [facility] Work Phone: [phone] Laboratory - Chemistry and C hemistry - challengeon 09-20-2021 ALP [Catalytic activity/Vol] 107 U/L 45-117 [facility] Work Phone: [phone] ALT [Catalytic activity/Vol] 31 U/L 16-61 [facility] Work Phone: [phone] Globulin (S) [Mass/Vol] 3.3 g/dL 2.2-4.2 [facility] Work Phone: [phone] Serum or plasma albumin ray urement (mass/volume)on 09-20-2021 Albumin [Mass/Vol] 3.7 g/dL 3.2-5.0 [facility] Work Phone: [phone] Serum or plasma cholesterol in HDL measurement (mass/volume)on 09-20-2021 Cholesterol in HDL [Mass/Vol] 47 mg/dL [facility] Work Phone: Comment on above: The drugs N-Acetylcy steine and Metamizole may falsely depress this assay. Reference Range HDL <40 mg/dL Low HDL Cholesterol HDL >or= 60 mg/dL High HDL Cholesterol Serum or plasma cholesterol in VLDL measurement (mass/volume)on 09-20-2021 Cholesterol in VLDL [Mass/Vol] 17 mg/dL 5-40 [facility] Work Phone: [phone] Serum or plasma low density lipoprotein (LDL) cholesterol measurement (mass/volume)on 09-20-2021 Cholesterol in LDL [Mass/Vol] 85 mg/dL 0-130 [facility] Work Phone: Thin prep Papanicolaou smear with manual screeningon 09-20-2021 Thin prep Papanicolaou smear with manual screening 24 U/L 15-37 [facility] Work Phone: Basophil percentageon 2021 Chloride [Moles/Vol] 108 mmol/L 98-107 [facility] Work Phone: Glucose [Mass/Vol] 107 mg/dL 74-106 [facility] Work Phone: Comment on above: Fasting Glucose resu lt from 100 to 125 mg/dL suggests IMPAIRED HOMEOSTASIS per A.D.A. criteria. Potassium [Moles/Vol] 4.9 mmol/L 3.5-5.1 [facility] Work Phone: Sodium [Moles/Vol] 139 mmol/L 136-145 [facility] Work Phone: Laboratory - Chemistry and C hemistry - challengeon 08-30-2021 CO2 [Moles/Vol] 28.0 mmol/L 21.0-32.0 [facility] Work Phone: Urea nitrogen/Creatinine [Mass ratio] 26.6 mg/mg 10-20 [facility] Work Phone: No Panel Informationon 08-30 Estimated GFR (MDRD) Amer 95 mL/min >60 [facility] Work Phone: Comment on above: GFR Calc Estimated GFR (MDRD) Non-Af Amer 78 mL/min >60 [facility] Work Phone: Comment on above: Non- GFR Calc Thyroid Stimulating Hormone (TSH) 1.00 uIU/mL 0.358-3.74 [facility] Work Phone: Serum or plasma calcium ray urement (mass/volume)on 08-30-2021 Calcium [Mass/Vol] 9.3 mg/dL 8.5-10.1 [facility] Work Phone: Serum or plasma creatinine m easurement (mass/volume)on 08-30-2021 Creatinine [Mass/Vol] 0.98 mg/dL 0.70-1.30 [facility] Work Phone: Comment on above: The validity of the calculated GFR & GFRAA in patients over 70 years has not been determined. Clinical correlation is essential. Serum or plasma urea nitroge n measurement (mass/volume)on 08-30-2021 Urea nitrogen [Mass/Vol] 26 mg/dL 7-18 [facility] Work Phone: Thin prep Papanicolaou smear with manual screeningon 08-30-2021 Thin prep Papanicolaou smear with manual screening 3 5-15 [facility] Work Phone: Lab Report: Lipid Profileon 02-11-2017 Cholesterol 129 mg/dL Invalid Interpretation Code 200 [facility] Work Phone: [phone] HDL Cholesterol 54 mg/dL Invalid Interpretation Code [facility] Work Phone: [phone] LDL Cholesterol 54 mg/dL Invalid Interpretation Code 0-130 [facility] Work Phone: [phone] Triglyceride 106 mg/dL Invalid Interpretation Code [facility] Work Phone: [phone] very low density lipoproteins 21 mg/dL Invalid Interpretation Code 5-40 [facility] Work Phone: [phone] Lab Report: Liver Profileon 02-11-2017 Alanine aminotransferase (ALT) 28 U/L Invalid Interpretation Code 12-78 [facility] Work Phone: [phone] Albumin 3.5 g/dL Invalid Interpretation Code 3.4-5.0 [facility] Work Phone: [phone] Alkaline phosphatase (ALP) 75 U/L Invalid Interpretation Code 45-117 [facility] Work Phone: [phone] Aspartate aminotransferase (AST) 20 U/L Invalid Interpretation Code 15-37 [facility] Work Phone: [phone] Bilirubin (direct) 0.13 mg/dL Invalid Interpretation Code 0.00-0.30 [facility] Work Phone: [phone] Bilirubin (total) 0.70 mg/dL Invalid Interpretation Code 0.20-1.00 [facility] Work Phone: [phone] Globulin 3.2 g/dL Invalid Interpretation Code 2.3-3.5 [facility] Phone: [phone] Protein 6.7 g/dL Invalid Interpretation Code 6.4-8.2 [facility] Phone: [phone] Office Visiton 02-11-2017 Documentation of current medications (procedure) Done Invalid Interpretation Code [facility] Phone: [phone] Fall risk assessment No Invalid Interpretation Code [facility] Phone: [phone] Protein mass conc Done Invalid Interpretation Code [facility] Work Phone: [phone] Replaced Document: Liver Pro fileon 02-11-2017 ALP enzyme act/vol (Bld) 75 U/L Invalid Interpretation Code 45-117 [facility] Phone: [phone] Office Visit: [facility] 08-10-19 Documentation of current medications (procedure) Done Invalid Interpretation Code [facility] Phone: [phone] Fall risk assessment No Invalid Interpretation Code [facility] Phone: [phone] Protein mass conc Done [facility] Work Phone: [phone] Clinical Lists Update: [facility] Noteon 08-05-2016 Left ventricular Ejection fraction 40 % Invalid Interpretation Code [facility] Phone: [phone] Lab Report: Lipid Profileon 04-24-2016 Cholesterol 128 mg/dL Invalid Interpretation Code 200 [facility] Phone: [phone] HDL Cholesterol 51 mg/dL Invalid Interpretation Code [facility] Phone: [phone] LDL Cholesterol 61 mg/dL Invalid Interpretation Code 0-130 [facility] Work Phone: [phone] Triglyceride 81 mg/dL Invalid Interpretation Code [facility] Phone: [phone] very low density lipoproteins 16 mg/dL Invalid Interpretation Code 5-40 [facility] Work Phone: [phone] Lab Report: Liver Profileon 04-24-2016 Alanine aminotransferase (ALT) 25 U/L Invalid Interpretation Code 12-78 [facility] Work Phone: [phone] Albumin 3.7 g/dL Invalid Interpretation Code 3.4-5.0 [facility] Work Phone: [phone] Alkaline phosphatase (ALP) 91 U/L Invalid Interpretation Code 45-117 [facility] Work Phone: [phone] ALP enzyme act/vol (Bld) 91 U/L 45-117 [facility] Work Phone: [phone] Aspartate aminotransferase (AST) 21 U/L Invalid Interpretation Code 15-37 [facility] Work Phone: [phone] Bilirubin (direct) 0.18 mg/dL Invalid Interpretation Code 0.00-0.30 [facility] Work Phone: [phone] Bilirubin (total) 0.60 mg/dL Invalid Interpretation Code 0.20-1.00 [facility] Work Phone: [phone] Globulin 3.2 g/dL Invalid Interpretation Code 2.3-3.5 [facility] Work Phone: [phone] Globulin mass conc (S) 3.2 g/dL 2.3-3.5 [facility] Work Phone: [phone] Protein 6.9 g/dL Invalid Interpretation Code 6.4-8.2 [facility] Work Phone: [phone] Office Visiton 02-08-2016 Dietary management education, guidance, and counseling (procedure) yes Invalid Interpretation Code [facility] Work Phone: [phone] Tobacco smoking status NHIS Former smoker Invalid Interpretation Code [facility] [facility] [employer] Work Phone: [phone] Tobacco use [facility] Former smoker Invalid Interpretation Code [facility] Work Phone: [phone]) Append: Card Tatiana reporton Clinical consultation report (record artifact) [id number]^08/10 Invalid Interpretation Code [facility] Work Phone: [phone] Lab Report: HH, Hemoglobin A ND Hematocriton 11-03-2015 Hematocrit (HCT) 35.9 % Low 40-54 [facility] Work Phone: [phone] Hematocrit Volume Fraction (Bld) 35.9 % Low 40-54 [facility] Work Phone: [phone] Hemoglobin (HGB) 11.6 g/dL Low 13.0-16.5 [facility] Work Phone: [phone] Clinical Lists Update: 07-23-2015 Anion gap 8 mmol/L Invalid Interpretation Code [facility] Work Phone: [phone] Anion gap 4 molar conc 8 Invalid Interpretation Code [facility] Work Phone: [phone] Anion gap molar conc 8 mmol/L [facility] Work Phone: [phone] Calcium 8.4 mg/dL Invalid Interpretation Code [facility] Work Phone: [phone] Chloride 110 mmol/L Invalid Interpretation Code [facility] Work Phone: [phone] CO2 24 mmol/L Invalid Interpretation Code [facility] Work Phone: [phone] CO2 ppres (BldV) 24 mmol/L Invalid Interpretation Code [facility] Work Phone: [phone] Creatinine 0.83 mg/dL Invalid Interpretation Code [facility] Work Phone: [phone] eGFR (non-black) mL/min/{1.73_m2} Invalid Interpretation Code [facility] Work Phone: [phone] Glomerular Filtration Rate >60 Invalid Interpretation Code [facility] Work Phone: [phone] Magnesium 2.3 mg/dL Invalid Interpretation Code [facility] Work Phone: [phone] Phosphorus Concentratation-Random 2.7 mg/dL Invalid Interpretation Code [facility] Work Phone: [phone] Potassium 4.1 mmol/L Invalid Interpretation Code [facility] Work Phone: [phone] Sodium 142 mmol/L Invalid Interpretation Code [facility] Work Phone: [phone] Urea nitrogen 112 mg/dL Invalid Interpretation Code [facility] Work Phone: [phone] Clinical Lists Update: 07-21-2015 basophils as percent of blood leukocytes, manual count 0.3 % Invalid Interpretation Code [facility] Work Phone: [phone] BUN/Creatinine Ratio 19.4 mg/mg Invalid Interpretation Code [facility] Work Phone: [phone] Digoxin ng/mL Low [facility] Work Phone: [phone] Digoxin>12 hours p dose mass conc <0.06 Low [facility] Work Phone: [phone] eosinophils as percent of blood leukocytes, manual count 2.1 % Invalid Interpretation Code [facility] Work Phone: [phone] Erythrocyte distribution width Ratio (RBC) 13.0 % [facility] Work Phone: [phone] Erythrocytes (RBC) 4.51 10*6/uL Low [facility] Work Phone: [phone] Glucose 101 mg/dL Invalid Interpretation Code [facility] Work Phone: [phone] Glucose mass conc 101 mg/dL Invalid Interpretation Code [facility] Work Phone: [phone] Lymphocytes/100 leukocytes 29.9 % Invalid Interpretation Code [facility] Work Phone: [phone] Lymphocytes/100 WBC (Bld) 29.9 % [facility] Work Phone: [phone] MCH 31.0 pg Invalid Interpretation Code [facility] Work Phone: [phone] MCH Entitic mass (RBC) 31.0 pg [facility] Work Phone: [phone] MCHC 32.9 g/dL Invalid Interpretation Code [facility] Work Phone: [phone] MCHC mass conc (RBC) 32.9 g/dL [facility] Work Phone: [phone] MCV 94.5 fL High [facility] Work Phone: [phone] MCV Entitic volume (RBC) 94.5 fL High [facility] Work Phone: [phone] Monocytes/100 leukocytes 17.0 % High [facility] Work Phone: [phone] Monocytes/100 WBC (Bld) 17.0 % High [facility] Work Phone: [phone] neutrophils, band form as percent of blood leukocytes, manual count 50.3 % Invalid Interpretation Code [facility] Work Phone: [phone] Platelet mean volume Entitic volume (Bld) 10.5 fL [facility] Work Phone: [phone] Platelets 190 10*3/mm3 Invalid Interpretation Code [facility] Work Phone: [phone] Platelets #/vol (Bld) 190 10*3/mm3 [facility] [employer] Work Phone: [phone] PMV by Claude 10.5 fL Invalid Interpretation Code [facility] Work Phone: [phone] RBC #/vol (Bld) 4.51 10*6/uL Low [facility] Work Phone: [phone] RDW-CA 13.0 % Invalid Interpretation Code [facility] Work Phone: [phone] WBC #/vol (Bld) 7.7 10*3/uL [facility] Work Phone: [phone] WBC (Leukocytes) 7.7 10*3/uL Invalid Interpretation Code [facility] Work Phone: [phone] Lab Report: BNP,B-Type NATRI URETIC PEPTIDEon 10-04-2014 BNP 139.9 pg/mL High 0-100 [facility] Work Phone: [phone] Office Visiton 10-04-2014 cardiac risk group B Invalid Interpretation Code [facility] Phone: [phone] General cardiovascular disease 10Y risk [#] [place].D'Agostino 9 % Invalid Interpretation Code [facility] Phone: [phone] Replaced Document: John Parsons CG Observationson 10-04-2014 BUN (urea nitrogen) Sinus Rhythm -First degree A-V block - frequent ectopic ventricular beat s Roseann = 224 # VECs = 4-Left bundle branch block and left axis. ABNORMAL Invalid Interpretation Code [facility] Work Phone: [phone] EKG QRS axis -35 deg Invalid Interpretation Code [facility] Work Phone: [phone] GE use only - for [employer] import when terms are not otherwise specified 449 ms Invalid Interpretation Code [facility] Phone: [phone] Interpretation Sinus Rhythm -First degree A-V block - frequent ectopic ventricular beat s Roseann = 224 # VECs = 4-Left bundle branch block and left axis. ABNORMAL Invalid Interpretation Code [facility] Work Phone: [phone] P Victoria 21 deg Invalid Interpretation Code [facility] Work Phone: [phone] P wave axis, electrocardiogram 21 deg Invalid Interpretation Code [facility] Work Phone: [phone] IN Interval 224 ms Invalid Interpretation Code [facility] Work Phone: [phone] IN interval, electrocardiogram 224 ms Invalid Interpretation Code [facility] Work Phone: [phone] Pulse (Heart Rate) 64 /min Invalid Interpretation Code [facility] Work Phone: [phone] QRS axis, electrocardiogram -35 deg Invalid Interpretation Code [facility] Work Phone: [phone] QRS Duration 190 ms Invalid Interpretation Code [facility] Work Phone: [phone] QRS duration, electrocardiogram 190 ms Invalid Interpretation Code [facility] Work Phone: [phone] QT Interval new path ms Invalid Interpretation Code [facility] Work Phone: [phone] QT interval, electrocardiogram new path ms Invalid Interpretation Code [facility] Work Phone: [phone] QTc Montiel 449 ms Invalid Interpretation Code [facility] Work Phone: [phone] T Victoria 21 deg Invalid Interpretation Code [facility] Work Phone: [phone] T wave axis, electrocardiogram 21 deg Invalid Interpretation Code [facility] Work Phone: [phone] Lab Report: CMP03-16-2014 Albumin/Globulin Ratio 1.1 {ratio} Normal 0.9-2.4 W meliza [facility] Work Phone: [phone] Lab Report: TSHon 03-16-2014 Thyroid stimulating hormone (TSH) 2.16 u[iU]/mL Normal 0.358-3.74 [facility] Work Phone: [phone] Lab Report: T4on 01-29-2012 Thyroxine (T4) 6.7 ug/dL Normal 4.5-12.1 [facility] Work Phone: [phone] Replaced Document: John Parsons CG Observationson 01-14-2012 Pulse (Heart Rate) 448 ms Invalid Interpretation Code [facility] Work Phone: [phone] Vital Signs Date Time Vital Sign Value Performing Clinician Faci lity 09-01-2024 15:50-0400 Body temperature 99.3 [degF] Dr. Callum Hill MD Work Phone: [facility] 09-01-2024 15:50-0400 Diastolic blood pressure 71 mm[Hg] Dr. Callum Hill MD Work Phone: [facility] 09-01-2024 15:50-0400 Heart rate 69 /min Dr. Callum Hill MD Work Phone: [facility] 09-01-2024 15:50-0400 Respiratory rate 18 /min Dr. Callum Hill MD Work Phone: [facility] 09-01-2024 15:50-0400 SaO2% (BldA) [Mass fraction] 95 % Dr. Callum Hill MD Work Phone: [facility] 09-01-2024 15:50-0400 Systolic blood pressure 111 mm[Hg] Dr. Callum Hill MD Work Phone: [facility] 09-01-2024 04:36-0400 Body mass index (BMI) [Ratio] 29.3 kg/m2 Dr. Callum Hill MD Work Phone: [facility] 09-01-2024 04:36-0400 Body weight 82.[address] Callum Hill MD Work Phone: [facility] 08-31-2024 12:15-0400 Inhaled oxygen flow rate 2 L/min Dr. Callum Hill MD Work Phone: [facility] 08-28-2024 15:34-0400 Body height 167.[address] Callum Hill MD Work Phone: [facility] 08-28-2024 15:00-0400 Diastolic blood pressure 77 mm[Hg] Dr. Callum Hill MD Work Phone: [facility] 08-28-2024 15:00-0400 Heart rate 61 /min Dr. Callum Hill MD Work Phone: [facility] 08-28-2024 15:00-0400 Respiratory rate 16 /min Dr. Callum Hill MD Work Phone: [facility] 08-28-2024 15:00-0400 SaO2% (BldA) [Mass fraction] 91 % Dr. Callum Hill MD Work Phone: [facility] 08-28-2024 15:00-0400 Systolic blood pressure 136 mm[Hg] Dr. Callum Hill MD Work Phone: [facility] 08-28-2024 13:16-0400 Body temperature 98.7 [degF] Dr. Callum Hill MD Work Phone: [phone] [place] [address] 08-28-2024 13:00-0400 Inhaled oxygen flow rate 2 L/min Dr. Callum Hill MD Work Phone: [facility] 08-28-2024 10:00-0400 Body mass index (BMI) [Ratio] 29.7 kg/m2 Dr. Callum Hill MD Work Phone: [facility] 08-28-2024 10:00-0400 Body weight 83.[address] Callum Hill MD Work Phone: [facility] 05-11-2024 11:23-0500 Body mass index (BMI) [Ratio] 29.2 kg/m2 Dr. Callum Hill MD Work Phone: [facility] 05-11-2024 11:23-0500 Body weight 82.[address] Callum Hill MD Work Phone: [facility] 05-11-2024 11:23-0500 Diastolic blood pressure 92 mm[Hg] Dr. Callum Hill MD Work Phone: [facility] 05-11-2024 11:23-0500 Heart rate 82 /min Dr. Callum Hill MD Work Phone: [facility] 05-11-2024 11:23-0500 Respiratory rate 18 /min Dr. Callum Hill MD Work Phone: [facility] 05-11-2024 11:23-0500 SaO2% (BldA) [Mass fraction] 92 % Dr. Callum Hill MD Work Phone: [facility] 05-11-2024 11:23-0500 Systolic blood pressure 134 mm[Hg] Dr. Callum Hill MD Work Phone: 4([phone])[phone] [place] [address] 09-04-2023 16:28-0400 Body temperature 97.6 [degF] Dr. Callum Hill Work Phone: [facility] 09-04-2023 16:28-0400 Diastolic blood pressure 78 mm[Hg] Dr. Callum Hill Work Phone: 0(396)[phone] [address] 09-04-2023 16:28-0400 Heart rate 62 /min Dr. Callum Hill Work Phone: [phone])757-049067 [address] 09-04-2023 16:28-0400 Respiratory rate 18 /min Dr. Callum Hill Work Phone: 2([phone])546-282860 [place] [address] 09-04-2023 16:28-0400 SaO2% (BldA) [Mass fraction] 96 % Dr. Callum Hill Work Phone: [facility] 09-04-2023 16:28-0400 Systolic blood pressure 130 mm[Hg] Dr. Callum Hill Work Phone: [facility] 09-04-2023 14:46-0400 Body height 167.[address] Callum Hill Work Phone: [facility] 09-04-2023 14:46-0400 Body mass index (BMI) [Ratio] 29.7 kg/m2 Dr. Callum Hill Work Phone: [facility] 09-04-2023 14:46-0400 Body weight 83.[address] Callum Hill Work Phone: [phone] [place] [address] 04-07-2023 10:25-0500 Body height 167.[address] Dilshad Hill Work Phone: [facility] 04-07-2023 10:25-0500 Body weight 81.[address] Dilshad Hill Work Phone: [facility] 04-04-2023 08:59-0500 Body mass index (BMI) [Ratio] 29 kg/m2 Dr. Dilshad Hill Work Phone: [facility] 03-19-2023 14:02-0400 Body mass index (BMI) [Ratio] 29 kg/m2 Dr. Dilshad Hill Work Phone: [facility] 03-19-2023 14:02-0400 Body weight 81.[address] Dilshad Hill Work Phone: [facility] 03-19-2023 14:02-0400 Diastolic blood pressure 80 mm[Hg] Dr. Dilshad Hill Work Phone: 2([phone] [place] [address] 03-19-2023 14:02-0400 Heart rate 69 /min Dr. Dilshad Hill Work Phone: [facility] 03-19-2023 14:02-0400 Respiratory rate 18 /min Dr. Dilshad Hill Work Phone: [facility] 03-19-2023 14:02-0400 SaO2% (BldA) [Mass fraction] 96 % Dr. Dilshad Hill Work Phone: [facility] 03-19-2023 14:02-0400 Systolic blood pressure 129 mm[Hg] Dr. Dilshad Hill Work Phone: [facility] 09-25-2022 08:27-0400 Body height 167.[address] Dilshad Hill Work Phone: [facility] 09-25-2022 08:26-0400 Body mass index (BMI) [Ratio] 28.5 kg/m2 Dr. Dilshad Hill Work Phone: [facility] 09-25-2022 08:26-0400 Body weight 80.[address] Dilshad Hill Work Phone: [facility] 09-25-2022 08:26-0400 Diastolic blood pressure 71 mm[Hg] Dr. Dilshad Hill Work Phone: [facility] 09-25-2022 08:26-0400 Heart rate 62 /min Dr. Dilshad Hill Work Phone: [facility] 09-25-2022 08:26-0400 Respiratory rate 18 /min Dr. Dilshad Hill Work Phone: [facility] 09-25-2022 08:26-0400 SaO2% (BldA) [Mass fraction] 94 % Dr. Dilshad Hill Work Phone: [facility] 09-25-2022 08:26-0400 Systolic blood pressure 112 mm[Hg] Dr. Dilshad Hill Work Phone: [facility] 03-28-2022 09:16-0500 Body height 167.[address] Dilshad Hill Work Phone: [facility] 09-24-2021 09:21-0400 Diastolic blood pressure 76 mm[Hg] Dr. Dilshad Hill Work Phone: [facility] Work Phone: 09-24-2021 09:21-0400 Systolic blood pressure 124 mm[Hg] Dr. Dilshad Hill Work Phone: [facility] Work Phone: 09-24-2021 08:59-0400 Body height 167.[address] Dilshad Hill Work Phone: [facility] Work Phone: 09-24-2021 08:59-0400 Body mass index (BMI) [Ratio] 29 kg/m2 Dr. Dilshad Hill Work Phone: [facility] Work Phone: 09-24-2021 08:59-0400 Body weight 81.[address] Dilshad Hill Work Phone: [facility] Work Phone: 09-24-2021 08:59-0400 Heart rate 62 /min Dr. Dilshad Hill Work Phone: [facility] Work Phone: 09-24-2021 08:59-0400 Respiratory rate 18 /min Dr. Dilshad Hill Work Phone: [facility] Work Phone: 09-24-2021 08:59-0400 SaO2% (BldA) [Mass fraction] 94 % Dr. Dilshad Hill Work Phone: [facility] Work Phone: 02-11-2017 09:05-0400 BMI (Body Mass Index) 29.95 kg/m2 MD [facility] Work Phone: 02-11-2017 09:05-0400 BP Diastolic 60 mm[Hg] MD [facility] Work Phone: 02-11-2017 09:05-0400 BP Systolic 130 mm[Hg] MD [facility] Work Phone: 02-11-2017 09:05-0400 Height 165.1 cm MD [facility] Work Phone: 02-11-2017 09:05-0400 Pulse (Heart Rate) 60 /min MD [facility] Work Phone: 02-11-2017 09:05-0400 Respiratory Rate 20 /min MD [facility] Work Phone: 02-11-2017 09:05-0400 Weight 81.65 kg MD [facility] Work Phone: 08-09-2016 10:34-0400 BMI (Body Mass Index) 29.78 kg/m2 [facility] Work Phone: 08-09-2016 10:34-0400 BP Diastolic 78 mm[Hg] Mercy Galeas RN [facility] Work Phone: 08-09-2016 10:34-0400 BP Systolic 148 mm[Hg] Mercy Galeas RN [facility] Work Phone: 08-09-2016 10:34-0400 Height 165.1 cm Mercy Galeas RN [facility] Work Phone: 08-09-2016 10:34-0400 Pulse (Heart Rate) 64 /min [facility] Work Phone: 08-09-2016 10:34-0400 Respiratory Rate 20 /min [facility] Work Phone: 08-09-2016 10:34-0400 Weight 81.19 kg Mercy Galeas RN [facility] Work Phone: 02-08-2016 09:06-0400 BSA (Body Surface Area) 1.89 m2 Mercy Galeas RN [facility] Work Phone: 10-04-2014 10:14-0400 Heart rate 64 /min [facility] Work Phone: 01-14-2012 15:19-0400 Heart rate 448 ms [facility] Work Phone: Encounters Encounter Date Encounter Type Care Provider Facility Start: 09-13-2024 ambulatory [facility] Fac lity:[facility] Start: 09-08-2024 End: 09-08-2024 ambulatory [facility] Facility:[facility] Start: 09-07-2024 End: 09-07-2024 ambulatory [facility] Facility:[facility] Start: 09-06-2024 ambulatory [facility] Faci lity:[facility] Start: 09-02-2024 End: 09-02-2024 ambulatory [facility] Facility:[facility] Start: 09-01-2024 Non-patient / Non-visit Dr. Manasa Finch MD -[facility] Work Phone: Start: 08-31-2024 Non-patient / Non-visit Dr. Manasa Finch MD -[facility] Work Phone: Start: 08-30-2024 Non-patient / Non-visit Dr. Manasa Finch MD -[facility] Work Phone: Start: 08-29-2024 ambulatory [facility] Facility:[facility] Start: 08-29-2024 End: 09-01-2024 Evaluation and management of inpatient Dr. Antoine Finch MD -[facility] Work Phone: Start: 08-28-2024 ambulatory Kenya Otoole Facility:[facility] Start: 08-28-2024 Evaluation and management of inpatient Dr. Kenya Otoole MD -[facility] Work Phone: Start: 08-28-2024 Non-patient / Non-visit Dr. Kenya crooks MD -[facility] Work Phone: Start: 08-28-[address] Narinder Hill MD Work Phone: [facility] Work Phone: Start: 07-02-2024 End: 07-02-2024 ambulatory [place] Facility:[facility] Start: 07-02-2024 End: 07-02-[address] Matt Loza MD -[facility] Work Phone: Start: 05-11-2024 End: 05-11-2024 Patient encounter procedure [facility] SPEARS -[facility] Work Phone: Start: 05-11-2024 End: 05-11-[facility] Start: 04-05-2024 End: 04-05-2024 ambulatory [place] Facility:[facility] Start: 04-02-2024 End: 04-02-2024 ambulatory Callum Hill Facility:[facility] Start: 01-02-2024 End: 01-02-2024 ambulatory Matt Loza Facility:[facility] Start: 09-16-2023 End: 09-16-[address] Callum Hill Work Phone: [facility] Work Phone: Start: 09-16-2023 End: 09-16-[address] Callum Hill Work Phone: [facility] Work Phone: Start: 09-16-[address] Eric Hill Work Phone: [facility]-Physical Therapy Work Phone: Start: 09-04-2023 End: 09-04-2023 Emergency department patient visit Dr. Callum Hill Work Phone: [facility]-Emergency Department Work Phone: Start: 08-26-[address] Eric iHll Work Phone: [facility]-Physical Therapy Work Phone: Start: 08-05-2023 End: 08-05-[address] aCllum Hill Work Phone: [facility] Work Phone: Start: 07-30-2023 End: 07-30-[address] Dilshad Hill Work Phone: [facility] Work Phone: Start: 07-30-2023 End: 07-30-[address] Dilshad Hill Work Phone: [facility] Work Phone: Start: 05-20-2023 Non-patient / Non-visit Dr. Carol Ann Hill Work Phone: [facility] Work Phone: Start: 05-14-2023 Non-patient / Non-visit Dr. Carol Ann Hill Work Phone: [facility] Start: 05-14-2023 End: 05-14-[address] Dilshad Hill Work Phone: [facility] Work Phone: Start: 05-14-2023 End: 05-14-[address] Dilshad Hill Work Phone: [facility]-Cardiovascula r Services Work Phone: Start: 04-14-2023 End: 04-14-[address] Dilshad Hill Work Phone: [facility] Work Phone: Start: 04-07-2023 End: 04-07-2023 Admission to same day surgery center Dr. Dilshad Hill Work Phone: [facility]-Administrative And Program Specialist/Special Procedures Work Phone: Start: 04-07-2023 End: 04-07-[address] Dilshad Hill Work Phone: [facility] Work Phone: Start: 04-04-2023 End: 04-04-[address] Dilshad Hill Work Phone: [facility] Work Phone: Start: 04-02-2023 End: 04-02-[address] Dilshad Hill Work Phone: [facility] Work Phone: Start: 04-02-2023 End: 04-02-[address] Dilshad Hill Work Phone: [facility]-Laboratory, Specimen Work Phone: Start: 03-19-2023 End: 03-19-[address] Dilshad Hill Work Phone: [facility] Work Phone: Start: 02-11-2023 Non-patient / Non-visit Dr. Carol Ann Hill Work Phone: [facility] Start: 02-11-2023 End: 02-11-[address] Dilshad Hill Work Phone: [facility] Work Phone: Start: 02-11-2023 End: 02-11-[address] [facility] Work [facility] Start: 10-11-2022 End: 10-11-[address] Dilshad Hill Work Phone: [facility] Start: 10-07-2022 Non-patient / Non-visit Dr. Carol Ann Hill Work Phone: [facility] Start: 10-07-2022 End: 10-07-[address] Dilshad Hill Work Phone: [facility] Work Phone: Start: 10-07-2022 End: 10-07-[address] Dilshad Hill [facility] Start: 09-25-2022 End: 09-25-[address] Dilshad Hill Work Phone: [facility] Start: 07-12-2022 End: 07-12-[address] Dilshad Hill Work Phone: [facility] Start: 06-04-2022 End: 06-04-[address] Dilshad Hill Work Phone: [facility] Work Phone: Start: 06-04-2022 End: 06-04-[address] Dilshad Hill Work Phone: [facility] Start: 04-05-2022 End: 04-05-[address] Dilshad Hill Work Phone: [facility] Start: 03-28-2022 End: 03-28-[address] Dilshad Hill Work Phone: [facility] Start: 09-24-2021 End: 09-24-[address] Dilshad Hill Work Phone: [facility] Start: 09-21-2021 Non-patient / Non-visit Dr. Carol Ann Hill Work Phone: [facility] Start: 09-20-2021 End: 09-20-[address] Dilshad Hill Work Phone: [facility] Start: 08-30-2021 End: 08-30-2021 Patient encounter procedure [facility] Procedures Date Procedure Procedure Detail Performing Clinician Start: 08-31-[address] Romeo Hill MD Work Phone: Start: 08-30-2024 Complete ultrasound of kidneys and bladder Dr. Callum Hill MD Work Phone: Start: 08-29-2024 CT of chest, abdomen and pelvis without contrast Dr. Callum Hill MD Work Phone: Start: 08-29-2024 Legionella pneumophi la antigen assay Dr. Callum Hill MD Work Phone: Start: 08-29-2024 Streptococcus pneumo niae antigen assay Dr. Callum Hill MD Work Phone: Start: 08-29-[address] Eric Hill MD Work Phone: Start: 08-28-[address] Callum Hill MD Work Phone: Start: 08-28-2024 SARS-CoV-2, Influenz a & RSV (PCR) Dr. Callum Hill MD Work Phone: Start: 08-28-2024 CT angiography of he ad and neck Dr. Callum Hill MD Work Phone: Start: 08-28-2024 CT of head without contrast Dr. Callum Hill MD Work Phone: Start: 08-28-2024 Plain chest X-ray Dr. Tess Hill MD Work Phone: Start: 07-30-2023 Complete x-ray serie s of lumbar spine with bending views Dr. Dilshad Hill Work Phone: Start: 10-07-2022 Cardiovascular stres s test using pharmacologic stress agent Dr. Dilshad Hill Work Phone: Start: 02-27-2017 End: 03-02-2017 Interrogation eval remote 90 d 1/2/clay digger ld dfb Mercy Navarro PA-C Work Phone: Start: 02-11-2017 End: 02-15-2017 *Hepatic Function Panel Colton Sarmiento Start: 02-11-2017 End: 02-11-2017 Follow Up Appt 6 months Colton Sarmiento Start: 02-11-2017 End: 02-15-2017 Lipid 1996 panel - Serum or Plasma Matt Loza MD Start: 02-11-2017 End: 02-11-2017 MMM Matt Loza MD Start: 02-11-2017 End: 02-15-2017 *Hepatic Function Panel Colton Sarmiento Start: 02-11-2017 End: 02-11-2017 Follow Up Appt 6 months Colton Sarmiento Start: 02-11-2017 End: 02-15-2017 Lipid panel [AGGREGATE] Colton Sarmiento Start: 02-11-2017 End: 02-11-2017 MMM Matt Loza MD Start: 11-28-2016 End: 11-28-2016 Interrogation eval remote 90 d 1/2/clay digger ld dfb Mercy Navarro PA-C Work Phone: Start: 11-28-2016 End: 11-28-2016 Icd device interrogat remote Mercy Navarro PA-C Work Phone: Start: 10-23-2016 End: 02-11-2017 *Hepatic Function Panel Mercy cervantes PA-C Work Phone: Start: 10-23-2016 End: 02-11-2017 Lipid 1996 panel - Serum or Plasma Mercy Navarro PA-C Work Phone: Start: 10-23-2016 End: 02-11-2017 *Hepatic Function Panel Mercy cervantes PA-C Work Phone: Start: 10-23-2016 End: 02-11-2017 Lipid panel [AGGREGATE] Mercy cervantes PA-C Work Phone: Start: 08-22-2016 End: 08-22-2016 Interrogation eval remote 90 d 1/2/clay digger ld dfb Matt Loza MD Start: 08-22-2016 End: 08-22-2016 Icd device interrogat remote Matt Loza MD Start: 08-09-2016 End: 08-09-2016 PLASTIC MOULD MAKER Mercy Navarro PA-C Work Phone: Start: 08-09-2016 End: 08-09-2016 Device Interrogation Mercy lomeli PA-C Work Phone: Start: 08-09-2016 End: 08-09-2016 Follow Up Appt 6 months Mercy cervantes PA-C Work Phone: Start: 08-09-2016 End: 08-09-2016 PLASTIC MOULD MAKER Mercy Navarro PA-C Work Phone: Start: 08-09-2016 End: 08-09-2016 Device Interrogation Mercy lomeli PA-C Work Phone: Start: 08-09-2016 End: 08-09-2016 Follow Up Appt 6 months Mercy cervantes PA-C Work Phone: Start: 04-24-2016 End: 04-24-2016 *Hepatic Function Panel Mercy cervantes PA-C Work Phone: Start: 04-24-2016 End: 04-24-2016 Lipid 1996 panel - Serum or Plasma Mercy Navarro PA-C Work Phone: Start: 04-24-2016 End: 04-24-2016 *Hepatic Function Panel Mercy cervantes PA-C Work Phone: Start: 04-24-2016 End: 04-24-2016 Lipid panel [AGGREGATE] Mercy cervantes PA-C Work Phone: Start: 02-08-2016 End: 04-24-2016 Echocardiography Matt Loza MD Start: 02-08-2016 End: 02-08-2016 Follow Up Appt 6 months Colton Sarmiento Start: 02-08-2016 End: 02-08-2016 [facility] Matt Loza MD Start: 02-08-2016 End: 02-08-2016 Dietary management education, guidance, and counseling Triny Sandoval RN Start: 02-08-2016 End: 04-24-2016 Echocardiography Matt Loza MD Start: 02-08-2016 End: 02-08-2016 Follow Up Appt 6 months Colton Sarmiento Start: 02-08-2016 End: 02-08-2016 [facility] Matt Loza MD Start: 12-08-2015 End: 02-08-2016 Follow Up Appt 3 months Asaf Brizuela MD Work Phone: Start: 12-08-2015 End: 02-08-2016 Pac[facility] Clinic Asaf Brizuela MD Work Phone: Start: 12-08-2015 End: 12-08-2015 Prgrmg eval implantable in person multi lead dfb Asaf Brizuela MD Work Phone: Start: 12-08-2015 End: 02-08-2016 Follow Up Appt 3 months Asaf Brizuela MD Work Phone: Start: 12-08-2015 End: 12-08-2015 Icd device progr eval, mult Asaf jo MD Work Phone: Start: 12-08-2015 End: 02-08-2016 Pacer Clinic Asaf Brizuela MD Work Phone: Start: 11-03-2015 End: 11-03-2015 REYNALDO Navarro PA-C Work Phone: Start: 11-03-2015 End: 11-03-2015 Follow Up Appt 3 months Mercy cervantes PA-C Work Phone: Start: 11-03-2015 End: 11-03-2015 Hemoglobin and Hematocrit panel - Blood Mercy Navarro PA-C Work Phone: Start: 11-03-2015 End: 11-03-2015 PLASTIC MOULD MAKER Mercy Navarro PA-C Work Phone: Start: 11-03-2015 End: 11-03-2015 Follow Up Appt 3 months Mercy cervantes PA-C Work Phone: Start: 11-03-2015 End: 11-03-2015 Hematocrit (HCT) Mercy Navarro PA-C Work Phone: Start: 11-03-2015 End: 11-03-2015 Hemoglobin and Hematocrit panel - Blood Mercy Navarro PA-C Work Phone: Start: 10-09-2015 End: 10-23-2015 *Hepatic Function Panel Mercy cervantes PA-C Work Phone: Start: 10-09-2015 End: 10-23-2015 Lipid 1996 panel - Serum or Plasma Mercy Navarro PA-C Work Phone: Start: 10-09-2015 End: 10-23-2015 *Hepatic Function Panel Mercy cervantes PA-C Work Phone: Start: 10-09-2015 End: 10-23-2015 Lipid panel [AGGREGATE] Mercy cervantes PA-C Work Phone: Start: 09-28-2015 End: 09-28-2015 Prgrmg eval implantable in prsn dual lead dfb Matt Loza MD Start: 09-28-2015 End: 09-28-2015 Icd device progr eval, dual Matt Aviles i, MD Start: 09-26-2015 End: 09-27-2015 Referral to armature varnisher Matt Loza MD Start: 09-26-2015 End: 09-27-2015 Referral to armature varnisher Matt Loza MD Start: 09-22-2015 End: 10-12-2015 Chest x-ray Matt Loza MD Start: 09-22-2015 End: 09-25-2015 Prgrmg eval implantable in prsn dual lead dfb Matt Loza MD Start: 09-22-2015 End: 10-12-2015 Chest x-ray Matt Loza MD Start: 09-21-2015 End: 10-12-2015 Follow Up Appt 3 months Colton Sarmiento Start: 09-21-2015 End: 09-25-2015 Icd device progr eval, dual Matt Aviles i, MD Start: 09-21-2015 End: 10-12-2015 [facility]er Clinic Matt Loza MD Start: 09-21-2015 End: 10-12-2015 Follow Up Appt 3 months Colton Sarmiento Start: 09-21-2015 End: 09-21-2015 Icd device progr eval, dual Matt Aviles i, MD Start: 09-21-2015 End: 10-12-2015 Pacer Clinic Matt Loza MD Start: 08-23-2015 End: 10-12-2015 Follow Up Appt 3 months Colton Sarmiento Start: 08-23-2015 End: 10-12-2015 Pacer Clinic Matt Loza MD Start: 08-23-2015 End: 08-24-2015 Prgrmg eval implantable in prsn dual lead nancyb Matt Loza MD Start: 08-23-2015 End: 10-12-2015 Follow Up Appt 3 months Colton Sarmiento Start: 08-23-2015 End: 08-24-2015 Icd device progr eval, dual Matt Aviles i, MD Start: 08-23-2015 End: 10-12-2015 Pacer Clinic Matt Loza MD Start: 08-11-2015 End: 10-12-2015 *Hepatic Function Panel Colton Sarmiento Start: 08-11-2015 End: 08-11-2015 Follow Up Appt 3 months Colton Sarmiento Start: 08-11-2015 End: 10-12-2015 Lipid 1996 panel - Serum or Plasma Matt Loza MD Start: 08-11-2015 End: 08-11-2015 MMColton Loza MD Start: 08-11-2015 End: 08-12-2015 Referral to armature varnisher Matt Loza MD Start: 08-11-2015 End: 10-12-2015 *Hepatic Function Panel Colton Sarmiento Start: 08-11-2015 End: 08-11-2015 Follow Up Appt 3 months Colton Sarmiento Start: 08-11-2015 End: 10-12-2015 Lipid panel [AGGREGATE] Colton Sarmiento Start: 08-11-2015 End: 08-11-2015 MMM Matt Loza MD Start: 08-11-2015 End: 08-12-2015 Referral to armature varnisher Matt Loza MD Start: 07-22-2015 History of placement of stent for coronary artery disease History of coronary artery stent placement Mercy SPEARS Comment on above: PCI-REESE-Mid LCx w/ 3 .25 x 23 mm Xience Alpine Stent 07/22/2015 Start: 05-17-2015 End: 10-12-2015 Follow Up Appt 3 months Colton Sarmiento Start: 05-17-2015 End: 10-12-2015 Pacer Clinic Matt Loza MD Start: 05-17-2015 End: 05-17-2015 Prgrmg eval implantable in prsn dual lead dfb Matt Loza MD Start: 05-17-2015 End: 10-12-2015 Follow Up Appt 3 months Colton Sarmiento Start: 05-17-2015 End: 05-17-2015 Icd device progr eval, dual Matt Aviles i, MD Start: 05-17-2015 End: 10-12-2015 Pacer Clinic Matt Loza MD Start: 04-07-2015 End: 04-07-2015 *Hepatic Function Panel Mercy cervantes PA-C Work Phone: Start: 04-07-2015 End: 04-07-2015 PLASTIC MOULD MAKER Mercy Navarro PA-C Work Phone: Start: 04-07-2015 End: 04-07-2015 Follow Up Appt 6 months Mercy cervantes PA-C Work Phone: Start: 04-07-2015 End: 04-07-2015 Lipid 1996 panel - Serum or Plasma Mercy Navarro PA-C Work Phone: Start: 04-07-2015 End: 04-07-2015 *Hepatic Function Panel Mercy cervantes PA-C Work Phone: Start: 04-07-2015 End: 04-07-2015 PLASTIC MOULD MAKER Mercy Navarro PA-C Work Phone: Start: 04-07-2015 End: 04-07-2015 Follow Up Appt 6 months Mercy cervantes PA-C Work Phone: Start: 04-07-2015 End: 04-07-2015 Lipid panel [AGGREGATE] Mercy cervantes PA-C Work Phone: Start: 02-08-2015 End: 03-31-2015 Follow Up Appt 3 months Colton Sarmiento Start: 02-08-2015 End: 03-31-2015 Pacer Clinic Matt Loza MD Start: 02-08-2015 End: 02-08-2015 Prgrmg eval implantable in prsn dual lead dfb Matt Loza MD Start: 02-08-2015 End: 03-31-2015 Follow Up Appt 3 months Colton Sarmiento Start: 02-08-2015 End: 02-08-2015 Icd device progr eval, dual Matt Aviels i, MD Start: 02-08-2015 End: 03-31-2015 Pacer Clinic Matt Loza MD Start: 11-02-2014 End: 03-31-2015 Follow Up Appt 3 months Colton Sarmiento Start: 11-02-2014 End: 03-31-2015 Pacer Clinic Matt Loza MD Start: 11-02-2014 End: 11-03-2014 Prgrmg eval implantable in prsn dual lead kathy Loza MD Start: 11-02-2014 End: 03-31-2015 Follow Up Appt 3 months Colton Sarmiento Start: 11-02-2014 End: 11-03-2014 Icd device progr eval, dual Matt Aviles i, MD Start: 11-02-2014 End: 03-31-2015 Pacer Clinic Matt Loza MD Start: 10-04-2014 End: 10-04-2014 *BMP Matt Loza MD Start: 10-04-2014 End: 03-31-2015 Ecg routine ecg w/least 12 lds w/i&r Matt Loza MD Start: 10-04-2014 End: 10-25-2014 Echocardiography Matt Loza MD Start: 10-04-2014 End: 10-04-2014 Follow Up Appt 6 months Colton Sarmiento Start: 10-04-2014 End: 10-04-2014 MMM Matt Loza MD Start: 10-04-2014 End: 10-04-2014 Natriuretic peptide B [Mass/volume] in Blood Matt Loza MD Start: 10-04-2014 End: 10-04-2014 *BMP Matt Loza MD Start: 10-04-2014 End: 10-04-2014 BNP Matt Loza MD Start: 10-04-2014 End: 10-25-2014 Echocardiography Matt Loza MD Start: 10-04-2014 End: 03-31-2015 Electrocardiogram, complete Matt Aviles i, MD Start: 10-04-2014 End: 10-04-2014 Follow Up Appt 6 months Colton Sarmiento Start: 10-04-2014 End: 10-04-2014 MMM Matt Loza MD Start: 09-14-2014 End: 04-07-2015 *Hepatic Function Panel Colton Sarmiento Start: 09-14-2014 End: 04-07-2015 Lipid 1996 panel - Serum or Plasma Matt Loza MD Start: 09-14-2014 End: 04-07-2015 *Hepatic Function Panel Colton Sarmiento Start: 09-14-2014 End: 04-07-2015 Lipid panel [AGGREGATE] Colton Sarmiento Start: 07-29-2014 End: 03-31-2015 Follow Up Appt 3 months Arik Benítez MD Start: 07-29-2014 End: 03-31-2015 Pacer Clinic Arik Benítez MD Start: 07-29-2014 End: 07-29-2014 Prgrmg eval implantable in prsn dual lead dfb Arik Benítez MD Start: 07-29-2014 End: 03-31-2015 Follow Up Appt 3 months Arik Benítez MD Start: 07-29-2014 End: 07-29-2014 Icd device progr eval, dual Arik jay MD Start: 07-29-2014 End: 03-31-2015 Pacer Clinic Arik Benítez MD Start: 04-27-2014 End: 03-31-2015 Follow Up Appt 3 months Colton Sarmiento Start: 04-27-2014 End: 03-31-2015 Pacer Clinic Matt Loza MD Start: 04-27-2014 End: 04-27-2014 Prgrmg eval implantable in prsn dual lead dfb Matt Loza MD Start: 04-27-2014 End: 03-31-2015 Follow Up Appt 3 months Colton Sarmiento Start: 04-27-2014 End: 04-27-2014 Icd device progr eval, dual Matt Aviles i, MD Start: 04-27-2014 End: 03-31-2015 Pacer Clinic Matt Loza MD Start: 03-22-2014 End: 03-22-2014 PLASTIC MOULD MAKER Mercy Navarro PA-C Work Phone: Start: 03-22-2014 End: 03-22-2014 Ecg routine ecg w/least 12 lds w/i&r Mercy Navarro PA-C Work Phone: Start: 03-22-2014 End: 03-22-2014 Follow Up Appt 6 months Mercy cervantes PA-C Work Phone: Start: 03-22-2014 End: 03-22-2014 PLASTIC MOULD MAKER Mercy Navarro PA-C Work Phone: Start: 03-22-2014 End: 03-22-2014 Electrocardiogram, complete Mercy Valdivia PA-C Work Phone: Start: 03-22-2014 End: 03-22-2014 Follow Up Appt 6 months Mercy cervantes PA-C Work Phone: Start: 03-19-2014 End: 03-22-2014 *Hepatic Function Panel Mercy cervantes PA-C Work Phone: Start: 03-19-2014 End: 03-22-2014 *Hepatic Function Panel Mercy cervantes PA-C Work Phone: Start: 03-16-2014 End: 03-16-2014 Lipid 1996 panel - Serum or Plasma Mercy Navarro PA-C Work Phone: Start: 03-16-2014 End: 03-16-2014 Lipid panel [AGGREGATE] Mercy cervantes PA-C Work Phone: Start: 01-12-2014 End: 02-25-2014 Follow Up Appt 3 months Colton Sarmiento Start: 01-12-2014 End: 02-25-2014 Pacer Clinic Matt Loza MD Start: 01-12-2014 End: 01-12-2014 Prgrmg eval implantable in prsn dual lead dfb Matt Loza MD Start: 01-12-2014 End: 02-25-2014 Follow Up Appt 3 months Colton Sarmiento Start: 01-12-2014 End: 01-12-2014 Icd device progr eval, dual Matt Aviles i, MD Start: 01-12-2014 End: 02-25-2014 Pacer Clinic Matt Loza MD Start: 10-06-2013 End: 02-25-2014 Follow Up Appt 3 months Colton Sarmiento Start: 10-06-2013 End: 02-25-2014 Pacer Clinic Matt Loza MD Start: 10-06-2013 End: 10-06-2013 Prgrmg eval implantable in prsn dual lead dfb Matt Loza MD Start: 10-06-2013 End: 02-25-2014 Follow Up Appt 3 months Colton Sarmiento Start: 10-06-2013 End: 10-06-2013 Icd device progr eval, dual Matt Aviles i, MD Start: 10-06-2013 End: 02-25-2014 Pacer Clinic Matt Loza MD Start: 09-07-2013 End: 09-20-2013 *Hepatic Function Panel Colton Sarmiento Start: 09-07-2013 End: 09-07-2013 Follow Up Appt 6 months Colton Sarmiento Start: 09-07-2013 End: 09-20-2013 Lipid 1996 panel - Serum or Plasma Matt Loza MD Start: 09-07-2013 End: 09-07-2013 JILLIAN Loza MD Start: 09-07-2013 End: 09-20-2013 *Hepatic Function Panel Colton Sarmiento Start: 09-07-2013 End: 09-07-2013 Follow Up Appt 6 months Colton Sarmiento Start: 09-07-2013 End: 09-20-2013 Lipid panel [AGGREGATE] Colton Sarmiento Start: 09-07-2013 End: 09-07-2013 JILLIAN Loza MD Start: 07-07-2013 End: 02-25-2014 Follow Up Appt 3 months Colton Sarmiento Start: 07-07-2013 End: 02-25-2014 Pacer Clinic Matt Loza MD Start: 07-07-2013 End: 07-07-2013 Prgrmg eval implantable in prsn dual lead dfb Matt Loza MD Start: 07-07-2013 End: 02-25-2014 Follow Up Appt 3 months Colton Sarmiento Start: 07-07-2013 End: 07-07-2013 Icd device progr eval, dual Matt Aviles i, MD Start: 07-07-2013 End: 02-25-2014 Pacer Clinic Mtat Loza MD Start: 03-31-2013 End: 02-25-2014 Follow Up Appt 3 months Colton Sarmiento Start: 03-31-2013 End: 02-25-2014 Pacer Clinic Matt Loza MD Start: 03-31-2013 End: 03-31-2013 Prgrmg eval implantable in prsn dual lead kathy Loza MD Start: 03-31-2013 End: 02-25-2014 Follow Up Appt 3 months Colton Sarmiento Start: 03-31-2013 End: 03-31-2013 Icd device progr eval, dual Matt Aviles i, MD Start: 03-31-2013 End: 02-25-2014 Pacer Clinic Matt Loza MD Start: 03-02-2013 End: 02-25-2014 REYNALDO Loza MD Start: 03-02-2013 End: 02-25-2014 Echocardiography Matt Loza MD Start: 03-02-2013 End: 02-25-2014 Follow Up Appt 6 months Colton Sarmiento Start: 03-02-2013 End: 02-25-2014 REYNALDO Loza MD Start: 03-02-2013 End: 02-25-2014 Dawood Loza MD Start: 03-02-2013 End: 02-25-2014 Follow Up Appt 6 months Colton Sarmiento Start: 12-30-2012 End: 02-25-2014 Follow Up Appt 3 months Colton Sarmiento Start: 12-30-2012 End: 02-25-2014 Pacer Clinic Matt Loza MD Start: 12-30-2012 End: 12-30-2012 Prgrmg eval implantable in prsn dual lead kathy Loza MD Start: 12-30-2012 End: 02-25-2014 Follow Up Appt 3 months Colton Sarmiento Start: 12-30-2012 End: 12-30-2012 Icd device progr eval, dual Matt Aviles i, MD Start: 12-30-2012 End: 02-25-2014 Pacer Clinic Matt Loza MD Start: 09-25-2012 End: 02-25-2014 Follow Up Appt 3 months Colton Sarmiento Start: 09-25-2012 End: 02-25-2014 Pacer Clinic Matt Loza MD Start: 09-25-2012 End: 09-25-2012 Prgrmg eval implantable in prsn dual lead dfb Matt Loza MD Start: 09-25-2012 End: 02-25-2014 Follow Up Appt 3 months Colton Sarmiento Start: 09-25-2012 End: 09-25-2012 Icd device progr eval, dual Matt Aviles i, MD Start: 09-25-2012 End: 02-25-2014 Pacer Clinic Matt Loza MD Start: 08-26-2012 End: 02-25-2014 *BMP Bubba Contreras MD Start: 08-26-2012 End: 02-25-2014 *Hepatic Function Panel Bubba Contreras MD Start: 08-26-2012 End: 02-25-2014 Digoxin [Mass/volume] in Serum or Plasma Bubba Contreras MD Start: 08-26-2012 End: 02-25-2014 Lipid 1996 panel - Serum or Plasma Bubba Contreras MD Start: 08-26-2012 End: 02-25-2014 Magnesium [Mass/volume] in Serum or Plasma Bubba Contreras MD Start: 08-26-2012 End: 02-25-2014 *BMP Bubba Contreras MD Start: 08-26-2012 End: 02-25-2014 *Hepatic Function Panel Bubba Contreras MD Start: 08-26-2012 End: 02-25-2014 Digoxin Bubba Contreras MD Start: 08-26-2012 End: 02-25-2014 Lipid panel [AGGREGATE] Bubba Contreras MD Start: 08-26-2012 End: 02-25-2014 Magnesium Bubba Contreras MD Start: 05-28-2012 End: 05-28-2012 *Hepatic Function Panel Bubba Contreras MD Start: 05-28-2012 End: 06-04-2012 Echocardiography Bubba Contreras MD Start: 05-28-2012 End: 05-28-2012 Follow Up Appt 6 months Bubba Contreras MD Start: 05-28-2012 End: 05-28-2012 Lipid 1996 panel - Serum or Plasma Bubba Contreras MD Start: 05-28-2012 End: 06-04-2012 Echocardiography Bubba Contreras MD Start: 05-28-2012 End: 05-28-2012 Follow Up Appt 6 months Bubba Contreras MD Start: 05-27-2012 End: 05-28-2012 *Hepatic Function Panel Bubba Contreras MD Start: 05-27-2012 End: 05-28-2012 Lipid panel [AGGREGATE] Bubba Contreras MD Start: 05-27-2012 End: 05-28-2012 *Hepatic Function Panel Bubba Contreras MD Start: 05-27-2012 End: 05-28-2012 Lipid panel [AGGREGATE] Bubba Contreras MD Start: 02-24-2012 End: 05-28-2012 Echocardiography Bubba Contreras MD Start: 02-24-2012 End: 02-24-2012 Follow Up Appt 3 months Bubba Contreras MD Start: 02-24-2012 End: 05-28-2012 Echocardiography Bubba Contreras MD Start: 02-24-2012 End: 02-24-2012 Follow Up Appt 3 months Bubba Contreras MD Start: 01-22-2012 End: 01-30-2012 *BMP Bubba Contreras MD Start: 01-22-2012 End: 01-30-2012 *CBC with Differential Bubba Contreras MD Start: 01-22-2012 End: 01-30-2012 Digoxin [Mass/volume] in Serum or Plasma Bubba Contreras MD Start: 01-22-2012 End: 01-30-2012 Echocardiography Bubba Contreras MD Start: 01-22-2012 End: 01-30-2012 Lipid 1996 panel - Serum or Plasma Bubba Contreras MD Start: 01-22-2012 End: 01-30-2012 Magnesium [Mass/volume] in Serum or Plasma Bubba Contreras MD Start: 01-22-2012 End: 01-30-2012 Thyrotropin [Units/volume] in Serum or Plasma Bubba Contreras MD Start: 01-22-2012 End: 01-30-2012 Thyroxine (T4) [Mass/volume] in Serum or Plasma Bubba Contreras MD Start: 01-22-2012 End: 01-30-2012 *BMP Bubba Contreras MD Start: 01-22-2012 End: 01-30-2012 *CBC with Differential Bubba Contreras MD Start: 01-22-2012 End: 01-30-2012 Digoxin [Mass/volume] in Serum or Plasma Bubba Contreras MD Start: 01-22-2012 End: 01-30-2012 Echocardiography Bubba Contreras MD Start: 01-22-2012 End: 01-30-2012 Lipid panel [AGGREGATE] Bubba Contreras MD Start: 01-22-2012 End: 01-30-2012 Magnesium Bubba Contreras MD Start: 01-22-2012 End: 01-30-2012 Thyroid stimulating hormone (TSH) Bubba Contreras MD Start: 01-22-2012 End: 01-30-2012 Thyroxine (T4) [Mass/volume] in Serum or Plasma Bubba Contreras MD Start: 01-14-2012 End: 01-14-2012 Follow Up Appt 6 weeks Bubba Contreras MD Start: 01-14-2012 End: 01-14-2012 Follow Up Appt 6 weeks Bubba Contreras MD Plan of Treatment Date Care Activity Detail Author Start: 09-01-2024 Patient discharge [facility] Start: 08-29-2024 End: 08-29-2024 [facility] Start: 08-29-2024 Elevation of head of bed [facility] Start: 08-29-2024 Blood culture Blood Culture [facility] Start: 08-29-2024 Admission procedure [facility] Start: 08-29-2024 Speech therapy assessment [facility] Start: 08-28-2024 Following clinical pathway protocol [facility] Start: 08-28-2024 Assessment of risk of venous thromboembolism [facility] Start: 08-28-2024 Inhalation therapy procedure [facility] Start: 08-28-2024 Insertion of catheter into peripheral vein [facility] Start: 08-28-2024 Measuring intake and output [facility] Start: 08-28-2024 Providing care according to standard [facility] Start: 08-28-2024 Provision of activity privileges [facility] Start: 08-28-2024 Referral to occupational therapist [facility] Start: 08-28-2024 Referral to service [facility] Start: 08-28-2024 [facility] Start: 08-28-2024 Verification routine [facility] Start: 08-28-2024 Admission procedure [facility] Start: 08-28-2024 Hospital admission, emergency, from emergency room, medical nature [facility] Start: 08-28-2024 [facility] Start: 08-28-2024 Oxygen therapy [facility] Start: 08-28-2024 End: 08-28-2024 [facility] Start: 09-04-2023 [facility] Start: 04-07-2023 Patient discharge [facility] Start: 08-12-2017 End: 02-15-2017 *Hepatic Function Panel *Hepatic Function Panel [facility] Work Phone: Start: 08-12-2017 End: 02-15-2017 Lipid panel [AGGREGATE] *Lipid Profile CC PCP [facility] Work Phone: Start: 08-12-2017 End: 08-12-2017 Appointment Appointment [facility] Work Phone: Start: 08-12-2017 End: 02-15-2017 *Hepatic Function Panel *Hepatic Function Panel [facility] Work Phone: Start: 08-12-2017 End: 02-15-2017 Lipid panel [AGGREGATE] *Lipid Profile CC PCP [facility] Work Phone: Start: 06-05-2017 End: 06-05-2017 Appointment Appointment [facility] Work Phone: Start: 02-27-2017 End: 03-02-2017 Follow Up Appt 3 months Follow Up Appt 3 months [facility] Work Phone: Start: 02-27-2017 End: 03-02-2017 Pacer Clinic [facility] Work Phone: Start: 02-27-2017 End: 02-27-2017 Appointment Appointment [facility] Work Phone: Start: 02-11-2017 End: 02-15-2017 *Hepatic Function Panel *Hepatic Function Panel [facility] Work Phone: Start: 02-11-2017 End: 02-11-2017 Follow Up Appt 6 months Follow Up Appt 6 months [facility] Work Phone: Start: 02-11-2017 End: 02-15-2017 Lipid panel [AGGREGATE] *Lipid Profile CC PCP [facility] Work Phone: Start: 02-11-2017 End: 02-11-2017 MMM MMM [facility] Work Phone: Start: 02-11-2017 End: 02-11-2017 Appointment Appointment [facility] Work Phone: Start: 02-11-2017 End: 02-15-2017 *Hepatic Function Panel *Hepatic Function Panel [facility] Work Phone: Start: 02-11-2017 End: 02-11-2017 Follow Up Appt 6 months Follow Up Appt 6 months [facility] Work Phone: Start: 02-11-2017 End: 02-15-2017 Lipid panel [AGGREGATE] *Lipid Profile CC PCP [facility] Work Phone: Start: 02-11-2017 End: 02-11-2017 MMM MMM [facility] Work Phone: Start: 11-28-2016 End: 11-28-2016 Follow Up Appt 3 months Follow Up Appt 3 months [facility] Work Phone: Start: 11-28-2016 End: 11-28-2016 Pacer Clinic Pacer Clinic [facility] Work Phone: Start: 11-28-2016 End: 11-28-2016 Appointment Appointment [facility] Work Phone: Start: 11-28-2016 End: 11-28-2016 Follow Up Appt 3 months Follow Up Appt 3 months [facility] Work Phone: Start: 11-28-2016 End: 11-28-2016 Pacer Clinic Pacer Clinic [facility] Work Phone: Start: 10-23-2016 End: 02-11-2017 *Hepatic Function Panel *Hepatic Function Panel [facility] Work Phone: Start: 10-23-2016 End: 02-11-2017 Lipid panel [AGGREGATE] *Lipid Profile CC PCP [facility] Work Phone: Start: 10-23-2016 End: 02-11-2017 *Hepatic Function Panel *Hepatic Function Panel [facility] Work Phone: Start: 10-23-2016 End: 02-11-2017 Lipid panel [AGGREGATE] *Lipid Profile CC PCP [facility] Work Phone: Start: 08-22-2016 End: 08-22-2016 Follow Up Appt 3 months Follow Up Appt 3 [facility] Work Phone: Start: 08-22-2016 End: 08-22-2016 Pacer Clinic Pacer Clinic [facility] Work Phone: Start: 08-22-2016 End: 08-22-2016 Follow Up Appt 3 months Follow Up Appt 3 months [facility] Work Phone: Start: 08-22-2016 End: 08-22-2016 Pacer Clinic Pac[facility] Work Phone: Start: 08-09-2016 End: 08-09-2016 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 [facility] Work Phone: Start: 08-09-2016 End: 08-09-2016 Device Interrogation Device Interrogation [facility] Work Phone: Start: 08-09-2016 End: 08-09-2016 Follow Up Appt 6 months Follow Up Appt 6 months [facility] Work Phone: Start: 08-09-2016 End: 08-09-2016 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 [facility] Work Phone: Start: 08-09-2016 End: 08-09-2016 Device Interrogation Device Interrogation [facility] Work Phone: Start: 08-09-2016 End: 08-09-2016 Follow Up Appt 6 months Follow Up Appt 6 months [facility] Work Phone: Start: 04-24-2016 End: 04-24-2016 *Hepatic Function Panel *Hepatic Function Panel [facility] Work Phone: Start: 04-24-2016 End: 04-24-2016 Lipid panel [AGGREGATE] *Lipid Profile CC PCP [facility] Work Phone: Start: 04-24-2016 End: 04-24-2016 *Hepatic Function Panel *Hepatic Function Panel [facility] Work Phone: Start: 04-24-2016 End: 04-24-2016 Lipid panel [AGGREGATE] *Lipid Profile CC PCP [facility] Work Phone: Start: 02-08-2016 End: 02-08-2016 Echocardiography Echocardiogram (complete) [facility] Work Phone: Start: 02-08-2016 End: 02-08-2016 Follow Up Appt 6 months Follow Up Appt 6 months [facility] Work Phone: Start: 02-08-2016 End: 02-08-2016 MMM MMM [facility] Work Phone: Start: 02-08-2016 End: 02-08-2016 Echocardiography Echocardiogram (complete) [facility] Work Phone: Start: 02-08-2016 End: 02-08-2016 Follow Up Appt 6 months Follow Up Appt 6 months [facility] Work Phone: Start: 02-08-2016 End: 02-08-2016 MMM MMM [facility] Work Phone: Start: 12-08-2015 End: 02-08-2016 Follow Up Appt 3 months Follow Up Appt 3 months [facility] Work Phone: Start: 12-08-2015 End: 02-08-2016 Pacer Clinic Pacer Clinic [facility] Work Phone: Start: 12-08-2015 End: 02-08-2016 Follow Up Appt 3 months Follow Up Appt 3 months [facility] Work Phone: Start: 12-08-2015 End: 02-08-2016 Pacer Clinic Pacer Clinic [facility] Work Phone: Start: 11-03-2015 End: 11-03-2015 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 [facility] Work Phone: Start: 11-03-2015 End: 11-03-2015 Follow Up Appt 3 months Follow Up Appt 3 months [facility] Work Phone: Start: 11-03-2015 End: 11-03-2015 Hematocrit (HCT) *HH Hemoglobin & Hematocrit [facility] Work Phone: Start: 11-03-2015 End: 11-03-2015 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 [facility] Work Phone: Start: 11-03-2015 End: 11-03-2015 Follow Up Appt 3 months Follow Up Appt 3 months [facility] Work Phone: Start: 11-03-2015 End: 11-03-2015 Hematocrit (HCT) *HH Hemoglobin & Hematocrit [facility] Work Phone: Start: 11-03-2015 End: 11-03-2015 Hematocrit Volume Fraction (Bld) *HH Hemoglobin & Hematocrit [facility] Work Phone: Start: 10-09-2015 End: 10-23-2015 *Hepatic Function Panel *Hepatic Function Panel [facility] Work Phone: Start: 10-09-2015 End: 10-23-2015 Lipid panel [AGGREGATE] *Lipid Profile CC PCP [facility] Work Phone: Start: 10-09-2015 End: 10-23-2015 *Hepatic Function Panel *Hepatic Function Panel [facility] Work Phone: Start: 10-09-2015 End: 10-23-2015 Lipid panel [AGGREGATE] *Lipid Profile CC PCP [facility] Work Phone: Start: 09-26-2015 End: 09-26-2015 Cardiac Referral Cardiac Referral Binh Walters, [address], [place], [address] [facility] Work Phone: Start: 09-26-2015 End: 09-26-2015 Cardiac Referral Cardiac Referral Binh Walters, [address], [place], [address] [facility] Work Phone: Start: 09-22-2015 End: 10-12-2015 Chest x-ray X-Ray, Chest, PA & Lateral [facility] Work Phone: Start: 09-22-2015 End: 10-12-2015 Chest x-ray X-Ray, Chest, PA & Lateral [facility] Work Phone: Start: 09-21-2015 End: 10-12-2015 Follow Up Appt 3 months Follow Up Appt 3 months [facility] Work Phone: Start: 09-21-2015 End: 10-12-2015 Pacer Clinic Pacer Clinic [facility] Work Phone: Start: 09-21-2015 End: 10-12-2015 Follow Up Appt 3 months Follow Up Appt 3 months [facility] Work Phone: Start: 09-21-2015 End: 10-12-2015 Pacer Clinic Pacer Clinic [facility] Work Phone: Start: 08-23-2015 End: 10-12-2015 Follow Up Appt 3 months Follow Up Appt 3 months [facility] Work Phone: Start: 08-23-2015 End: 10-12-2015 Pacer Clinic Pacer Clinic [facility] Work Phone: Start: 08-23-2015 End: 10-12-2015 Follow Up Appt 3 months Follow Up Appt 3 months [facility] Work Phone: Start: 08-23-2015 End: 10-12-2015 Pacer Clinic Pacer Clinic [facility] Work Phone: Start: 08-11-2015 End: 10-12-2015 *Hepatic Function Panel *Hepatic Function Panel [facility] Work Phone: Start: 08-11-2015 End: 10-12-2015 Cardiac Rehab Cardiac Rehab [facility] Work Phone: Start: 08-11-2015 End: 08-11-2015 Follow Up Appt 3 months Follow Up Appt 3 months [facility] Work Phone: Start: 08-11-2015 End: 10-12-2015 Lipid panel [AGGREGATE] *Lipid Profile CC PCP [facility] Work Phone: Start: 08-11-2015 End: 08-11-2015 MMM MMM [facility] Work Phone: Start: 08-11-2015 End: 10-12-2015 *Hepatic Function Panel *Hepatic Function Panel [facility] Work Phone: Start: 08-11-2015 End: 10-12-2015 Cardiac Rehab Cardiac Rehab [facility] Work Phone: Start: 08-11-2015 End: 08-11-2015 Follow Up Appt 3 months Follow Up Appt 3 months [facility] Work Phone: Start: 08-11-2015 End: 10-12-2015 Lipid panel [AGGREGATE] *Lipid Profile CC PCP [facility] Work Phone: Start: 08-11-2015 End: 08-11-2015 MMM MMM [facility] Work Phone: Start: 05-17-2015 End: 10-12-2015 Follow Up Appt 3 months Follow Up Appt 3 months [facility] Work Phone: Start: 05-17-2015 End: 10-12-2015 Pacer Clinic Pacer Clinic [facility] Work Phone: Start: 05-17-2015 End: 10-12-2015 Follow Up Appt 3 months Follow Up Appt 3 months [facility] Work Phone: Start: 05-17-2015 End: 10-12-2015 Pacer Clinic Pacer Clinic [facility] Work Phone: Start: 04-07-2015 End: 04-07-2015 *Hepatic Function Panel *Hepatic Function Panel [facility] Work Phone: Start: 04-07-2015 End: 04-07-2015 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 [facility] Work Phone: Start: 04-07-2015 End: 04-07-2015 Follow Up Appt 6 months Follow Up Appt 6 months [facility] Work Phone: Start: 04-07-2015 End: 04-07-2015 Lipid panel [AGGREGATE] *Lipid Profile CC PCP [facility] Work Phone: Start: 04-07-2015 End: 04-07-2015 *Hepatic Function Panel *Hepatic Function Panel [facility] Work Phone: Start: 04-07-2015 End: 04-07-2015 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 [facility] Work Phone: Start: 04-07-2015 End: 04-07-2015 Follow Up Appt 6 months Follow Up Appt 6 months [facility] Work Phone: Start: 04-07-2015 End: 04-07-2015 Lipid panel [AGGREGATE] *Lipid Profile CC PCP [facility] Work Phone: Start: 02-08-2015 End: 03-31-2015 Follow Up Appt 3 months Follow Up Appt 3 months [facility] Work Phone: Start: 02-08-2015 End: 03-31-2015 Pacer Clinic Pacer Clinic [facility] Work Phone: Start: 02-08-2015 End: 03-31-2015 Follow Up Appt 3 months Follow Up Appt 3 months [facility] Work Phone: Start: 02-08-2015 End: 03-31-2015 Pacer Clinic Pacer Clinic [facility] Work Phone: Start: 11-02-2014 End: 03-31-2015 Follow Up Appt 3 months Follow Up Appt 3 months [facility] Work Phone: Start: 11-02-2014 End: 03-31-2015 Pacer Clinic Pacer Clinic [facility] Work Phone: Start: 11-02-2014 End: 03-31-2015 Follow Up Appt 3 months Follow Up Appt 3 months [facility] Work Phone: Start: 11-02-2014 End: 03-31-2015 Pacer Clinic Pacer Clinic [facility] Work Phone: Start: 10-04-2014 End: 10-04-2014 *BMP *BMP [facility] Work Phone: Start: 10-04-2014 End: 10-04-2014 BNP *Brain Natriuretic Peptide BNP [facility] Work Phone: Start: 10-04-2014 End: 03-31-2015 Ecg routine ecg w/least 12 lds w/i&r EKG (In office) [facility] Work Phone: Start: 10-04-2014 End: 10-04-2014 Echocardiography Echocardiogram (complete) [facility] Work Phone: Start: 10-04-2014 End: 10-04-2014 Follow Up Appt 6 months Follow Up Appt 6 months [facility] Work Phone: Start: 10-04-2014 End: 10-04-2014 MMM MMM [facility] Work Phone: Start: 10-04-2014 End: 10-04-2014 *BMP *BMP [facility] Work Phone: Start: 10-04-2014 End: 10-04-2014 BNP *Brain Natriuretic Peptide BNP [facility] Work Phone: Start: 10-04-2014 End: 10-04-2014 Echocardiography Echocardiogram (complete) [facility] Work Phone: Start: 10-04-2014 End: 03-31-2015 Electrocardiogram, complete EKG (In office) [facility] Work Phone: Start: 10-04-2014 End: 10-04-2014 Follow Up Appt 6 months Follow Up Appt 6 months [facility] Work Phone: Start: 10-04-2014 End: 10-04-2014 MMM MMM [facility] Work Phone: Start: 09-14-2014 End: 04-07-2015 *Hepatic Function Panel *Hepatic Function Panel [facility] Work Phone: Start: 09-14-2014 End: 04-07-2015 Lipid panel [AGGREGATE] *Lipid Profile CC PCP [facility] Work Phone: Start: 09-14-2014 End: 04-07-2015 *Hepatic Function Panel *Hepatic Function Panel [facility] Work Phone: Start: 09-14-2014 End: 04-07-2015 Lipid panel [AGGREGATE] *Lipid Profile CC PCP [facility] Work Phone: Start: 07-29-2014 End: 03-31-2015 Follow Up Appt 3 months Follow Up Appt 3 months [facility] Work Phone: Start: 07-29-2014 End: 03-31-2015 Pacer Clinic Pacer Clinic [facility] Work Phone: Start: 07-29-2014 End: 03-31-2015 Follow Up Appt 3 months Follow Up Appt 3 months [facility] Work Phone: Start: 07-29-2014 End: 03-31-2015 Pacer Clinic Pacer Clinic [facility] Work Phone: Start: 04-27-2014 End: 03-31-2015 Follow Up Appt 3 months Follow Up Appt 3 months [facility] Work Phone: Start: 04-27-2014 End: 03-31-2015 Pacer Clinic Pacer Clinic [facility] Work Phone: Start: 04-27-2014 End: 03-31-2015 Follow Up Appt 3 months Follow Up Appt 3 months [facility] Work Phone: Start: 04-27-2014 End: 03-31-2015 Pacer Clinic Pacer Clinic [facility] Work Phone: Start: 03-22-2014 End: 03-22-2014 [facility] Work Phone: Start: 03-22-2014 End: 03-22-2014 Ecg routine ecg w/least 12 lds w/i&r EKG (In office) [facility] Work Phone: Start: 03-22-2014 End: 03-22-2014 Follow Up Appt 6 months Follow Up Appt 6 months [facility] Work Phone: Start: 03-22-2014 End: 03-22-2014 PLASTIC MOULD [employer] [facility] Work Phone: Start: 03-22-2014 End: 03-22-2014 Electrocardiogram, complete EKG (In office) [facility] Work Phone: Start: 03-22-2014 End: 03-22-2014 Follow Up Appt 6 months Follow Up Appt 6 months [facility] Work Phone: Start: 03-19-2014 End: 03-22-2014 *Hepatic Function Panel *Hepatic Function Panel [facility] Work Phone: Start: 03-19-2014 End: 03-16-2014 Lipid panel [AGGREGATE] *Lipid Profile CC PCP [facility] Work Phone: Start: 03-19-2014 End: 03-22-2014 *Hepatic Function Panel *Hepatic Function Panel [facility] Work Phone: Start: 03-19-2014 End: 03-16-2014 Lipid panel [AGGREGATE] *Lipid Profile CC PCP [facility] Work Phone: Start: 01-12-2014 End: 02-25-2014 Follow Up Appt 3 months Follow Up Appt 3 months [facility] Work Phone: Start: 01-12-2014 End: 02-25-2014 Pacer Clinic Pacer Clinic [facility] Work Phone: Start: 01-12-2014 End: 02-25-2014 Follow Up Appt 3 months Follow Up Appt 3 months [facility] Work Phone: Start: 01-12-2014 End: 02-25-2014 Pacer Clinic Pacer Clinic [facility] Work Phone: Start: 10-06-2013 End: 02-25-2014 Follow Up Appt 3 months Follow Up Appt 3 months [facility] Work Phone: Start: 10-06-2013 End: 02-25-2014 Pacer Clinic Pacer Clinic [facility] Work Phone: Start: 10-06-2013 End: 02-25-2014 Follow Up Appt 3 months Follow Up Appt 3 months [facility] Work Phone: Start: 10-06-2013 End: 02-25-2014 Pacer Clinic Pacer Clinic [facility] Work Phone: Start: 09-07-2013 End: 09-20-2013 *Hepatic Function Panel *Hepatic Function Panel [facility] Work Phone: Start: 09-07-2013 End: 09-07-2013 Follow Up Appt 6 months Follow Up Appt 6 months [facility] Work Phone: Start: 09-07-2013 End: 09-20-2013 Lipid panel [AGGREGATE] *Lipid Profile CC PCP [facility] Work Phone: Start: 09-07-2013 End: 09-07-2013 MMM MMM [facility] Work Phone: Start: 09-07-2013 End: 09-20-2013 *Hepatic Function Panel *Hepatic Function Panel [facility] Work Phone: Start: 09-07-2013 End: 09-07-2013 Follow Up Appt 6 months Follow Up Appt 6 months [facility] Work Phone: Start: 09-07-2013 End: 09-20-2013 Lipid panel [AGGREGATE] *Lipid Profile CC PCP [facility] Work Phone: Start: 09-07-2013 End: 09-07-2013 MMM MMM [facility] Work Phone: Start: 07-07-2013 End: 02-25-2014 Follow Up Appt 3 months Follow Up Appt 3 months [facility] Work Phone: Start: 07-07-2013 End: 02-25-2014 Pacer Clinic Pacer Clinic [facility] Work Phone: Start: 07-07-2013 End: 02-25-2014 Follow Up Appt 3 months Follow Up Appt 3 months [facility] Work Phone: Start: 07-07-2013 End: 02-25-2014 Pacer Clinic Pacer Clinic [facility] Work Phone: Start: 03-31-2013 End: 02-25-2014 Follow Up Appt 3 months Follow Up Appt 3 months [facility] Work Phone: Start: 03-31-2013 End: 02-25-2014 Pacer Clinic Pacer Clinic [facility] Work Phone: Start: 03-31-2013 End: 02-25-2014 Follow Up Appt 3 months Follow Up Appt 3 months [facility] Work Phone: Start: 03-31-2013 End: 02-25-2014 Pacer Clinic Pacer Clinic [facility] Work Phone: Start: 03-02-2013 End: 02-25-2014 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 [facility] Work Phone: Start: 03-02-2013 End: 03-02-2013 Echocardiography Echocardiogram (complete) [facility] Work Phone: Start: 03-02-2013 End: 02-25-2014 Follow Up Appt 6 months Follow Up Appt 6 months [facility] Work Phone: Start: 03-02-2013 End: 02-25-2014 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 [facility] Work Phone: Start: 03-02-2013 End: 03-02-2013 Echocardiography Echocardiogram (complete) [facility] Work Phone: Start: 03-02-2013 End: 02-25-2014 Follow Up Appt 6 months Follow Up Appt 6 months [facility] Work Phone: Start: 12-30-2012 End: 02-25-2014 Follow Up Appt 3 months Follow Up Appt 3 months [facility] Work Phone: Start: 12-30-2012 End: 02-25-2014 Pacer Clinic Pacer Clinic [facility] Work Phone: Start: 12-30-2012 End: 02-25-2014 Follow Up Appt 3 months Follow Up Appt 3 months [facility] Work Phone: Start: 12-30-2012 End: 02-25-2014 Pacer Clinic Pacer Clinic [facility] Work Phone: Start: 09-25-2012 End: 02-25-2014 Follow Up Appt 3 months Follow Up Appt 3 months [facility] Work Phone: Start: 09-25-2012 End: 02-25-2014 Pacer Clinic Pacer Clinic [facility] Work Phone: Start: 09-25-2012 End: 02-25-2014 Follow Up Appt 3 months Follow Up Appt 3 months [facility] Work Phone: Start: 09-25-2012 End: 02-25-2014 Pacer Clinic Pacer Clinic [facility] Work Phone: Start: 08-26-2012 End: 05-28-2012 *BMP *BMP [facility] Work Phone: Start: 08-26-2012 End: 02-25-2014 *Hepatic Function Panel *Hepatic Function Panel [facility] Work Phone: Start: 08-26-2012 End: 02-25-2014 Digoxin *Digoxin (Drug Assay) [facility] Work Phone: Start: 08-26-2012 End: 02-25-2014 Lipid panel [AGGREGATE] *Lipid Profile [facility] Work Phone: Start: 08-26-2012 End: 02-25-2014 Magnesium *Magnesium [facility] Work Phone: Start: 08-26-2012 End: 05-28-2012 *BMP *BMP [facility] Work Phone: Start: 08-26-2012 End: 02-25-2014 *Hepatic Function Panel *Hepatic Function Panel [facility] Work Phone: Start: 08-26-2012 End: 02-25-2014 Digoxin *Digoxin (Drug Assay) [facility] Work Phone: Start: 08-26-2012 End: 02-25-2014 Lipid panel [AGGREGATE] *Lipid Profile [facility] Work Phone: Start: 08-26-2012 End: 02-25-2014 Magnesium *Magnesium [facility] Work Phone: Start: 05-28-2012 End: 05-28-2012 *Hepatic Function Panel *Hepatic Function Panel [facility] Work Phone: Start: 05-28-2012 End: 05-28-2012 Echocardiography Echocardiogram (complete) [facility] Work Phone: Start: 05-28-2012 End: 05-28-2012 Follow Up Appt 6 months Follow Up Appt 6 months [facility] Work Phone: Start: 05-28-2012 End: 05-28-2012 Lipid panel [AGGREGATE] *Lipid Profile [facility] Work Phone: Start: 05-28-2012 End: 05-28-2012 Echocardiography Echocardiogram (complete) [facility] Work Phone: Start: 05-28-2012 End: 05-28-2012 Follow Up Appt 6 months Follow Up Appt 6 months [facility] Work Phone: Start: 05-27-2012 End: 05-28-2012 *Hepatic Function Panel *Hepatic Function Panel [facility] Work Phone: Start: 05-27-2012 End: 05-28-2012 Lipid panel [AGGREGATE] *Lipid Profile [facility] Work Phone: Start: 05-27-2012 End: 05-28-2012 *Hepatic Function Panel *Hepatic Function Panel [facility] Work Phone: Start: 05-27-2012 End: 05-28-2012 Lipid panel [AGGREGATE] *Lipid Profile [facility] Work Phone: Start: 02-24-2012 End: 02-24-2012 Echocardiography Echocardiogram (complete) [facility] Work Phone: Start: 02-24-2012 End: 02-24-2012 Follow Up Appt 3 months Follow Up Appt 3 months [facility] Work Phone: Start: 02-24-2012 End: 02-24-2012 Echocardiography Echocardiogram (complete) [facility] Work Phone: Start: 02-24-2012 End: 02-24-2012 Follow Up Appt 3 months Follow Up Appt 3 months [facility] Work Phone: Start: 01-22-2012 End: 01-30-2012 *BMP *BMP [facility] Work Phone: Start: 01-22-2012 End: 01-30-2012 *CBC with Differential *CBC with Differential [facility] Work Phone: Start: 01-22-2012 End: 01-30-2012 *Hepatic Function Panel *Hepatic Function Panel [facility] Work Phone: Start: 01-22-2012 End: 01-30-2012 Digoxin *Digoxin (Drug Assay) [facility] Work Phone: Start: 01-22-2012 End: 01-30-2012 Lipid panel [AGGREGATE] *Lipid Profile [facility] Work Phone: Start: 01-22-2012 End: 01-30-2012 Magnesium *Magnesium [facility] Work Phone: Start: 01-22-2012 End: 01-30-2012 Thyroid stimulating hormone (TSH) *TSH [facility] Work Phone: Start: 01-22-2012 End: 01-30-2012 Thyroxine (T4) *T4 (Total) [facility] Work Phone: Start: 01-22-2012 End: 01-30-2012 *BMP *BMP [facility] Work Phone: Start: 01-22-2012 End: 01-30-2012 *CBC with Differential *CBC with Differential [facility] Work Phone: Start: 01-22-2012 End: 01-30-2012 *Hepatic Function Panel *Hepatic Function Panel [facility] Work Phone: Start: 01-22-2012 End: 01-30-2012 Digoxin *Digoxin (Drug Assay) [facility] Work Phone: Start: 01-22-2012 End: 01-30-2012 Lipid panel [AGGREGATE] *Lipid Profile [facility] Work Phone: Start: 01-22-2012 End: 01-30-2012 Magnesium *Magnesium [facility] Work Phone: Start: 01-22-2012 End: 01-30-2012 Thyroid stimulating hormone (TSH) *TSH [facility] Work Phone: Start: 01-22-2012 End: 01-30-2012 Thyroxine (T4) *T4 (Total) [facility] Work Phone: Start: 01-14-2012 End: 01-14-2012 Follow Up Appt 6 weeks Follow Up Appt 6 weeks [facility] Work Phone: Start: 01-14-2012 End: 01-14-2012 Follow Up Appt 6 weeks Follow Up Appt 6 weeks [facility] Work Phone: [facility] Work Phone: Patient referral [facility] Work Phone: Heart limited [facility] Payers Date Payer Category Payer Self-pay [id number] 2013 Unknown [id number] 2011 Medicare ANTHEM MEDICARE PPO [id number] Medicare [id number] Unknown [id number] 2.16.8 [id number] Unknown [id number] 2.16.8 [id number] Unknown [id number] 2.16.8 [id number] Unknown [id number] 2.16.8 [id number] Unknown [id number] 2.16.8 [id number] Unknown [id number] 2.16.8 [id number] Unknown [id number] 2.16.8 [id number] Unknown [id number] 2.16.8 [id number] Unknown [id number] 2.16.8 [id number] Unknown [id number] 2.16.8 [id number] Unknown [id number] 2.16.8 [id number] Unknown [id number] 2.16.8 [id number] Unknown [id number] 2.16.8 [id number] Unknown [id number] 2.16.8 [id number] Unknown [id number] 2.16.8 [id number] Unknown [id number] 2.16.8 [id number] Unknown [id number] 2.16.8 [id number] Social History Date Type Detail Facility Start: 04-25-2021 End: 09-04-2023 Tobacco smoking status [facility] Unknown if ever smoked [facility] Start: 09-13-2020 None [facility] Start: 11-19-2018 Spouse/ Signif icant Other [facility] Start: 09-16-2019 Non-smoker [facility] Start: 1940 Sex Assigned At Male [facility] Start: 08-28-2024 End: 08-28-2024 Tobacco smoking status NHIS Ex-smoker (finding) [facility] Start: 08-28-2024 End: 09-01-2024 Sex Male (finding) [facility] Medical Equipment Procedure Code Equipment Code Equipment Original Text Equipment Identifier Dates Cardiac resynchr onization therapy implantable defibrillator [id number] FDA Start: 04-07-2023 Goals Date Patient Goal Desired Activity /State Functional Status Date Assessment Result Facility 09-01-2024 Functional status Ambulates;Pee r;Bedside Commode [facility] Work Phone: Mental Status Date Assessment Result Facility 09-01-2024 Cognitive function Voice/Name [facility] Work Phone: 08-28-2024 Cognitive function Voice/Name [facility] Work Phone: 09-04-2023 Cognitive function Level Of Cons ciousness Awake;Alert;Appropriate;Follow s Commands [facility] Work Phone: Clinical Notes 10-25-2015 to 09-01-2024 Note Date & Type Note Facility 09-01-2024 Consult note [facility] 09-01-2024 Discharge summary [facility] 09-01-2024 Note [facility] Medical Records Department [address] [place] [address] Discharge Summary 09/01/24 1628 MR#: [id number] Acct: [id number] Name: BINH PARKS Rep #: [id number] : [id number] From: Antoine Finch MD PCP: Dr. Callum Hill MD Status:ADM IN Location: [place] [address] Providers Date of Admission: 08/29/24 Primary Care Physician: Dr. Callum Hill MD Reason For Visit: ALTERED LOC Diagnosis Discharge Diagnosis (1) Altered level of consciousness: Status: Acute Code(s): R40.4 - Transient alteration of awareness Medications at Discharge Home Medications folic acid 1 mg tablet 1 mg PO DAILY 07/21/15 levothyroxine 75 mcg tablet 75 mcg PO DAILY 07/21/15 donepezil 10 mg tablet 10 mg PO DAILY 06/09/19 aspirin 81 mg tablet,delayed release (Adult Low Dose Aspirin) 81 mg PO QHS 12/15/19 atorvastatin 40 mg tablet 40 mg PO QHS 08/31/20 escitalopram oxalate 10 mg tablet 10 mg PO DAILY 08/31/20 nitroglycerin 0.4 mg sublingual tablet 0.4 mg sublingual Q5M PRN Chest Pain #25 tabs 03/22/21 memantine 10 mg tablet 10 mg PO BID 03/28/22 carvedilol 25 mg tablet 25 mg PO BID #180 tabs 09/09/23 lisinopril 5 mg tablet 5 mg PO BID #180 tabs 10/04/23 cholecalciferol (vitamin D3) 50 mcg (2,000 unit) tablet (D3 DOTS) 50 mcg PO DAILY VITAMIN 08/28/24 vitamin E 268 mg (400 unit) capsule 268 mg PO DAILY 08/28/24 tamsulosin 0.4 mg capsule 0.4 mg PO DAILY #0 caps 09/01/24 Hospital Course Operations None Procedures None Summary of Care Provided Minutes Spent on Discharge: 33 Hospital Course: Per HPI: BINH PARKS, is a 84 M with a history of pacemaker/defibrillator, dementia, hypertension, hypothyroidism, coronary artery disease who presented [facility] ED 08/28/2024 with altered level of consciousness. Family reports since he started not acting quite right and his just progressively worsened, the only additional change during that time is patient has been having some cough. Given the mental status change he had CTA of the head and neck and CT which were negative the patient with no focal complaints and nonfocal exam to suggest CVA as a primary culprit. Given patient's failure to thrive and mental status changes with inability for family to take care of patient at home hospitalist contacted for admission. Patient evaluated with family at bedside, reports that he was not acting like himself and is progressively worsened and is now not close to baseline though does note he has chronic dementia. Reports he has a cough and that for a while he has had some shortness of breath on exertion, only other thing she notes is that he has some right leg pain which is not new, denies that he has had any changes in bowel or bladder. Denies any new medication changes. Hospital Course: 1. Acute metabolic encephalopathy secondary to urinary retention leading to ALEJANDRA in the setting of dementia???84-year-old male presented to the hospital with confusion. Initially workup was unremarkable and was not leading to many answers. He did have a slight white count so was started on antibiotics. Cultures were ultimately negative and procalcitonin was only 0.2. Ammonia level was normal as well as vitamin B12 and his TSH. ABG was also unremarkable with maybe a slight alkalosis. He was found to have urinary retention and his renal function resolved overnight after the placement of a Young. Will continue with Flomax and Young on discharge. Based on PT and OT evaluations he does need SNF placement for rehab. He also had modified barium swallow yesterday which demonstrated the need for regular textures and thin liquids recommending small bites and small sips and for him to remain upright for 30 minutes after p.o. intake. Will plan to discharge to SNF today with Young in place and to continue Flomax. They can attempt to remove the Young in a few days at the alf and do voiding trials, if he does need to have placement of a Young at that time then would recommend outpatient follow-up with urology as well. 2. Coronary artery disease status post stent, pacemaker placement, essential hypertension, hyperlipidemia, hypothyroidism are all chronic medical conditions which complicate his care. His home medications were continued for appropriate Physical Exam Narrative General: Alert, Oriented x1, Cooperative, No apparent distress HEENT: Atraumatic, PERRLA, EOMI, Normocephalic Oral: Moist Mucosa Neck: Supple, No JVD Lungs: Diminished, Normal air movement, No rhonchi, No wheeze, No rales Cardiovascular: Regular rate, Regular Rhythm, Normal S1, Normal S2, No murmurs Abdomen: Soft, Non Tender, Non-Distended, No Hepato-splenomegaly Extremities: No edema, Capillary Refill Less than 3 Seconds Skin: No rashes, No breakdown Musculoskeletal: No Tenderness to Palpation of Joints or Ext (more content not included)... [facility] 09-01-2024 Consult note Note Date/Time September 01, 2024 4:35pm [facility] Medical Records Department [address] [place] [address] Counseling Note - Pharmacy 09/01/24 1320 MR#: [id number] Acct: [id number] Name: BINH PARKS Rep #:[id number] : 1940 84 From: Inge Holley PCP: Dr. Callum Hill MD Status :ADM IN Y Location: [place] [address] Pharmacy [place] Med Reconciliation Pharmacy Service has performed discharge medication reconciliation for this patient. The patient's discharge medication list was reviewed for discrepancies and discrepancies were resolved. Medications at Discharge Home Medications folic acid 1 mg tablet 1 mg PO DAILY 07/21/15 levothyroxine 75 mcg tablet 75 mcg PO DAILY 07/21/15 donepezil 10 mg tablet 10 mg PO DAILY 06/09/19 aspirin 81 mg tablet,delayed release (Adult Low Dose Aspirin) 81 mg PO QHS 12/15/19 atorvastatin 40 mg tablet 40 mg PO QHS 08/31/20 escitalopram oxalate 10 mg tablet 10 mg PO DAILY 08/31/20 nitroglycerin 0.4 mg sublingual tablet 0.4 mg sublingual Q5M PRN Chest Pain #25 tabs 03/22/21 memantine 10 mg tablet 10 mg PO BID 03/28/22 carvedilol 25 mg tablet 25 mg PO BID #180 tabs 09/09/23 lisinopril 5 mg tablet 5 mg PO BID #180 tabs 10/04/23 cholecalciferol (vitamin D3) 50 mcg (2,000 unit) tablet (D3 DOTS) 50 mcg PO DAILY VITAMIN 08/28/24 vitamin E 268 mg (400 unit) capsule 268 mg PO DAILY 08/28/24 tamsulosin 0.4 mg capsule 0.4 mg PO DAILY #0 caps 09/01/24 09/01/24 1320 <Electronically signed by Inge Holley> Date _ Inge Ordazer Signature (if applicable): Date CC: ~ Signed [facility] Work Phone: [phone]) 387-889704-16-2025 Discharge summary Author Antoine Finch [facility] Note Date/Time September 01, 2024 12: 46pm [facility] Medical Records Department [address] [facility] [place] [address] Transfer to [facility] MR#: [id number] Acct: [id number] Name: BINH PARKS Rep #:[id number] : 1940 84 From: Antoine bynum MD PCP: Dr. Callum Hill MD Status :ADM IN Certification of patient admission REQUIRED AT TIME OF ADMISSION. I CERTIFY THAT POST-HOSPITAL ECF SERVICES ARE REQUIRED TO BE GIVEN ON AN IN-PATIENT BASIS BECAUSE OF THE ABOVE NAMED PATIENT'S NEED FOR LONG-TERM CARE ON A CONTINUING BASIS FOR THE CONDITION(S) FOR WHICH HE/SHE WAS RECEIVING IN-PATIENT HOSPITAL SERVICES PRIOR TO HIS/HER TRANSFER TO THE ECF. 09/01/24 1246<Electronically signed by Antoine Finch MD> Diet Diet Order/Speech Therapy: 08/28/24 15:34 Diet: Cardiac - Heart Healthy Food consistency:: Regular Liquid Consistency:: Regular/Thin Routine Orders/Code Status Routine Lab Work: CBC and BMP Code Status: DNRCC-A DC O2, CPAP, BIPAP needs Home O2 Discharge instructions: No Therapies Physical Therapy: Eval and Treat Occupational Therapy: Eval and Treat Problem/Diagnosis (1) Altered level of consciousness: Status: Acute Code(s): R40.4 - Transient alteration of awareness Plan 1. Acute metabolic encephalopathy secondary to urinary retention leading to AKIin the setting of dementia ? Vitamin B12 level is normal as his TSH ? proBNP was also normal ? Ammonia level was normal ? Renal function resolved with the placement of a Young yesterday evening ? ABG had demonstrated a slight alkalosis, appears to have been metabolic ? Continue with Unasyn pending cultures ? PT/OT, speech therapy is planning for a modified barium swallow today ? Case management working on possible placement options for dispo 2. CAD status post stent/pacemaker placement/essential HTN/HLD ? Blood pressures are stable ? Can continue with his home blood pressure medications 3. Hypothyroidism ? Stable ? Continue with Synthroid DVT: Lovenox Allergies/Procedures Done in Hospital Allergies No Known Allergies Allergy (Verified 05/11/24 11:23) Procedures: None Type of Care/Length of Stay Estimated LOS: Convalescent Care Less Than 30 days Type of Care Needed: Skilled Rehab Potential: Good Prognosis: Good Additional Orders/Day of Discharge Day of Discharge: 09/01/24 Discharge Plan Admission Admit Date/Time: 08/29/24 13:32 Attending Provider: Antoine Finch Primary Care Provider: Callum Hill Consulting Providers: Kenya Otoole Instructions Patient Instructions: ED URI, Viral, No Abx (Adult) Additional Instructions / Restrictions: Continues to have urinary retention, will leave Young in place recommend outpatient urology evaluation and bladder training at the alf. This islikely the cause of his significant encephalopathy given the rapid improvement in his renal function once the Young was placed Discharge Orders/Prescriptions Prescriptions: New tamsulosin 0.4 mg Capsule 0.4 mg PO DAILY Qty: 0 0RF Continued donepezil 10 mg tablet 10 mg PO DAILY aspirin [Adult Low Dose Aspirin] 81 mg tablet,delayed release (DR/EC) 81 mg PO QHS atorvastatin 40 mg tablet 40 mg PO QHS escitalopram oxalate 10 mg tablet 10 mg PO DAILY nitroglycerin 0.4 mg tablet, sublingual 0.4 mg SUBLINGUAL Q5M PRN (Reason: Chest Pain) Qty: 25 3RF memantine 10 mg tablet 10 mg PO BID lisinopril 5 mg tablet 5 mg PO BID Qty: 180 3RF levothyroxine 75 MCG tablet 75 mcg PO DAILY folic acid 1 MG tablet 1 mg PO DAILY Patient Comments: cholecalciferol (vitamin D3) [D3 DOTS] 50 mcg (2,000 unit) tablet 50 mcg PO DAILY vitamin E 268 mg (400 unit) capsule 268 mg PO DAILY carvedilol 25 mg tablet 25 mg PO BID Qty: 180 4RF Rx Instructions: give with food (meal/snack) Referrals / Follow Up: Callum Hill MD [Primary Care Provider] - 3-5 Days Disposition Disposition (needs filled in before D/C Order can be placed): Residential Facility 09/01/24 1246 <Electronically signed by Antoine Finch MD> Cosigner Signature (if applicable): CC: Dr. Callum Hill MD; Dr. Kenya Otoole MD ~ [facility] Work Phone: [phone]) 985-103004-16-2025 Discharge summary [facility] Medical Records Department [address] [place] [address] Transfer to Extended Care MR#: [id number] Acct: [id number] Name: BINH PARKS Rep #:[id number] : 1940 84 From: Antoine bynum MD PCP: Dr. Callum Hill MD Status :ADM IN Certification of patient admission REQUIRED AT TIME OF ADMISSION. I CERTIFY THAT POST-HOSPITAL ECF SERVICES ARE REQUIRED TO BE GIVEN ON AN IN-PATIENT BASIS BECAUSE OF THE ABOVE NAMED PATIENT'S NEED FOR LONG-TERM CARE ON A CONTINUING BASIS FOR THE CONDITION(S) FOR WHICH HE/SHE WAS RECEIVING IN-PATIENT HOSPITAL SERVICES PRIOR TO HIS/HER TRANSFER TO THE [facility]. 09/01/24 1246 Diet Diet Order/Speech Therapy: 08/28/24 15:34 Diet: Cardiac - Heart Healthy Food consistency:: Regular Liquid Consistency:: Regular/Thin Routine Orders/Code Status Routine Lab Work: CBC and BMP Code Status: DNRCC-A DC O2, CPAP, BIPAP needs Home O2 Discharge instructions: No Therapies Physical Therapy: Eval and Treat Occupational Therapy: Eval and Treat Problem/Diagnosis (1) Altered level of consciousness: Status: Acute Code(s): R40.4 - Transient alteration of awareness Plan 1. Acute metabolic encephalopathy secondary to urinary retention leading to AKIin the setting of dementia ? Vitamin B12 level is normal as his TSH ? proBNP was also normal ? Ammonia level was normal ? Renal function resolved with the placement of a Young yesterday evening ? ABG had demonstrated a slight alkalosis, appears to have been metabolic ? Continue with Unasyn pending cultures ? PT/OT, speech therapy is planning for a modified barium swallow today ? Case management working on possible placement options for dispo 2. CAD status post stent/pacemaker placement/essential HTN/HLD ? Blood pressures are stable ? Can continue with his home blood pressure medications 3. Hypothyroidism ? Stable ? Continue with Synthroid DVT: Lovenox Allergies/Procedures Done in Hospital Allergies No Known Allergies Allergy (Verified 05/11/24 11:23) Procedures: None Type of Care/Length of Stay Estimated LOS: Convalescent Care Less Than 30 days Type of Care Needed: Skilled Rehab Potential: Good Prognosis: Good Additional Orders/Day of Discharge Day of Discharge: 09/01/24 Discharge Plan Admission Admit Date/Time: 08/29/24 13:32 Attending Provider: Antoine Finch Primary Care Provider: Callum Hill Consulting Providers: Kenya Otoole Instructions Patient Instructions: ED URI, Viral, No Abx (Adult) Additional Instructions / Restrictions: Continues to have urinary retention, will leave Young in place recommend outpatient urology evaluation and bladder training at the alf. This islikely the cause of his significant encephalopathy given the rapid improvement in his renal function once the Young was placed Discharge Orders/Prescriptions Prescriptions: New tamsulosin 0.4 mg Capsule 0.4 mg PO DAILY Qty: 0 0RF Continued donepezil 10 mg tablet 10 mg PO DAILY aspirin [Adult Low Dose Aspirin] 81 mg tablet,delayed release (DR/EC) 81 mg PO QHS atorvastatin 40 mg tablet 40 mg PO QHS escitalopram oxalate 10 mg tablet 10 mg PO DAILY nitroglycerin 0.4 mg tablet, sublingual 0.4 mg SUBLINGUAL Q5M PRN (Reason: Chest Pain) Qty: 25 3RF memantine 10 mg tablet 10 mg PO BID lisinopril 5 mg tablet 5 mg PO BID Qty: 180 3RF levothyroxine 75 MCG tablet 75 mcg PO DAILY folic acid 1 MG tablet 1 mg PO DAILY Patient Comments: cholecalciferol (vitamin D3) [D3 DOTS] 50 mcg (2,000 unit) tablet 50 mcg PO DAILY vitamin E 268 mg (400 unit) capsule 268 mg PO DAILY carvedilol 25 mg tablet 25 mg PO BID Qty: 180 4RF Rx Instructions: give with food (meal/snack) Referrals / Follow Up: Callum Hill MD [Primary Care Provider] - 3-5 Days Disposition Disposition (needs filled in before D/C Order can be placed): Residential Facility 09/01/24 1246 Cosigner Signature (if applicable): CC: Dr. Callum Hill MD; Dr. Kenya Otoole MD ~ [facility]04-15-2025 Progress note Author Antoine Finch [facility] Note Date/Time August 31, 2024 1:3 2pm [facility] Medical Records Department [facility] [place] [address] Progress Note - Hospitalist 08/31/24 1330 MR#: [id number] Acct: [id number] Name: BINH PARKS Rep #:[id number] : 1940 84 From: Antoine bynum MD PCP: Dr. Callum Hill MD Status :ADM IN Location: [place] [address] Subjective Subjective No changes, no issues overnight. Renal function continues to improve. Objective Data Objective Data Vital Signs: Vital Signs Temp Pulse Resp BP Pulse Ox O2 Del Method O2 Flow Rate 98.7 F 22 L 22 H 160/70 H 98 Nasal Cannula 2 08/31/24 08:30 08/31/24 08:30 08/31/24 08:40 08/31/24 08:30 08/31/24 08:40 08/31/24 08:40 08/31/24 12:15 Oxygen Flow Rate (L/min) 2 Oxygen Delivery Method Nasal Cannula Weight: 181 lb 14.102 oz Body Mass Index (BMI) 29.3 Intake & Output: Intake and Output for Last 24 Hours 08/30/24 08/31/24 09/01/24 03:59 03:59 03:59 Intake Total 2209.5 / 2209.5 1496 / 1496 572 / 572 Output Total 1600 / 1600 1600 / 1600 1000 / 1000 Balance 609.5 / 609.5 -104 / -104 -428 / -428 Lab / Micro Data 08/31/24 06:37 08/31/24 06:37 Labs: Laboratory Results - last 24 hr 08/30/24 03:51: Diff Path Review N/A 08/31/24 06:37: WBC 7.8, RBC 3.68 L, Hgb 11.7 L, Hct 36.1 L, MCV 98.1 H, MCH 31.8, MCHC 32.4, RDW Std Deviation 45.3 H, RDW Coeff of Maryana 12.6, Plt Count 136 L, MPV 11.1, Immature Gran % (Auto) 0.800, Neut % (Auto) 62.7, Lymph % (Auto) 20.3, [place] % (Auto) 13.4 H, Eos % (Auto) 1.9, Baso % (Auto) 0.9, Absolute Neuts (auto) 4.9, Absolute Lymphs (auto) 1.57, Nucleated RBC % 0, Sodium 137, Potassium 4.1, Chloride 105, Carbon Dioxide 21.5, Anion Gap 10, BUN 14, Creatinine 0.78, Estim Creat Clear Calc 70.54, Est GFR (MDRD) Non-Af 89, BUN/Creatinine Ratio 18.5, Glucose 117 H, Calcium 8.5 Micro: Microbiology 08/29/24 17:40 Urine Catheter - Young Urine Culture - Preliminary Culture exhibits no growth. 08/29/24 17:40 Urine Catheter - Young Legionella Antigen - Final 08/29/24 17:40 Urine Catheter - Young Streptococcus pneumoniae Antigen (M - Final 08/28/24 16:55 Mucosa - Nasopharyngeal Respiratory Panel (PCR) - Final 08/28/24 10:50 Mucosa - Nose SARS-CoV-2, Influenza & RSV (PCR) - Final Radiography Diagnostic Testing: Radiology Impression Renal Ultrasound 08/30/24 08:36 IMPRESSION: Study appears within limits as above. Reading Location: [facility] Rhythm Strip Rhythm Strip: Paced Rate: 63 Ectopy: PVC(s) Physical Exam Narrative General: Alert but drowsy, Oriented x1, Cooperative, No apparent distress HEENT: Atraumatic, PERRLA, EOMI, Normocephalic Oral: Moist Mucosa Neck: Supple, No JVD Lungs: Diminished, Normal air movement, No rhonchi, No wheeze, No rales Cardiovascular: Regular rate, Regular Rhythm, Normal S1, Normal S2, No murmurs Abdomen: Soft, Non Tender, Non-Distended, No Hepato-splenomegaly Extremities: No edema, Capillary Refill Less than 3 Seconds Skin: No rashes, No breakdown Musculoskeletal: No Tenderness to Palpation of Joints or Extremities Neurological: No focal neurological deficits, Motor Exam 5/5 strength throughout, Sensory exam intact to light touch and pain Psych/Mental Status: Normal Affect, Appropriate Assessment & Plan Assessment/Plan (1) Altered level of consciousness: PLAN: Plan 1. Acute metabolic encephalopathy secondary to urinary retention leading to AKIin the setting of dementia ? Vitamin B12 level is normal as his TSH ? proBNP was also normal ? Ammonia level was normal ? Renal function resolved with the placement of a Young yesterday evening ? ABG had demonstrated a slight alkalosis, appears to have been metabolic ? Continue with Unasyn pending cultures ? PT/OT, speech therapy is planning for a modified barium swallow today ? Case management working on possible placement options for dispo 2. CAD status post stent/pacemaker placement/essential HTN/HLD ? Blood pressures are stable ? Can continue with his home blood pressure medications 3. Hypothyroidism ? Stable ? Continue with Synthroid DVT: Lovenox Charges/Coding Visit Charges Inpatient E&M: 26859 Subs Hosp L2 08/31/24 5192 <Electronically signed by Antoine Finch MD> Cosigner Signature (if applicable): CC: ~ Signed [facility] Work Phone: 1(102) 825-729804-15-2025 Progress note [facility] Medical Records Department [address] [place] [address] Progress Note - Hospitalist 08/31/24 1330 MR#: [id number] Acct: [id number] Name: BINH PARKS Rep #:[id number] : 1940 84 From: Antoine bynum MD PCP: Dr. Callum Hill MD Status :ADM IN Location: [place] [address] Subjective Subjective No changes, no issues overnight. Renal function continues to improve. Objective Data Objective Data Vital Signs: Vital Signs Temp Pulse Resp BP Pulse Ox O2 Del Method O2 Flow Rate 98.7 F 22 L 22 H 160/70 H 98 Nasal Cannula 2 08/31/24 08:30 08/31/24 08:30 08/31/24 08:40 08/31/24 08:30 08/31/24 08:40 08/31/24 08:40 08/31/24 12:15 Oxygen Flow Rate (L/min) 2 Oxygen Delivery Method Nasal Cannula Weight: 181 lb 14.102 oz Body Mass Index (BMI) 29.3 Intake & Output: Intake and Output for Last 24 Hours 08/30/24 08/31/24 09/01/24 03:59 03:59 03:59 Intake Total 2209.5 / 2209.5 1496 / 1496 572 / 572 Output Total 1600 / 1600 1600 / 1600 1000 / 1000 Balance 609.5 / 609.5 -104 / -104 -428 / -428 Lab / Micro Data 08/31/24 06:37 08/31/24 06:37 Labs: Laboratory Results - last 24 hr 08/30/24 03:51: Diff Path Review N/A 08/31/24 06:37: WBC 7.8, RBC 3.68 L, Hgb 11.7 L, Hct 36.1 L, MCV 98.1 H, MCH 31.8, MCHC 32.4, RDW Std Deviation 45.3 H, RDW Coeff of Maryana 12.6, Plt Count 136 L, MPV 11.1, Immature Gran % (Auto) 0.800,Neut % (Auto) 62.7, Lymph % (Auto) 20.3, [place] % (Auto) 13.4 H, Eos % (Auto) 1.9, Baso % (Auto) 0.9,Absolute Neuts (auto) 4.9, Absolute Lymphs (auto) 1.57, Nucleated RBC % 0, Sodium 137, Potassium 4.1, Chloride 105, Carbon Dioxide 21.5, Anion Gap 10, BUN 14, Creatinine 0.78, Estim Creat Clear Calc 70.54, Est GFR (MDRD) Non-Af 89, BUN/Creatinine Ratio 18.5, Glucose 117 H, Calcium 8.5 Micro: Microbiology 08/29/24 17:40 Urine Catheter - Young Urine Culture - Preliminary Culture exhibits no growth. 08/29/24 17:40 Urine Catheter - Young Legionella Antigen - Final 08/29/24 17:40 Urine Catheter - Young Streptococcus pneumoniae Antigen (M - Final 08/28/24 16:55 Mucosa - Nasopharyngeal Respiratory Panel (PCR) - Final 08/28/24 10:50 Mucosa - Nose SARS-CoV-2, Influenza & RSV (PCR) - Final Radiography Diagnostic Testing: Radiology Impression Renal Ultrasound 08/30/24 08:36 IMPRESSION: Study appears within limits as above. Reading Location: [facility] Rhythm Strip Rhythm Strip: Paced Rate: 63 Ectopy: PVC(s) Physical Exam Narrative General: Alert but drowsy, Oriented x1, Cooperative, No apparent distress HEENT: Atraumatic, PERRLA, EOMI, Normocephalic Oral: Moist Mucosa Neck: Supple, No JVD Lungs: Diminished, Normal air movement, No rhonchi, No wheeze, No rales Cardiovascular: Regular rate, Regular Rhythm, Normal S1, Normal S2, No murmurs Abdomen: Soft, Non Tender, Non-Distended, No Hepato-splenomegaly Extremities: No edema, Capillary Refill Less than 3 Seconds Skin: No rashes, No breakdown Musculoskeletal: No Tenderness to Palpation of Joints or Extremities Neurological: No focal neurological deficits, Motor Exam 5/5 strength throughout, Sensory exam intact to light touch and pain Psych/Mental Status: Normal Affect, Appropriate Assessment & Plan Assessment/Plan (1) Altered level of consciousness: PLAN: Plan 1. Acute metabolic encephalopathy secondary to urinary retention leading to AKIin the setting of dementia ? Vitamin B12 level is normal as his TSH ? proBNP was also normal ? Ammonia level was normal ? Renal function resolved with the placement of a Young yesterday evening ? ABG had demonstrated a slight alkalosis, appears to have been metabolic ? Continue with Unasyn pending cultures ? PT/OT, speech therapy is planning for a modified barium swallow today ? Case management working on possible placement options for dispo 2. CAD status post stent/pacemaker placement/essential HTN/HLD ? Blood pressures are stable ? Can continue with his home blood pressure medications 3. Hypothyroidism ? Stable ? Continue with Synthroid DVT: Lovenox Charges/Coding Visit Charges Inpatient E&M: 06157 Subs Hosp L2 08/31/24 1332 Cosigner Signature (if applicable): CC: ~ Signed [facility]04-15-2025 Procedure note [facility] Speech Pathology [address] [place] [address] Modified Barium Swallow Study MR#: [id number] Acct: [id number] Name: KYLEBINH PARISH Rep #:[id number] : 1940 84 From: Barbara Nick Modified Barium Swallow Patient Information Study Date: 08/31/24 Study Time: 09:00 Direct Billable Minutes: 60 Total Minutes procedure & reportin Diagnosis: G30.9 - Alzheimer's disease Referring Physician: Antoine Finch Medical History: An 84-year-old male presented to [facility] Emergency Departmenton 08/28/2024 with decreased consciousness. Per family, the patient had been exhibiting behavioral changes since the prior , with progressive worsening that prompted ED evaluation. CTA of the head and neck showedno acute findings. Given the non-focal neurological exam and generalized symptoms, the clinical picture is more consistent with a toxic or metabolic encephalopathy, superimposed on his baseline chronic dementia. The patient was referred to speech therapy to evaluate swallowing function due to occasional coughing noted with medication intake. He participated in a clinical bedside swallow evaluation (CBSE), which revealed signs and symptoms ofaspiration with PO intake, prompting a recommendation for MBSS. 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 Current Diet Ordered: Regular Textures / Thin Liquids Mental Status: Impaired (Alzheimer's disease) Respiratory Status: Oxygenating on 2L/M nasal cannula Penetration-Aspiration Scale Penetration-Aspiration Scale: OBJECTIVE ASSESSMENT OF SWALLOW FUNCTION (QUANTITATIVE ? PER TRIAL): PENETRATION / ASPIRATION SCALE (MARTINEZ): 1 = does not enter airway 2 = enters airway/above vocal folds/ejected 3 = enters airway/above vocal folds/not ejected 4 = enters airway/contacts vocal folds/ejected 5 = enters airway/contacts vocal folds/not ejected 6 = enters airway/below vocal folds/ejected 7 = enters airway/below vocal folds/not ejected despite effort 8 = enters airway/below vocal folds/no effort VIDEOFLOROSCOPIC SCALE SCORE (MARTINEZ): Grade I = aspiration of material that has penetrated into the laryngeal vestibule, intact cough reflex Grade II = aspiration < 10 % of the bolus, intact cough reflex Grade III = aspiration of < 10 % of the bolus, reduced cough reflex or aspiration of > 10 % of the bolus, intact cough reflex Grade IV = aspiration of > 10 % of the bolus, reduced cough reflex Penetration-Aspiration Scale Score Thin Liquid via teaspoon: Result: 1= does not enter airway Thin Liquid via teaspoon Trial 2: Result: 1= does not enter airway Thin Liquid via small single sip: cup: Result: 1= does not enter airway Thin Liquid via small single sip: cup Trial 2: Result: 1= does not enter airway Thin Liquid via small single sip: cup Trial 3: Result: 1= does not enter airway Cookie: Result: 1= does not enter airway Pudding: Result: 1= does not enter airway Thin Liquid via sequential sips:straw: Result: 1= does not enter airway Thin Liquid via single sip: straw: Result: 1= does not enter airway Barium Tablet: Result: 1= does not enter airway Oral Phase Labial Seal: No Labial Escape Tongue Control During Bolus Hold: Escape to lateral buccal cavity/floor of mouth Bolus Preparation/Mastication: Disorganized chewing/mashing with solid pieces ofbolus unchewed Bolus Transport/Lingual Motion: Brisk tongue motion Oral Residue: Trace residue lining oral structures Pharyngeal Phase Initiation of Pharyngeal Swallow: Bolus head at posterior angle of ramus at first hyoid excursion Soft Palate Elevation: No bolus between soft palate and pharyngeal wall Laryngeal Elevation: Comp. Superior move thyroid cart w/comp. apprx arytenoid cart-epig pet Anterior Hyoid Excursion: Complete anterior movement Epiglottic Movement: Complete inversion Laryngeal Vestibule Closure at Height of Swallow: Incomplete; narrow column of air/contrast in laryngeal vestibule Pharyngeal Stripping Wave: Present - diminished Pharyngoesophageal Segment Opening: Complete distension and complete duration; no obstruction of flow Tongue Base Retraction: No contrast between tongue base and posterior pharyngealwall Pharyngeal Residue: Complete pharyngeal clearance Esophageal Phase Esophageal Clearance: Complete clearance Diagnosis/Impression Diagnosis: Swallow function WNL Impression: The patient demonstrated adequate swallow function during the MBSS. He was alertand cooperative with the TIME STUDY OBSERVER, though notable confusion was observed, consistent with his Alzheimer's disease. The patient required total assistance from the SLPgraduate student and was fully assisted with PO trials. No signs of aspiration or penetration were observed with thin liquids administered via teaspoon, cup, or straw. The airway remained clear throughout the study. It is important to note that the patient exhibited a cough both prior to oral intake and during the study, though it was not related to aspiration. The oral phase was adequate, with good bolus control and timely anterior- posterior transit. One small un-chewed piece of cookie was noted in the valleculaduring mastication but was cleared independently with a subsequent swallow. No pharyngeal residue was observed. Given the patient?s cognitive impa irments, he was noted to chew a whole barium tablet; he was able to tolerate it with a liquid chaser and verbal prompting. As a result, it is recommended that medications be administered whole or crushed in a puree consistency to ensure safe intake. Overall, swallow safety and aspiration risk appear closely tied to the patient's level of alertness and cognitive status. Recommendations Diet: Regular Textures and Thin Liquids Compensatory Strategies: Feed only when alert, Sitting upright and Remain sitting upright for 30 minutes after PO intake Supervision: Total Feed Recommend Repeat Modified Barium Swallow: No Need for Skilled Speech Therapy Services: No Education Completed: 1. Described result of evaluation., 2. Pt understands evaluation & agrees with goals and treatment plan. and 4. Family/caregivers understand evaluation & agree w/ goals & tx plan. Status Active ST Patient: Active Contact Information [facility] Speech Therapy:: Barbara Nick M.A. CCC-TIME STUDY OBSERVER Speech-Language Pathologist [facility] [address] [place] [address] [email or web address] [phone] 08/31/24 0956 > Date/Time Barbara Nick Co-Signature Required for all Medicare patients Date/Time Co-Signature CC: ~ [facility]04-15-2025 Radiology Diagnostic study note [facility] Imaging Services [address] [place] [address] Kidney and Bladder MR#: [id number] Acct: [id number] Name: BINH PARKS Rep #: [id number] : 1940 M 84 From: Spike Raymond MD PCP: Dr. Callum Hill MD Status: ADM IN Study:Kidney and Bladder Date of Exam: 0 08/30/24 Exam# [id number] Ordering Dr: Daiana Otoole MD PROCEDURE: KIDNEY AND BLADDER 08/30/2024 REASON FOR EXAM: ALEJANDRA, AMS TECHNIQUE: Bilateral renal and bladder ultrasound. COMPARISON: CT abdomen and pelvis 08/29/2024 FINDINGS: The right kidney measures 10.1 x 4.7 x 5.2 cm with a cortical thickness of 1.1 cm. The right kidneyappears within limits for echogenicity without hydronephrosis, renal stone or perinephric edema identified. The left kidney measures 11.3 x 5.8 x 6.7 cm with a cortical thickness of 1.3 cm. Left upper pole 2.9 x 3.2 x 2.9 cm and lower pole 2.5 x 2.1 x 2.2 cm simple appearing renal cysts. It is noted on the preceding CT abdomen and pelvis at there are small parapelvic left renal cysts which is likely accounting for the current appearance of possible mild left hydronephrosis by ultrasound. Left kidney appears within limits for echogenicity without renal stone or perinephric edema seen. Young catheter is present within a collapsed bladder. No free fluid seen. US/Kidney and Bladder IMPRESSION: Study appears within limits as above. Reading Location: [facility] CC: Dr. Callum Hill MD; Dr. Kenya Otoole MD ~ [employer]: Signed [facility]04-14-2025 Progress note Author Antoine Finch [facility] Note Date/Time August 30, 2024 10: 16am [facility] Medical Records Department [address] [place] [address] Progress Note - Hospitalist 08/30/24 0939 MR#: [id number] Acct: [id number] Name: BINH PARKS Rep #:[id number] : 1940 84 From: Antoine bynum MD PCP: Dr. Callum Hill MD Status :ADM IN Location: [place] [address] Subjective Subjective Renal function resolved with placement of Young, it seems it was all due to retention continue with Flomax. No issues overnight Objective Data Objective Data Vital Signs: Vital Signs Temp Pulse Resp BP Pulse Ox O2 Del Method O2 Flow Rate 98.4 F 59 L 16 102/47 L 94 Nasal Cannula 2 08/30/24 08:52 08/30/24 08:52 08/30/24 08:52 08/30/24 08:52 08/30/24 08:52 08/30/24 08:52 08/30/24 08:52 Oxygen Flow Rate (L/min) 2 Oxygen Delivery Method Nasal Cannula Weight: 180 lb 6.4 oz Body Mass Index (BMI) 29.1 Intake & Output: Intake and Output for Last 24 Hours 08/29/24 08/30/24 08/31/24 03:59 03:59 03:59 Intake Total 2209.5 / 2209.5 Output Total 1600 / 1600 Balance 609.5 / 609.5 Lab / Micro Data 08/30/24 03:51 08/30/24 03:51 Labs: Laboratory Results - last 24 hr 08/29/24 12:34: WBC 11.8 H, RBC 4.14 L, Hgb 13.0, Hct 39.0 L, MCV 94.2 H, MCH 31.4, MCHC 33.3, RDW Std Deviation 46.1 H, RDW Coeff of Maryana 13.2, Plt Count 165,MPV 11.2, Sodium 134, Potassium 4.5, Chloride 99, Carbon Dioxide 22.3, Anion Gap13, BUN 34 H, Creatinine 2.25 H, Estim Creat Clear Calc 25.07 L, Est GFR (MDRD) Non-Af 28 L, BUN/Creatinine Ratio 15.2, Glucose 135 H, Calcium 9.2 08/29/24 15:17: Procalcitonin 0.20 H 08/29/24 17:30: Urine Osmolality 545, Ur Random Sodium 51, Urine Creatinine 228.00, Urine Potassium 49.8, Urine Chloride 28, Urine Urea Nitrogen 595 08/29/24 17:40: Urine Color Yellow, Urine Clarity Sl. Cloudy, Urine pH 5.0, Ur Specific Tanner 1.020, Urine Protein 30 H, Urine Glucose (UA) Normal, Urine Ketones Negative, Urine Occult Blood 150 H, Urine Nitrite Negative, Urine Bilirubin 1 H, Urine Urobilinogen Normal, Ur Leukocyte Esterase Negative, Urine RBC 10-25 SEEN, Urine WBC 0-5 SEEN, Ur Squamous Epith Cells 0-5 SEEN, Urine Bacteria 1+, Hyaline Casts 0-5 SEEN, Fine Granular Casts 0-5 SEEN, Urine Mucus 1+ 08/30/24 03:51: WBC 11.6 H, RBC 3.85 L, Hgb 12.1 L, Hct 36.0 L, MCV 93.5, MCH 31.4, MCHC 33.6, RDW Std Deviation 43.8, RDW Coeff of Maryana 12.7, Plt Count 153, MPV 11.2, Immature Gran % (Auto) 0.600, Neut % (Auto) 69.9, Lymph % (Auto) 14.1 L, [place] % (Auto) 14.0 H, Eos % (Auto) 1.0, Baso % (Auto) 0.4, Absolute Neuts (auto) 8.1 H, Absolute Lymphs (auto) 1.64, Nucleated RBC % 0, Diff Path Review May foll, Reactive Lymphocytes 1+, Platelet Estimate ADEQUATE, RBC Morphology NORM C+C, Sodium 136, Potassium 3.9, Chloride 103, Carbon Dioxide 23.7, Anion Gap 9, BUN 29 H, Creatinine 1.20, Estim Creat Clear Calc 47.00 L, Est GFR (MDRD)Non-Af 60, BUN/Creatinine Ratio 23.8 H, Glucose 150 H, Calcium 8.8 Micro: Microbiology 08/29/24 17:40 Urine Catheter - Young Legionella Antigen - Final 08/29/24 17:40 Urine Catheter - Young Streptococcus pneumoniae Antigen (M - Final 08/28/24 16:55 Mucosa - Nasopharyngeal Respiratory Panel (PCR) - Final 08/28/24 10:50 Mucosa - Nose SARS-CoV-2, Influenza & RSV (PCR) - Final Radiography Diagnostic Testing: Radiology Impression Chest/Abdomen/Pelvis CT 08/29/24 16:10 IMPRESSION: No acute findings in the chest, abdomen and pelvis. Other chronic findings as detailed above. Reading Location: [facility] Rhythm Strip Rhythm Strip: Paced Rate: 63 Ectopy: PVC(s) Physical Exam Narrative General: Alert, Oriented x1, Cooperative, No apparent distress HEENT: Atraumatic, PERRLA, EOMI, Normocephalic Oral: Moist Mucosa Neck: Supple, No JVD Lungs: Diminished, Normal air movement, No rhonchi, No wheeze, No rales Cardiovascular: Regular rate, Regular Rhythm, Normal S1, Normal S2, No murmurs Abdomen: Soft, Non Tender, Non-Distended, No Hepato-splenomegaly Extremities: No edema, Capillary Refill Less than 3 Seconds Skin: No rashes, No breakdown Musculoskeletal: No Tenderness to Palpation of Joints or Extremities Neurological: No focal neurological deficits, Motor Exam 5/5 strength throughout, Sensory exam intact to light touch and pain Psych/Mental Status: Normal Affect, Appropriate Assessment & Plan Assessment/Plan (1) Altered level of consciousness: PLAN: Plan 1. Acute metabolic encephalopathy secondary to urinary retention leading to AKIin the setting of dementia ? Vitamin B12 level is normal as his TSH ? proBNP was also normal ? Ammonia level was normal ? Renal function resolved with the placement of a Young yesterday evening ? ABG had demonstrated a slight alkalosis, appears to have been metabolic ? Continue with Unasyn pending cultures 2. CAD status post stent/pacemaker placement/essential HTN/HLD ? Blood pressures are stable ? Can continue with his home blood pressure medications 3. Hypothyroidism ? Stable ? Continue with Synthroid DVT: Lovenox Charges/Coding Visit Charges Inpatient E&M: 93559 Subs Hosp L2 08/30/24 1016 <Electronically signed by Antoine Finch MD> Cosigner Signature (if applicable): CC: ~ Signed [facility] Work Phone: 1(528) 369-431404-14-2025 Progress note [facility] Medical Records Department [address] [place] [address] Progress Note - Hospitalist 08/30/24 0939 MR#: [id number] Acct: [id number] Name: BINH PAKRS Rep #:[id number] : 1940 84 From: Antoine bynum MD PCP: Dr. Callum Hill MD Status :ADM IN Location: [place] [address] Subjective Subjective Renal function resolved with placement of Young, it seems it was all due to retention continue withFlomax. No issues overnight Objective Data Objective Data Vital Signs: Vital Signs Temp Pulse Resp BP Pulse Ox O2 Del Method O2 Flow Rate 98.4 F 59 L 16 102/47 L 94 Nasal Cannula 2 08/30/24 08:52 08/30/24 08:52 08/30/24 08:52 08/30/24 08:52 08/30/24 08:52 08/30/24 08:52 08/30/24 08:52 Oxygen Flow Rate (L/min) 2 Oxygen Delivery Method Nasal Cannula Weight: 180 lb 6.4 oz Body Mass Index (BMI) 29.1 Intake & Output: Intake and Output for Last 24 Hours 08/29/24 08/30/24 08/31/24 03:59 03:59 03:59 Intake Total 2209.5 / 2209.5 Output Total 1600 / 1600 Balance 609.5 / 609.5 Lab / Micro Data 08/30/24 03:51 08/30/24 03:51 Labs: Laboratory Results - last 24 hr 08/29/24 12:34: WBC 11.8 H, RBC 4.14 L, Hgb 13.0, Hct 39.0 L, MCV 94.2 H, MCH 31.4, MCHC 33.3, RDW Std Deviation 46.1 H, RDW Coeff of Maryana 13.2, Plt Count 165,MPV 11.2, Sodium 134, Potassium 4.5, Chloride 99, Carbon Dioxide 22.3, Anion Gap13, BUN 34 H, Creatinine 2.25 H, Estim Creat Clear Calc 25.07L, Est GFR (MDRD) Non-Af 28 L, BUN/Creatinine Ratio 15.2, Glucose 135 H, Calcium 9.2 08/29/24 15:17: Procalcitonin 0.20 H 08/29/24 17:30: Urine Osmolality 545, Ur Random Sodium 51, Urine Creatinine 228.00, Urine Rvbkkqcmg27.8, Urine Chloride 28, Urine Urea Nitrogen 595 08/29/24 17:40: Urine Color Yellow, Urine Clarity Sl. Cloudy, Urine pH 5.0, Ur Specific Tanner 1.020, Urine Protein 30 H, Urine Glucose (UA) Normal, Urine Ketones Negative, Urine Occult Blood 150 H,Urine Nitrite Negative, Urine Bilirubin 1 H, Urine Urobilinogen Normal, Ur Leukocyte Esterase Negative, Urine RBC 10-25 SEEN, Urine WBC 0-5 SEEN, Ur Squamous Epith Cells 0-5 SEEN, Urine Bacteria 1+, Hyaline Casts 0-5 SEEN, Fine Granular Casts 0-5 SEEN, Urine Mucus 1+ 08/30/24 03:51: WBC 11.6 H, RBC 3.85 L, Hgb 12.1 L, Hct 36.0 L, MCV 93.5, MCH 31.4, MCHC 33.6, RDW Std Deviation 43.8, RDW Coeff of Maryana 12.7, Plt Count 153, MPV 11.2, Immature Gran % (Auto) 0.600, Neut % (Auto) 69.9, Lymph % (Auto) 14.1 L, [place] % (Auto) 14.0 H, Eos % (Auto) 1.0, Baso % (Auto) 0.4, Absolute Neuts (auto) 8.1 H, Absolute Lymphs (auto) 1.64, Nucleated RBC % 0, Diff Path Review May foll, Reactive Lymphocytes 1+, Platelet Estimate ADEQUATE, RBC Morphology NORM C+C, Sodium 136, Potassium 3.9, Chloride 103, Carbon Dioxide 23.7, Anion Gap 9, BUN 29 H, Creatinine 1.20, Estim Creat Clear Calc 47.00 L, Est GFR (MDRD)Non-Af 60, BUN/Creatinine Ratio 23.8 H, Glucose 150 H, Calcium 8.8 Micro: Microbiology 08/29/24 17:40 Urine Catheter - Young Legionella Antigen - Final 08/29/24 17:40 Urine Catheter - Young Streptococcus pneumoniae Antigen (M - Final 08/28/24 16:55 Mucosa - Nasopharyngeal Respiratory Panel (PCR) - Final 08/28/24 10:50 Mucosa - Nose SARS-CoV-2, Influenza & RSV (PCR) - Final Radiography Diagnostic Testing: Radiology Impression Chest/Abdomen/Pelvis CT 08/29/24 16:10 IMPRESSION: No acute findings in the chest, abdomen and pelvis. Other chronic findings as detailed above. [facility] Rhythm Strip Rhythm Strip: Paced Rate: 63 Ectopy: PVC(s) Physical Exam Narrative General: Alert, Oriented x1, Cooperative, No apparent distress HEENT: Atraumatic, PERRLA, EOMI, Normocephalic Oral: Moist Mucosa Neck: Supple, No JVD Lungs: Diminished, Normal air movement, No rhonchi, No wheeze, No rales Cardiovascular: Regular rate, Regular Rhythm, Normal S1, Normal S2, No murmurs Abdomen: Soft, Non Tender, Non-Distended, No Hepato-splenomegaly Extremities: No edema, Capillary Refill Less than 3 Seconds Skin: No rashes, No breakdown Musculoskeletal: No Tenderness to Palpation of Joints or Extremities Neurological: No focal neurological deficits, Motor Exam 5/5 strength throughout, Sensory exam intact to light touch and pain Psych/Mental Status: Normal Affect, Appropriate Assessment & Plan Assessment/Plan (1) Altered level of consciousness: PLAN: Plan 1. Acute metabolic encephalopathy secondary to urinary retention leading to AKIin the setting of dementia ? Vitamin B12 level is normal as his TSH ? proBNP was also normal ? Ammonia level was normal ? Renal function resolved with the placement of a Young yesterday evening ? ABG had demonstrated a slight alkalosis, appears to have been metabolic ? Continue with Unasyn pending cultures 2. CAD status post stent/pacemaker placement/essential HTN/HLD ? Blood pressures are stable ? Can continue with his home blood pressure medications 3. Hypothyroidism ? Stable ? Continue with Synthroid DVT: Lovenox Charges/Coding Visit Charges Inpatient E&M: 03267 Subs Hosp L2 08/30/24 1016 Cosigner Signature (if applicable): CC: ~ Signed [facility]04-13-2025 Progress note Author Kenya Otoole [facility] Note Date/Time August 29, 2024 5:1 2pm [facility] Medical Records Department [address] [place] [address] Progress Note - Hospitalist 08/29/241450 MR#: [id number] Acct: [id number] Name: BINH PARKS Rep #:[id number] : 1940 84 From: Kenya Otoole MD PCP: Dr. Callum Hill MD Status :ADM IN Location: [place] [address] Hospitalist Note Patient did have further increase in his creatinine of unclear etiology, will check CT of the abdomen pelvis, given worsening creatinine we will avoid IV contrast at this time, given some of the possible crackles at left lower lung base we will also scan chest, looking at x-ray again it was read as no acute process but does appear to have heart border somewhat obscured at left lower base and on exam was coarse in left lower side and did seem to have some cough, will cover empirically for CAP at this time pending further imaging, given worsening kidney function we will also recheck UA and urine culture. Further management pending results. Monitor intake and output 08/29/241454 <Electronically signed by Kenya Otoole MD> Cosigner Signature (if applicable): CC: ~ Signed ADDENDUM by Dr. Kenya Otoole MD on 08/29/24 at 1656 Addendum Pro-Brandon only minimally elevated, reviewed CT scan, reknot back, patient still has contrast in his bladder from the CTA of his head done yesterday and reportedly has had almost no output so it does seem that he is retaining, highersuspicion for a postobstructive picture, discussed with patient's nurse, will place Young catheter and still get urine studies, will keep antibiotics for now and if cultures/studies are negative can likely de-escalate in 24 to 48 hours now it seems there is a more likely reason for his quickly worsening kidney function. Formal read of CT pending. 08/29/241655<Electronically signed by Kenya Otoole MD> Cosigner Signature (if applicable): cc: ~* Signed ADDENDUM by Dr. Kenya Otoole MD on 08/29/[address] chest, abdomen, pelvis overall fairly benign, there is still contrast in the bladder from yesterday's CT scan and patient has had almost no output and it appears he is retaining, Young will be placed, also has a large prostate, Pro-Brandon only 0.2, will continue antibiotics while pending cultures but low thresholdto de-escalate if they are negative given there is an alternate reason why his creatinine was worsening (urinary retention). Patient's updated on [id number] 08/29/24 1712<Electronically signed by Kenya Otoole MD> Cosigner Signature (if applicable): cc: ~* Signed [facility] Work Phone: 1(650) 124-114304-13-2025 Progress note [facility] Medical Records Department [address] [place] [address] Progress Note - Hospitalist 08/29/24 1451 MR#: [id number] Acct: [id number] Name: BINH PARKS Rep #:[id number] : 1940 84 From: Kenya Otoole MD PCP: Dr. Callum Hill MD Status :ADM IN Location: [place] [address] Hospitalist Note Patient did have further increase in his creatinine of unclear etiology, will check CT of the abdomen pelvis, given worsening creatinine we will avoid IV contrast at this time, given some of the possible crackles at left lower lung base we will also scan chest, looking at x-ray again it was read asno acute process but does appear to have heart border somewhat obscured at left lower base and on exam was coarse in left lower side and did seem to have some cough, will cover empirically for CAP atthis time pending further imaging, given worsening kidney function we will also recheck UA and urine culture. Further management pending results. Monitor intake and output 08/29/24 1455 Cosigner Signature (if applicable): CC: ~ Signed ADDENDUM by Dr. Kenya Otoole MD on 08/29/24 at 1656 Addendum Pro-Brandon only minimally elevated, reviewed CT scan, reknot back, patient still has contrast in his bladder from the CTA of his head done yesterday and reportedly has had almost no output so it does seem that he is retaining, highersuspicion for a postobstructive picture, discussed with patient's nurse, will place Young catheter and still get urine studies, will keep antibiotics for now and if cultures/studies are negative can likely de-escalate in 24 to 48 hours now it seems there is a more likely reason for his quickly worsening kidney function. Formal read of CT pending. 08/29/24 1656 Cosigner Signature (if applicable): cc: ~* Signed ADDENDUM by Dr. Kenya Otoole MD on 08/29/[address] chest, abdomen, pelvis overall fairly benign, there is still contrast in the bladder from yesterday's CT scan and patient has had almost no output and it appears he is retaining, Young will be placed, also has a large prostate, Pro- Brandon only 0.2, will continue antibiotics while pending cultures but low thresholdto de-escalate if they are negative given there is an alternate reason why his creatinine was worsening (urinary retention). Patient's updated on [id number] 08/29/24 1712 Cosigner Signature (if applicable): cc: ~* Signed [facility]04-13-2025 Radiology Diagnostic study note [facility] Imaging Services [address] [place] [address] CT Chest, Abd, Pelvis WO Cont MR#: [id number] Acct: [id number] Name: BINH PARKS Rep #: [id number] : 1940 M 84 From: Carmen Nguyen MD PCP: Dr. Callum Hill MD Status: ADM IN Study:CT Chest, Abd, Pelvis WO Cont Date of E xam: 08/29/24 Exam# [id number] Ordering Dr: Daiana Otoole MD PROCEDURE: CT CHEST, ABD, PELVIS WO CONT 08/29/2024 REASON FOR EXAM: SUDDEN RENAL FAILURE, ALSO PRODUCTIVE COUGH TECHNIQUE: Chest, abdomen and pelvis CT without intravenous contrast. Coronal and Sagittal reconstruction series were provided. One or more dose reduction techniques were used (e.g., Automated exposure control, adjustment of the mA and/or kV according to patient size, use of iterative reconstruction technique. COMPARISON: None FINDINGS: CT CHEST: Hardware: Left chest wall ICD. Lymph nodes: No lymphadenopathy. Heart and Vasculature: Mild cardiomegaly. Severe coronary artery calcifications. Trace pericardial effusion. Atherosclerotic calcifications of the thoracic aorta. Thoracic aorta and pulmonary arteries havenormal contours; noncontrast technique limits evaluation. Coronary Artery Calcifications: Present Lungs and Airways: Central airways are patent without endobronchial lesions. Mild bibasilar atelectasis. No focal consolidation. No pneumothorax. No pleural effusion. Bones: Degenerative changes of the thoracic spine. Sclerotic lesion T6 vertebral body, likely bone island. CT ABDOMEN / PELVIS: Noncontrast technique limits evaluation of the abdominal and pelvic viscera. Liver: Homogeneous attenuation. Left hepatic lobe subcentimeter low- attenuationlesion, too small tocharacterize, but likely benign. Gallbladder: No ductal dilation. Gallbladder is unremarkable. Spleen: No splenomegaly. Pancreas: Normal size without evidence of mass surrounding inflammation or ductal dilation. Adrenals: Unremarkable Kidneys: Left renal cysts. No calculi or hydronephrosis. Contrast within the collecting system. Bladder: Contrast filled urinary bladder with with multiple small diverticula and wall trabeculations. Reproductive Organs: Moderate prostatomegaly. Bowel: Small hiatal hernia. Fluid-filled stomach. No bowel dilation or wall thickening. Colonic diverticulosis without diverticulitis. Appendix: The appendix is not identified. There is no inflammatory process identified in the right lower quadrant to suggest appendicitis. Lymph nodes: Unremarkable. Vasculature: Severe diffuse atherosclerotic calcifications are noted. Peritoneum / Retroperitoneum: No ascites. No pneumoperitoneum. Bones: Mild levoscoliosis. Moderate multilevel degenerative changes of the lumbar spine. No acute findings. Grade 1 anterolisthesis of L5 on S1 with bilateral pars defects. Soft tissue: No focal soft tissue abnormality. CT/CT Chest, Abd, Pelvis WO Cont IMPRESSION: No acute findings in the chest, abdomen and pelvis. Other chronic findings as detailed above. Reading Location: [facility] CC: Dr. Callum Hill MD; Dr. Kenya Otoole MD ~ [employer]: Signed [facility]04-13-2025 Progress note Author Kenya Otoole [facility] Note Date/Time August 29, 2024 2:5 1pm [facility] Medical Records Department [address] [place] [id number] Progress Note - Hospitalist 08/29/24 0834 MR#: [id number] Acct: [id number] Name: BINH PARKS Rep #:[id number] : 1940 84 From: Kenya Otoole MD PCP: Dr. Callum Hill MD Status :ADM IN Location: [place] [address] Reason for Visit Reason for Visit: Diagnoses Transient alteration of awareness (08/28/24) Subjective Subjective Patient sitting up in chair, does not know any specific complaints, family feelshe is similar to yesterday with no overt specific changes Objective Data Objective Data Vital Signs: Vital Signs Temp Pulse Resp BP Pulse Ox O2 Del Method O2 Flow Rate 97.8 F 60 16 100/57 L 94 Nasal Cannula 2 08/29/24 08:06 08/29/24 08:06 08/29/24 08:06 08/29/24 08:06 08/29/24 08:06 08/29/24 08:06 08/29/24 08:06 Oxygen Flow Rate (L/min) 2 Oxygen Delivery Method Nasal Cannula Weight: 82.4 kg Body Mass Index (BMI) 29.3 Intake & Output: Intake and Output for Last 24 Hours 08/27/24 08/28/24 08/29/24 23:59 23:59 23:59 Intake Total 150 / 150 Output Total 400 / 400 Balance -250 / -250 Lab / Micro Data 08/29/24 12:34 08/29/24 12:34 Labs: Laboratory Results - last 24 hr 08/28/24 10:02: WBC 12.3 H, RBC 4.44 L, Hgb 13.9, Hct 41.2, MCV 92.8, MCH 31.3, MCHC 33.7, RDW Std Deviation 43.5, RDW Coeff of Maryana 12.7, Plt Count 157, MPV 10.8, Immature Gran % (Auto) 0.400, Neut % (Auto) 73.7 H, Lymph % (Auto) 11.0 L,[place] % (Auto) 13.5 H, Eos % (Auto) 1.1, Baso % (Auto) 0.3, Absolute Neuts (auto)9.1 H, Absolute Lymphs (auto) 1.36, Nucleated RBC % 0, Differential Comment SCANNED, PT 13.5, INR 1.0, APTT 27.5, Sodium 136, Potassium 4.4, Chloride 99, Carbon Dioxide 24.9, Anion Gap 12, BUN 19, Creatinine 1.02, Estim Creat Clear Calc 55.63, Est GFR (MDRD) Non-Af 73, BUN/Creatinine Ratio 18.1, Glucose 166 H, Calcium 9.4, Troponin T High Sens 23 H 08/28/24 10:50: Urine Color Yellow, Urine Clarity Clear, Urine pH 6.5, Ur Specific Tanner 1.015, Urine Protein 15 H, Urine Glucose (UA) Normal, Urine Ketones Negative, Urine Occult Blood 25 H, Urine Nitrite Negative, Urine Bilirubin Negative, Urine Urobilinogen Normal, Ur Leukocyte Esterase Negative, Urine RBC 0-5 SEEN, Urine WBC 0 SEEN, Ur Squamous Epith Cells 0-5 SEEN, Urine Bacteria 0 SEEN, Urine Mucus 0 SEEN, Urine Opiates Screen NEGATIVE, U Buprenorphine Qual NEGATIVE, Ur Oxycodone Screen NEGATIVE, Urine Methadone Screen NEGATIVE, Urine Fentanyl Screen NEGATIVE, Ur Barbiturates Screen NEGATIVE, Ur Phencyclidine Scrn NEGATIVE, Ur Amphetamines Screen NEGATIVE, U Benzodiazepines Scrn NEGATIVE, Urine Cocaine Screen NEGATIVE, U Cannabinoids Screen NEGATIVE 08/28/24 11:55: Total Bilirubin 0.90, Direct Bilirubin 0.43 H, AST 25, ALT 20, Alkaline Phosphatase 102, Troponin T Hi Sens 2 Hr 21, NT pro BNP II 128, Total Protein 6.4, Albumin 3.8, Globulin 2.6, Vitamin B12 357, TSH 3.310, Free T4 1.10, Free T3 pg/dL 2.4 08/28/24 16:42: Ammonia 27.0 08/29/24 05:04: WBC 11.8 H, RBC 3.99 L, Hgb 12.5 L, Hct 37.7 L, MCV 94.5 H, MCH 31.3, MCHC 33.2, RDW Std Deviation 45.6 H, RDW Coeff of Maryana 13.0, Plt Count 155,MPV 11.4, Immature Gran % (Auto) 0.600, Neut % (Auto) 72.3 H, Lymph % (Auto) 13.3 L, [place] % (Auto) 12.9 H, Eos % (Auto) 0.5, Baso % (Auto) 0.4, Absolute Neuts (auto) 8.5 H, Absolute Lymphs (auto) 1.57, Nucleated RBC % 0, DifferentialComment SCANNED, Diff Path Review September, Sodium 135, Potassium 4.4, Chloride 99, Carbon Dioxide 23.0, Anion Gap 12, BUN 27 H, Creatinine 1.56 H, Estim Creat Clear Calc 36.15 L, Est GFR (MDRD) Non-Af 44 L, BUN/Creatinine Ratio 17.0, Glucose 146 H, Calcium 9.0 Micro: Microbiology 08/28/24 16:55 Mucosa - Nasopharyngeal Respiratory Panel (PCR) - Final 08/28/24 10:50 Mucosa - Nose SARS-CoV-2, Influenza & RSV (PCR) - Final ABG Data ABG results: ABG 08/28/24 15:04 Specimen Type ART Sample Site R Brach pH 7.46 H Bicarbonate Actual 27.9 H Total CO2 29 Base Excess 4 H O2 Saturation 94 L ABG pCO2 39.0 ABG pO2 65 L O2 Delivery Device Room Air Vent Mode Not entered Radiography Diagnostic Testing: Radiology Impression Chest X-Ray 08/28/24 11:05 IMPRESSION: Mild cardiomegaly with pulmonary vascular congestion. Reading Location: [facility] Brain CT 08/28/24 11:10 IMPRESSION: 1. No acute intracranial finding. 2. Findings of chronic microvascular ischemic changes and age-related changes. Reading Location: [facility] Head/Neck CTA 08/28/24 11:10 IMPRESSION: 1. No large vessel occlusion, AVM or aneurysm. 2. Mild narrowing of the bilateral vertebral arteries and carotid siphons. 3. No significant stenosis of the cervical carotid arteries by NASCET criteria. Reading Location: [facility] Rhythm Strip Rhythm Strip: Paced Rate: 63 Ectopy: PVC(s) Physical Exam Narrative General: Awake and pleasantly confused HEENT: Atraumatic Eyes: Extraocular movements grossly intact Neck: Supple Respiratory: Normal respiratory effort, did sound to have some crackles at the left posterior base Cardiovascular: Regular rate and rhythm GI: Soft, nontender, nondistended Extremities: No edema Musculoskeletal: Moving all extremities in bed Neuro: No overt focal neurological deficits Skin: No rashes appreciated Psych: Attempts to be cooperative, pleasantly confused Assessment & Plan Assessment/Plan (1) Altered level of consciousness: PLAN: Plan #Altered LOC/concern for acute metabolic encephalopathy - Patient had symptoms that have progressively worsened since with no focal deficits, CTA head and neck with no acute process, given nonfocal exam with generalized complaints this seems almost more consistent with a toxic and metabolic encephalopathy on top of his chronic dementia - Will check ammonia, liver panel - Check TSH - Will check B12 - Will check pro BNP given chest x-ray queried some pulmonary congestion - Will check respiratory panel given the only specific new complaint since is a cough - Will check blood gas some of the jerking movements and decreased level of consciousness - If workup continues to be unrevealing can consider MRI, strongly do not think that history and exam are consistent with acute CVA so do not think patient needs stroke admit/protocol at this time -08/29: Workup has been unrevealing thus far, PT/OT, case management and social work # ALEJANDRA -08/29: Creatinine 1.56 this a.m. with a BUN of 27, up from 1.02 yesterday, stop patient's lisinopril, will give gentle IV fluids, unclear reason for this jump, will check bladder and kidney ultrasound, will repeat labs this afternoon to verify stability Chronic medical problems and/or problems not being actively addressed during today's encounter: # Dementia - Patient on memantine as an episode at home - Feel it is reasonable to continue these at this time #Hx CAD w/ stenting/history of pacemaker/AICD -Continue asa, statin, BB -Heart healthy diet #Hypothyroidism -Continue Synthroid #Hypertension - Continue current medications #DVT ppx: Lovenox subcu Kenya Otoole MD Time spent in the patient's overall evaluation, decision-making process, review of diagnostic data, adjustment of management, discussion with other providers, nursing and ancillary staff involved in patient's care documentation, 38 Minutes Charges/Coding Visit Charges Inpatient E&M: 66869 Subs Hosp L2 08/29/24 1045 <Electronically signed by Kenya Otoole MD> Cosigner Signature (if applicable): CC: ~ Signed [facility] Work Phone: [phone] [phone] Progress note [facility] Medical Records Department [address] [place] [address] Progress Note - Hospitalist 08/29/24 0834 MR#: [id number] Acct: [id number] Name: BINH PARKS Rep #:[id number] : 1940 84 From: Kenya Otoole MD PCP: Dr. Callum Hill MD Status :ADM IN Location: [place] [address] Reason for Visit Reason for Visit: Diagnoses Transient alteration of awareness (08/28/24) Subjective Subjective Patient sitting up in chair, does not know any specific complaints, family feelshe is similar to yesterday with no overt specific changes Objective Data Objective Data Vital Signs: Vital Signs Temp Pulse Resp BP Pulse Ox O2 Del Method O2 Flow Rate 97.8 F 60 16 100/57 L 94 Nasal Cannula 2 08/29/24 08:06 08/29/24 08:06 08/29/24 08:06 08/29/24 08:06 08/29/24 08:06 08/29/24 08:06 08/29/24 08:06 Oxygen Flow Rate (L/min) 2 Oxygen Delivery Method Nasal Cannula Weight: 82.4 kg Body Mass Index (BMI) 29.3 Intake & Output: Intake and Output for Last 24 Hours 08/27/24 08/28/24 08/29/24 23:59 23:59 23:59 Intake Total 150 / 150 Output Total 400 / 400 Balance -250 / -250 Lab / Micro Data 08/29/24 12:34 08/29/24 12:34 Labs: Laboratory Results - last 24 hr 08/28/24 10:02: WBC 12.3 H, RBC 4.44 L, Hgb 13.9, Hct 41.2, MCV 92.8, MCH 31.3, MCHC 33.7, RDW Std Deviation 43.5, RDW Coeff of Maryana 12.7, Plt Count 157, MPV 10.8, Immature Gran % (Auto) 0.400, Neut %(Auto) 73.7 H, Lymph % (Auto) 11.0 L,[place] % (Auto) 13.5 H, Eos % (Auto) 1.1, Baso % (Auto) 0.3, Absolute Neuts (auto)9.1 H, Absolute Lymphs (auto) 1.36, Nucleated RBC % 0, Differential Comment SCANNED, PT 13.5, INR 1.0, APTT 27.5, Sodium 136, Potassium 4.4, Chloride 99, Carbon Dioxide 24.9, Anion Gap 12, BUN 19, Creatinine 1.02, Estim Creat Clear Calc 55.63, Est GFR (MDRD) Non-Af 73, BUN/Creatinine Ratio 18.1, Glucose 166 H, Calcium 9.4, Troponin T High Sens 23 H 08/28/24 10:50: Urine Color Yellow, Urine Clarity Clear, Urine pH 6.5, Ur Specific Tanner 1.015, Urine Protein 15 H, Urine Glucose (UA) Normal, Urine Ketones Negative, Urine Occult Blood 25 H, UrineNitrite Negative, Urine Bilirubin Negative, Urine Urobilinogen Normal, Ur Leukocyte Esterase Negative, Urine RBC 0-5 SEEN, Urine WBC 0 SEEN, Ur Squamous Epith Cells 0-5 SEEN, Urine Bacteria 0 SEEN, Urine Mucus 0 SEEN, Urine Opiates Screen NEGATIVE, U Buprenorphine Qual NEGATIVE, Ur Oxycodone ScreenNEGATIVE, Urine Methadone Screen NEGATIVE, Urine Fentanyl Screen NEGATIVE, Ur Barbiturates Screen NEGATIVE, Ur Phencyclidine Scrn NEGATIVE, Ur Amphetamines Screen NEGATIVE, U Benzodiazepines Scrn NEGATIVE, Urine Cocaine Screen NEGATIVE, U Cannabinoids Screen NEGATIVE 08/28/24 11:55: Total Bilirubin 0.90, Direct Bilirubin 0.43 H, AST 25, ALT 20, Alkaline [id number], Troponin T Hi Sens 2 Hr 21, NT pro BNP II 128, Total Protein 6.4, Albumin 3.8, Globulin 2.6, Vitamin B12 357, TSH 3.310, Free T4 1.10, Free T3 pg/dL 2.4 08/28/24 16:42: Ammonia 27.0 08/29/24 05:04: WBC 11.8 H, RBC 3.99 L, Hgb 12.5 L, Hct 37.7 L, MCV 94.5 H, MCH 31.3, MCHC 33.2, RDW Std Deviation 45.6 H, RDW Coeff of Maryana 13.0, Plt Count 155,MPV 11.4, Immature Gran % (Auto) 0.600,Neut % (Auto) 72.3 H, Lymph % (Auto) 13.3 L, [place] % (Auto) 12.9 H, Eos % (Auto) 0.5, Baso % (Auto) 0.4, Absolute Neuts (auto) 8.5 H, Absolute Lymphs (auto) 1.57, Nucleated RBC % 0, DifferentialComment SCANNED, Diff Path Review September, Sodium 135, Potassium 4.4, Chloride 99, Carbon Dioxide 23.0, Anion Gap 12, BUN 27 H, Creatinine 1.56 H, Estim Creat Clear Calc 36.15 L, Est GFR (MDRD) Non-Af 44 L, BUN/Creatinine Ratio 17.0, Glucose 146 H, Calcium 9.0 Micro: Microbiology 08/28/24 16:55 Mucosa - Nasopharyngeal Respiratory Panel (PCR) - Final 08/28/24 10:50 Mucosa - Nose SARS-CoV-2, Influenza & RSV (PCR) - Final ABG Data ABG results: ABG 08/28/24 15:04 Specimen Type ART Sample Site R Brach pH 7.46 H Bicarbonate Actual 27.9 H Total CO2 29 Base Excess 4 H O2 Saturation 94 L ABG pCO2 39.0 ABG pO2 65 L O2 Delivery Device Room Air Vent Mode Not entered Radiography Diagnostic Testing: Radiology Impression Chest X-Ray 08/28/24 11:05 IMPRESSION: Mild cardiomegaly with pulmonary vascular congestion. Reading Location: [facility] Brain CT 08/28/24 11:10 IMPRESSION: 1. No acute intracranial finding. 2. Findings of chronic microvascular ischemic changes and age-related changes. Reading Location: [facility] Head/Neck CTA 08/28/24 11:10 IMPRESSION: 1. No large vessel occlusion, AVM or aneurysm. 2. Mild narrowing of the bilateral vertebral arteries and carotid siphons. 3. No significant stenosis of the cervical carotid arteries by NASCET criteria. Reading Location: [facility] Rhythm Strip Rhythm Strip: Paced Rate: 63 Ectopy: PVC(s) Physical Exam Narrative General: Awake and pleasantly confused HEENT: Atraumatic Eyes: Extraocular movements grossly intact Neck: Supple Respiratory: Normal respiratory effort, did sound to have some crackles at the left posterior base Cardiovascular: Regular rate and rhythm GI: Soft, nontender, nondistended Extremities: No edema Musculoskeletal: Moving all extremities in bed Neuro: No overt focal neurological deficits Skin: No rashes appreciated Psych: Attempts to be cooperative, pleasantly confused Assessment & Plan Assessment/Plan (1) Altered level of consciousness: PLAN: Plan #Altered LOC/concern for acute metabolic encephalopathy - Patient had symptoms that have progressively worsened since with no focal deficits, CTA head and neck with no acute process, given nonfocal exam with generalized complaints this seems almost more consistent with a toxic and metabolic encephalopathy on top of his chronic dementia - Will check ammonia, liver panel - Check TSH - Will check B12 - Will check pro BNP given chest x-ray queried some pulmonary congestion - Will check respiratory panel given the only specific new complaint since is a cough - Will check blood gas some of the jerking movements and decreased level of consciousness - If workup continues to be unrevealing can consider MRI, strongly do not think that history and exam are consistent with acute CVA so do not think patient needs stroke admit/protocol at this time -08/29: Workup has been unrevealing thus far, PT/OT, case management and social work # ALEJANDRA -08/29: Creatinine 1.56 this a.m. with a BUN of 27, up from 1.02 yesterday, stop patient's lisinopril, will give gentle IV fluids, unclear reason for this jump, will check bladder and kidney ultrasound, will repeat labs this afternoon to verify stability Chronic medical problems and/or problems not being actively addressed during today's encounter: # Dementia - Patient on memantine as an episode at home - Feel it is reasonable to continue these at this time #Hx CAD w/ stenting/history of pacemaker/AICD -Continue asa, statin, BB -Heart healthy diet #Hypothyroidism -Continue Synthroid #Hypertension - Continue current medications #DVT ppx: Lovenox subcu Kenya Otoole MD Time spent in the patient's overall evaluation, decision-making process, review of diagnostic data,adjustment of management, discussion with other providers, nursing and ancillary staff involved in patient's care documentation, 38 Minutes Charges/Coding Visit Charges Inpatient E&M: 45474 Subs Hosp L2 08/29/24 6083 Cosigner Signature (if applicable): CC: ~ Signed [facility]04-12-2025 Discharge summary Author Brendan Hernandez [facility] Note Date/Time August 28, 2024 3:[facility] [address] [place] [address] Emergency Department Summary 08/28/24 MR#: [id number] Acct: [id number] Name: BINH PARKS Rep #:[id number] : 1940 84 From: Brendan Hernandez MD PCP: Dr. Callum Hill MD Status :ADM RALF Location: [address] History of Present Illness Chief Complaint: Neuro S/Sx Detail of Chief Complaint: Altered level of consciousness. Informant: spouse/S.O. Onset/Context/Timing Onset: Days Context: Gradual Onset Timing: Continuous Current Severity: Moderate Maximum Severity: Moderate Narrative Narrative: 84-year-old male history of dementia, prior WI, cardiac stent, defibrillator. On aspirin only no other blood thinners. states he had a drastic change ofhis mental status since evening. Now 2 days ago. He has had a new cough. No fever. No vomiting or diarrhea. No complaint of dysuria. He fell amonth or 2 ago but not recently. She states normally evenings are tougher for him when he 's but she said this is different than his baseline. 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 (10/25/15) Atherosclerotic heart disease of [place] coronary artery without angina pectoris Non-ST elevation (NSTEMI) myocardial infarction (07/22/15) Obesity HLD (hyperlipidemia) GERD (gastroesophageal reflux disease) Home Medications ?Medication ?Instructions ?Recorded ?Last Taken ?Type folic acid 1 mg tablet 1 mg PO DAILY 07/21/1508/27 History levothyroxine 75 mcg tablet 75 mcg PO DAILY 07/21/15 0 08/27/24 History donepezil 10 mg tablet 10 mg PO DAILY 06/09/1908/17 History aspirin 81 mg tablet,delayed 81 mg PO QHS 12/15/19 Unk nown History release (Adult Low Dose Aspirin) atorvastatin 40 mg tablet 40 mg PO QHS 08/31/20 Unknow n History escitalopram oxalate 10 mg tablet 10 mg PO DAILY 08/31 Unknown History nitroglycerin 0.4 mg sublingual 0.4 mg sublingual Q5M PRN Chest 03/22/21 Unknown Rx tablet Pain #25 tabs memantine 10 mg tablet 10 mg PO BID 03/28/22 History carvedilol 25 mg tablet 25 mg PO BID #180 tabs 09/0808/27/24 Rx lisinopril 5 mg tablet 5 mg PO BID #180 tabs 08/27/24 Rx cholecalciferol (vitamin D3) 50 50 mcg PO DAILY VITAMI N 08/28/24 08/27/24 History mcg (2,000 unit) tablet (D3 DOTS) vitamin E 268 mg (400 unit) capsule 268 mg PO DAILY 08/27/24 History Allergy/AdvReac Type Severity Reaction Status Date / Time No Known Allergies Allergy Verified 05/11/24 11:23 Family History Mother Hypertension Arthritis Surgical History H/O squamous cell carcinoma excision History of left heart catheterization History of coronary artery stent placement (07/22/15) Social History Smoking Status: Former smoker how long ago did patient quit smokin alcohol intake: never substance use type: does not use caffeine: No what type of physical activity do you participate in: other details: [place] frequency: 1-2 times per week duration: 45-60 minutes/day seatbelt use: always do you feel safe at home: Yes additional social history: DOES TAKE ASPIRIN ROS ROS ED Constitutional Constitutional ED: Denies chills or fever(s) Eyes Eyes: Denies blurry vision ENT ENT ED: Denies ear pain Cardiovascular Cardiovascular: Denies chest pain Respiratory/Chest Respiratory/Chest: Reports cough; Denies dyspnea Gastrointestinal Gastrointestinal: Denies abdominal pain Genitourinary Genitourinary ED: Denies dysuria or hematuria Musculoskeletal Musculoskeletal: Reports back pain; Denies arthralgias Integumentary Denies abscess Neurologic Neurologic: Denies headache(s) Psychiatric Psychiatric: Denies anxiety or depression Hematologic/Lymphatic Hematologic/Lymphatic: Reports none Allergic/Immunologic Allergic/Immunologic ED: Denies mouth swelling, tongue swelling or urticaria EXAM Physical Exam Narrative Exam Narrative: 84-year-old male sitting upright in bed. at bedside. Vital signs are stable and afebrile. Pulse ox 96% on room air no hypoxia. H EENT exam eyes areclosed we will open. Pupils round reactive light. Extra motions are intact. Moist mucous membranes. There is no trauma to his face or head. Neck nontenderno lymphadenopathy. Back nontender but he does have a lidocaine patch on his right lower back. Lungs clear to auscultation. Heart paced regular rhythm. Chest wall ribs nontender. Abdomen soft nontender. Moving all 4 extremities. 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 Dorsi plantarflexion intact. Neurologically he is awake his eyes are closed he will open them. He is really not speaking much. He follows limited commands like gripping your hand. He really is not answering any questions. Const Vital Signs: 08/28/24 09:46 08/28/24 10:03 08/28/24 10:46 Temperature 98.7 F Temperature Source Oral Pulse Rate 68 67 Respiratory Rate 18 18 Blood Pressure 138/66 H 148/80 H Blood Pressure Mean 90 102 Pulse Ox 96 90 92 Oxygen Delivery Method Room Air Nasal Cannula Nasal Cannula Oxygen Flow Rate (L/min) 2 2 08/28/24 11:28 08/28/24 12:02 Temperature Temperature Source Pulse Rate 60 60 Respiratory Rate 21 H 23 H Blood Pressure 160/71 H 146/86 H Blood Pressure Mean 100 106 Pulse Ox 95 92 Oxygen Delivery Method Room Air Nasal Cannula Oxygen Flow Rate (L/min) 2 Positive well nourished and well developed; Negative for cachectic, contracturesor unkempt General Appearance ED: well developed, NAD and pallor; Negative for unkempt, cachectic, contractures, cyanotic or diaphoretic Nutritional Appearance: Negative for cachectic HEENT Reports moist mucous membranes Negative for trauma or tenderness Eyes PERRL and EOMs intact bilaterally General Eye ED: Negative for pale conjunctiva or scleral icterus Neck no lymphadenopathy, supple and no JVD General: Negative for tenderness Lymph Lymphatic: Negative for other Chest Wall inspection of chest normal and palpation of chest normal Resp normal respiratory effort and clear to auscultation bilaterally Effort and Inspection: Negative for retractions Auscultation: Negative for rales, rhonchi, wheezes or diminished lung sounds Cardio regular rate, regular rhythm, S1 normal heart sound, S2 normal heart sound and no murmurs GI normal to inspection, nondistended, normoactive bowel sounds, non-tender, non-distended and no masses Auscultation: normoactive bowel sounds Palpation: soft; Negative for tender, guarding or rebound tenderness present Back/Spine no CVA tenderness Extremity normal to inspection General Extremety ED: Negative for edema or tenderness General Extremity: Negative for edema Neuro No oriented x3 and CN's II-XII intact bilaterally Neuro Narrative: Lethargic but arousable. Will open eyes. Sensorium / Orientation: lethargic Motor Exam: general weakness Psych mental status grossly normal Appearance: Negative for unkempt Mood & Affect: Negative for depressed or anxious Skin no rashes or lesions noted, no wounds and skin turgor normal General Skin Exam: jaundice and pallor Lesions: No lesion noted Rashes: No rashes noted Trauma: Negative for abrasion Wounds: Negative for wounds noted MDM MDM MDM Narrative Medical decision making narrative: Elderly male mental status change since . Could be a stroke or intracranial bleed more likely may have underlying infection such as URI or UTI. Stroke workup will be done with CTA head and neck. Also UA and labs COVID and flu. Chest x-ray to rule out pneumonia. Repeat exam patient is doing better at 12:50 PM. A long discussion with his and son. She is more comfortable To take him home. She is not pushing for admission. I did offer admission. She said she is comfortable taking care of him. We went over all of his test result results including a CT, x-ray and labs. Patient is awake and alert. He is answering questions now. He is also comfortable being discharged home. Wifeunderstands that if she gets him home and he is doing worse or she is unable tocare for him she is welcome to come back to get him admitted. When the patient was going to be discharged he stood up out of bed without significant difficultyambulating. He will be admitted. History & Record Review Discussion w/independent historian: Patient Additional record(s) reviewed:: Prior inpatient record, Prior outpatient record,Prior ED visit and Prior labs Lab Data Attestation: I reviewed the patient's lab results. Lab results narrative: CBC shows white count 12.3. H&H 13.9 and 41. Platelets 157. PT/INR 13 and 1. PTT 27. Chemistries show a gap of 12. BUN of 19 creatinine of 1. Glucose 166. Initial troponin 23. Second troponin 21. COVID and flu negative. UA normal. No infection. Chest x-ray chronic changes. Labs: Laboratory Results - last 24 hr 08/28/24 08/28/24 08/28/24 10:02 10:50 11:55 WBC 12.3 H RBC 4.44 L Hgb 13.9 Hct 41.2 MCV 92.8 MCH 31.3 MCHC 33.7 RDW Std Deviation 43.5 RDW Coeff of Maryana 12.7 Plt Count 157 MPV 10.8 Immature Gran % (Auto) 0.400 Neut % (Auto) 73.7 H Lymph % (Auto) 11.0 L [place] % (Auto) 13.5 H Eos % (Auto) 1.1 Baso % (Auto) 0.3 Absolute Neuts (auto) 9.1 H Absolute Lymphs (auto) 1.36 Nucleated RBC % 0 Differential Comment SCANNED PT 13.5 INR 1.0 APTT 27.5 Sodium 136 Potassium 4.4 Chloride 99 Carbon Dioxide 24.9 Anion Gap 12 BUN 19 Creatinine 1.02 Estim Creat Clear Calc 55.63 Est GFR (MDRD) Non-Af 73 BUN/Creatinine Ratio 18.1 Glucose 166 H Calcium 9.4 Troponin T High Sens 23 H Troponin T Hi Sens 2 Hr 21 Urine Color Yellow Urine Clarity Clear Urine pH 6.5 Ur Specific Tanner 1.015 Urine Protein 15 H Urine Glucose (UA) Normal Urine Ketones Negative Urine Occult Blood 25 H Urine Nitrite Negative Urine Bilirubin Negative Urine Urobilinogen Normal Ur Leukocyte Esterase Negative Urine RBC 0-5 SEEN Urine WBC 0 SEEN Ur Squamous Epith Cells 0-5 SEEN Urine Bacteria 0 SEEN Urine Mucus 0 SEEN Radiography Chest X-Ray - ED: 1 View, Read by ED Physician, Normal, Heart, Lungs, Mediastinum, Bony Structures, No Acute Disease and Chronic Changes Diagnostic Testing: Clinical Impression(s) from Imaging Studies Chest X-Ray 08/28/24 11:05 IMPRESSION: Mild cardiomegaly with pulmonary vascular congestion. Reading Location: [facility] Brain CT 08/28/24 11:10 IMPRESSION: 1. No acute intracranial finding. 2. Findings of chronic microvascular ischemic changes and age-related changes. Reading Location: [facility] Head/Neck CTA 08/28/24 11:10 IMPRESSION: 1. No large vessel occlusion, AVM or aneurysm. 2. Mild narrowing of the bilateral vertebral arteries and carotid siphons. 3. No significant stenosis of the cervical carotid arteries by NASCET criteria. Reading Location: [facility] Chest x-ray, portable, single view interpreted by myself shows normal cardiac silhouette. Left-sided pacemaker defibrillator. Normal lung celeste. Chronic changes. No acute process. No pneumonia. No significant effusions. Rhythm Strip Rhythm Strip: Paced Rate: 63 Ectopy: PVC(s) EKG Initial EKG: Attestation: I personally reviewed and interpreted this EKG as follows: Interpretation: Paced Discharge Plan Triage Chief Complaint: Neuro S/Sx ED Provider: Brendan Hernandez Dx/Rx/DC Orders Clinical Impression: Viral URI, Altered level of consciousness, History of dementia, Difficulty in walking Instructions: ED URI, Viral, No Abx (Adult) Prescriptions: No Action donepezil 10 mg tablet 10 mg PO DAILY aspirin [Adult Low Dose Aspirin] 81 mg tablet,delayed release (DR/EC) 81 mg PO QHS atorvastatin 40 mg tablet 40 mg PO QHS escitalopram oxalate 10 mg tablet 10 mg PO DAILY nitroglycerin 0.4 mg tablet, sublingual 0.4 mg SUBLINGUAL Q5M PRN (Reason: Chest Pain) Qty: 25 3RF memantine 10 mg tablet 10 mg PO BID lisinopril 5 mg tablet 5 mg PO BID Qty: 180 3RF levothyroxine 75 MCG tablet 75 mcg PO DAILY folic acid 1 MG tablet 1 mg PO DAILY Patient Comments: cholecalciferol (vitamin D3) [D3 DOTS] 50 mcg (2,000 unit) tablet 50 mcg PO DAILY vitamin E 268 mg (400 unit) capsule 268 mg PO DAILY carvedilol 25 mg tablet 25 mg PO BID Qty: 180 4RF Rx Instructions: give with food (meal/snack) Primary Care Provider: Callum Hill Referrals: Callum Hill MD [Primary Care Provider] - 3-5 Days Activity Restrictions/Additional Instructions: Call and follow-up with your primary care physician. Plenty of fluids and rest. Return if you are unable to care for him or is doing worse. His labs, x-ray andCAT scans today look good. Print Language: Turkish Disposition Disposition: Acute Care Hospital [facility] What to do if you have Problems For any increased pain, shortness of breath, bleeding, nausea or vomiting, chestpain, or any unexpected problems, contact your Primary Care Provider. Call [facility] ([phone]) or report to the closest Emergency Room. Call 911 if necessary. 08/28/24 1511 <Electronically signed by Brendan Hernandez MD> Cosigner Signature (if applicable): CC: Dr. Callum Hill MD ~ Signed [facility] Work Phone: 1(897) 705-206804-12-2025 History and physical note Author Kenya Otoole [facility] Note Date/Time August 28, 2024 2:2 5pm [facility] Medical Records Department [address] [place] [address] H&P Exam - Hospitalist 08/28/24 1408 MR#: [id number] Acct: [id number] Name: BINH PARKS Rep #:[id number] : 1940 84 From: Kenya Otoole MD PCP: Dr. Callum Hill MD Status :ADM RALF Location: [place] [address] HPI - General General Date of Admission: 08/28/24 Date of Service: 08/28/24 Chief Complaint: Altered LOC HPI Narrative BINH PARKS, is a 84 M with a history of pacemaker/defibrillator, dementia, hypertension, hypothyroidism, coronary artery disease who presented [facility] ED 08/28/2024 with altered level of consciousness. Family reports since he started not acting quite right and his just progressively worsened, the only additional change during that time is patient has been having some cough. Given the mental status change he had CTA of the head and neck and CT which were negative the patient with no focal complaints and nonfocal exam to suggest CVA as a primary culprit. Given patient's failure to thrive and mental status changes with inability for family to take care of patient at home hospitalist contacted for admission. Patient evaluated with family at bedside, reports that he was not acting like himself andis progressively worsened and is now not close to baseline though does note he has chronic dementia. Reports he has a cough and that for a while he has had some shortness of breath on exertion, only other thing she notes is that he has some right leg pain which is not new, denies that he has had any changes in bowel or bladder. Denies any new medication changes. 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 (10/25/15) Atherosclerotic heart disease of [place] coronary artery without angina pectoris Non-ST elevation (NSTEMI) myocardial infarction (07/22/15) Obesity HLD (hyperlipidemia) GERD (gastroesophageal reflux disease) Home Medications ?Medication ?Instructions ?Recorded ?Last Taken ?Type folic acid 1 mg tablet 1 mg PO DAILY 07/21/1508/27 History levothyroxine 75 mcg tablet 75 mcg PO DAILY 07/21/15 0 08/27/24 History donepezil 10 mg tablet 10 mg PO DAILY 06/09/1908/17 History aspirin 81 mg tablet,delayed 81 mg PO QHS 12/15/19 Unk nown History release (Adult Low Dose Aspirin) atorvastatin 40 mg tablet 40 mg PO QHS 08/31/20 Unknow n History escitalopram oxalate 10 mg tablet 10 mg PO DAILY 08/31 Unknown History nitroglycerin 0.4 mg sublingual 0.4 mg sublingual Q5M PRN Chest 03/22/21 Unknown Rx tablet Pain #25 tabs memantine 10 mg tablet 10 mg PO BID 03/28/22 History carvedilol 25 mg tablet 25 mg PO BID #180 tabs 09/0808/27/24 Rx lisinopril 5 mg tablet 5 mg PO BID #180 tabs 08/27/24 Rx cholecalciferol (vitamin D3) 50 50 mcg PO DAILY VITAMI N 08/28/24 08/27/24 History mcg (2,000 unit) tablet (D3 DOTS) vitamin E 268 mg (400 unit) capsule 268 mg PO DAILY 08/27/24 History Allergy/AdvReac Type Severity Reaction Status Date / Time No Known Allergies Allergy Verified 05/11/24 11:23 Family History Mother Hypertension Arthritis Surgical History H/O squamous cell carcinoma excision History of left heart catheterization History of coronary artery stent placement (07/22/15) Social History Smoking Status: Former smoker how long ago did patient quit smokin alcohol intake: never substance use type: does not use caffeine: No what type of physical activity do you participate in: other details: [place] frequency: 1-2 times per week duration: 45-60 minutes/day seatbelt use: always do you feel safe at home: Yes additional social history: DOES TAKE ASPIRIN ROS ROS Narrative Patient unable to answer ROS secondary to mental status, will sometimes attempt answer questions but mostly smiles and is pleasantly confused Vital Signs Vital Signs Vital Signs: 08/28/24 09:46 08/28/24 10:03 08/28/24 10:46 Temperature 98.7 F Temperature Source Oral Pulse Rate 68 67 Respiratory Rate 18 18 Blood Pressure 138/66 H 148/80 H Blood Pressure Mean 90 102 Pulse Ox 96 90 92 Oxygen Delivery Method Room Air Nasal Cannula Nasal Cannula Oxygen Flow Rate (L/min) 2 2 08/28/24 11:28 08/28/24 12:02 08/28/24 13:00 Temperature Temperature Source Pulse Rate 60 60 61 Respiratory Rate 21 H 23 H 23 H Blood Pressure 160/71 H 146/86 H 124/75 H Blood Pressure Mean 100 106 91 Pulse Ox 95 92 92 Oxygen Delivery Method Room Air Nasal Cannula Nasal Cannula Oxygen Flow Rate (L/min) 2 2 08/28/24 13:16 08/28/24 14:00 Temperature 98.7 F Temperature Source Pulse Rate 60 69 Respiratory Rate 23 H 15 Blood Pressure 124/75 H 147/79 H Blood Pressure Mean 91 101 Pulse Ox 92 92 Oxygen Delivery Method Room Air Oxygen Flow Rate (L/min) Weight Weight: 83.5 kg Body Mass Index (BMI) 29.7 Physical Exam Narrative General: Patient appears little bit tired but is awake, at times will try to answer questions but is mostly just pleasantly confused HEENT: Atraumatic Eyes: Extraocular movements grossly intact Neck: Supple Respiratory: Normal respiratory effort, patient would not take deep breaths on command for better assessment at bases Cardiovascular: Regular rate and rhythm GI: Soft, nontender, nondistended Extremities: No edema Musculoskeletal: Moving all extremities in bed Neuro: No overt focal neurological deficits but patient unable to cooperate withneuroexam given his general decreased level of consciousness difficulty following commands, does seem to have some jerking movements Skin: No rashes appreciated Psych: Attempts to be cooperative, pleasantly confused Results Lab / Micro Data 08/28/24 10:02 08/28/24 10:02 Labs: Laboratory Results - last 24 hr 08/28/24 10:02: WBC 12.3 H, RBC 4.44 L, Hgb 13.9, Hct 41.2, MCV 92.8, MCH 31.3, MCHC 33.7, RDW Std Deviation 43.5, RDW Coeff of Maryana 12.7, Plt Count 157, MPV 10.8, Immature Gran % (Auto) 0.400, Neut % (Auto) 73.7 H, Lymph % (Auto) 11.0 L,[place] % (Auto) 13.5 H, Eos % (Auto) 1.1, Baso % (Auto) 0.3, Absolute Neuts (auto)9.1 H, Absolute Lymphs (auto) 1.36, Nucleated RBC % 0, Differential Comment SCANNED, PT 13.5, INR 1.0, APTT 27.5, Sodium 136, Potassium 4.4, Chloride 99, Carbon Dioxide 24.9, Anion Gap 12, BUN 19, Creatinine 1.02, Estim Creat Clear Calc 55.63, Est GFR (MDRD) Non-Af 73, BUN/Creatinine Ratio 18.1, Glucose 166 H, Calcium 9.4, Troponin T High Sens 23 H 08/28/24 10:50: Urine Color Yellow, Urine Clarity Clear, Urine pH 6.5, Ur Specific Tanner 1.015, Urine Protein 15 H, Urine Glucose (UA) Normal, Urine Ketones Negative, Urine Occult Blood 25 H, Urine Nitrite Negative, Urine Bilirubin Negative, Urine Urobilinogen Normal, Ur Leukocyte Esterase Negative, Urine RBC 0-5 SEEN, Urine WBC 0 SEEN, Ur Squamous Epith Cells 0-5 SEEN, Urine Bacteria 0 SEEN, Urine Mucus 0 SEEN 08/28/24 11:55: Troponin T Hi Sens 2 Hr 21 Micro: Microbiology 08/28/24 10:50 Mucosa - Nose SARS-CoV-2, Influenza & RSV (PCR) - Final Rhythm Strip Rhythm Strip: Paced Rate: 63 Ectopy: PVC(s) Imaging Radiology Impression Chest X-Ray 08/28/24 11:05 IMPRESSION: Mild cardiomegaly with pulmonary vascular congestion. Reading Location: [facility] Brain CT 08/28/24 11:10 IMPRESSION: 1. No acute intracranial finding. 2. Findings of chronic microvascular ischemic changes and age-related changes. Reading Location: [facility] Head/Neck CTA 08/28/24 11:10 IMPRESSION: 1. No large vessel occlusion, AVM or aneurysm. 2. Mild narrowing of the bilateral vertebral arteries and carotid siphons. 3. No significant stenosis of the cervical carotid arteries by NASCET criteria. Reading Location: [facility] Assessment & Plan Assessment/Plan (1) Altered level of consciousness: PLAN: Plan #Altered LOC/concern for acute metabolic encephalopathy - Patient had symptoms that have progressively worsened since with no focal deficits, CTA head and neck with no acute process, given nonfocal exam with generalized complaints this seems almost more consistent with a toxic and metabolic encephalopathy on top of his chronic dementia - Will check ammonia, liver panel - Check TSH - Will check B12 - Will check pro BNP given chest x-ray queried some pulmonary congestion - Will check respiratory panel given the only specific new complaint since is a cough - Will check blood gas some of the jerking movements and decreased level of consciousness - If workup continues to be unrevealing can consider MRI, strongly do not think that history and exam are consistent with acute CVA so do not think patient needs stroke admit/protocol at this time # Dementia - Patient on memantine as an episode at home - Feel it is reasonable to continue these at this time #Hx CAD w/ stenting/history of pacemaker/AICD -Continue asa, statin, BB -Heart healthy diet #Hypothyroidism -Continue Synthroid #Hypertension - Continue current medications #DVT ppx: Lovenox subcu Kenya Otoole MD Time spent in the patient's overall evaluation, decision-making process, review of diagnostic data, adjustment of management, discussion with other providers, nursing and ancillary staff involved in patient's care documentation, 58 Minutes Charges/Coding Visit Charges Inpatient E&M: 23141 Init Hosp L2 08/28/24 1425 <Electronically signed by Kenya Otoole MD> Cosigner Signature (if applicable): CC: Dr. Callum Hill MD; Dr. Kenya Otoole MD~ Signed [facility] Work Phone: 1(310) 950-556404-12-2025 Discharge summary [facility] Medical Records Department [address] [place] [id number] Emergency Department Summary 08/28/24 MR#: [id number] Acct: [id number] Name: BINH PARKS Rep #:[id number] : 1940 84 From: Brendan Hernandez MD PCP: Dr. Callum Hill MD Status :ADM RALF Location: [address] History of Present Illness Chief Complaint: Neuro S/Sx Detail of Chief Complaint: Altered level of consciousness. Informant: spouse/S.O. Onset/Context/Timing Onset: Days Context: Gradual Onset Timing: Continuous Current Severity: Moderate Maximum Severity: Moderate Narrative Narrative: 84-year-old male history of dementia, prior WI, cardiac stent, defibrillator. On aspirin only no other blood thinners. states he had a drastic change ofhis mental status since evening. Now 2 days ago. He has had a new cough. No fever. No vomiting or diarrhea. No complaint of dysuria. He fell amonth or 2 ago but not recently. She states normally evenings are tougher for him when he wiley ndown's but she said this is different than his baseline. 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 (10/25/15) Atherosclerotic heart disease of [place] coronary artery without angina pectoris Non-ST elevation (NSTEMI) myocardial infarction (07/22/15) Obesity HLD (hyperlipidemia) GERD (gastroesophageal reflux disease) Home Medications ?Medication ?Instructions ?Recorded ?Last Taken ?Type folic acid 1 mg tablet 1 mg PO DAILY 07/21/1508/27 History levothyroxine 75 mcg tablet 75 mcg PO DAILY 07/21/15 0 08/27/24 History donepezil 10 mg tablet 10 mg PO DAILY 06/09/1908/17 History aspirin 81 mg tablet,delayed 81 mg PO QHS 12/15/19 Unk nown History release (Adult Low Dose Aspirin) atorvastatin 40 mg tablet 40 mg PO QHS 08/31/20 Unknow n History escitalopram oxalate 10 mg tablet 10 mg PO DAILY 08/31 Unknown History nitroglycerin 0.4 mg sublingual 0.4 mg sublingual Q5M PRN Chest 03/22/21 Unknown Rx tablet Pain #25 tabs memantine 10 mg tablet 10 mg PO BID 03/28/22 History carvedilol 25 mg tablet 25 mg PO BID #180 tabs 09/0808/27/24 Rx lisinopril 5 mg tablet 5 mg PO BID #180 tabs 08/27/24 Rx cholecalciferol (vitamin D3) 50 50 mcg PO DAILY VITAMI N 08/28/24 08/27/24 History mcg (2,000 unit) tablet (D3 DOTS) vitamin E 268 mg (400 unit) capsule 268 mg PO DAILY 08/27/24 History Allergy/AdvReac Type Severity Reaction Status Date / Time No Known Allergies Allergy Verified 05/11/24 11:23 Family History Mother Hypertension Arthritis Surgical History H/O squamous cell carcinoma excision History of left heart catheterization History of coronary artery stent placement (07/22/15) Social History Smoking Status: Former smoker how long ago did patient quit smokin alcohol intake: never substance use type: does not use caffeine: No what type of physical activity do you participate in: other details: tredmill, nustep frequency: 1-2 times per week duration: 45-60 minutes/day seatbelt use: always do you feel safe at home: Yes additional social history: DOES TAKE ASPIRIN ROS ROS ED Constitutional Constitutional ED: Denies chills or fever(s) Eyes Eyes: Denies blurry vision ENT ENT ED: Denies ear pain Cardiovascular Cardiovascular: Denies chest pain Respiratory/Chest Respiratory/Chest: Reports cough; Denies dyspnea Gastrointestinal Gastrointestinal: Denies abdominal pain Genitourinary Genitourinary ED: Denies dysuria or hematuria Musculoskeletal Musculoskeletal: Reports back pain; Denies arthralgias Integumentary Denies abscess Neurologic Neurologic: Denies headache(s) Psychiatric Psychiatric: Denies anxiety or depression Hematologic/Lymphatic Hematologic/Lymphatic: Reports none Allergic/Immunologic Allergic/Immunologic ED: Denies mouth swelling, tongue swelling or urticaria EXAM Physical Exam Narrative Exam Narrative: 84-year-old male sitting upright in bed. at bedside. Vital signs are stable and afebrile. Pulse ox 96% on room air no hypoxia. H EENT exam eyes areclosed we will open. Pupils round reactive light. Extra motions are intact. Moist mucous membranes. There is no trauma to his face or head. Neck nontenderno lymphadenopathy. Back nontender but he does have a lidocaine patch on his right lower back. Lungs clear to auscultation. Heart paced regular rhythm. Chest wall ribs nontender. Abdomen soft nontender. Moving all 4 extremities. 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 Dorsi plantarflexion intact. Neurologically he is awake his eyes are closed he will open them. He is really not speaking much. He follows limited commands like gripping your hand. He really is not answering any questions. Const Vital Signs: 08/28/24 09:46 08/28/24 10:03 08/28/24 10:46 Temperature 98.7 F Temperature Source Oral Pulse Rate 68 67 Respiratory Rate 18 18 Blood Pressure 138/66 H 148/80 H Blood Pressure Mean 90 102 Pulse Ox 96 90 92 Oxygen Delivery Method Room Air Nasal Cannula Nasal Cannula Oxygen Flow Rate (L/min) 2 2 08/28/24 11:28 08/28/24 12:02 Temperature Temperature Source Pulse Rate 60 60 Respiratory Rate 21 H 23 H Blood Pressure 160/71 H 146/86 H Blood Pressure Mean 100 106 Pulse Ox 95 92 Oxygen Delivery Method Room Air Nasal Cannula Oxygen Flow Rate (L/min) 2 Positive well nourished and well developed; Negative for cachectic, contracturesor unkempt General Appearance ED: well developed, NAD and pallor; Negative for unkempt, cachectic, contractures, cyanotic or diaphoretic Nutritional Appearance: Negative for cachectic HEENT Reports moist mucous membranes Negative for trauma or tenderness Eyes PERRL and EOMs intact bilaterally General Eye ED: Negative for pale conjunctiva or scleral icterus Neck no lymphadenopathy, supple and no JVD General: Negative for tenderness Lymph Lymphatic: Negative for other Chest Wall inspection of chest normal and palpation of chest normal Resp normal respiratory effort and clear to auscultation bilaterally Effort and Inspection: Negative for retractions Auscultation: Negative for rales, rhonchi, wheezes or diminished lung sounds Cardio regular rate, regular rhythm, S1 normal heart sound, S2 normal heart sound and no murmurs GI normal to inspection, nondistended, normoactive bowel sounds, non-tender, non- distended and no masses Auscultation: normoactive bowel sounds Palpation: soft; Negative for tender, guarding or rebound tenderness present Back/Spine no CVA tenderness Extremity normal to inspection General Extremety ED: Negative for edema or tenderness General Extremity: Negative for edema Neuro No oriented x3 and CN's II-XII intact bilaterally Neuro Narrative: Lethargic but arousable. Will open eyes. Sensorium / Orientation: lethargic Motor Exam: general weakness Psych mental status grossly normal Appearance: Negative for unkempt Mood & Affect: Negative for depressed or anxious Skin no rashes or lesions noted, no wounds and skin turgor normal General Skin Exam: jaundice and pallor Lesions: No lesion noted Rashes: No rashes noted Trauma: Negative for abrasion Wounds: Negative for wounds noted MDM MDM MDM Narrative Medical decision making narrative: Elderly male mental status change since . Could be a stroke or intracranial bleed more likely may have underlying infection such as URI or UTI. Stroke workup will be done with CTA head and neck. Also UA and labs COVID and flu. Chest x-ray to rule out pneumonia. Repeat exam patient is doing better at 12:50 PM. A long discussion with his and son. She is more comfortable To take him home. She is not pushing for admission. I did offer admission. She said she is comfortable taking care of him. We went over all of his test result results including a CT, x-ray and labs. Patient is awake and alert. He is answering questions now. He is also comfortable being discharged home. Wifeunderstands that if she gets him home and he is doing worse or she is unable tocare for himshe is welcome to come back to get him admitted. When the patient was going to be discharged he stood up out of bed without significant difficultyambulating. He will be admitted. History & Record Review Discussion w/independent historian: Patient Additional record(s) reviewed:: Prior inpatient record, Prior outpatient record,Prior ED visit and Prior labs Lab Data Attestation: I reviewed the patient's lab results. Lab results narrative: CBC shows white count 12.3. H&H 13.9 and 41. Platelets 157. PT/INR 13 and 1. PTT 27. Chemistries show a gap of 12. BUN of 19 creatinine of 1. Glucose 166. Initial troponin 23. Second troponin 21. COVID and flu negative. UA normal. No infection. Chest x-ray chronic changes. Labs: Laboratory Results - last 24 hr 08/28/24 08/28/24 08/28/24 10:02 10:50 11:55 WBC 12.3 H RBC 4.44 L Hgb 13.9 Hct 41.2 MCV 92.8 MCH 31.3 MCHC 33.7 RDW Std Deviation 43.5 RDW Coeff of Maryana 12.7 Plt Count 157 MPV 10.8 Immature Gran % (Auto) 0.400 Neut % (Auto) 73.7 H Lymph % (Auto) 11.0 L [place] % (Auto) 13.5 H Eos % (Auto) 1.1 Baso % (Auto) 0.3 Absolute Neuts (auto) 9.1 H Absolute Lymphs (auto) 1.36 Nucleated RBC % 0 Differential Comment SCANNED PT 13.5 INR 1.0 APTT 27.5 Sodium 136 Potassium 4.4 Chloride 99 Carbon Dioxide 24.9 Anion Gap 12 BUN 19 Creatinine 1.02 Estim Creat Clear Calc 55.63 Est GFR (MDRD) Non-Af 73 BUN/Creatinine Ratio 18.1 Glucose 166 H Calcium 9.4 Troponin T High Sens 23 H Troponin T Hi Sens 2 Hr 21 Urine Color Yellow Urine Clarity Clear Urine pH 6.5 Ur Specific Tanner 1.015 Urine Protein 15 H Urine Glucose (UA) Normal Urine Ketones Negative Urine Occult Blood 25 H Urine Nitrite Negative Urine Bilirubin Negative Urine Urobilinogen Normal Ur Leukocyte Esterase Negative Urine RBC 0-5 SEEN Urine WBC 0 SEEN Ur Squamous Epith Cells 0-5 SEEN Urine Bacteria 0 SEEN Urine Mucus 0 SEEN Radiography Chest X-Ray - ED: 1 View, Read by ED Physician, Normal, Heart, Lungs, Mediastinum, Bony Structures,No Acute Disease and Chronic Changes Diagnostic Testing: Clinical Impression(s) from Imaging Studies Chest X-Ray 08/28/24 11:05 IMPRESSION: Mild cardiomegaly with pulmonary vascular congestion. Reading Location: [facility] Brain CT 08/28/24 11:10 IMPRESSION: 1. No acute intracranial finding. 2. Findings of chronic microvascular ischemic changes and age-related changes. Reading Location: [facility] Head/Neck CTA 08/28/24 11:10 IMPRESSION: 1. No large vessel occlusion, AVM or aneurysm. 2. Mild narrowing of the bilateral vertebral arteries and carotid siphons. 3. No significant stenosis of the cervical carotid arteries by NASCET criteria. Reading Location: [facility] Chest x-ray, portable, single view interpreted by myself shows normal cardiac silhouette. Left-sided pacemaker defibrillator. Normal lung celeste. Chronic changes. No acute process. No pneumonia. No significant effusions. Rhythm Strip Rhythm Strip: Paced Rate: 63 Ectopy: PVC(s) EKG Initial EKG: Attestation: I personally reviewed and interpreted this EKG as follows: Interpretation: Paced Discharge Plan Triage Chief Complaint: Neuro S/Sx ED Provider: Brendan Hernandez Dx/Rx/DC Orders Clinical Impression: Viral URI, Altered level of consciousness, History of dementia, Difficulty in walking Instructions: ED URI, Viral, No Abx (Adult) Prescriptions: No Action donepezil 10 mg tablet 10 mg PO DAILY aspirin [Adult Low Dose Aspirin] 81 mg tablet,delayed release (DR/EC) 81 mg PO QHS atorvastatin 40 mg tablet 40 mg PO QHS escitalopram oxalate 10 mg tablet 10 mg PO DAILY nitroglycerin 0.4 mg tablet, sublingual 0.4 mg SUBLINGUAL Q5M PRN (Reason: Chest Pain) Qty: 25 3RF memantine 10 mg tablet 10 mg PO BID lisinopril 5 mg tablet 5 mg PO BID Qty: 180 3RF levothyroxine 75 MCG tablet 75 mcg PO DAILY folic acid 1 MG tablet 1 mg PO DAILY Patient Comments: cholecalciferol (vitamin D3) [D3 DOTS] 50 mcg (2,000 unit) tablet 50 mcg PO DAILY vitamin E 268 mg (400 unit) capsule 268 mg PO DAILY carvedilol 25 mg tablet 25 mg PO BID Qty: 180 4RF Rx Instructions: give with food (meal/snack) Primary Care Provider: Callum Hill Referrals: Callum Hill MD [Primary Care Provider] - 3-5 Days Activity Restrictions/Additional Instructions: Call and follow-up with your primary care physician. Plenty of fluids and rest. Return if you are unable to care for him or is doing worse. His labs, x-ray andCAT scans today lookgood. Print Language: Turkish Disposition Disposition: Acute Care Hospital [facility] What to do if you have Problems For any increased pain, shortness of breath, bleeding, nausea or vomiting, chestpain, or any unexpected problems, contact your Primary Care Provider. Call [facility] ([phone]) or report tothe closest Emergency Room. Call 911 if necessary. 08/28/24 1511 Cosigner Signature (if applicable): CC: Dr. Callum Hill MD ~ Signed [facility]04-12-2025 History and physical note [facility] Medical Records Department [address] [place] [address] H&P Exam - Hospitalist 08/28/24 1408 MR#: [id number] Acct: [id number] Name: BINH PARKS Rep #:[id number] : 1940 84 From: Kenya Otoole MD PCP: Dr. Callum Hill MD Status :ADM RALF Location: [place] [address] HPI - General General Date of Admission: 08/28/24 Date of Service: 08/28/24 Chief Complaint: Altered LOC HPI Narrative BINH PARKS, is a 84 M with a history of pacemaker/defibrillator, dementia, hypertension, hypothyroidism, coronary artery disease who presented [facility] ED 08/28/2024 with altered level of consciousness. Family reports since he started not acting quite right and his just p rogressively worsened, the only additional change during that time is patient has been having some cough. Given the mental status change he had CTA of the head and neck and CT which were negative thepatient with no focal complaints and nonfocal exam to suggest CVA as a primary culprit. Given patient's failure to thrive and mental status changes with inability for family to take care of patient at home hospitalist contacted for admission. Patient evaluated with family at bedside, reports that he was not acting like himself andis progressively worsened and is now not close to baseline though does note he has chronic dementia. Reports he has a cough and that for a while he has had some shortness of breath on exertion, only other thing she notes is that he has some right leg pain which is not new, denies that he has had any changes in bowel or bladder. Denies any new medication changes. 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 (10/25/15) Atherosclerotic heart disease of [place] coronary artery without angina pectoris Non-ST elevation (NSTEMI) myocardial infarction (07/22/15) Obesity HLD (hyperlipidemia) GERD (gastroesophageal reflux disease) Home Medications ?Medication ?Instructions ?Recorded ?Last Taken ?Type folic acid 1 mg tablet 1 mg PO DAILY 07/21/1508/27 History levothyroxine 75 mcg tablet 75 mcg PO DAILY 07/21/15 0 08/27/24 History donepezil 10 mg tablet 10 mg PO DAILY 06/09/1908/17 History aspirin 81 mg tablet,delayed 81 mg PO QHS 12/15/19 Unk nown History release (Adult Low Dose Aspirin) atorvastatin 40 mg tablet 40 mg PO QHS 08/31/20 Unknow n History escitalopram oxalate 10 mg tablet 10 mg PO DAILY 08/31 Unknown History nitroglycerin 0.4 mg sublingual 0.4 mg sublingual Q5M PRN Chest 03/22/21 Unknown Rx tablet Pain #25 tabs memantine 10 mg tablet 10 mg PO BID 03/28/22 History carvedilol 25 mg tablet 25 mg PO BID #180 tabs 09/0808/27/24 Rx lisinopril 5 mg tablet 5 mg PO BID #180 tabs 08/27/24 Rx cholecalciferol (vitamin D3) 50 50 mcg PO DAILY VITAMI N 08/28/24 08/27/24 History mcg (2,000 unit) tablet (D3 DOTS) vitamin E 268 mg (400 unit) capsule 268 mg PO DAILY 08/27/24 History Allergy/AdvReac Type Severity Reaction Status Date / Time No Known Allergies Allergy Verified 05/11/24 11:23 Family History Mother Hypertension Arthritis Surgical History H/O squamous cell carcinoma excision History of left heart catheterization History of coronary artery stent placement (07/22/15) Social History Smoking Status: Former smoker how long ago did patient quit smokin alcohol intake: never substance use type: does not use caffeine: No what type of physical activity do you participate in: other details: janes [place] frequency: 1-2 times per week duration: 45-60 minutes/day seatbelt use: always do you feel safe at home: Yes additional social history: DOES TAKE ASPIRIN ROS ROS Narrative Patient unable to answer ROS secondary to mental status, will sometimes attempt answer questions but mostly smiles and is pleasantly confused Vital Signs Vital Signs Vital Signs: 08/28/24 09:46 08/28/24 10:03 08/28/24 10:46 Temperature 98.7 F Temperature Source Oral Pulse Rate 68 67 Respiratory Rate 18 18 Blood Pressure 138/66 H 148/80 H Blood Pressure Mean 90 102 Pulse Ox 96 90 92 Oxygen Delivery Method Room Air Nasal Cannula Nasal Cannula Oxygen Flow Rate (L/min) 2 2 08/28/24 11:28 08/28/24 12:02 08/28/24 13:00 Temperature Temperature Source Pulse Rate 60 60 61 Respiratory Rate 21 H 23 H 23 H Blood Pressure 160/71 H 146/86 H 124/75 H Blood Pressure Mean 100 106 91 Pulse Ox 95 92 92 Oxygen Delivery Method Room Air Nasal Cannula Nasal Cannula Oxygen Flow Rate (L/min) 2 2 08/28/24 13:16 08/28/24 14:00 Temperature 98.7 F Temperature Source Pulse Rate 60 69 Respiratory Rate 23 H 15 Blood Pressure 124/75 H 147/79 H Blood Pressure Mean 91 101 Pulse Ox 92 92 Oxygen Delivery Method Room Air Oxygen Flow Rate (L/min) Weight Weight: 83.5 kg Body Mass Index (BMI) 29.7 Physical Exam Narrative General: Patient appears little bit tired but is awake, at times will try to answer questions but is mostly just pleasantly confused HEENT: Atraumatic Eyes: Extraocular movements grossly intact Neck: Supple Respiratory: Normal respiratory effort, patient would not take deep breaths on command for better assessment at bases Cardiovascular: Regular rate and rhythm GI: Soft, nontender, nondistended Extremities: No edema Musculoskeletal: Moving all extremities in bed Neuro: No overt focal neurological deficits but patient unable to cooperate withneuroexam given hisgeneral decreased level of consciousness difficulty following commands, does seem to have some jerking movements Skin: No rashes appreciated Psych: Attempts to be cooperative, pleasantly confused Results Lab / Micro Data 08/28/24 10:02 08/28/24 10:02 Labs: Laboratory Results - last 24 hr 08/28/24 10:02: WBC 12.3 H, RBC 4.44 L, Hgb 13.9, Hct 41.2, MCV 92.8, MCH 31.3, MCHC 33.7, RDW Std Deviation 43.5, RDW Coeff of Maryana 12.7, Plt Count 157, MPV 10.8, Immature Gran % (Auto) 0.400, Neut %(Auto) 73.7 H, Lymph % (Auto) 11.0 L,[place] % (Auto) 13.5 H, Eos % (Auto) 1.1, Baso % (Auto) 0.3, Absolute Neuts (auto)9.1 H, Absolute Lymphs (auto) 1.36, Nucleated RBC % 0, Differential Comment SCANNED, PT 13.5, INR 1.0, APTT 27.5, Sodium 136, Potassium 4.4, Chloride 99, Carbon Dioxide 24.9, Anion Gap 12, BUN 19, Creatinine 1.02, Estim Creat Clear Calc 55.63, Est GFR (MDRD) Non-Af 73, BUN/Creatinine Ratio 18.1, Glucose 166 H, Calcium 9.4, Troponin T High Sens 23 H 08/28/24 10:50: Urine Color Yellow, Urine Clarity Clear, Urine pH 6.5, Ur Specific Tanner 1.015, Urine Protein 15 H, Urine Glucose (UA) Normal, Urine Ketones Negative, Urine Occult Blood 25 H, UrineNitrite Negative, Urine Bilirubin Negative, Urine Urobilinogen Normal, Ur Leukocyte Esterase Negative, Urine RBC 0-5 SEEN, Urine WBC 0 SEEN, Ur Squamous Epith Cells 0-5 SEEN, Urine Bacteria 0 SEEN, Urine Mucus 0 SEEN 08/28/24 11:55: Troponin T Hi Sens 2 Hr 21 Micro: Microbiology 08/28/24 10:50 Mucosa - Nose SARS-CoV-2, Influenza & RSV (PCR) - Final Rhythm Strip Rhythm Strip: Paced Rate: 63 Ectopy: PVC(s) Imaging Radiology Impression Chest X-Ray 08/28/24 11:05 IMPRESSION: Mild cardiomegaly with pulmonary vascular congestion. Reading Location: [facility] Brain CT 08/28/24 11:10 IMPRESSION: 1. No acute intracranial finding. 2. Findings of chronic microvascular ischemic changes and age-related changes. Reading Location: [facility] Head/Neck CTA 08/28/24 11:10 IMPRESSION: 1. No large vessel occlusion, AVM or aneurysm. 2. Mild narrowing of the bilateral vertebral arteries and carotid siphons. 3. No significant stenosis of the cervical carotid arteries by NASCET criteria. Reading Location: [facility] Assessment & Plan Assessment/Plan (1) Altered level of consciousness: PLAN: Plan #Altered LOC/concern for acute metabolic encephalopathy - Patient had symptoms that have progressively worsened since with no focal deficits, CTA head and neck with no acute process, given nonfocal exam with generalized complaints this seems almost more consistent with a toxic and metabolic encephalopathy on top of his chronic dementia - Will check ammonia, liver panel - Check TSH - Will check B12 - Will check pro BNP given chest x-ray queried some pulmonary congestion - Will check respiratory panel given the only specific new complaint since is a cough - Will check blood gas some of the jerking movements and decreased level of consciousness - If workup continues to be unrevealing can consider MRI, strongly do not think that history and exam are consistent with acute CVA so do not think patient needs stroke admit/protocol at this time # Dementia - Patient on memantine as an episode at home - Feel it is reasonable to continue these at this time #Hx CAD w/ stenting/history of pacemaker/AICD -Continue asa, statin, BB -Heart healthy diet #Hypothyroidism -Continue Synthroid #Hypertension - Continue current medications #DVT ppx: Lovenox subcu Kenya Otoole MD Time spent in the patient's overall evaluation, decision-making process, review of diagnostic data,adjustment of management, discussion with other providers, nursing and ancillary staff involved in patient's care documentation, 58 Minutes Charges/Coding Visit Charges Inpatient E&M: 07086 Init Hosp L2 08/28/24 1420 Cosigner Signature (if applicable): CC: Dr. Callum Hill MD; Dr. Kenya Otoole MD~ Signed [facility]04-12-2025 Discharge summary Author Brendan Hernandez [facility] Note Date/Time August 28, 2024 3:1 1pm [facility] Medical Records Department [address] [place] [address] Emergency Department Summary 08/28/24 MR#: [id number] Acct: [id number] Name: BINH PARKS Rep #:[id number] : 1940 84 From: Brendan Hernandez MD PCP: Dr. Callum Hill MD Status :ADM RALF Location: [place] [address] HPI History of Present Illness Chief Complaint: Neuro S/Sx Detail of Chief Complaint: Altered level of consciousness. Informant: spouse/S.O. Onset/Context/Timing Onset: Days Context: Gradual Onset Timing: Continuous Current Severity: Moderate Maximum Severity: Moderate Narrative Narrative: 84-year-old male history of dementia, prior WI, cardiac stent, defibrillator. On aspirin only no other blood thinners. states he had a drastic change ofhis mental status since evening. Now 2 days ago. He has had a new cough. No fever. No vomiting or diarrhea. No complaint of dysuria. He fell amonth or 2 ago but not recently. She states normally evenings are tougher for him when he ' but she said this is different than his baseline. 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 (10/25/15) Atherosclerotic heart disease of [place] coronary artery without angina pectoris Non-ST elevation (NSTEMI) myocardial infarction (07/22/15) Obesity HLD (hyperlipidemia) GERD (gastroesophageal reflux disease) Home Medications ?Medication ?Instructions ?Recorded ?Last Taken ?Type folic acid 1 mg tablet 1 mg PO DAILY 07/21/1508/27 History levothyroxine 75 mcg tablet 75 mcg PO DAILY 07/21/15 0 08/27/24 History donepezil 10 mg tablet 10 mg PO DAILY 06/09/1908/17 History aspirin 81 mg tablet,delayed 81 mg PO QHS 12/15/19 Unk nown History release (Adult Low Dose Aspirin) atorvastatin 40 mg tablet 40 mg PO QHS 08/31/20 Unknow n History escitalopram oxalate 10 mg tablet 10 mg PO DAILY 08/31 Unknown History nitroglycerin 0.4 mg sublingual 0.4 mg sublingual Q5M PRN Chest 03/22/21 Unknown Rx tablet Pain #25 tabs memantine 10 mg tablet 10 mg PO BID 03/28/22 History carvedilol 25 mg tablet 25 mg PO BID #180 tabs 09/0808/27/24 Rx lisinopril 5 mg tablet 5 mg PO BID #180 tabs 08/27/24 Rx cholecalciferol (vitamin D3) 50 50 mcg PO DAILY VITAMI N 08/28/24 08/27/24 History mcg (2,000 unit) tablet (D3 DOTS) vitamin E 268 mg (400 unit) capsule 268 mg PO DAILY 08/27/24 History Allergy/AdvReac Type Severity Reaction Status Date / Time No Known Allergies Allergy Verified 05/11/24 11:23 Family History Mother Hypertension Arthritis Surgical History H/O squamous cell carcinoma excision History of left heart catheterization History of coronary artery stent placement (07/22/15) Social History Smoking Status: Former smoker how long ago did patient quit smokin alcohol intake: never substance use type: does not use caffeine: No what type of physical activity do you participate in: other details: janes [place] frequency: 1-2 times per week duration: 45-60 minutes/day seatbelt use: always do you feel safe at home: Yes additional social history: DOES TAKE ASPIRIN ROS ROS ED Constitutional Constitutional ED: Denies chills or fever(s) Eyes Eyes: Denies blurry vision ENT ENT ED: Denies ear pain Cardiovascular Cardiovascular: Denies chest pain Respiratory/Chest Respiratory/Chest: Reports cough; Denies dyspnea Gastrointestinal Gastrointestinal: Denies abdominal pain Genitourinary Genitourinary ED: Denies dysuria or hematuria Musculoskeletal Musculoskeletal: Reports back pain; Denies arthralgias Integumentary Denies abscess Neurologic Neurologic: Denies headache(s) Psychiatric Psychiatric: Denies anxiety or depression Hematologic/Lymphatic Hematologic/Lymphatic: Reports none Allergic/Immunologic Allergic/Immunologic ED: Denies mouth swelling, tongue swelling or urticaria EXAM Physical Exam Narrative Exam Narrative: 84-year-old male sitting upright in bed. at bedside. Vital signs are stable and afebrile. Pulse ox 96% on room air no hypoxia. H EENT exam eyes areclosed we will open. Pupils round reactive light. Extra motions are intact. Moist mucous membranes. There is no trauma to his face or head. Neck nontenderno lymphadenopathy. Back nontender but he does have a lidocaine patch on his right lower back. Lungs clear to auscultation. Heart paced regular rhythm. Chest wall ribs nontender. Abdomen soft nontender. Moving all 4 extremities. 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 Dorsi plantarflexion intact. Neurologically he is awake his eyes are closed he will open them. He is really not speaking much. He follows limited commands like gripping your hand. He really is not answering any questions. Const Vital Signs: 08/28/24 09:46 08/28/24 10:03 08/28/24 10:46 Temperature 98.7 F Temperature Source Oral Pulse Rate 68 67 Respiratory Rate 18 18 Blood Pressure 138/66 H 148/80 H Blood Pressure Mean 90 102 Pulse Ox 96 90 92 Oxygen Delivery Method Room Air Nasal Cannula Nasal Cannula Oxygen Flow Rate (L/min) 2 2 08/28/24 11:28 08/28/24 12:02 Temperature Temperature Source Pulse Rate 60 60 Respiratory Rate 21 H 23 H Blood Pressure 160/71 H 146/86 H Blood Pressure Mean 100 106 Pulse Ox 95 92 Oxygen Delivery Method Room Air Nasal Cannula Oxygen Flow Rate (L/min) 2 Positive well nourished and well developed; Negative for cachectic, contracturesor unkempt General Appearance ED: well developed, NAD and pallor; Negative for unkempt, cachectic, contractures, cyanotic or diaphoretic Nutritional Appearance: Negative for cachectic HEENT Reports moist mucous membranes Negative for trauma or tenderness Eyes PERRL and EOMs intact bilaterally General Eye ED: Negative for pale conjunctiva or scleral icterus Neck no lymphadenopathy, supple and no JVD General: Negative for tenderness Lymph Lymphatic: Negative for other Chest Wall inspection of chest normal and palpation of chest normal Resp normal respiratory effort and clear to auscultation bilaterally Effort and Inspection: Negative for retractions Auscultation: Negative for rales, rhonchi, wheezes or diminished lung sounds Cardio regular rate, regular rhythm, S1 normal heart sound, S2 normal heart sound and no murmurs GI normal to inspection, nondistended, normoactive bowel sounds, non-tender, non-distended and no masses Auscultation: normoactive bowel sounds Palpation: soft; Negative for tender, guarding or rebound tenderness present Back/Spine no CVA tenderness Extremity normal to inspection General Extremety ED: Negative for edema or tenderness General Extremity: Negative for edema Neuro No oriented x3 and CN's II-XII intact bilaterally Neuro Narrative: Lethargic but arousable. Will open eyes. Sensorium / Orientation: lethargic Motor Exam: general weakness Psych mental status grossly normal Appearance: Negative for unkempt Mood & Affect: Negative for depressed or anxious Skin no rashes or lesions noted, no wounds and skin turgor normal General Skin Exam: jaundice and pallor Lesions: No lesion noted Rashes: No rashes noted Trauma: Negative for abrasion Wounds: Negative for wounds noted MDM MDM MDM Narrative Medical decision making narrative: Elderly male mental status change since . Could be a stroke or intracranial bleed more likely may have underlying infection such as URI or UTI. Stroke workup will be done with CTA head and neck. Also UA and labs COVID and flu. Chest x-ray to rule out pneumonia. Repeat exam patient is doing better at 12:50 PM. A long discussion with his and son. She is more comfortable To take him home. She is not pushing for admission. I did offer admission. She said she is comfortable taking care of him. We went over all of his test result results including a CT, x-ray and labs. Patient is awake and alert. He is answering questions now. He is also comfortable being discharged home. Wifeunderstands that if she gets him home and he is doing worse or she is unable tocare for him she is welcome to come back to get him admitted. When the patient was going to be discharged he stood up out of bed without significant difficultyambulating. He will be admitted. History & Record Review Discussion w/independent historian: Patient Additional record(s) reviewed:: Prior inpatient record, Prior outpatient record,Prior ED visit and Prior labs Lab Data Attestation: I reviewed the patient's lab results. Lab results narrative: CBC shows white count 12.3. H&H 13.9 and 41. Platelets 157. PT/INR 13 and 1. PTT 27. Chemistries show a gap of 12. BUN of 19 creatinine of 1. Glucose 166. Initial troponin 23. Second troponin 21. COVID and flu negative. UA normal. No infection. Chest x-ray chronic changes. Labs: Laboratory Results - last 24 hr 08/28/24 08/28/24 08/28/24 10:02 10:50 11:55 WBC 12.3 H RBC 4.44 L Hgb 13.9 Hct 41.2 MCV 92.8 MCH 31.3 MCHC 33.7 RDW Std Deviation 43.5 RDW Coeff of Maryana 12.7 Plt Count 157 MPV 10.8 Immature Gran % (Auto) 0.400 Neut % (Auto) 73.7 H Lymph % (Auto) 11.0 L [place] % (Auto) 13.5 H Eos % (Auto) 1.1 Baso % (Auto) 0.3 Absolute Neuts (auto) 9.1 H Absolute Lymphs (auto) 1.36 Nucleated RBC % 0 Differential Comment SCANNED PT 13.5 INR 1.0 APTT 27.5 Sodium 136 Potassium 4.4 Chloride 99 Carbon Dioxide 24.9 Anion Gap 12 BUN 19 Creatinine 1.02 Estim Creat Clear Calc 55.63 Est GFR (MDRD) Non-Af 73 BUN/Creatinine Ratio 18.1 Glucose 166 H Calcium 9.4 Troponin T High Sens 23 H Troponin T Hi Sens 2 Hr 21 Urine Color Yellow Urine Clarity Clear Urine pH 6.5 Ur Specific Tanner 1.015 Urine Protein 15 H Urine Glucose (UA) Normal Urine Ketones Negative Urine Occult Blood 25 H Urine Nitrite Negative Urine Bilirubin Negative Urine Urobilinogen Normal Ur Leukocyte Esterase Negative Urine RBC 0-5 SEEN Urine WBC 0 SEEN Ur Squamous Epith Cells 0-5 SEEN Urine Bacteria 0 SEEN Urine Mucus 0 SEEN Radiography Chest X-Ray - ED: 1 View, Read by ED Physician, Normal, Heart, Lungs, Mediastinum, Bony Structures, No Acute Disease and Chronic Changes Diagnostic Testing: Clinical Impression(s) from Imaging Studies Chest X-Ray 08/28/24 11:05 IMPRESSION: Mild cardiomegaly with pulmonary vascular congestion. Reading Location: [facility] [facility] 08/28/24 11:10 IMPRESSION: 1. No acute intracranial finding. 2. Findings of chronic microvascular ischemic changes and age-related changes. Reading Location: [facility] Head/Neck CTA 08/28/24 11:10 IMPRESSION: 1. No large vessel occlusion, AVM or aneurysm. 2. Mild narrowing of the bilateral vertebral arteries and carotid siphons. 3. No significant stenosis of the cervical carotid arteries by NASCET criteria. Reading Location: [facility] Chest x-ray, portable, single view interpreted by myself shows normal cardiac silhouette. Left-sided pacemaker defibrillator. Normal lung celeste. Chronic changes. No acute process. No pneumonia. No significant effusions. Rhythm Strip Rhythm Strip: Paced Rate: 63 Ectopy: PVC(s) EKG Initial EKG: Attestation: I personally reviewed and interpreted this EKG as follows: Interpretation: Paced Discharge Plan Triage Chief Complaint: Neuro S/Sx ED Provider: Brendan Hernandez Dx/Rx/DC Orders Clinical Impression: Viral URI, Altered level of consciousness, History of dementia, Difficulty in walking Instructions: ED URI, Viral, No Abx (Adult) Prescriptions: No Action donepezil 10 mg tablet 10 mg PO DAILY aspirin [Adult Low Dose Aspirin] 81 mg tablet,delayed release (DR/EC) 81 mg PO QHS atorvastatin 40 mg tablet 40 mg PO QHS escitalopram oxalate 10 mg tablet 10 mg PO DAILY nitroglycerin 0.4 mg tablet, sublingual 0.4 mg SUBLINGUAL Q5M PRN (Reason: Chest Pain) Qty: 25 3RF memantine 10 mg tablet 10 mg PO BID lisinopril 5 mg tablet 5 mg PO BID Qty: 180 3RF levothyroxine 75 MCG tablet 75 mcg PO DAILY folic acid 1 MG tablet 1 mg PO DAILY Patient Comments: cholecalciferol (vitamin D3) [D3 DOTS] 50 mcg (2,000 unit) tablet 50 mcg PO DAILY vitamin E 268 mg (400 unit) capsule 268 mg PO DAILY carvedilol 25 mg tablet 25 mg PO BID Qty: 180 4RF Rx Instructions: give with food (meal/snack) Primary Care Provider: Callum Hill Referrals: Callum Hill MD [Primary Care Provider] - 3-5 Days Activity Restrictions/Additional Instructions: Call and follow-up with your primary care physician. Plenty of fluids and rest. Return if you are unable to care for him or is doing worse. His labs, x-ray andCAT scans today look good. Print Language: Turkish Disposition Disposition: Acute Care Hospital [facility] What to do if you have Problems For any increased pain, shortness of breath, bleeding, nausea or vomiting, chestpain, or any unexpected problems, contact your Primary Care Provider. Call [facility] ([phone]) or report to the closest Emergency Room. Call 911 if necessary. 08/28/24 1511 <Electronically signed by Brendan Hernandez MD> Cosigner Signature (if applicable): CC: Dr. Callum Hill MD ~ Signed [facility] Work Phone: [phone] 607-995504-12-2025 Radiology Diagnostic study note [facility] Imaging Services [address] [place] [address] STROKE CTA Head AND Neck W/Con MR#: [id number] Acct: [id number] Name: BINH PARKS Rep #: [id number] : 1940 M 84 From: Hafsa Washington MD PCP: Dr. Callum Hill MD Status: REG ER Study:STROKE CTA Head AND Neck W/Con Date of Exam: 08/28/24 Exam# [id number] Ordering Dr: Michel Hernandez MD PROCEDURE: STROKE CTA HEAD AND NECK W/CON 08/28/2024 REASON FOR EXAM: NEURO DEFICIT, ACUTE, STROKE SUSPECTED. Right-sided weakness and difficulty talking, starting . History of Alzheimer's. TECHNIQUE: CTA imaging of the head and neck from the aortic arch to the skull vertex with out constrast and with intravenous contrast. Coronal and Sagittal reconstruction series were provided. 3D post processing with reformations, Maximum intensity projection (MIPs) Volume rendering and Shaded surface rendering was provided. CONTRAST: Isovue 370 VOLUME: 100 mL One or more dose reduction techniques were used (e.g., Automated exposure control, adjustment of the mA and/or kV according to patient size, use of iterative reconstruction technique). RADIATION DOSE SUMMARY: CTDlvol: 20 mGy DLP: 800 mGycm COMPARISON: Same-day CT head FINDINGS: See same day noncontrast CT head for discussion of nonvascular findings. Three-vessel aortic arch with mild scattered calcifications. No focal stenosis. Calcific plaque of the bilateral vertebral artery origins resulting in mild narrowing. Mild calcific plaque of the right V1 segment of the vertebral artery without narrowing. Calcific plaque of the bilateral cervical carotid arteries without stenosis by NASCET criteria. Calcific plaque of the bilateral carotid siphons resulting in mild multifocal narrowing. The bilateral anterior, middle and posterior cerebral arteries are widely patent. No aneurysm or arteriovenous malformation. Major venous structures: Unremarkable. Other findings: Left chest wall pacemaker. Cervical and thoracic spondylosis. CT/STROKE CTA Head AND Neck W/Con IMPRESSION: 1. No large vessel occlusion, AVM or aneurysm. 2. Mild narrowing of the bilateral vertebral arteries and carotid siphons. 3. No significant stenosis of the cervical carotid arteries by NASCET criteria. Reading Location: [facility] CC: Dr. Callum Hill MD; Dr. Brendan Hernandez MD ~ [employer] Presser: Signed [facility]04-12-2025 Radiology Diagnostic study note [facility] Imaging Services [address] [place], [place] [address] STROKE Brain/Head without Cont MR#: [id number] Acct: [id number] Name: BINH PARKS Rep #: [id number] : 1940 M 84 From: Hafsa Washington MD PCP: Dr. Callum Hill MD Status: REG ER Study:STROKE Brain/Head without Cont Date of Exam: 08/28/24 Exam# [id number] Ordering Dr: Michel Hernandez MD EXAM: STROKE BRAIN/HEAD WITHOUT CONT CLINICAL HISTORY: 84 y/o M with NEURO DEFICIT, ACUTE, STROKE SUSPECTED. COMPARISON: None. TECHNIQUE: Routine CT imaging of the head without IV contrast. Additional multiplanar reformats were obtained. Dose reduction techniques were used including intermediate exposure control (AEC),iterative reconstruction technique, and/or mA and/or KV dose adjustments based on patient's size. FINDINGS: Mild generalized cerebral volume loss with concordant prominence of the ventricles and subarachnoidspaces. Moderate patchy supratentorial white matter hypodensities. The javier-white matter interfaces areotherwise maintained. No acute intracranial hemorrhage or herniation. Prior ocular lens replacements. Mild mucosal thickening of the left maxillary and sphenoid sinuses.Scattered opacified bilateral ethmoid air cells. No acute calvarial fracture or scalp hematoma. CT/STROKE Brain/Head without Cont IMPRESSION: 1. No acute intracranial finding. 2. Findings of chronic microvascular ischemic changes and age-related changes. Reading Location: [facility] CC: Dr. Callum Hill MD; Dr. Brendan Hernandez MD ~ [employer] Presser: Signed [facility]04-12-2025 Radiology Diagnostic study note [facility] Imaging Services [address] [place] [id number] Chest 1 View (Portable) MR#: [id number] Acct: [id number] Name: BINH PARKS Rep #: [id number] : 1940 84 From: Hafsa Washington MD PCP: Dr. Callum Hill MD Status: REG ER Study:Chest 1 View (Portable) Date of Exam: 08/28/24 Exam# [id number] Ordering Dr: Michel Hernandez MD PROCEDURE: CHEST 1 VIEW (PORTABLE) 08/28/2024 REASON FOR EXAM: COUGH TECHNIQUE: Frontal view of the chest. COMPARISON: None. FINDINGS: Hardware: Left chest wall ICD pacemaker. Heart: Heart size is mildly enlarged with mild pulmonary vascular congestion. Calcification of the thoracic aorta. Lungs: No focal consolidation, pleural effusion or pneumothorax. Bones: Degenerative changes are identified within the thoracic spine. RAD/Chest 1 View (Portable) IMPRESSION: Mild cardiomegaly with pulmonary vascular congestion. Reading Location: [id number] CC: Dr. Callum Hill MD; Dr. Brendan Hernandez MD ~ [employer] Presser: Signed [facility]04-18-2024 Discharge summary Author Marshall Fitch [facility] September 04, 2023 4:05pm Note Date/Time September 04, 2023 3:1 5pm [facility] Medical Records Department [address] [place] [address] Emergency Department Summary 09/04/23 MR#: [id number] Acct: [id number] Name: BINH PARKS Rep #:[id number] : 1940 83 From: Marshall Fitch MD PCP: Dr. Callum Hill MD Status :REG ER Location: ED HPI History of Present Illness Chief Complaint: Dizziness Detail of Chief Complaint: Syncopal episode at the dentist office Informant: patient, spouse/S.O. and EMS Onset/Context/Timing Onset: Yesterday and Hours Context: Sudden Onset Timing: Intermittent Quality: Patient states he blacked out Location: Dentist office Current Severity: Gone Maximum Severity: Severe Worsened by: Dental injection with Artane Relieved by: Not applicable Associated Symptoms Associated Symptoms: Patient remembers feeling nauseous and vision went dark andhe blacked out. Narrative Narrative: History is limited because his was not in the room. Patient has dementia. And paramedics were not available when I saw the patient. Reviewed notes that were available by paramedics. is uncertain whether he became pale. With that he was sweaty. There was no incontinence of urine or stool. There is no documentation of postictal state. states she did not have a seizure. Prior similar symptoms: No Recent Illness/Hospitalization: No PFSH PFSH Medical History Atherosclerotic heart disease of [place] coronary artery without angina pectoris 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 (10/25/15) Breakdown (mechanical) of cardiac electrode, initial encounter COVID-19 Essential (primary) hypertension Frequent headaches GERD (gastroesophageal reflux disease) HLD (hyperlipidemia) Left bundle branch block Monomorphic ventricular tachycardia Neoplasm of uncertain behavior of skin Non-ischemic cardiomyopathy Non-ST elevation (NSTEMI) myocardial infarction (07/22/15) Obesity Personal history of skin cancer 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 Home Medications folic acid 1 mg tablet 1 mg PO DAILY 07/21/15 [History Last Taken Unknown] levothyroxine 75 mcg tablet 75 mcg PO DAILY 07/21/15 [History Last Taken 04/07/23] donepezil 10 mg tablet 10 mg PO DAILY 06/09/19 [History Last Taken Unknown] aspirin 81 mg tablet,delayed release (Adult Low Dose Aspirin) 81 mg PO DAILY 12/15/19 [History Last Taken Unknown] atorvastatin 40 mg tablet 40 mg PO DAILY 08/31/20 [History Last Taken Unknown] cholecalciferol (vitamin D3) 125 mcg (5,000 unit) capsule 125 mcg PO DAILY 08/31/20 [History Last Taken Unknown] escitalopram oxalate 10 mg tablet 10 mg PO DAILY 08/31/20 [History Last Taken Unknown] zinc acetate 50 mg (zinc) capsule (Galzin) 50 mg PO DAILY 08/31/20 [History Last Taken Unknown] nitroglycerin 0.4 mg sublingual tablet 0.4 mg sublingual Q5M PRN Chest Pain #25 tabs 03/22/21 [Rx Last Taken Unknown] memantine 10 mg tablet 10 mg PO QAM 03/28/22 [History Last Taken Unknown] carvedilol 25 mg tablet 25 mg PO BID #180 tabs 09/06/22 [Rx Last Taken 04/07/23] lisinopril 5 mg tablet 5 mg PO BID #180 tabs 04/21/23 [Rx Last Taken Unknown] Allergy/AdvReac Type Severity Reaction Status Date / Time No Known Allergies Allergy Verified 09/04/23 14:46 Family History Mother Hypertension Arthritis Surgical History H/O squamous cell carcinoma excision History of coronary artery stent placement (07/22/15) History of left heart catheterization Social History Smoking Status: Never smoker how long ago did patient quit smokin alcohol intake: never substance use type: does not use caffeine: No what type of physical activity do you participate in: other details: [place] frequency: 1-2 times per week duration: 45-60 minutes/day seatbelt use: always do you feel safe at home: Yes additional social history: DOES TAKE ASPIRIN ROS ROS ED Review of Systems ROS Unobtainable: due to mental status Constitutional Constitutional ED: Denies chills or fever(s) Eyes Eyes: Reports other Details: Vision went black ; Denies blurry vision or change in vision ENT ENT ED: Denies sore throat Cardiovascular Cardiovascular: Denies chest pain or palpitations Respiratory/Chest Respiratory/Chest: Denies dyspnea or dyspnea on exertion Gastrointestinal Gastrointestinal: Denies diarrhea or vomiting Musculoskeletal Musculoskeletal: Denies arthralgias, myalgias or neck pain Neurologic Neurologic: Denies headache(s) Psychiatric Psychiatric: Denies anxiety Hematologic/Lymphatic Hematologic/Lymphatic: Reports systems reviewed and no addt'l complaints, exceptas documented Allergic/Immunologic Allergic/Immunologic ED: Denies mouth swelling, tongue swelling or urticaria EXAM Physical Exam Const Vital Signs: 09/04/23 14:46 09/04/23 14:51 Temperature 98.2 F Temperature Source Oral Pulse Rate 61 Respiratory Rate 14 Respiratory Effort Normal Non-Labored Respiratory Pattern Normal Blood Pressure 134/79 H Blood Pressure Mean 97 Pulse Ox 97 Oxygen Delivery Method Room Air Positive well nourished and well developed General Appearance ED: well developed and NAD; Negative for pallor HEENT Reports moist mucous membranes HEENT Narrative: Head is atraumatic and normocephalic. Ears normal. Nares patent. Posterior pharynx is normal. Eyes PERRL and EOMs intact bilaterally General Eye ED: Negative for pale conjunctiva or scleral icterus Neck no lymphadenopathy, supple and no JVD Resp normal respiratory effort and clear to auscultation bilaterally Cardio regular rate, regular rhythm, S1 normal heart sound, S2 normal heart sound and no murmurs GI normal to inspection, nondistended, normoactive bowel sounds, non-tender and non-distended; Negative for hepatosplenomegaly or no masses GI Narrative: No palpable pulsatile mass. Extremity normal to inspection Neuro oriented x3 and CN's II-XII intact bilaterally Sensorium / Orientation: alert Motor Exam: strength 5/5 throughout Psych mental status grossly normal Skin no rashes or lesions noted, no wounds and skin turgor normal General Skin Exam: Negative for jaundice or pallor MDM MDM MDM Narrative Medical decision making narrative: History of physical is suggestive of vasovagal episode. Patient has a pacemaker/AICD manufactured by [employer] will have the pacemaker interrogated. Will determine if patient had dysrhythmia that caused this versus a vasovagal episode. Patient's monitor reveals a paced rhythm with a rate of 60. Twelve-lead EKG performed by EMS prior to arrival is a paced rhythm with a rate of approximately 60. This is a ventricular paced rhythm. No further interpretation or evaluation was undertaken. History & Record Review Additional record(s) reviewed:: Prior outpatient record, Prior ED visit and Prior labs Treatment and Re-Evaluation :: Received a call from the [employer] customer account representative. I was informed that 99.6% ofthe beats were paced. There was no evidence of dysrhythmia. Therefore patient will be discharged to home. Based on the history and physical findings patient had a vasovagal episode. 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 Instructions: ED Fainting, Vagal Reaction Prescriptions: No Action donepezil 10 mg tablet 10 mg PO DAILY aspirin [Adult Low Dose Aspirin] 81 mg tablet,delayed release (DR/EC) 81 mg PO DAILY atorvastatin 40 mg tablet 40 mg PO DAILY escitalopram oxalate 10 mg tablet 10 mg PO DAILY Patient Comments: TAKE 1 TABLET BY MOUTH EVERY DAY cholecalciferol (vitamin D3) 125 mcg (5,000 unit) capsule 125 mcg PO DAILY zinc acetate 50 mg (zinc) capsule 50 mg (zinc) capsule 50 mg PO DAILY nitroglycerin 0.4 mg tablet, sublingual 0.4 mg SUBLINGUAL Q5M PRN (Reason: Chest Pain) Qty: 25 3RF memantine 10 mg tablet 10 mg PO QAM levothyroxine 75 MCG tablet 75 mcg PO DAILY folic acid 1 MG tablet 1 mg PO DAILY Patient Comments: carvedilol 25 mg tablet 25 mg PO BID Qty: 180 4RF Rx Instructions: give with food (meal/snack) lisinopril 5 mg tablet 5 mg PO BID Qty: 180 3RF Primary Care Provider: Callum Hill Referrals: Callum Hill MD [Primary Care Provider] - As Needed Disposition Disposition: Home, Self Care What to do if you have Problems For any increased pain, shortness of breath, bleeding, nausea or vomiting, chestpain, or any unexpected problems, contact your Primary Care Provider. Call [facility] ([phone]) or report to the closest Emergency Room. Call 911 if necessary. 09/04/23 1606 <Electronically signed by Marshall Fitch MD> Cosigner Signature (if applicable): CC: Dr. Callum Hill MD ~ Signed [facility] Work Phone: 1([phone]) 717-871706-08-2016 Evaluation note* Diagnosis Onset Date Resolution Status Biventricular automatic impl antable cardioverter defibrillator in situ October 25, 2015 chronic Left bundle branch block chr onic Monomorphic ventricular tachycardia chronic Non-ischemic cardiomyopathy July 22, 2015 chronic Biventricular automatic impl antable cardioverter defibrillator in situ October 25, 2015 chronic Essential (primary) hypertension chronic HLD (hyperlipidemia) chronic Non-ischemic cardiomyopathy July 22, 2015 chronic History of coronary artery stent placement July 22, 2015 resolved [facility] Work Phone: [phone]) 356-973606-08-2016 Evaluation note* Diagnosis Onset Date Resolution Status Near syncope acute Biventricular automatic impl antable cardioverter defibrillator in situ October 25, 2015 chronic Essential (primary) hypertension chronic HLD (hyperlipidemia) chronic Non-ischemic cardiomyopathy chronic History of coronary artery stent placement July 22, 2015 resolved Biventricular automatic impl antable cardioverter defibrillator in situ October 25, 2015 chronic Monomorphic ventricular tachycardia chronic Non-ischemic cardiomyopathy [facility] Work Phone: [phone]) 512-840506-08-2016 Evaluation note* Diagnosis Onset Date Resolution Status Biventricular automatic impl antable cardioverter defibrillator in situ October 25, 2015 chronic Left bundle branch block chr onic Monomorphic ventricular tachycardia chronic Non-ischemic cardiomyopathy chronic Biventricular automatic impl antable cardioverter defibrillator in situ October 25, 2015 chronic Essential (primary) hypertension chronic HLD (hyperlipidemia) chronic Non-ischemic cardiomyopathy chronic History of coronary artery stent placement July 22, 2015 resolved Biventricular automatic impl antable cardioverter defibrillator in situ October 25, 2015 chronic Left bundle branch block chr onic Monomorphic ventricular tachycardia chronic Non-ischemic cardiomyopathy [facility] Work Phone: [phone]) 136-635406-08-2016 Evaluation note* Diagnosis Onset Date Resolution Status Biventricular automatic impl antable cardioverter defibrillator in situ October 25, 2015 chronic Left bundle branch block chr onic Monomorphic ventricular tachycardia chronic Non-ischemic cardiomyopathy chronic Biventricular automatic impl antable cardioverter defibrillator in situ October 25, 2015 chronic Essential (primary) hypertension chronic HLD (hyperlipidemia) chronic Non-ischemic cardiomyopathy chronic History of coronary artery stent placement July 22, 2015 resolved [facility] Work Phone: [phone]) 980-795606-08-2016 Evaluation note* Diagnosis Onset Date Resolution Status Biventricular automatic impl antable cardioverter defibrillator in situ October 25, 2015 chronic Left bundle branch block chr onic Monomorphic ventricular tachycardia chronic Non-ischemic cardiomyopathy chronic Biventricular automatic impl antable cardioverter defibrillator in situ October 25, 2015 chronic Essential (primary) hypertension chronic HLD (hyperlipidemia) chronic Non-ischemic cardiomyopathy chronic History of coronary artery stent placement July 22, 2015 resolved Near syncope acute Biventricular automatic impl antable cardioverter defibrillator in situ October 25, 2015 chronic Left bundle branch block chr onic Monomorphic ventricular tachycardia chronic Non-ischemic cardiomyopathy [facility] Work Phone: [phone]) 892-159106-08-2016 Evaluation note* Diagnosis Onset Date Resolution Status Near syncope acute Biventricular automatic impl antable cardioverter defibrillator in situ October 25, 2015 chronic Left bundle branch block chr onic Monomorphic ventricular tachycardia chronic Non-ischemic cardiomyopathy 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 October 25, 2015 chronic April 192023 11:21am Essential (primary) hypertension chronic May 11 024 11:21am HLD (hyperlipidemia) chronic Dece mber 2023 11:21am Non-ischemic cardiomyopathy chronic May 11, 2024 11:21am History of coronary artery stent placement July 22, 2015 resolved Tian 24th, 2 024 11:21am Altered level of consciousness acute August 28, 2024 2:09pm Difficulty in walking acute Aug 2:09pm [facility] Work Phone: [phone] Evaluation note* Diagnosis Onset Date Resolution Status Admit Date 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 October 25, 2015 chronic April 192023 11:21am Essential (primary) hypertension chronic May 11 024 11:21am HLD (hyperlipidemia) chronic Dece mber 2023 11:21am Non-ischemic cardiomyopathy chronic May 11, 2024 11:21am History of coronary artery stent placement July 22, 2015 resolved May 11 11:21am Altered level of consciousness acute August 29, 2024 1:32pm Difficulty in walking acute Aug 1:32pm [facility] Work Phone: Discharge summary Author Antoine Finch [facility] Note Date/Time September 01, 2024 4:3 5pm [facility] Medical Records Department [address] [place] [id number] Discharge Summary 09/01/24 1628 MR#: [id number] Acct: [id number] Name: BINH PARKS Rep #:[id number] : 1940 84 From: Antoine bynum MD PCP: Dr. Callum Hill MD Status :ADM IN Location: [place] [address] Providers Date of Admission: 08/29/24 Primary Care Physician: Dr. Callum Hill MD Reason For Visit: ALTERED LOC Diagnosis Discharge Diagnosis (1) Altered level of consciousness: Status: Acute Code(s): R40.4 - Transient alteration of awareness Medications at Discharge Home Medications folic acid 1 mg tablet 1 mg PO DAILY 07/21/15 levothyroxine 75 mcg tablet 75 mcg PO DAILY 07/21/15 donepezil 10 mg tablet 10 mg PO DAILY 06/09/19 aspirin 81 mg tablet,delayed release (Adult Low Dose Aspirin) 81 mg PO QHS 12/15/19 atorvastatin 40 mg tablet 40 mg PO QHS 08/31/20 escitalopram oxalate 10 mg tablet 10 mg PO DAILY 08/31/20 nitroglycerin 0.4 mg sublingual tablet 0.4 mg sublingual Q5M PRN Chest Pain #25 tabs 03/22/21 memantine 10 mg tablet 10 mg PO BID 03/28/22 carvedilol 25 mg tablet 25 mg PO BID #180 tabs 09/09/23 lisinopril 5 mg tablet 5 mg PO BID #180 tabs 10/04/23 cholecalciferol (vitamin D3) 50 mcg (2,000 unit) tablet (D3 DOTS) 50 mcg PO DAILY VITAMIN 08/28/24 vitamin E 268 mg (400 unit) capsule 268 mg PO DAILY 08/28/24 tamsulosin 0.4 mg capsule 0.4 mg PO DAILY #0 caps 09/01/24 Hospital Course Operations None Procedures None Summary of Care Provided Minutes Spent on Discharge: 33 Hospital Course: Per HPI: BINH PARKS, is a 84 M with a history of pacemaker/defibrillator, dementia, hypertension, hypothyroidism, coronary artery disease who presented [facility] ED 08/28/2024 with altered level of consciousness. Family reports since he started not acting quite right and his just progressively worsened, the only additional change during that time is patient has been having some cough. Given the mental status change he had CTA of the head and neck and CT which were negative the patient with no focal complaints and nonfocal exam to suggest CVA as a primary culprit. Given patient's failure to thrive and mental status changes with inability for family to take care of patient at home hospitalist contacted for admission. Patient evaluated with family at bedside, reports that he was not acting like himself andis progressively worsened and is now not close to baseline though does note he has chronic dementia. Reports he has a cough and that for a while he has had some shortness of breath on exertion, only other thing she notes is that he has some right leg pain which is not new, denies that he has had any changes in bowel or bladder. Denies any new medication changes. Hospital Course: 1. Acute metabolic encephalopathy secondary to urinary retention leading to AKIin the setting of dementia?84-year-old male presented to the hospital with confusion. Initially workup was unremarkable and was not leading to many answers. He did have a slight white count so was started on antibiotics. Cultures were ultimately negative and procalcitonin was only 0.2. Ammonia levelwas normal as well as vitamin B12 and his TSH. ABG was also unremarkable with maybe a slight alkalosis. He was found to have urinary retention and his renal function resolved overnight after the placement of a Young. Will continue with Flomax and Young on discharge. Based on PT and OT evaluations he does need SNF placement for rehab. He also had modified barium swallow yesterday which demonstrated the need for regular textures and thin liquids recommending small bites and small sips and for him to remain upright for 30 minutes after p.o. intake. Will plan to discharge to SNF today with Yuong in place and to continueFlomax. They can attempt to remove the Young in a few days at the alf and do voiding trials, if he does need to have placement of a Young at that timethen would recommend outpatient follow-up with urology as well. 2. Coronary artery disease status post stent, pacemaker placement, essential hypertension, hyperlipidemia, hypothyroidism are all chronic medical conditions which complicate his care. His home medications were continued for appropriate Physical Exam Narrative General: Alert, Oriented x1, Cooperative, No apparent distress HEENT: Atraumatic, PERRLA, EOMI, Normocephalic Oral: Moist Mucosa Neck: Supple, No JVD Lungs: Diminished, Normal air movement, No rhonchi, No wheeze, No rales Cardiovascular: Regular rate, Regular Rhythm, Normal S1, Normal S2, No murmurs Abdomen: Soft, Non Tender, Non-Distended, No Hepato-splenomegaly Extremities: No edema, Capillary Refill Less than 3 Seconds Skin: No rashes, No breakdown Musculoskeletal: No Tenderness to Palpation of Joints or Extremities Neurological: No focal neurological deficits, moves all extremities Psych/Mental Status: Normal Affect, Appropriate Weight / BMI Weight Weight: 181 lb 10.574 oz Body Mass Index (BMI) 29.3 ABG / Lab / Microbiology Data 08/31/24 06:37 08/31/24 06:37 Microbiology: Microbiology 08/29/24 17:40 Urine Catheter - Young Urine Culture - Final Culture exhibits no growth. 08/29/24 15:25 Blood Culture (Wb) - Right Hand Blood Culture - Preliminary No growth in 48 hours. 08/29/24 15:17 Blood Culture (Wb) - Left Hand Blood Culture - Preliminary No growth in 48 hours. 08/29/24 17:40 Urine Catheter - Young Legionella Antigen - Final 08/29/24 17:40 Urine Catheter - Young Streptococcus pneumoniae Antigen (M - Final 08/28/24 16:55 Mucosa - Nasopharyngeal Respiratory Panel (PCR) - Final 08/28/24 10:50 Mucosa - Nose SARS-CoV-2, Influenza & RSV (PCR) - Final D/C Instructions DC O2, CPAP, BIPAP Needs Home O2 Discharge instructions: No Meaningful Use Info Meaningful Use Meaningful Use Diagnoses (Choose all that apply): None applicable Ischemic Stroke Statin Dosing Therapy Reference: STATIN DOSE THERAPY REFERENCE: * Patients > 75 years receive moderate or high dose statin therapy. * Patients 75 years or YOUNGER should receive HIGH intensity statin dose unless contraindicated. You will be required to document reason for non-treatment if statin daily dose does not meet guidelines. HIGH DOSE STATIN THERAPY DAILY Atorvastatin > than or = to 40 mg Rosuvastatin > than or = to 20 mg Amlodipine + Atorvastatin > than or = to 2.5/40 mg Ezetimibe + Simvastatin 10/80 mg Simvastatin 80mg Discharge Plan Admission Admit Date/Time: 08/29/24 13:32 Attending Provider: Antoine Finch Primary Care Provider: Callum Hill Consulting Providers: Kenya Otoole Instructions Patient Instructions: ED URI, Viral, No Abx (Adult) Additional Instructions / Restrictions: Continues to have urinary retention, will leave Young in place recommend outpatient urology evaluation and bladder training at the alf. This islikely the cause of his significant encephalopathy given the rapid improvement in his renal function once the Young was placed Discharge Orders/Prescriptions Prescriptions: New tamsulosin 0.4 mg Capsule 0.4 mg PO DAILY Qty: 0 0RF Continued donepezil 10 mg tablet 10 mg PO DAILY aspirin [Adult Low Dose Aspirin] 81 mg tablet,delayed release (DR/EC) 81 mg PO QHS atorvastatin 40 mg tablet 40 mg PO QHS escitalopram oxalate 10 mg tablet 10 mg PO DAILY nitroglycerin 0.4 mg tablet, sublingual 0.4 mg SUBLINGUAL Q5M PRN (Reason: Chest Pain) Qty: 25 3RF memantine 10 mg tablet 10 mg PO BID lisinopril 5 mg tablet 5 mg PO BID Qty: 180 3RF levothyroxine 75 MCG tablet 75 mcg PO DAILY folic acid 1 MG tablet 1 mg PO DAILY Patient Comments: cholecalciferol (vitamin D3) [D3 DOTS] 50 mcg (2,000 unit) tablet 50 mcg PO DAILY vitamin E 268 mg (400 unit) capsule 268 mg PO DAILY carvedilol 25 mg tablet 25 mg PO BID Qty: 180 4RF Rx Instructions: give with food (meal/snack) Referrals / Follow Up: Callum Hill MD [Primary Care Provider] - 3-5 Days Disposition Disposition (needs filled in before D/C Order can be placed): Residential Facility Charges/Coding Visit Charges Inpatient E&M: 99263 Disch Hosp >30min 09/01/24 1635 <Electronically signed by Antoine Finch MD> Cosigner Signature (if applicable): CC: Dr. Callum Hill MD; Dr. Antoine Finch MD~ Signed [facility] Work Phone: Evaluation noteNo assessment information available [facility] Work Phone: History and physical note Author Kenya Otoole [facility] Note Date/Time August 28, 2024 2:2 5pm [facility] Medical Records Department [address] [place] [address] H&P Exam - Hospitalist 08/28/24 1408 MR#: [id number] Acct: [id number] Name: BINH PARKS Rep #:[id number] : 1940 84 From: Kenya Otoole MD PCP: Dr. Callum Hill MD Status :ADM RALF Location: [place] [id number] HPI - General General Date of Admission: 08/28/24 Date of Service: 08/28/24 Chief Complaint: Altered LOC HPI Narrative BINH PARKS, is a 84 M with a history of pacemaker/defibrillator, dementia, hypertension, hypothyroidism, coronary artery disease who presented [facility] ED 08/28/2024 with altered level of consciousness. Family reports since he started not acting quite right and his just progressively worsened, the only additional change during that time is patient has been having some cough. Given the mental status change he had CTA of the head and neck and CT which were negative the patient with no focal complaints and nonfocal exam to suggest CVA as a primary culprit. Given patient's failure to thrive and mental status changes with inability for family to take care of patient at home hospitalist contacted for admission. Patient evaluated with family at bedside, reports that he was not acting like himself andis progressively worsened and is now not close to baseline though does note he has chronic dementia. Reports he has a cough and that for a while he has had some shortness of breath on exertion, only other thing she notes is that he has some right leg pain which is not new, denies that he has had any changes in bowel or bladder. Denies any new medication changes. 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 (10/25/15) Atherosclerotic heart disease of [place] coronary artery without angina pectoris Non-ST elevation (NSTEMI) myocardial infarction (07/22/15) Obesity HLD (hyperlipidemia) GERD (gastroesophageal reflux disease) Home Medications ?Medication ?Instructions ?Recorded ?Last Taken ?Type folic acid 1 mg tablet 1 mg PO DAILY 07/21/1508/27 History levothyroxine 75 mcg tablet 75 mcg PO DAILY 07/21/15 0 08/27/24 History donepezil 10 mg tablet 10 mg PO DAILY 06/09/1908/17 History aspirin 81 mg tablet,delayed 81 mg PO QHS 12/15/19 Unk nown History release (Adult Low Dose Aspirin) atorvastatin 40 mg tablet 40 mg PO QHS 08/31/20 Unknow n History escitalopram oxalate 10 mg tablet 10 mg PO DAILY 08/31 Unknown History nitroglycerin 0.4 mg sublingual 0.4 mg sublingual Q5M PRN Chest 03/22/21 Unknown Rx tablet Pain #25 tabs memantine 10 mg tablet 10 mg PO BID 03/28/22 History carvedilol 25 mg tablet 25 mg PO BID #180 tabs 09/0808/27/24 Rx lisinopril 5 mg tablet 5 mg PO BID #180 tabs 08/27/24 Rx cholecalciferol (vitamin D3) 50 50 mcg PO DAILY VITAMI N 08/28/24 08/27/24 History mcg (2,000 unit) tablet (D3 DOTS) vitamin E 268 mg (400 unit) capsule 268 mg PO DAILY 08/27/24 History Allergy/AdvReac Type Severity Reaction Status Date / Time No Known Allergies Allergy Verified 05/11/24 11:23 Family History Mother Hypertension Arthritis Surgical History H/O squamous cell carcinoma excision History of left heart catheterization History of coronary artery stent placement (07/22/15) Social History Smoking Status: Former smoker how long ago did patient quit smokin alcohol intake: never substance use type: does not use caffeine: No what type of physical activity do you participate in: other details: [place] frequency: 1-2 times per week duration: 45-60 minutes/day seatbelt use: always do you feel safe at home: Yes additional social history: DOES TAKE ASPIRIN ROS ROS Narrative Patient unable to answer ROS secondary to mental status, will sometimes attempt answer questions but mostly smiles and is pleasantly confused Vital Signs Vital Signs Vital Signs: 08/28/24 09:46 08/28/24 10:03 08/28/24 10:46 Temperature 98.7 F Temperature Source Oral Pulse Rate 68 67 Respiratory Rate 18 18 Blood Pressure 138/66 H 148/80 H Blood Pressure Mean 90 102 Pulse Ox 96 90 92 Oxygen Delivery Method Room Air Nasal Cannula Nasal Cannula Oxygen Flow Rate (L/min) 2 2 08/28/24 11:28 08/28/24 12:02 08/28/24 13:00 Temperature Temperature Source Pulse Rate 60 60 61 Respiratory Rate 21 H 23 H 23 H Blood Pressure 160/71 H 146/86 H 124/75 H Blood Pressure Mean 100 106 91 Pulse Ox 95 92 92 Oxygen Delivery Method Room Air Nasal Cannula Nasal Cannula Oxygen Flow Rate (L/min) 2 2 08/28/24 13:16 08/28/24 14:00 Temperature 98.7 F Temperature Source Pulse Rate 60 69 Respiratory Rate 23 H 15 Blood Pressure 124/75 H 147/79 H Blood Pressure Mean 91 101 Pulse Ox 92 92 Oxygen Delivery Method Room Air Oxygen Flow Rate (L/min) Weight Weight: 83.5 kg Body Mass Index (BMI) 29.7 Physical Exam Narrative General: Patient appears little bit tired but is awake, at times will try to answer questions but is mostly just pleasantly confused HEENT: Atraumatic Eyes: Extraocular movements grossly intact Neck: Supple Respiratory: Normal respiratory effort, patient would not take deep breaths on command for better assessment at bases Cardiovascular: Regular rate and rhythm GI: Soft, nontender, nondistended Extremities: No edema Musculoskeletal: Moving all extremities in bed Neuro: No overt focal neurological deficits but patient unable to cooperate withneuroexam given his general decreased level of consciousness difficulty following commands, does seem to have some jerking movements Skin: No rashes appreciated Psych: Attempts to be cooperative, pleasantly confused Results Lab / Micro Data 08/28/24 10:02 08/28/24 10:02 Labs: Laboratory Results - last 24 hr 08/28/24 10:02: WBC 12.3 H, RBC 4.44 L, Hgb 13.9, Hct 41.2, MCV 92.8, MCH 31.3, MCHC 33.7, RDW Std Deviation 43.5, RDW Coeff of Maryana 12.7, Plt Count 157, MPV 10.8, Immature Gran % (Auto) 0.400, Neut % (Auto) 73.7 H, Lymph % (Auto) 11.0 L,[place] % (Auto) 13.5 H, Eos % (Auto) 1.1, Baso % (Auto) 0.3, Absolute Neuts (auto)9.1 H, Absolute Lymphs (auto) 1.36, Nucleated RBC % 0, Differential Comment SCANNED, PT 13.5, INR 1.0, APTT 27.5, Sodium 136, Potassium 4.4, Chloride 99, Carbon Dioxide 24.9, Anion Gap 12, BUN 19, Creatinine 1.02, Estim Creat Clear Calc 55.63, Est GFR (MDRD) Non-Af 73, BUN/Creatinine Ratio 18.1, Glucose 166 H, Calcium 9.4, Troponin T High Sens 23 H 08/28/24 10:50: Urine Color Yellow, Urine Clarity Clear, Urine pH 6.5, Ur Specific Tanner 1.015, Urine Protein 15 H, Urine Glucose (UA) Normal, Urine Ketones Negative, Urine Occult Blood 25 H, Urine Nitrite Negative, Urine Bilirubin Negative, Urine Urobilinogen Normal, Ur Leukocyte Esterase Negative, Urine RBC 0-5 SEEN, Urine WBC 0 SEEN, Ur Squamous Epith Cells 0-5 SEEN, Urine Bacteria 0 SEEN, Urine Mucus 0 SEEN 08/28/24 11:55: Troponin T Hi Sens 2 Hr 21 Micro: Microbiology 08/28/24 10:50 Mucosa - Nose SARS-CoV-2, Influenza & RSV (PCR) - Final Rhythm Strip Rhythm Strip: Paced Rate: 63 Ectopy: PVC(s) Imaging Radiology Impression Chest X-Ray 08/28/24 11:05 IMPRESSION: Mild cardiomegaly with pulmonary vascular congestion. Reading Location: [facility] Brain CT 08/28/24 11:10 IMPRESSION: 1. No acute intracranial finding. 2. Findings of chronic microvascular ischemic changes and age-related changes. Reading Location: [facility] Head/Neck CTA 08/28/24 11:10 IMPRESSION: 1. No large vessel occlusion, AVM or aneurysm. 2. Mild narrowing of the bilateral vertebral arteries and carotid siphons. 3. No significant stenosis of the cervical carotid arteries by NASCET criteria. Reading Location: [facility] Assessment & Plan Assessment/Plan (1) Altered level of consciousness: PLAN: Plan #Altered LOC/concern for acute metabolic encephalopathy - Patient had symptoms that have progressively worsened since with no focal deficits, CTA head and neck with no acute process, given nonfocal exam with generalized complaints this seems almost more consistent with a toxic and metabolic encephalopathy on top of his chronic dementia - Will check ammonia, liver panel - Check TSH - Will check B12 - Will check pro BNP given chest x-ray queried some pulmonary congestion - Will check respiratory panel given the only specific new complaint since is a cough - Will check blood gas some of the jerking movements and decreased level of consciousness - If workup continues to be unrevealing can consider MRI, strongly do not think that history and exam are consistent with acute CVA so do not think patient needs stroke admit/protocol at this time # Dementia - Patient on memantine as an episode at home - Feel it is reasonable to continue these at this time #Hx CAD w/ stenting/history of pacemaker/AICD -Continue asa, statin, BB -Heart healthy diet #Hypothyroidism -Continue Synthroid #Hypertension - Continue current medications #DVT ppx: Lovenox subcu Kenya Otoole MD Time spent in the patient's overall evaluation, decision-making process, review of diagnostic data, adjustment of management, discussion with other providers, nursing and ancillary staff involved in patient's care documentation, 58 Minutes Charges/Coding Visit Charges Inpatient E&M: 73367 Init Hosp L2 08/28/24 1425 <Electronically signed by Kenya Otoole MD> Cosigner Signature (if applicable): CC: Dr. Callum Hill MD; Dr. Kenya Otoole MD~ Signed [facility] Work Phone: Hospital Discharge instructions Additional Instructions Call and follow-up with your primary care physician. Plenty of fluids and rest. Return if you are unable to care for him or is doing worse. His labs, x-ray and CAT scans today look good.[facility] Work Phone: Reason for referral (narrative)No reason for referral information availableWSCCI [facility] Work Phone: Advance Directives No Advanced Directives Records Found Advance Directive Response Recorded Date/ Time Living Will Yes September 16, 2019 11:23am Power of Punch Finisher Yes September 15 11:23am Advance Directive Response Recorded Date/ Time Living Will Yes September 16, 2019 10:23am Power of Punch Finisher Yes September 15 10:23am Advance Directive Response Recorded Date/ Time Advance Directives No March 10:25am Living Will No April 07 023 10:25am Power of Punch Finisher No April 07, 2023 10:25am Advance Directive Response Recorded Date/ Time Advance Directives No March 11:25am Living Will No April 07 023 11:25am Power of Punch Finisher No April 07, 2023 11:25am Advance Directive Response Recorded Date/ Time Name of Medical Power of Punch Finisher September 04, 2023 2:46pm Advance Directives No March 11:25am Living Will Yes September 04, 2023 2:46pm Power of Punch Finisher Yes September 03 2:46pm Advance Directive Response Recorded Date/ Time Living Will Yes September 04, 2023 2:46pm Do you have a Healthcare Pow er of Punch Finisher? Yes September 04, 2023 2:46pm Living Will Yes August 28, 2024 9:57am Do you have a Healthcare Pow er of Punch Finisher? Yes August 28, 2024 9:57am Name of Medical Power of Punch Finisher Meggan Parks- w deshawn August 28, 2024 9:57am Advance Directives No March 11:25am Advance Directive Response Recorded Date/ Time Living Will Yes September 04, 2023 2:46pm Do you have a Healthcare Pow er of Punch Finisher? Yes September 04, 2023 2:46pm Living Will Yes August 28, 2024 3:34pm Do you have a Healthcare Pow er of Punch Finisher? Yes August 28, 2024 3:34pm Name of Medical Power of Punch Finisher Meggan Parks- w deshawn August 28, 2024 3:34pm Advance Directives No March 11:25am Chief Complaint and Reason for Visit Chief Complaint remote checks not go ing through. 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 Non-ischemic cardiomyopathy Chief Complaint 3 mos remote f/u Tammy roaching VIOLETTE 6 M FU INT LABS TWO 'S CAD Coronary artery disease 3 mos remote LOG DATA TECHNICIAN-D f/u approaching VIOLETTE Reason for Visit Biventricular automa tic implantable cardioverter defibrillator in situ Left bundle branch block Monomorphic ventricular tachycardia Non-ischemic cardiomyopathy 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 Essential (primary) hypertension HLD (hyperlipidemia) Non-ischemic cardiomyopathy History of coronary artery stent placement 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 Left bundle branch block Monomorphic ventricular tachycardia Non-ischemic cardiomyopathy Chief Complaint Other cardiomyopathi es Chief Complaint Other cardiomyopathi es GEN CHANGE TEACHING PRIOR TO 01/30R at 230pm UPDATE H&P PRIOR TO 01/30e at 2pm ICD CHANGE Reason for Visit Biventricular automa tic implantable cardioverter defibrillator in situ Left bundle branch block Monomorphic ventricular tachycardia Non-ischemic cardiomyopathy 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 Essential (primary) hypertension HLD (hyperlipidemia) Non-ischemic cardiomyopathy History of coronary artery stent placement Chief Complaint Other cardiomyopathi es Pacer Check Remote GEN CHANGE TEACHING PRIOR TO 01/30R at 230pm UPDATE H&P PRIOR TO 01/30 at 2pm Pacer Check Remote ICD CHANGE 1 wk s/p LOG DATA TECHNICIAN-D generator change Pacer Check Remote Other cardiomyopathies Amb Documentation Reason for Visit Biventricular automa tic implantable cardioverter defibrillator in situ Left bundle branch block Monomorphic ventricular tachycardia Non-ischemic cardiomyopathy 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 Essential (primary) hypertension HLD (hyperlipidemia) Non-ischemic cardiomyopathy History of coronary artery stent placement Near syncope 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 Left bundle branch block Monomorphic ventricular tachycardia Non-ischemic cardiomyopathy Chief Complaint ICD CHANGE 1 wk s/p LOG DATA TECHNICIAN-D generator change Pacer Check Remote Other cardiomyopathies Amb Documentation EORDER Reason for Visit Near syncope 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 Left bundle branch block Monomorphic ventricular tachycardia Non-ischemic cardiomyopathy Chief Complaint Other cardiomyopathi es Amb Documentation EORDER Pacer Check Remote LBP,LUMBAR DDD/RX HERE dizziness Chief Complaint EORDER Pacer Check Remote dizziness LBP,LUMBAR DDD/RX HERE EORDERS Chief Complaint Admit Date 6 M FU May 11, 2024 11:21am Pacer Check Remote July 02, 2024 4:36am ALTERED LOC August 28, 2024 2:0 9pm Reason for Visit Admit Date Biventricular automatic impl antable cardioverter defibrillator in situ May 11, 2024 11:21am Essential (primary) hypertension Decee r 2023 11:21am HLD (hyperlipidemia) May 11, 2024 11:21am Non-ischemic cardiomyopathy April 11:21am History of coronary artery stent placeme nt May 11, 2024 11:21am Altered level of consciousness August 2:09pm Difficulty in walking August 28, 2024 2 :09pm Chief Complaint Admit Date 6 M FU May 11, 2024 11:21am Pacer Check Remote July 02, 2024 4:36am ALTERED LOC August 28, 2024 2:0 9pm ALTERED LOC August 29, 2024 1:3 2pm ALTERED LOC August 30, 2024 9:3 9am ALTERED LOC August 31, 2024 1:3 0pm ALTERED LOC September 01, 2024 12: 41pm Reason for Visit Admit Date Biventricular automatic impl antable cardioverter defibrillator in situ May 11, 2024 11:21am Essential (primary) hypertension Decee r 2023 11:21am HLD (hyperlipidemia) May 11, 2024 11:21am Non-ischemic cardiomyopathy April 11:21am History of coronary artery stent placeme nt May 11, 2024 11:21am Altered level of consciousness August 1:32pm Difficulty in walking August 29, 2024 1 :32pm Summary Purpose Family History No Family History Records Found Additional Source Comments Goals (unrecognized section and content) Goals may be documented in a n alternate sectionGoals may be documented in an alternate sectionGoals may be documented in an alternate sectionGoals may be documented in an alternate sectionGoals may be documented in an alternate sectionGoals may be documented in an alternate sectionGoals may be documented in an alternate sectionGoals may be documented in an alternate sectionGoals may be documented in an alternate sectionGoals may be documented in an alternate sectionGoals may be documented in an alternate sectionGoals may be documented in an alternate sectionGoals may be documented in an alternate section Care Teams (unrecognized sec tion and content) Team Status: Active Member Role Status Dates Dr. Dilshad Hill MD Family Provider Active Dr. Dilshad Hill MD Primary Care Provider Activ e Team Status: Inactive Member Role Status Dates Dr. Dilshad Hill MD Primary Care Provider, Refe rring Provider Active Dr. Matt Loza MD Attending Provider Active Team Status: Inactive Member Role Status Dates Dr. Dilshad Hill MD Primary Care Provider Activ e Nancy Sandoval Active Dr. Matt Loza MD Attending Provider, Referring Pro vider Active Team Status: Inactive Member Role Status Dates Dr. Dilshad Hill MD Primary Care Provider, Atte nding Provider Active Team Status: Inactive Member Role Status Dates Dr. Dilshad Hill MD Primary Care Provider, Refe rring Provider Active Roshni Vasques DISTRICT MANAGER [employer], DISTRICT MANAGER MA[employer]-C Attending Provider Active Team Status: Inactive Member Role Status Dates Dr. Dilshad Hill MD Primary Care Provider, Refe rring Provider Active Nancy Sandoval Attending Provider Active Team Status: Active Member Role Status Dates Dr. Dilshad Hill MD Primary Care Provider Activ e Dr. Matt Loza MD Attending Provider, Referring Provider, Other Provider Active Team Status: Inactive Member Role Status Dates Dr. Dilshad Hill MD Primary Care Provider, Attending Provider, Referring Provider Active Roshni Vasques DISTRICT MANAGER [employer], DISTRICT MANAGER MA[employer]-C Other Provider Active Team Status: Inactive Member Role Status Dates Dr. Dilshad Hill MD Primary Care Provider Activ e Dr. Matt Loza MD Attending Provider, Referring Pro vider Active Team Status: Active Member Role Status Dates Dr. Dilshad Hill MD Primary Care Provider Activ e Dr. Matt Loza MD Attending Provider Active Team Status: Inactive Member Role Status Dates Dr. Dilshad Hill MD Primary Care Provider Activ e Meryc Navarro PA, PA Attending Provider, Referr ing Provider Active Ramon Tracey DISTRICT MANAGER MAJ[employer], DISTRICT MANAGER MAJ[employer]-C Other Provider Active Team Status: Inactive Member Role Status Dates Dr. Dilshad Hill MD Primary Care Provider Activ e Nancy Sandoval Attending Provider Active Roshni Vasques DISTRICT MANAGER MA[employer], DISTRICT MANAGER MA[employer]-C Active Team Status: Active Member Role Status Dates Dr. Dilshad Hill MD Primary Care Provider Activ e Dr. Matt Loza MD Attending Provider, Referring Pro vider Active Team Status: Inactive Member Role Status Dates Dr. Dilshad Hill MD Primary Care Provider Activ e Dr. Matt Loza MD Attending Provider Active Team Status: Active Member Role Status Dates Dr. Dilshad Hill MD Primary Care Provider Activ e Roshni Vasques DISTRICT MANAGER MA[employer], DISTRICT MANAGER MA[employer]-C Attending Provider Active Team Status: Inactive Member Role Status Dates Dr. Dilshad Hill MD Primary Care Provider Activ e Roshni Vasques DISTRICT MANAGER MAJ[employer], DISTRICT MANAGER MAJ[employer]-C Attending Provider, Referring P rovider Active Team Status: Inactive Member Role Status Dates Dr. Dilshad Hill MD Primary Care Provider, Attending Provider, Referring Provider Active Team Status: Active Member Role Status Dates Dr. Callum Hill MD Family Provider Active Dr. Callum Hill MD Primary Care Provider Acti ve Team Status: Active Member Role Status Dates Dr. Callum Hill MD Primary Care Provider Acti ve Dr. Matt Loza MD Attending Provider, Referring Pro vider Active Team Status: Active Member Role Status Dates Dr. Callum Hill MD Primary Care Provider Acti ve Roshni Vasques DISTRICT MANAGER MA[employer], DISTRICT MANAGER MAJ[employer]-C Attending Provider Active Team Status: Inactive Member Role Status Dates Dr. Callum Hill MD Primary Care Provider Acti ve Dr. Matt Loza MD Attending Provider, Referring Pro vider Active Team Status: Inactive Member Role Status Dates Dr. Callum Hill MD Primary Care Provider Acti ve Roshni Vasques DISTRICT MANAGER MA[employer], DISTRICT MANAGER MAJ[employer]-C Attending Provider, Referring P rovider Active Team Status: Inactive Member Role Status Dates Dr. Callum Hill MD Primary Care Provider Acti ve Dr. Marshall Fitch MD Emergency Provider Active Team Status: Inactive Member Role Status Dates Dr. Callum Hill MD Primary Care Provider, Attending Provider, Referring Provider Active Team Status: Active Member Role Status Dates Dr. Callum Hill MD Primary Care Provider, Attending Provider, Referring Provider Active Team Status: Inactive Member Role Status Dates Dr. Callum Hill MD Primary Care Provider Acti ve Dr. Marshall Fitch MD Attending Provider, Emergency Provi harika Active Team Status: Active Member Role Status Dates Dr. Callum Hill MD Primary Care Provider Acti ve Team Status: Inactive Member Role Status Dates Dr. Callum Hill MD Primary Care Provider Acti ve Start: May 11, 2024 End: May 11, 2024 Dr. Callum Hill MD Referring Provider Active Start: May 11, 2024 End: May 11, 2024 Mercy Navarro PA, PA Attending Provider Active Start: May 11, 2024 End: May 11, 2024 Team Status: Inactive Member Role Status Dates Dr. Callum Hill MD Primary Care Provider Acti ve Start: July 02, 2024 End: July 02, 2024 Dr. Matt Loza MD Attending Provider Active S tart: July 02, 2024 End: July 02, 2024 Dr. Matt Loza MD Referring Provider Active S tart: July 02, 2024 End: July 02, 2024 Team Status: Active Member Role Status Dates Dr. Callum Hill MD Primary Care Provider Acti ve Start: August 28, 2024 Dr. Brendan Hernandez MD Emergency Provider Active S tart: August 28, 2024 Dr. Kenya Otoole MD Admit Provider Active Star t: August 28, 2024 Dr. Kenya Otoole MD Attending Provider Active Start: August 28, 2024 Dr. Kenya Otoole MD Other Provider Active Star t: August 28, 2024 Team Status: Inactive Member Role Status Dates Dr. Callum Hill MD Primary Care Provider Acti ve Start: August 29, 2024 End: September 01, 2024 Dr. Brendan Hernandez MD Emergency Provider Active S tart: August 29, 2024 End: September 01, 2024 Dr. Kenya Otoole MD Admit Provider Active Star t: August 29, 2024 End: September 01, 2024 Dr. Kenya Otoole MD Other Provider Active Star t: August 29, 2024 End: September 01, 2024 Dr. Antoine Finch MD Attending Provider Active Start: August 29, 2024 End: September 01, 2024 Team Status: Active Member Role Status Dates Dr. Callum Hill MD Primary Care Provider Acti ve Start: August 30, 2024 Dr. Brendan Hernandez MD Emergency Provider Active S tart: August 30, 2024 Dr. Kenya Otoole MD Admit Provider Active Star t: August 30, 2024 Dr. Kenya Otoole MD Other Provider Active Star t: August 30, 2024 Dr. Antoine Finch MD Attending Provider Active Start: August 30, 2024 Dr. Antoine Finch MD Other Provider Active Start: August 30, 2024 Team Status: Active Member Role Status Dates Dr. Callum Hill MD Primary Care Provider Acti ve Start: August 31, 2024 Dr. Brendan Hernandez MD Emergency Provider Active S tart: August 31, 2024 Dr. Kenya Otoole MD Admit Provider Active Star t: August 31, 2024 Dr. Kenya Otoole MD Other Provider Active Star t: August 31, 2024 Dr. Antoine Finch MD Attending Provider Active Start: August 31, 2024 Dr. Antoine Finch MD Other Provider Active Start: August 31, 2024 Team Status: Active Member Role Status Dates Dr. Callum Hill MD Primary Care Provider Acti ve Start: September 01, 2024 Dr. Brendan Hernandez MD Emergency Provider Active S tart: September 01, 2024 Dr. Kenya Otoole MD Admit Provider Active Star t: September 01, 2024 Dr. Kenya Otoole MD Other Provider Active Star t: September 01, 2024 Dr. Antoine Finch MD Attending Provider Active Start: September 01, 2024 Dr. Antoine Finch MD Other Provider Active Start: September 01, 2024 (unrecognized sect ion and content) No Status Records Found INFORMATION SOURCE (unrecogn ized section and content) DATE CREATED AUTHOR 10/14/2024 [facility] FOR RECORDS PERTAINING TO PATIENTS WHO ARE OR HAVE BEEN ENROLLED IN A CHEMICAL DEPENDENCY/SUBSTANCEABUSE PROGRAM, SOME INFORMATION MAY BE OMITTED. This clinical summary was aggregated from multiple sources. Caution should be exercised in using it in the provision of clinical care. This summary normalizes information from multiple sources, and as a consequence, information in this document may materially change the coding, format and clinical context of patient data. In addition, data may be omitted in some cases. CLINICAL DECISIONS SHOULD BE BASED ON THE PRIMARY CLINICAL RECORDS. [employer] provides no warranty or guarantee of the accuracy or completeness of information in this document.
[2024-10-24 16:59] VITALS: BP 139/72; PULSE 70; RESP 17; TEMP 36.7; O2SAT 97
[2024-10-24 17:06] LABS: ALB/GLOB Ratio 1.5 RATIO (0.9-2.4); AST(SGOT) 20 U/L (<=37); Absolute Lymphocyte Count 1.63 X10^3/uL (0.83-4.51); Absolute Neutrophil Count 9.4 X10^3/uL (2.0-7.7); Alanine Aminotransfer ALT/SGPT 15 U/L (<=46); Albumin, Serum 4.1 g/dL (3.4-4.8); Alkaline Phosphatase 98 U/L (40-129); Anion Gap 10 (5-15); BUN 24 mg/dL (4-19); BUN/Creat Ratio 24.3 RATIO (10-20); Basophil# 0.07 X10^3/uL; Basophil% 0.6 % (0-1); Calcium,Total 9.4 mg/dL (7.6-11.0); Carbon Dioxide 24.7 mmol/L (21.0-32.0); Chloride 105 mmol/L (98-108); Creatinine, Serum 0.99 mg/dL (0.70-1.20); EST Glomerular Filtration Rate 75 (>60); Eosinophil# 0.11 X10^3/uL; Eosinophils% 0.9 % (0-5); Estimated Creatinine Clearance 56.42 ml/min (50-250); Globulin 2.7 g/dL (2.2-4.2); Glucose 170 mg/dL (70-99); Hematocrit 39.7 % (40-54); Lymphocyte # 1.63 X10^3/ul (0.83-4.51); Lymphocyte % 12.9 % (19-41); Mean Corp Hgb Conc 32.7 g/dL (32-36); Mean Corpuscular Volume 94.7 fL (80-94); Monocyte% 10.3 % (0-10); NRBC Flagged by Analyzer 0 % (0-5); Neutrophil # 9.42 X10^3/uL (2.7-7.7); Neutrophil % 74.8 % (47-70); Platelet Count 166 K/mm3 (150-450); Potassium 4.5 mmol/L (3.3-5.1); Protein, Total 6.8 g/dL (5.9-8.4); RBC Distribution Width CV 12.4 % (11.6-14.6); RBC Distribution Width SD 43.2 fl (35.1-43.9); Red Blood Count 4.19 M/mm3 (4.6-6.2); Sodium Level 140 mmol/L (133-145); Total Bilirubin 0.47 mg/dL (0.00-1.30); White Blood Count 12.6 K/mm3 (4.4-11.0)
--- NOTE | 2024-10-24 17:07 | CT_ITS ---
PROCEDURE: ABDOMEN/PELVIS W IV CONT ONLY 10/24/2024 REASON FOR EXAM: LLQ ABD PAIN TECHNIQUE: Abdomen and pelvis CT with intravenous contrast. Coronal and Sagittal reconstruction series were provided. PATIENT PREPARATION: Per protocol ORAL CONTRAST TYPE: None. CONTRAST: Isovue 370 VOLUME: 100 mL One or more dose reduction techniques were used (e.g., Automated exposure control, adjustment of the mA and/or kV according to patient size, use of iterative reconstruction technique. RADIATION DOSE SUMMARY: CTDlvol: 20 mGy DLP: 1000 mGycm COMPARISON: CT abdomen pelvis 08/29/2024 FINDINGS: Lung bases: Bibasilar atelectasis. Coronary artery calcifications and partially visualized pacemaker wire leads. Liver: The liver is normal in size with scattered hypodensities, too small to characterize but likely cysts. The major portal veins are patent. No biliary ductal dilation. Gallbladder: No radiopaque stones within the gallbladder. Spleen: Normal in size. Pancreas: Unremarkable. Adrenals: No adrenal mass. Kidneys: Bilateral renal cysts and additional hypodensities. No hydronephrosis or nephrolithiasis. Bladder: Distended with diffuse bladder wall thickening. Dependent bladder stones, including a [place] bladder calculus which is overlying the left ureteral jet, previously visualized overlying the right ureteral jet. Reproductive Organs: Markedly enlarged prostate. Bowel: The bowel loops are nondilated. Short-segment wall thickening and hyperenhancement of the distal descending colon within the left lower quadrant with associated inflamed diverticula. No intra- abdominal abscess. No ascites or pneumoperitoneum. Normal appendix. Lymph nodes: Prominent left lower quadrant nodes, likely reactive. Vasculature: Severe mixed calcific plaque of the aortoiliac vessels. Bones: Thoracolumbar spondylosis. 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 CT/Abdomen/Pelvis W IV Cont ONLY IMPRESSION: 1. Uncomplicated diverticulitis of the distal descending colon. No perforation or intra-abdominal abscess. 2. Diffuse bladder wall thickening with markedly enlarged prostate, likely due to chronic bladder outlet obstruction. Correlation with urinalysis recommended if concerns for UTI. Reading Location: [id number]
[2024-10-24 17:20] LABS: Bacteria 0 SEEN /hpf (None Seen); Mucous, Urine 0 SEEN /hpf (<or=2+)
--- NOTE | 2024-10-24 17:22 | EX.ED.DYSGE1 ---
HPI History of Present Illness Chief Complaint: Abd Pain Informant: patient and family Limited: dementia Narrative Narrative: Patient is an 84-year-old gentleman with history of Alzheimer's dementia, coronary artery disease, hypertension, hyperlipidemia presenting with left lower quadrant abdominal pain. states that Millinette for the couple weeks but became worse today. He was having worsening pain today which is what prompted to bring him in. She states that she thinks he had a good bowel movement yesterday but admits that she is not in pain attention to his bowel movements is much as she should. No report of any black or blood in the stool. No report of any nausea or vomiting. No fever. does note his urine has been more odorous recently but no other urinary symptoms reported. Came in for further evaluation. Patient does not have any history of abdominal surgeries per patient/. 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 Personal history of skin cancer Neoplasm of uncertain behavior of skin Frequent headaches Essential (primary) hypertension Monomorphic ventricular tachycardia Non-ischemic cardiomyopathy Left bundle branch block 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 (10/25/15) Atherosclerotic heart disease of [place] coronary artery without angina pectoris Non-ST elevation (NSTEMI) myocardial infarction (07/22/15) Obesity HLD (hyperlipidemia) GERD (gastroesophageal reflux disease) Home Medications ?Medication ?Instructions ?Recorded ?Last Taken ?Type folic acid 1 mg tablet 1 mg PO DAILY 07/21/15 08/27/24 History levothyroxine 75 mcg tablet 75 mcg PO DAILY 07/21/15 08/27/24 History donepezil 10 mg tablet 10 mg PO DAILY 06/09/19 08/27/24 History aspirin 81 mg tablet,delayed 81 mg PO QHS 12/15/19 08/27/24 History release (Adult Low Dose Aspirin) atorvastatin 40 mg tablet 40 mg PO QHS 08/31/20 08/27/24 History escitalopram oxalate 10 mg tablet 10 mg PO DAILY 08/31/20 Unknown History nitroglycerin 0.4 mg sublingual 0.4 mg sublingual Q5M PRN Chest 03/22/21 Unknown Rx tablet Pain #25 tabs memantine 10 mg tablet 10 mg PO BID 03/28/22 08/27/24 History lisinopril 5 mg tablet 5 mg PO BID #180 tabs 10/04/23 08/27/24 Rx cholecalciferol (vitamin D3) 50 50 mcg PO DAILY VITAMIN 08/28/24 08/27/24 History mcg (2,000 unit) tablet (D3 DOTS) vitamin E 268 mg (400 unit) capsule 268 mg PO DAILY 08/28/24 08/27/24 History tamsulosin 0.4 mg capsule 0.4 mg PO DAILY #0 caps 09/01/24 Unknown Rx carvedilol 25 mg tablet 25 mg PO BID #180 tabs 09/29/24 Unknown Rx cefdinir 300 mg capsule 300 mg PO BID #14 caps 10/24/24 Unknown Rx metronidazole 500 mg tablet 500 mg PO Q8H 7 days #21 tabs 10/24/24 Unknown Rx Allergy/AdvReac Type Severity Reaction Status Date / Time No Known Allergies Allergy Verified 10/24/24 16:00 Family History Mother Hypertension Arthritis Surgical History H/O squamous cell carcinoma excision History of left heart catheterization History of coronary artery stent placement (07/22/15) Social History Smoking Status: Former smoker how long ago did patient quit smokin alcohol intake: never substance use type: does not use caffeine: No what type of physical activity do you participate in: other details: [place] frequency: 1-2 times per week duration: 45-60 minutes/day seatbelt use: always do you feel safe at home: Yes additional social history: DOES TAKE ASPIRIN ROS ROS ED Constitutional Constitutional ED: Denies chills or fever(s) Gastrointestinal Gastrointestinal: Reports abdominal pain; Denies constipation, diarrhea, nausea or vomiting Genitourinary Genitourinary ED: Denies dysuria, hematuria or urinary frequency Musculoskeletal Musculoskeletal: Reports back pain Psychiatric Psychiatric: Denies anxiety Hematologic/Lymphatic Hematologic/Lymphatic: Denies easy bleeding or easy bruising EXAM Physical Exam Const Vital Signs: 10/24/24 15:57 10/24/24 16:59 10/24/24 17:57 Temperature 98.1 F 98.1 F Temperature Source Oral Oral Pulse Rate 70 70 65 Respiratory Rate 17 17 18 Blood Pressure 139/72 H 139/72 H 132/77 H Blood Pressure Mean 94 94 95 Pulse Ox 97 97 99 Oxygen Delivery Method Room Air Room Air 10/24/24 18:32 Temperature 97.9 F Temperature Source Pulse Rate 65 Respiratory Rate 18 Blood Pressure 132/77 H Blood Pressure Mean 95 Pulse Ox 99 Oxygen Delivery Method Positive well nourished and well developed General Appearance ED: well developed and NAD HEENT Reports moist mucous membranes Chest Wall inspection of chest normal Resp normal respiratory effort and clear to auscultation bilaterally Cardio regular rate and regular rhythm GI non-tender GI Narrative: Protuberant abdomen. No hernias appreciated. Auscultation: hyperactive bowel sounds Palpation: soft and tender LLQ; Negative for guarding Back/Spine no CVA tenderness Extremity normal to inspection General Extremety ED: Negative for edema General Extremity: Negative for edema Neuro Neuro Narrative: At baseline per Sensorium / Orientation: alert Motor Exam: Negative for general weakness Psych mental status grossly normal Skin no rashes or lesions noted and no wounds MDM MDM MDM Narrative Medical decision making narrative: Patient valuated for worsening left lower quadrant abdominal pain. Patient is a poor historian secondary to dementia. Differential includes diverticulitis, renal colic, pyelonephritis/urinary tract infection, volvulus, small bowel obstruction and muscle skeletal pain. No hernia appreciated on exam. Patient is pain-free at this time and does not require any pain medication. He has a mild leukocytosis with white blood cell count of 12.6. No left shift. CMP largely normal. Urinalysis not consistent with infection. CT abdomen pelvis shows uncomplicated diverticulitis of the distal descending colon. This is consistent with his presentation. In addition there is diffuse bladder wall thickening markedly enlarged prostate however patient was discharged on prostate medication and I do not think this is associated with his acute presentation today. Patient be started on Flagyl and Omnicef for antibiotic treatment especially given associated leukocytosis and worsening abdominal pain. Counseled on full liquid diet. Given return precautions. Counseled follow-up with primary care doctor. Discharged home in stable condition. Patient and agreeable with plan of care. Lab Data Attestation: I reviewed the patient's lab results. Labs: Laboratory Results - last 24 hr 10/24/24 10/24/24 16:41 17:16 WBC 12.6 H RBC 4.19 L Hgb 13.0 Hct 39.7 L MCV 94.7 H MCH 31.0 MCHC 32.7 RDW Std Deviation 43.2 RDW Coeff of Maryana 12.4 Plt Count 166 MPV 11.0 Immature Gran % (Auto) 0.500 Neut % (Auto) 74.8 H Lymph % (Auto) 12.9 L [place] % (Auto) 10.3 H Eos % (Auto) 0.9 Baso % (Auto) 0.6 Absolute Neuts (auto) 9.4 H Absolute Lymphs (auto) 1.63 Nucleated RBC % 0 Sodium 140 Potassium 4.5 Chloride 105 Carbon Dioxide 24.7 Anion Gap 10 BUN 24 H Creatinine 0.99 Estim Creat Clear Calc 56.42 Est GFR (MDRD) Non-Af 75 BUN/Creatinine Ratio 24.3 H Glucose 170 H Calcium 9.4 Total Bilirubin 0.47 AST 20 ALT 15 Alkaline Phosphatase 98 Total Protein 6.8 Albumin 4.1 Globulin 2.7 Albumin/Globulin Ratio 1.5 Urine Color Yellow Urine Clarity Clear Urine pH 6.0 Ur Specific [place] 1.020 Urine Protein 15 H Urine Glucose (UA) Normal Urine Ketones Negative Urine Occult Blood 25 H Urine Nitrite Negative Urine Bilirubin Negative Urine Urobilinogen Normal Ur Leukocyte Esterase 25 H Urine RBC 0-5 SEEN Urine WBC 0-5 SEEN Ur Squamous Epith Cells 0-5 SEEN Urine Bacteria 0 SEEN Urine Mucus 0 SEEN Radiography Diagnostic Testing: Clinical Impression(s) from Imaging Studies Abdomen/Pelvis CT 10/24/24 17:07 IMPRESSION: 1. Uncomplicated diverticulitis of the distal descending colon. No perforation or intra-abdominal abscess. 2. Diffuse bladder wall thickening with markedly enlarged prostate, likely due to chronic bladder outlet obstruction. Correlation with urinalysis recommended if concerns for UTI. Reading Location: [id number] Discharge Plan Triage Chief Complaint: Abd Pain ED Provider: Jammie Machuca Dx/Rx/DC Orders Clinical Impression: Diverticulitis Instructions: ED Diverticulitis, ED Full Liquid Diet Prescriptions: New metronidazole 500 mg tablet 500 mg PO Q8H 7 Days Qty: 21 0RF cefdinir 300 mg capsule 300 mg PO BID Qty: 14 0RF No Action donepezil 10 mg tablet 10 mg PO DAILY aspirin [Adult Low Dose Aspirin] 81 mg tablet,delayed release (DR/EC) 81 mg PO QHS atorvastatin 40 mg tablet 40 mg PO QHS escitalopram oxalate 10 mg tablet 10 mg PO DAILY nitroglycerin 0.4 mg tablet, sublingual 0.4 mg SUBLINGUAL Q5M PRN (Reason: Chest Pain) Qty: 25 3RF memantine 10 mg tablet 10 mg PO BID lisinopril 5 mg tablet 5 mg PO BID Qty: 180 3RF levothyroxine 75 MCG tablet 75 mcg PO DAILY folic acid 1 MG tablet 1 mg PO DAILY Patient Comments: cholecalciferol (vitamin D3) [D3 DOTS] 50 mcg (2,000 unit) tablet 50 mcg PO DAILY vitamin E 268 mg (400 unit) capsule 268 mg PO DAILY tamsulosin 0.4 mg Capsule 0.4 mg PO DAILY Qty: 0 0RF carvedilol 25 mg tablet 25 mg PO BID Qty: 180 3RF Rx Instructions: give with food (meal/snack) Primary Care Provider: Callum Hill Referrals: Callum Hill MD [Primary Care Provider] - Activity Restrictions/Additional Instructions: Your CT today showed acute diverticulitis. There are no complication at this time. Recommendation is for full liquid diet for the next 24 to 48 hours and then advance diet as tolerated. If pain returns then go back to the liquid diet. Make sure drinking plenty of fluids. Alternate ibuprofen and Tylenol as needed for pain. If pain becomes severe/uncontrollable, there is blood in the stool or if he develops fever please return to the emergency room. Otherwise please follow-up with family doctor in 1 week Print Language: Yoruba Disposition Disposition: Home, Self Care
[2024-10-24 17:27] LABS: Color, Urine Yellow (Yellow); Glucose, Dipstick Normal (Normal); Ketone-Dipstick Negative (Negative); Leukocyte Esterase-Dipstick 25 /ul (Negative); Nitrite-Dipstick Negative (Negative); Occult Blood-Urine 25 /ul (Negative); Protein-Dipstick 15 mg/dl (Negative); Urine Bilirubin Dipstick Negative (Negative); Urine Clarity Clear (Clear); Urine Urobilinogen Normal (Normal)
[2024-10-24 17:37] LABS: Red Blood Cells-Urine 0-5 SEEN /hpf (0-5); Squamous Epithelial Cells - UA 0-5 SEEN /hpf (0-5); White Blood Cells 0-5 SEEN /hpf (0-5)
[2024-10-24 17:57] VITALS: BP 132/77; PULSE 65; RESP 18; O2SAT 99
[2024-10-24 18:32] VITALS: BP 132/77; PULSE 65; RESP 18; TEMP 36.6; O2SAT 99
[2024-10-24] MEDS: metroNIDAZOLE 500 MG Tablet PO (18:42)
[2024-10-24] MEDS: Cefdinir 300 MG Capsule PO (18:42)
== END 2024-10-24 19:05 | disposition home or self-care (01) ==
PROVIDERS: Emergency Provider Emergency Medicine; PCP Family Medicine; Visit Provider Emergency Medicine
DX: K57.32 Diverticulitis of large intestine without perforation or abscess without bleeding (principal); F02.80 Dementia in other diseases classified elsewhere, unspecified severity, without behavioral disturbance, psychotic disturbance, mood disturbance, and anxiety; G30.9 Alzheimer's disease, unspecified; E78.5 Hyperlipidemia, unspecified; R10.32 Left lower quadrant pain; Z87.891 Personal history of nicotine dependence; I25.10 Atherosclerotic heart disease of native coronary artery without angina pectoris; I10 Essential (primary) hypertension; K21.9 Gastro-esophageal reflux disease without esophagitis
CPT/HCPCS: 74177; 80053; 81001; 85025; 99283; Q9967; A4216

== ENCOUNTER → 2024-11-22 | Outpatient (CLI) | payer MEDICARE, SELFPAY ==
[2024-11-22 18:09] LABS: Hematocrit 40.1 % (40-54); Hemoglobin 13.4 g/dL (13.0-16.5); Mean Corp Hgb Conc 33.4 g/dL (32-36); Mean Corpuscular Volume 94.8 fL (80-94); Mean Platelet Vol. 11.5 fl (6.2-12.0); Platelet Count 161 K/mm3 (150-450); RBC Distribution Width CV 12.7 % (11.6-14.6); RBC Distribution Width SD 44.4 fl (35.1-43.9); Red Blood Count 4.23 M/mm3 (4.6-6.2); White Blood Count 7.4 K/mm3 (4.4-11.0)
[2024-11-22 18:56] LABS: Anion Gap 15 (5-15); BUN 16 mg/dL (4-19); BUN/Creat Ratio 22.5 RATIO (10-20); Calcium,Total 9.0 mg/dL (7.6-11.0); Carbon Dioxide 19.5 mmol/L (21.0-32.0); Chloride 107 mmol/L (98-108); Glucose 152 mg/dL (70-99); Potassium 4.1 mmol/L (3.3-5.1)
== END | disposition home or self-care (01) ==
LOC: MFPLAB 17:04
PROVIDERS: PCP Family Medicine; Referring Provider Nurse Practitioner Family; Visit Provider Nurse Practitioner Family
DX: R42 Dizziness and giddiness (principal)
CPT/HCPCS: 36415; 80048; 85027

== ENCOUNTER 2025-01-10 10:45 | Emergency (ER) | payer OTHER, SELFPAY ==
[2025-01-10] VITALS (21 sets, daily range): BP systolic 107–144; BP diastolic 68–98; PULSE 27–100; RESP 12–98; TEMP 36.4–36.7; O2SAT 94–100; BMI 28.9
--- NOTE | 2025-01-10 11:07 | ED.VIS.CHEST ---
HPI History of Present Illness Chief Complaint: Chest Pain Informant: spouse/S.O. Onset/Context/Timing Onset: Today Activity at onset: sudden Timing: Continuous Quality: Positive for Burning Location: Left Chest and - (Left arm) Worsened By: Nothing Relieved By: Nothing Associated Symptoms: Positive for Dyspnea; Negative for Nausea, Vomiting, Diaphoresis, Cough, Fever or Lightheadedness Narrative Narrative: Patient presents with chest pain that began this morning at approximately 0910. states the patient was complaining of some burning in his chest and left arm. noted that the patient was having some shortness of breath. denies any nausea or vomiting. denies any diaphoresis. denies any cough or fevers. states that the patient was recently discontinued from his lisinopril due to his blood pressures running low. Patient has a history of dementia and is a poor informant. 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 Personal history of skin cancer Neoplasm of uncertain behavior of skin Frequent headaches Essential (primary) hypertension Monomorphic ventricular tachycardia Non-ischemic cardiomyopathy Left bundle branch block 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 (10/25/15) Atherosclerotic heart disease of [place] coronary artery without angina pectoris Non-ST elevation (NSTEMI) myocardial infarction (07/22/15) Obesity HLD (hyperlipidemia) GERD (gastroesophageal reflux disease) Home Medications ?Medication ?Instructions ?Recorded ?Last Taken ?Type folic acid 1 mg tablet 1 mg PO DAILY 07/21/15 01/09/25 History levothyroxine 75 mcg tablet 75 mcg PO DAILY 07/21/15 01/10/25 History donepezil 10 mg tablet 10 mg PO DAILY 06/09/19 01/10/25 History aspirin 81 mg tablet,delayed 81 mg PO QHS 12/15/19 01/09/25 History release (Adult Low Dose Aspirin) atorvastatin 40 mg tablet 40 mg PO QHS 08/31/20 01/09/25 History nitroglycerin 0.4 mg sublingual 0.4 mg sublingual Q5M PRN Chest 03/22/21 Unknown Rx tablet Pain #25 tabs memantine 10 mg tablet 10 mg PO BID 03/28/22 01/10/25 History cholecalciferol (vitamin D3) 50 50 mcg PO DAILY VITAMIN 08/28/24 01/10/25 History mcg (2,000 unit) tablet (D3 DOTS) vitamin E 268 mg (400 unit) capsule 268 mg PO DAILY 08/28/24 01/09/25 History tamsulosin 0.4 mg capsule 0.4 mg PO DAILY #0 caps 09/01/24 01/10/25 Rx carvedilol 25 mg tablet 25 mg PO BID #180 tabs 09/29/24 01/10/25 Rx cyanocobalamin (vitamin B-12) 2,500 mcg PO DAILY 01/10/25 01/09/25 History 2,500 mcg tablet Allergy/AdvReac Type Severity Reaction Status Date / Time No Known Allergies Allergy Verified 10/24/24 16:00 Family History Mother Hypertension Arthritis Surgical History H/O squamous cell carcinoma excision History of left heart catheterization History of coronary artery stent placement (07/22/15) Social History Smoking Status: Former smoker how long ago did patient quit smokin alcohol intake: never substance use type: does not use caffeine: No what type of physical activity do you participate in: other details: [place] frequency: 1-2 times per week duration: 45-60 minutes/day seatbelt use: always do you feel safe at home: Yes additional social history: DOES TAKE ASPIRIN ROS ROS ED Review of Systems ROS Unobtainable: due to mental condition Constitutional Constitutional ED: Denies chills or fever(s) Cardiovascular Cardiovascular: Reports chest pain Respiratory/Chest Respiratory/Chest: Reports dyspnea; Denies cough Gastrointestinal Gastrointestinal: Denies nausea or vomiting Musculoskeletal Musculoskeletal: Reports back pain; Denies neck pain EXAM Physical Exam Const Vital Signs: 01/10/25 10:46 01/10/25 10:59 01/10/25 11:18 Temperature 97.5 F L Temperature Source Temporal Pulse Rate 27 L 74 68 Respiratory Rate 98 H 14 14 Blood Pressure 138/74 H 144/75 H 116/68 Blood Pressure Mean 95 98 84 Pulse Ox 97 98 95 Oxygen Delivery Method Room Air 01/10/25 11:30 01/10/25 11:58 01/10/25 12:00 Temperature Temperature Source Pulse Rate 69 75 66 Respiratory Rate 15 18 16 Blood Pressure 144/76 H 142/72 H Blood Pressure Mean 98 91 Pulse Ox 94 Oxygen Delivery Method Room Air 01/10/25 12:11 01/10/25 12:15 01/10/25 12:30 Temperature Temperature Source Pulse Rate Respiratory Rate Blood Pressure 137/73 H 107/86 H Blood Pressure Mean 94 91 Pulse Ox Oxygen Delivery Method Room Air 01/10/25 12:35 01/10/25 12:45 01/10/25 13:08 Temperature Temperature Source Pulse Rate 75 88 Respiratory Rate 18 20 H Blood Pressure 134/74 H Blood Pressure Mean 92 Pulse Ox Oxygen Delivery Method 01/10/25 13:15 01/10/25 13:30 01/10/25 13:45 Temperature Temperature Source Pulse Rate 77 68 70 Respiratory Rate 19 H 14 20 H Blood Pressure Blood Pressure Mean Pulse Ox Oxygen Delivery Method 01/10/25 14:00 01/10/25 14:15 01/10/25 14:30 Temperature Temperature Source Pulse Rate 76 77 72 Respiratory Rate 16 14 12 Blood Pressure Blood Pressure Mean Pulse Ox Oxygen Delivery Method 01/10/25 14:45 01/10/25 15:00 01/10/25 15:13 Temperature Temperature Source Pulse Rate 75 66 100 Respiratory Rate 16 23 H 26 H Blood Pressure 140/93 H Blood Pressure Mean 108 Pulse Ox 95 Oxygen Delivery Method Positive well nourished and well developed Constitutional Narrative: BMI is 28.9. General Appearance ED: well developed and NAD HEENT Reports moist mucous membranes normocephalic and atraumatic Neck supple and no JVD Resp normal respiratory effort and clear to auscultation bilaterally Cardio regular rate and regular rhythm GI soft to palpation, non-tender and non-distended Extremity normal to inspection General Extremety ED: Negative for edema General Extremity: Negative for edema Neuro CN's II-XII intact bilaterally and no sensory deficits noted Sensorium / Orientation: awake and alert Motor Exam: strength 5/5 throughout Heart Score History: Slightly/Non-Suspicious ECG: Nonspecific Repolarization Age: >/= 65 years Risk Factors: 1 or 2 Risk Factors Troponin: </= Normal Limit Score: 4 MDM MDM MDM Narrative Medical decision making narrative: Differential diagnosis includes cardiac dysrhythmia, cardiac ischemia, pneumonia, bronchitis, electrolyte abnormality, gastroesophageal reflux disease, and anxiety. EKG will be obtained to assess for cardiac dysrhythmia and cardiac ischemia. Chest x-ray will be obtained to assess for pneumonia or bronchitis. CBC will be obtained to assess for leukocytosis and anemia. Basic metabolic profile will be obtained to assess for electrolyte abnormality and renal function. High-sensitivity troponin will be obtained to assess for cardiac ischemia. 2-hour repeat high-sensitivity troponin will be obtained to assess for ongoing cardiac ischemia. Lab Data Attestation: I reviewed the patient's lab results. Lab results narrative: CBC was reviewed and was within normal limits. Basic metabolic profile was reviewed and was essentially within normal limits. Initial high-sensitivity troponin was reviewed and was normal at 19. 2-hour repeat high-sensitivity troponin was reviewed and was normal at 16. Labs: Laboratory Results - last 24 hr 01/10/25 01/10/25 10:55 15:04 WBC 9.2 RBC 4.67 Hgb 14.8 Hct 43.6 MCV 93.4 MCH 31.7 MCHC 33.9 RDW Std Deviation 41.9 RDW Coeff of [place] 12.2 Plt Count 180 MPV 11.1 Immature Gran % (Auto) 0.700 Neut % (Auto) 64.0 Lymph % (Auto) 22.4 [place] % (Auto) 8.9 Eos % (Auto) 3.2 Baso % (Auto) 0.8 Absolute Neuts (auto) 5.9 Absolute Lymphs (auto) 2.06 Nucleated RBC % 0 Sodium 142 Potassium 4.5 Chloride 104 Carbon Dioxide 26.9 Anion Gap 11 BUN 16 Creatinine 0.92 Estim Creat Clear Calc 60.93 Est GFR (MDRD) Non-Af 83 BUN/Creatinine Ratio 17.1 Glucose 123 H Calcium 9.6 Troponin T High Sens 19 D Troponin T Hi Sens 2 Hr 16 Radiography Chest X-Ray - ED: 2 View, Read by ED Physician, Read by Radiologist and No Acute Disease Diagnostic Testing: Clinical Impression(s) from Imaging Studies Chest X-Ray 01/10/25 12:30 IMPRESSION: Stable mild cardiomegaly with mild pulmonary vascular congestion. Reading Location: [id number][NOTE 3] PA and lateral chest x-ray was obtained. There are 2 views. On my independent interpretation, lung celeste show mild pulmonary vascular congestion. There is mild cardiomegaly. Bony thorax is normal. There is no acute process noted. Radiologist also interpreted the x-ray and agrees. EKG Initial EKG: Attestation: I personally reviewed and interpreted this EKG as follows: Interpretation: Paced (82) Comments: EKG was obtained. On my independent interpretation, it shows a paced rhythm with frequent PVCs with a rate of 82. VT interval was normal at approximately 160 ms. QRS interval was prolonged at 178 ms. QTc interval was 502 ms. There is right axis deviation at 181. Prior EKG tracings: available for review Prior: Unchanged (08/28/2024) Treatment and Re-Evaluation :: Patient's pacemaker was interrogated. There were no significant dysrhythmias. There were only some PVCs noted. There is no defibrillation noted. The patient and spouse were advised of the findings. Since the patient has no further chest pain here and a normal delta troponin, feel the patient can be discharged home. Patient was instructed to follow-up with his primary care physician in 5 to 7 days. Patient was instructed to return if worse in any way. Patient and spouse understood and were agreeable with the plan. All questions were answered. Discharge Plan Triage Chief Complaint: Chest Pain ED Provider: Josue Le Dx/Rx/DC Orders Clinical Impression: Chest pain, Essential (primary) hypertension, History of dementia Instructions: ED Chest Pain, Uncertain Cause Prescriptions: No Action donepezil 10 mg tablet 10 mg PO DAILY aspirin [Adult Low Dose Aspirin] 81 mg tablet,delayed release (DR/EC) 81 mg PO QHS atorvastatin 40 mg tablet 40 mg PO QHS nitroglycerin 0.4 mg tablet, sublingual 0.4 mg SUBLINGUAL Q5M PRN (Reason: Chest Pain) Qty: 25 3RF memantine 10 mg tablet 10 mg PO BID levothyroxine 75 MCG tablet 75 mcg PO DAILY folic acid 1 MG tablet 1 mg PO DAILY Patient Comments: cholecalciferol (vitamin D3) [D3 DOTS] 50 mcg (2,000 unit) tablet 50 mcg PO DAILY vitamin E 268 mg (400 unit) capsule 268 mg PO DAILY tamsulosin 0.4 mg Capsule 0.4 mg PO DAILY Qty: 0 0RF cyanocobalamin (vitamin B-12) 2,500 mcg tablet 2,500 mcg PO DAILY carvedilol 25 mg tablet 25 mg PO BID Qty: 180 3RF Rx Instructions: give with food (meal/snack) Primary Care Provider: Callum Hill Referrals: Callum Hill MD [Primary Care Provider] - 5-7 Days Print Language: [place] Disposition Disposition: Home, Self Care
--- NOTE | 2025-01-10 12:15 | EKG12_ITS ---
Test Reason : LOW HR Blood Pressure : */* mmHG Vent. Rate : 82 BPM Atrial Rate : 82 BPM P-R Int : * ms QRS Dur : 178 ms QT Int : 430 ms P-R-T Axes : * 181 36 degrees QTcB Int : 502 ms Ventricular-paced rhythm with frequent Premature ventricular complexes Biventricular pacemaker detected Abnormal ECG Confirmed by AMANDA LEE ([id number]), news copy editor BRITTANI BENSON ([id number]) on 01/12/2025 1:56:47 PM Referred By: Confirmed By: AMANDA LEE
[2025-01-10 12:19] LABS: Hematocrit 43.6 % (40-54); Hemoglobin 14.8 g/dL (13.0-16.5); Immature Granulocytes Count 0.060 X10^3/uL (0.0-0.0); Mean Corp Hgb Conc 33.9 g/dL (32-36); Mean Corpuscular Volume 93.4 fL (80-94); Mean Platelet Vol. 11.1 fl (6.2-12.0); NRBC Flagged by Analyzer 0 % (0-5); Platelet Count 180 K/mm3 (150-450); RBC Distribution Width CV 12.2 % (11.6-14.6); RBC Distribution Width SD 41.9 fl (35.1-43.9); Red Blood Count 4.67 M/mm3 (4.6-6.2); White Blood Count 9.2 K/mm3 (4.4-11.0)
--- NOTE | 2025-01-10 12:30 | RAD_ITS ---
PROCEDURE: CHEST PA AND LATERAL 01/10/2025 REASON FOR EXAM: CHEST PAIN TECHNIQUE: AP upright portable radiograph the chest was obtained as well as a lateral view. COMPARISON: Chest x-ray dated 08/28/[address] scan of the chest dated 08/29/2024 FINDINGS: Hardware: Cardiac pacemaker device is identified in the left pectoral region with leads in satisfactory position. Heart: Heart size is mildly enlarged however similar in size and configuration when compared to the prior study. Mediastinum: Pulmonary vasculature is minimally prominent centrally. Arteriosclerotic vascular disease of the aorta is noted. Trachea is midline. Mediastinal silhouette is within normal limits. Lungs: Lungs are expanded and clear without evidence of atelectasis, consolidation, effusion, pneumonic infiltrate or pneumothorax. Bones: Degenerative changes of the thoracic spine are noted. Diffuse osteopenia of the bony thorax is noted. RAD/Chest PA and Lateral IMPRESSION: Stable mild cardiomegaly with mild pulmonary vascular congestion. Reading Location: [id number]
[2025-01-10 13:03] LABS: Anion Gap 11 (5-15); BUN 16 mg/dL (4-19); BUN/Creat Ratio 17.1 RATIO (10-20); Calcium,Total 9.6 mg/dL (7.6-11.0); Carbon Dioxide 26.9 mmol/L (21.0-32.0); Chloride 104 mmol/L (98-108); Estimated Creatinine Clearance 60.93 ml/min (50-250); Glucose 123 mg/dL (70-99); Potassium 4.5 mmol/L (3.3-5.1)
[2025-01-10 13:04] LABS: Troponin T High Sensitivity 19 ng/L (<=22)
[2025-01-10 15:47] LABS: Troponin T High Sens 2 HR 16 ng/L (<=22)
== END 2025-01-10 16:14 | disposition home or self-care (01) ==
PROVIDERS: Emergency Provider Emergency Medicine; PCP Family Medicine; Visit Provider Emergency Medicine
DX: R07.9 Chest pain, unspecified (principal); F03.90 Unspecified dementia, unspecified severity, without behavioral disturbance, psychotic disturbance, mood disturbance, and anxiety; Z87.891 Personal history of nicotine dependence; I25.10 Atherosclerotic heart disease of native coronary artery without angina pectoris; E78.00 Pure hypercholesterolemia, unspecified; R06.02 Shortness of breath; I10 Essential (primary) hypertension; Z79.890 Hormone replacement therapy; Z79.82 Long term (current) use of aspirin; Z79.899 Other long term (current) drug therapy; K21.9 Gastro-esophageal reflux disease without esophagitis; Z95.0 Presence of cardiac pacemaker
CPT/HCPCS: 71046; 80048; 84484; 85025; 93005; 99284; A4216

== ENCOUNTER → 2025-01-25 | Outpatient (CLI) | payer MEDICARE, SELFPAY ==
[2025-01-25 13:11] LABS: Hematocrit 42.3 % (40-54); Hemoglobin 14.2 g/dL (13.0-16.5); Mean Corp Hgb Conc 33.6 g/dL (32-36); Mean Corpuscular Volume 93.2 fL (80-94); Mean Platelet Vol. 11.2 fl (6.2-12.0); Platelet Count 185 K/mm3 (150-450); RBC Distribution Width CV 12.3 % (11.6-14.6); RBC Distribution Width SD 42.5 fl (35.1-43.9); Red Blood Count 4.54 M/mm3 (4.6-6.2); White Blood Count 8.3 K/mm3 (4.4-11.0)
[2025-01-25 13:35] LABS: Iron 105 ug/dL (65-175)
[2025-01-25 13:40] LABS: PTHIN 57 pg/mL (11-61)
[2025-01-25 13:48] LABS: AST(SGOT) 25 U/L (<=37); Alanine Aminotransfer ALT/SGPT 21 U/L (<=46); Albumin, Serum 4.1 g/dL (3.4-4.8); Alkaline Phosphatase 99 U/L (40-129); Anion Gap 10 (5-15); BUN 18 mg/dL (4-19); BUN/Creat Ratio 20.2 RATIO (10-20); Calcium,Total 9.1 mg/dL (7.6-11.0); Carbon Dioxide 23.7 mmol/L (21.0-32.0); Chloride 105 mmol/L (98-108); Ferritin 72 ng/mL (37-417); Globulin 2.5 g/dL (2.2-4.2); Glucose 149 mg/dL (70-99); Iron 106 ug/dL (65-175); Potassium 4.5 mmol/L (3.3-5.1)
[2025-01-27 13:08] LABS: Vitamin D 1,25-Dihydroxy 56.7 pg/mL (24.8-81.5)
[2025-02-02 16:09] LABS: VITAMIN B6 3.5 ug/L (3.4-65.2); Vitamin B1, Thiamine 90.5 nmol/L (66.5-200.0)
== END | disposition home or self-care (01) ==
LOC: MTLAB 10:00
PROVIDERS: PCP Family Medicine; Referring Provider Psychiatry & Neurology Neurology; Visit Provider Psychiatry & Neurology Neurology
DX: E13.22 Other specified diabetes mellitus with diabetic chronic kidney disease (principal); G30.9 Alzheimer's disease, unspecified; F02.80 Dementia in other diseases classified elsewhere, unspecified severity, without behavioral disturbance, psychotic disturbance, mood disturbance, and anxiety; Z86.73 Personal history of transient ischemic attack (TIA), and cerebral infarction without residual deficits; Z86.2 Personal history of diseases of the blood and blood-forming organs and certain disorders involving the immune mechanism; I12.9 Hypertensive chronic kidney disease with stage 1 through stage 4 chronic kidney disease, or unspecified chronic kidney disease; N18.9 Chronic kidney disease, unspecified
CPT/HCPCS: 36415; 80053; 82652; 82728; 83540; 83970; 84207; 84425; 84443; 85027

== ENCOUNTER → 2025-02-07 | Outpatient (CLI) | payer MEDICARE, SELFPAY ==
--- NOTE | 2025-02-07 18:26 | CT_ITS ---
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 One or more dose reduction techniques were used (e.g., Automated exposure control, adjustment of the mA and/or kV according to patient size, use of iterative reconstruction technique. RADIATION DOSE SUMMARY: CTDlvol: 45 mGy DLP: 832 mGycm COMPARISON: 08/28/2024 FINDINGS: Normal appearance of the brainstem and cerebellum. Mild atrophy. Negative for hydrocephalus. Positive for chronic microvascular changes in the periventricular white matter. No hemorrhage. Sinuses are clear. CT/Brain/Head without Contrast IMPRESSION: No acute abnormality Reading Location: [facility]
== END | disposition home or self-care (01) ==
PROVIDERS: PCP Family Medicine; Referring Provider Psychiatry & Neurology Neurology; Visit Provider Psychiatry & Neurology Neurology
DX: G30.9 Alzheimer's disease, unspecified (principal); F02.80 Dementia in other diseases classified elsewhere, unspecified severity, without behavioral disturbance, psychotic disturbance, mood disturbance, and anxiety; I67.9 Cerebrovascular disease, unspecified
CPT/HCPCS: 70450

== ENCOUNTER → 2025-05-10 | Outpatient (CLI) | payer MEDICARE, SELFPAY ==
[2025-05-10 09:28] LABS: Mucous, Urine 0 SEEN /hpf (<or=2+); Squamous Epithelial Cells - UA 0 SEEN /hpf (0-5)
[2025-05-10 09:54] LABS: Color, Urine Yellow (Yellow); Glucose, Dipstick 100 mg/dl (Normal); Ketone-Dipstick Negative (Negative); Leukocyte Esterase-Dipstick Negative /ul (Negative); Nitrite-Dipstick Negative (Negative); Occult Blood-Urine 25 /ul (Negative); Protein-Dipstick 30 mg/dl (Negative); Specific Gravity, Urine 1.025 (1.002-1.030); Urine Bilirubin Dipstick Negative (Negative)
[2025-05-10 10:02] LABS: Red Blood Cells-Urine 0-5 SEEN /hpf (0-5)
== END | disposition home or self-care (01) ==
LOC: MTLAB 09:24
PROVIDERS: PCP Family Medicine; Referring Provider Family Medicine; Visit Provider Family Medicine
DX: E03.9 Hypothyroidism, unspecified (principal); F03.90 Unspecified dementia, unspecified severity, without behavioral disturbance, psychotic disturbance, mood disturbance, and anxiety
CPT/HCPCS: 81001; 87086; 87088